=== PATIENT | female | born 1945 | race Caucasian/White ===

== ENCOUNTER → 2017-01-11 | Outpatient (CLI) | payer OTHER ==
[~2017-01-11] MED LIST: ACET-1256 PO; ADVIN10/60 INH; ASPEC325 PO; ATOR-22 PO; BIOT1CAP8; CHOL100010 PO; CLTP PO; DILT-115; DSY50 PO; FLUO10CA48 PO; HYDR-3419 PO; ISOS30TA3 PO; LOSA1TAB PO; MELO15TA3 PO; OMEP10CA2 PO; PREG100C PO; SIMV40TA2 PO; TRAM-10 PO
[2017-01-11 14:08] LABS: CHOLESTEROL/HDL RATIO 2.2
== END | disposition home or self-care (01) ==
LOC: C.LAB1850 10:13
PROVIDERS: ATTEND Internal Medicine Cardiovascular Disease
DX: I10 Essential (primary) hypertension (principal); E78.00 Pure hypercholesterolemia, unspecified

== ENCOUNTER → 2017-02-11 | Outpatient (CLI) | payer OTHER ==
[~2017-02-11] MED LIST changes: -DSY50 PO
[2017-02-11 17:10] LABS: BLOOD UREA NITROGEN 13 mg/dl (7-18); BUN/CREATININE RATIO 19.9 (10-20); CALCIUM 9.3 mg/dl (8.5-10.1); CARBON DIOXIDE 31 mmol/L (21-32); CHLORIDE 105 mmol/L (98-107); CREATININE 0.63 mg/dl (0.60-1.20); GLUCOSE 85 mg/dl (70-99); POTASSIUM 3.5 mmol/L (3.5-5.1); SODIUM 142 mmol/L (136-145)
== END | disposition home or self-care (01) ==
LOC: C.LABBC 14:57
PROVIDERS: ATTEND Internal Medicine Cardiovascular Disease
DX: R60.0 Localized edema (principal)

== ENCOUNTER → 2017-07-23 | Outpatient (CLI) | payer OTHER ==
[~2017-07-23] MED LIST changes: -SIMV40TA2 PO
[2017-07-23 10:15] LABS: ALB/GLOB RATIO 0.8 (0.9-2); ALT/SGPT 13 U/L (12-78); AST/SGOT 13 U/L (15-37); BLOOD UREA NITROGEN 7 mg/dl (7-18); BUN/CREATININE RATIO 10.4 (10-20); CALCIUM 9.2 mg/dl (8.5-10.1); CARBON DIOXIDE 30 mmol/L (21-32); CHLORIDE 106 mmol/L (98-107); CHOLESTEROL 142 mg/dl (0-200); CREATININE 0.69 mg/dl (0.60-1.20); GLUCOSE 92 mg/dl (70-99); MAGNESIUM 2.1 mg/dl (1.8-2.4); SODIUM 142 mmol/L (136-145); TRIGLYCERIDES 79 mg/dl (0-150); VERY LOW DENSITY LIPOPROT CALC 16 mg/dl
[2017-07-23 10:18] LABS: ALKALINE PHOSPHATASE 114 U/L (45-117); CHOLESTEROL/HDL RATIO 1.9; HDL CHOLESTEROL 75 mg/dl; LDL CHOLESTEROL CALCULATED 51 mg/dl
== END | disposition home or self-care (01) ==
LOC: C.LAB1850 08:53
PROVIDERS: ATTEND Internal Medicine Cardiovascular Disease
DX: E78.00 Pure hypercholesterolemia, unspecified (principal); I10 Essential (primary) hypertension; I25.10 Atherosclerotic heart disease of native coronary artery without angina pectoris; E55.9 Vitamin D deficiency, unspecified

== ENCOUNTER → 2018-01-19 | Outpatient (CLI) | payer OTHER ==
[~2018-01-19] MED LIST changes: -HYDR-3419 PO
== END | disposition home or self-care (01) ==
LOC: C.LAB1850 12:22
PROVIDERS: ATTEND Internal Medicine Cardiovascular Disease
DX: E78.00 Pure hypercholesterolemia, unspecified (principal); M85.80 Other specified disorders of bone density and structure, unspecified site; E55.9 Vitamin D deficiency, unspecified

== ENCOUNTER 2019-07-24 06:43 | Observation (INO) ==
[2019-07-24] MEDS ORDERED: SODIUM CHLORIDE 0.9% 1000ML 500 ML IV ONE (07:20)
--- NOTE | 2019-07-24 07:35 | XRay Report ---
XR ankle RT min 3V routine CLINICAL HISTORY: 74 years-old Female presenting with ankle pain. TECHNIQUE: Frontal, mortise, and lateral views of the right ankle were obtained. COMPARISON: None. FINDINGS: Osteopenia. Surgical clips noted along the medial aspect of the lower leg possibly from prior vascula r surgery. Diffuse subcutaneous edema is suggested. Nondisplaced fracture of the medial malleolus and distal fibular metaphysis suspected. The degree of osteopenia and lack of displacement limited evalu ation. There is also widening of the anterior ankle mortise up to 9 mm. There may also be a nondispla hal fracture plane of the posterior malleolus. The tibiofibular syndesmosis is congruent. Degenerativ e changes of the ankle mortise are also evident. Degenerative changes at the Chopart articulations. A therosclerosis. IMPRESSION: Allowing for osteopenia, suspected trimalleolar fracture with widening of the ankle mortise anteriorl y. Electronically signed by: Conor Little M.D. 07/24/2019 7:34 AM
[2019-07-24 07:44] LABS: Basophils # (auto) 0.01 K/uL (0-0.2); Basophils % (auto) 0.1 %; Eosinophils # (auto) 0.02 K/uL (0-0.5); Eosinophils % (auto) 0.2 %; Hematocrit (blood only) 40.2 % (37-47); Hemoglobin 13.4 g/dL (12.0-16.0); Immature Granulocytes # (auto) 0.01 K/uL (0.00-0.02); Immature Granulocytes % (auto) 0.1 %; Lymphocytes # (auto) 0.88 K/uL (1.2-3.4); Lymphocytes % (auto) 7.6 %; Mean Corpuscular Hgb Conc 33.3 g/dL (32-36); Mean Corpuscular Volume 84.1 fL (80-100); Mean Platelet Volume 9.6 fL (7.4-10.4); Monocytes # (auto) 0.56 K/uL (0.11-0.59); Monocytes % (auto) 4.8 %; Neutrophils % (auto) 87.2 %; Platelet Count 228 K/uL (130-400); RDW Standard Deviation 49.3 fL (36.4-46.3); Red Blood Count 4.78 M/uL (4.2-5.4); White Blood Count 11.58 K/uL (4.8-10.8)
[2019-07-24 08:00] LABS: Albumin Level 3.5 gm/dl (3.4-5.0); BUN Creatinine Ratio 14.5 (10-20); Calcium 9.2 mg/dl (8.5-10.1); Creatinine Clr Calc Pharmacy 93.6 ml/min; Est GFR (Non-African American) 90.6; Potassium 3.2 mmol/L (3.5-5.1)
[2019-07-24 08:04] LABS: Bilirubin,Total 0.8 mg/dl (0.2-1); Creatine Kinase MB 2.6 ng/ml (0.5-3.6); Globulin 3.5 gm/dl (2.5-4.0); Troponin I 0.025 ng/ml (0-0.045)
--- NOTE | 2019-07-24 08:23 | CT Scan Report ---
CT OF THE RIGHT ANKLE WITHOUT CONTRAST CLINICAL HISTORY: Right ankle pain status post fall. COMPARISON STUDY: Right ankle radiographs performed earlier today. TECHNIQUE: Axial images of the right ankle were obtained without IV contrast. Sagittal and coronal re constructions were viewed. FINDINGS: Osteopenia is noted. There is an old distal right fibular fracture. As a site of callus for mation, note is made of an acute nondisplaced distal diaphyseal fracture of the right fibula. There i s also an acute minimally displaced fracture of the posterior distal right tibia with intra-articular extension. At the tibiotalar joint, the fracture is offset x 1.3 mm. An acute nondisplaced fracture of the medial malleolus is noted. There is an acute mildly displaced avulsion fracture of the anterio r lateral aspect of the distal right tibia. No ankle mortise widening is identified by CT. There is s oft tissue edema. No talar or calcaneal fracture is present. Note is made of acute nondisplaced fract ures within the bases of the right first, second and third metatarsals. Alignment of the tarsometatar karina joints is anatomic. IMPRESSION: 1. Acute trimalleolar fracture of the right ankle. Minimally displaced posterior malleolus fracture with intra-articular extension and slight offset at the level of the tibiotalar joint. Acute minimall y displaced avulsion fracture of the anterolateral distal right tibia. 2. Acute nondisplaced fractures within the bases of the right first, second and third metatarsals. Al though anatomic alignment of the tarsometatarsal joints, a Lisfranc injury cannot be excluded by CT. 3. Osteopenia. Electronically signed by: Armaan Miramontes M.D. 07/24/2019 8:22 AM
[2019-07-24] MEDS ORDERED: HYDROmorphone INJ 0.5 MG/0.5 ML SYR IV PRN (08:47)
[2019-07-24] MEDS ORDERED: ACETAMINOPHEN 1,000 MG/100 ML VIAL IV STA (08:47)
--- NOTE | 2019-07-24 09:55 | Emergency Department Note ---
Entered by Christian Peres acting as a scribe for Danilo Hobbs MD History of Present Illness General Chief complaint: Syncope Stated complaint: SYNCOPE/ANKLE INJURY Time Seen by Provider: 07/24/19 07:00 Source: patient History of Present Illness Provider complaint: Syncope Onset (ago): day(s) 1 Location: head Pain Consistency: + constant and + other (Episodic) Maximum Pain Intensity: 3 Current Pain Intensity: 3 Exacerbated By: + movement Associated symptoms: no chest pain and no headaches The patient is a 74 year old female who presents to the Emergency Room after having a syncopal episode yesterday around 14:00. The patient states she syncopized after standing up too fast and reports she felt dizzy just prior to the episode. The patient reports she woke up 2 hours later and was unable to stand back up due to right ankle pain. The patient rates this constant ankle pain as a 3/10 and notes it is worse when she is tries to walk on it. The patient has an extensive cardiac history having had a triple bypass in 2000. She was scheduled to see Dr. Wang today, but canceled her appointment after the fall. The patient denies any head trauma, headaches, or chest pain at this time. Home Medications Home Medications Medication Instructions Recorded Confirmed Type atorvastatin 40 mg PO HS 10/31/18 07/24/19 History cholecalciferol (vitamin D3) 1,000 unit PO [facility] 10/31/18 07/24/19 History [Vitamin D3] docusate sodium [Colace] 100 mg PO DAILY PRN 10/31/18 07/24/19 History fluoxetine 40 mg PO QAM 10/31/18 07/24/19 History losartan 50 mg PO M 10/31/18 07/24/19 History pregabalin 100 mg capsule 100 mg PO BID #60 cap 03/16/19 07/24/19 Rx diltiazem CD 240 mg 240 mg PO DAILY #90 cap 04/04/19 07/24/19 Rx capsule,extended release 24 hr omeprazole 40 mg capsule,delayed 40 mg PO DAILY #90 cap 04/04/19 07/24/19 Rx release tramadol 50 mg tablet 100 mg PO DAILY PRN #60 tab 05/15/19 07/24/19 Rx olmesartan 40 mg tablet 40 mg PO DAILY #90 tab 06/20/19 07/24/19 History meloxicam 15 mg tablet 15 mg PO QAM #90 tab 06/26/19 07/24/19 Rx aspirin 81 mg tablet,delayed 81 mg PO DAILY 07/17/19 07/24/19 History release melatonin 5 mg tablet 10 mg PO HS PRN tab 07/19/19 07/24/19 History turmeric 400 mg capsule 400 mg PO DAILY cap 07/19/19 07/24/19 History isosorbide mononitrate ER 60 mg 60 mg PO DAILY #90 tab 07/20/19 07/24/19 Rx tablet,extended release 24 hr Allergies Allergy/AdvReac Type Severity Reaction Status Date / Time latex Allergy Mild RASH Verified 07/24/19 06:52 tingly morphine AdvReac Intermediate NAUSEA AND Verified 07/24/19 06:52 VOMITING Past Med/Surg History Medical History Asthma CAD (coronary artery disease) Chronic back pain Depression GERD (gastroesophageal reflux disease) Hyperlipidemia Hypertension Myocardial Infarction 1999 AND MEDICAL TREATMENT Osteoarthritis Surgical History Fusion of spine LUMBAR - AND HAS ONE SCREW LOOSE AND NO SURGERY NEEDED. History of cataract surgery LEFT on 11/17/18: was given 2mg versed without apparent complications History of coronary artery bypass graft 1999 - X 3 VESSEL - [facility] FOLLOWS WITH DR WANG History of open reduction and internal fixation (ORIF) procedure RIGHT HIP History of total knee replacement RIGHT AND LEFT Family History Father Myocardial infarction Brother Myocardial infarction Grandmother (Maternal) No problems noted. Grandmother (Paternal) Myocardial infarction Social History Preferred Language: Polish Communication Ability: Effective Visual Impairment: No Limitations Hearing Ability: Normal Obstetric Assistant Required: No Beliefs That Will Affect Care: None marital status: Current Living Situation: Alone current occupational status: retired Feels Safe at Home: Yes Smoking Status: Former smoker Tobacco Type: cigarettes ; Age Quit Using Tobacco: 51 ; packs per day: 2.5 ; Second Hand Exposure: No ; Hx Alcohol Use: Yes Alcohol type: wine Hx Substance Use: No Childhood Exposure to Second-Hand Smoke: Yes Dental Care, Regularly: Yes Physical Activity Frequency: Does not Exercise Seatbelt Use: always Sunscreen Use: Yes Review of Systems See HPI for pertinent positives & negatives. and A total of 10 systems reviewed and were otherwise negative Physical Exam Vital Signs Vital Signs - 24 hr 07/24/19 08:36 07/24/19 10:40 07/24/19 12:00 Pulse Rate - Lying 74 Pulse Rate - Sitting 74 Pulse Rate [Apical] 80 71 Respiratory Rate 16 16 Blood Pressure - Lying 138/78 Blood Pressure - Sitting 139/84 Blood Pressure [Left Arm] 156/90 H 137/74 Blood Pressure Mean [Left Arm] 112 95 Pulse Oximetry 95 94 Oxygen Delivery Method Room Air Room Air 07/24/19 14:00 Pulse Rate - Lying Pulse Rate - Sitting Pulse Rate [Apical] 74 Respiratory Rate 18 Blood Pressure - Lying Blood Pressure - Sitting Blood Pressure [Left Arm] 145/75 H Blood Pressure Mean [Left Arm] 98 Pulse Oximetry 94 Oxygen Delivery Method Room Air GENERAL: Awake, alert, well-appearing, in no distress HENT: Normocephalic, atraumatic. Oropharynx unremarkable. EYES: Normal conjunctiva. Sclera non-icteric. NECK: Supple. No nuchal rigidity. FROM. No masses. RESPIRATORY: Clear to auscultation. No wheezes. No rales. Normal respiratory effort. CARDIAC: Normal rate. Normal rhythm. No murmurs. No rubs. Extremities warm and well perfused. Pulses equal. No JVD. GI: Soft, non-distended. No tenderness to palpation. No rebound or guarding. No masses. RECTAL: Deferred. MUSCULOSKELETAL: Atraumatic. Chest examination reveals no tenderness. The back is symmetrical on inspection without obvious abnormality. There is no CVA tenderness to palpation. No joint edema. LOWER EXTREMITIES: Calves are equal size bilaterally and non-tender. No edema. No discoloration. Tender to the right ankle. NVI distally to bilateral lower extremities. NEURO: Normal sensorium. No sensory or motor deficits noted. Course 0650: Past medical records reviewed. The patient was evaluated in room A10 by the resident Dr. Hoskins, and a complete history and physical examination were performed. I then performed my own assessment of the patient. 0742: I reevaluated the patient and she is resting comfortably in bed. 0845: Dr. Hoskins reassessed the patient and updated her with results. 0908: I spoke to Dr. Smith's PA - Orthopedics, about the patient's case. He said to CT the ankle, splint it and have the patient follow up as an outpatient with Dr. Smith in his office. 0950: Dr. Hoskins reevaluated the patient and updated her with the treatment plan. She agreed with the plan to try for inpatient rehab. 1038: Case management spoke with [facility] who would like a cardiology consult before accepting the patient since she was scheduled to see them today before the fall. I spoke to Dr. Cardenas - Ruiz about the patient's case. He is going to come evaluate her. 1249: I spoke to Dr. Cardenas after he evaluated the patient and he recommends having the patient hospitalized. 1302: I spoke to Dr. Santoyo [facility] Hospitalist about the patient's case. She is going to accept the patient for further evaluation. Consultations Consultation #1: I spoke to Dr. Smith's PA - Orthopedics, about the patient's case. He said to CT the ankle, splint it and have the patient follow up as an outpatient with Dr. Smith in his office. Time: 09:08 Consultation #2: I spoke to Dr. Ronald Melchor about the patient's case. He is going to come evaluate her. Time: 10:38 Consultation #3: I spoke to Dr. Cardenas after he evaluated the patient and he recommends having the patient hospitalized. Time: 12:49 Additional Consultation(s): 1302: I spoke to Dr. Santoyo [facility] Hospitalist about the patient's case. She is going to accept the patient for further evaluation. Administered Medications Atorvastatin Calcium (Lipitor) 40 mg PO HS JOIE Stop: 08/23/19 20:59 Last Admin: 07/24/19 20:39 Dose: 40 mg Documented by: [id number] Pregabalin (Lyrica) 100 mg PO BID JOIE Stop: 08/23/19 20:59 Last Admin: 07/24/19 20:39 Dose: 100 mg Documented by: [id number] Tramadol HCl (Ultram) 100 mg PO DAILY PRN PRN Reason: Pain Stop: 08/23/19 16:03 Last Admin: 07/25/19 07:31 Dose: 100 mg Documented by: [id number] Admin: 07/24/19 20:39 Dose: 100 mg Documented by: [id number] Discontinued Medications Hydromorphone HCl (Dilaudid) 0.5 mg IV Q15M PRN PRN Reason: Pain Stop: 08/07/19 08:46 Last Admin: 07/24/19 09:04 Dose: 0.5 mg Documented by: [id number] Sodium Chloride (Nss 1000ml) 500 mls @ 999 mls/hr IV .Q31M ONE Stop: 07/24/19 07:50 Last Infusion: 07/24/19 08:11 Dose: 0 mls/hr Documented by: [id number] Admin: 07/24/19 07:40 Dose: 999 mls/hr Documented by: [id number] Acetaminophen (Ofirmev) 1,000 mg in 100 mls @ 400 mls/hr IV NOW STA Stop: 07/24/19 09:01 Last Infusion: 07/24/19 09:25 Dose: 0 mls/hr Documented by: [id number] Admin: 07/24/19 09:03 Dose: 400 mls/hr Documented by: [id number] Medical Decision Making Differential Diagnosis Differential diagnosis includes etiologies such as vasovagal event, infection, hypoglycemia, electrolyte abnormalities, cardiac sources, intracerebral event, toxicologic, neurologic, as well as others were entertained. Medical Records Attestation: I reviewed the patient's medical records. Home Medications Current Medication List: was personally reviewed by me Laboratory Data Attestation: I reviewed the patient's lab results. Result diagrams: 07/24/19 07:31 07/24/19 07:31 Lab Results 07/24/19 07/24/19 Range/Units 07:31 07:31 WBC 11.58 H (4.8-10.8) K/uL RBC 4.78 (4.2-5.4) M/uL Hgb 13.4 (12.0-16.0) g/dL Hct 40.2 (37-47) % MCV 84.1 (80-100) fL MCH 28.0 (25-34) pg MCHC 33.3 (32-36) g/dL RDW Std Deviation 49.3 H (36.4-46.3) fL RDW Coeff of Alice 16.0 H (11.5-14.5) % Plt Count 228 (130-400) K/uL MPV 9.6 (7.4-10.4) fL Immature Gran % (Auto) 0.1 % Neut % (Auto) 87.2 % Lymph % (Auto) 7.6 % [place] % (Auto) 4.8 % Eos % (Auto) 0.2 % Baso % (Auto) 0.1 % Immature Gran # (Auto) 0.01 (0.00-0.02) K/uL Neut # (Auto) 10.10 H (1.4-6.5) K/uL Lymph # (Auto) 0.88 L (1.2-3.4) K/uL [place] # (Auto) 0.56 (0.11-0.59) K/uL Eos # (Auto) 0.02 (0-0.5) K/uL Baso # (Auto) 0.01 (0-0.2) K/uL Sodium 140 (136-145) mmol/L Potassium 3.2 L (3.5-5.1) mmol/L Chloride 105 (98-107) mmol/L Carbon Dioxide 26 (21-32) mmol/L Anion Gap 9.0 (3-11) BUN 9 (7-18) mg/dl Creatinine 0.61 (0.6-1.2) mg/dl Est Cr Clr Drug Dosing 93.6 ml/min Est GFR ( Amer) 105.0 Est GFR (Non-Af Amer) 90.6 BUN/Creatinine Ratio 14.5 (10-20) Glucose 114 H (70-99) mg/dl Calcium 9.2 (8.5-10.1) mg/dl Total Bilirubin 0.8 (0.2-1) mg/dl AST 21 (15-37) U/L ALT 17 (12-78) U/L Alkaline Phosphatase 99 (45-117) U/L Total Creatine Kinase 368 H (26-192) U/L CK-MB (CK-2) 2.6 (0.5-3.6) ng/ml CK/CKMB % Calc 0.7 (0-3.0) Troponin I 0.025 (0-0.045) ng/ml Total Protein 7.0 (6.4-8.2) gm/dl Albumin 3.5 (3.4-5.0) gm/dl Globulin 3.5 (2.5-4.0) gm/dl Albumin/Globulin Ratio 1.0 (0.9-2) Imaging Data Radiologist's Impression: Radiology results as stated below per my review and the radiologist's interpretation: XR ankle RT min 3V routine CLINICAL HISTORY: 74 years-old Female presenting with ankle pain. TECHNIQUE: Frontal, mortise, and lateral views of the right ankle were obtained. COMPARISON: None. FINDINGS: Osteopenia. Surgical clips noted along the medial aspect of the lower leg possibly from prior vascular surgery. Diffuse subcutaneous edema is suggested. Nondisplaced fracture of the medial malleolus and distal fibular metaphysis suspected. The degree of osteopenia and lack of displacement limited evaluation. There is also widening of the anterior ankle mortise up to 9 mm. There may also be a nondisplaced fracture plane of the posterior malleolus. The tibiofibular syndesmosis is congruent. Degenerative changes of the ankle mortise are also evident. Degenerative changes at the Chopart articulations. Atherosclerosis. IMPRESSION: Allowing for osteopenia, suspected trimalleolar fracture with widening of the ankle mortise anteriorly. Electronically signed by: Conor Little M.D. 07/24/2019 7:[address] OF THE RIGHT ANKLE WITHOUT CONTRAST CLINICAL HISTORY: Right ankle pain status post fall. COMPARISON STUDY: Right ankle radiographs performed earlier today. TECHNIQUE: Axial images of the right ankle were obtained without IV contrast. Sagittal and coronal reconstructions were viewed. FINDINGS: Osteopenia is noted. There is an old distal right fibular fracture. As a site of callus formation, note is made of an acute nondisplaced distal diaphyseal fracture of the right fibula. There is also an acute minimally displaced fracture of the posterior distal right tibia with intra-articular extension. At the tibiotalar joint, the fracture is offset x 1.3 mm. An acute nondisplaced fracture of the medial malleolus is noted. There is an acute mildly displaced avulsion fracture of the anterior lateral aspect of the distal right tibia. No ankle mortise widening is identified by CT. There is soft tissue edema. No talar or calcaneal fracture is present. Note is made of acute nondisplaced fractures within the bases of the right first, second and third metatarsals. Alignment of the tarsometatarsal joints is anatomic. IMPRESSION: 1. Acute trimalleolar fracture of the right ankle. Minimally displaced posterior malleolus fracture with intra-articular extension and slight offset at the level of the tibiotalar joint. Acute minimally displaced avulsion fracture of the anterolateral distal right tibia. 2. Acute nondisplaced fractures within the bases of the right first, second and third metatarsals. Although anatomic alignment of the tarsometatarsal joints, a Lisfranc injury cannot be excluded by CT. 3. Osteopenia. Electronically signed by: Armaan Miramontes M.D. 07/24/2019 8:22 AM ECG Data Attestation: I personally reviewed and interpreted this ECG as follows: Indication: syncope Rate (beats per minute): 91 Rhythm: sinus rhythm Findings: + other (Old inferior infarct, Normal axis, QTC of 489) and + PVC; no ST depression and no ST elevation Blood Pressure Blood Pressure Findings: Elevated blood pressure Blood Pressure Disposition: Referred to patients primary care provider MDM Narrative This is a 74-year-old female that presents emergency department after a near syncopal episode. She is being evaluated by cardiology. She was also evaluated by orthopedics who put no weightbearing status on the patient's right leg. The patient is able to receive PT OT. She was given Dilaudid for her pain as well as Tylenol. She was placed in an orthopedic glass splint. Cardiology is asking if the patient be admitted to the medicine service. Patient was discussed with the medicine service who agreed to admit the patient. Impression & Plan Syncope, CAD (coronary artery disease), Closed right ankle fracture Discharge Plan Visit Data *Final* Discharge Date/Time: 07/24/19 15:24 Chief Complaint: Syncope Stated Complaint: SYNCOPE/ANKLE INJURY ED Provider: Danilo Hobbs Discharge Problem: Syncope, CAD (coronary artery disease), Closed right ankle fracture Patient Disposition: Admitted As Inpatient Discharge Instructions Interventions: ED Discharge Assessment Last Done: 07/24/19 15:24 The scribe's documentation has been prepared under my direction and personally reviewed by me in its entirety. I confirm that the note above accurately reflects all work, treatment, procedures, and medical decision making performed by me.
--- NOTE | 2019-07-24 12:27 | Orthopedic Consultation ---
Date of Consultation July 24, 2019 Assessment & Plan (1) Closed right ankle fracture: PT/ OT: Non weight bearing Right LE with walker if able. Gait training ADL's Leave splint/ dressings in tact until follow up. Elevate as needed. Follow up with Dr Smith this week, call [phone] for appt. History of Present Illness Reason for Consultation: Ankle fracture History of Present Illness 74 yr old female presented to ER with right ankle trimalleolar fracture. Received a phone call regarding treatment. X rays were reviewed with my self and Dr. Smith. Allergies Allergy/AdvReac Type Severity Reaction Status Date / Time latex Allergy Mild RASH Verified 07/24/19 06:52 tingly morphine AdvReac Intermediate NAUSEA AND Verified 07/24/19 06:52 VOMITING Home Medications Home Medications Medication Instructions Recorded Confirmed Type atorvastatin 40 mg PO HS 10/31/18 07/24/19 History cholecalciferol (vitamin D3) 1,000 unit PO QAM 10/31/18 07/24/19 History [Vitamin D3] docusate sodium [Colace] 100 mg PO DAILY PRN 10/31/18 07/24/19 History fluoxetine 40 mg PO QAM 10/31/18 07/24/19 History losartan 50 mg PO QAM 10/31/18 07/24/19 History pregabalin 100 mg capsule 100 mg PO BID #60 cap 03/16/19 07/24/19 Rx diltiazem CD 240 mg 240 mg PO DAILY #90 cap 04/04/19 07/24/19 Rx capsule,extended release 24 hr omeprazole 40 mg capsule,delayed 40 mg PO DAILY #90 cap 04/04/19 07/24/19 Rx release tramadol 50 mg tablet 100 mg PO DAILY PRN #60 tab 05/15/19 07/24/19 Rx olmesartan 40 mg tablet 40 mg PO DAILY #90 tab 06/20/19 07/24/19 History meloxicam 15 mg tablet 15 mg PO QAM #90 tab 06/26/19 07/24/19 Rx aspirin 81 mg tablet,delayed 81 mg PO DAILY 07/17/19 07/24/19 History release melatonin 5 mg tablet 10 mg PO HS PRN tab 07/19/19 07/24/19 History turmeric 400 mg capsule 400 mg PO DAILY cap 07/19/19 07/24/19 History isosorbide mononitrate ER 60 mg 60 mg PO DAILY #90 tab 07/20/19 07/24/19 Rx tablet,extended release 24 hr Patient History Medical History Asthma CAD (coronary artery disease) Chronic back pain Depression GERD (gastroesophageal reflux disease) Hyperlipidemia Hypertension Myocardial Infarction 1999 AND MEDICAL TREATMENT Osteoarthritis Surgical History Fusion of spine LUMBAR - AND HAS ONE SCREW LOOSE AND NO SURGERY NEEDED. History of cataract surgery LEFT on 11/17/18: was given 2mg versed without apparent complications History of coronary artery bypass graft 2000 - X 3 V[facility]SEL - [facility] FOLLOWS WITH DR THIBODEAUX History of open reduction and internal fixation (ORIF) procedure RIGHT HIP History of total knee replacement RIGHT AND LEFT Family History Father Myocardial infarction Brother Myocardial infarction Grandmother (Maternal) No problems noted. Grandmother (Paternal) Myocardial infarction Social History Preferred Language: Greenlandic Communication Ability: Effective Visual Impairment: No Limitations Hearing Ability: Normal It Architecture Consultant Required: No Beliefs That Will Affect Care: None marital status: Current Living Situation: Alone current occupational status: retired Feels Safe at Home: Yes Smoking Status: Never smoker Tobacco Type: cigarettes ; Age Started Using Tobacco: 14 ; Age Quit Using Tobacco: 51 ; packs per day: 2.5 ; Second Hand Exposure: No ; Hx Alcohol Use: No Hx Substance Use: No Childhood Exposure to Second-Hand Smoke: Yes Dental Care, Regularly: Yes Physical Activity Frequency: Does not Exercise Seatbelt Use: always Sunscreen Use: Yes Results & Data Vital Signs (Past 12 Hours) Vital Signs Temp Pulse Pulse Resp BP BP Pulse Ox 07/24/19 12:00 71 16 137/74 94 07/24/19 08:36 80 16 156/90 H 95 07/24/19 07:25 95 07/24/19 06:58 95 07/24/19 06:52 37 C 92 H 18 181/81 H 95
--- NOTE | 2019-07-24 13:06 | Cardiology Consultation ---
Date of Consultation July 24, 2019 Assessment & Plan (1) LOC (loss of consciousness): She clearly describes loss of consciousness which is of uncertain duration, it may have been quite brief or perhaps longer but she clearly does not remember falling or hitting the floor. This is consistent with having full loss of consciousness for at least some period of time. She then was unable to get up (which may have been due to musculoskeletal difficulties although I cannot be sure) and remained on the floor overnight. The initial event could have been an arrhythmia, it could also have been due to transient hypotension although she is not orthostatic in the emergency room and her blood pressure was elevated in the ambulance. It was possibly a vagal event although it occurred with getting up from the toilet by her recollection. Given her history of coronary artery disease, her increased ectopy on her initial electrocardiogram here and her reporting to have atrial fibrillation by the ambulance (although I cannot confirm that) I do not think she should go home and I think she should be monitored for at least a day or 2 and we should get an echocardiogram to make sure she does not develop left ventricular dysfunction. (2) CAD (coronary artery disease): She has a history of coronary disease with bypass surgery, she has not had a ischemia identified but she has not been tested lately. She does not have symptoms to suggest angina. She may have new anterior T wave inversions however, her last electrocardiogram 10 years ago (which I cannot review at the moment) is reported to not show this. I would draw serial cardiac enzymes al though it seems unlikely this is an ischemic event since it happened long enough ago that we should have had abnormalities already if it was an ischemic event. History of Present Illness Reason for Consultation: LOC History of Present Illness 3This is a 74-year-old woman who has a history of hypertension, hypercholesterolemia and coronary artery disease. She tells me she had a myocardial infarction in the past and then required bypass surgery which was done in October 2000. Prior to her bypass surgery she describes chest discomfort which she has not had since. She had been in her usual state of health which includes a lot of difficulty with ambulation due to back and leg problems until July 23, 2019. She notes that she had chills that day, followed by sweating (suggesting a fever which then broke) and she also notes that she had a flu shot that week. She then went to the bathroom on the afternoon of July 23, 2019 where she had diarrhea and then when she stood up she saw spots in front of her eyes and then does not remember anything else until waking up on the floor. She does not recall hitting the floor, she does not recall falling. She was then unable to get up although she was able to crawl out of the bathroom into the living room but could not make it up to a sofa. She therefore laid on the floor overnight and eventually was brought into the emergency room. She tells me that in the ambulance she was told that she was in atrial fibrilla tion, she has no history of this, and I do not see record of it but I do not have the rescue information. She has had one prior episode of a similar nature which occurred about 10 years ago when she was in the hospital, was to undergo rehab and she did not feel quite up to it and apparently she was physically lifted up, this had the same experience with spots and then loss of consciousness. She has had no other episodes of syncope or presyncope. She does not get palpitations, she does not have exertional chest discomfort. She does note that she has frequent difficulty with edema, right more than left, necessitating keeping her legs up during the day. This is been going on since her bypass surgery. I do not see a recent echocardiogram, she had one in 2003 which showed normal left ventricular function with mild mitral regurgitation. She did have a pharmacologic nuclear stress test in 2008 which showed a fixed defect in the basal inferior, mid inferior and apical inferior regions with an ejection fraction of 55%. Since arrival in the emergency room she has had no further lightheadedness or dizziness, orthostatic vital signs were done in the supine and sitting position with no change. Her initial electrocardiogram shows frequent atrial and ventricular ectopy and irregular rhythm but not atrial fibrillation, on telemetry she has frequent premature beats but no significant abnormality. One troponin measurement is negative. Her white count is somewhat elevated. Allergies Allergy/AdvReac Type Severity Reaction Status Date / Time latex Allergy Mild RASH Verified 07/24/19 06:52 tingly morphine AdvReac Intermediate NAUSEA AND Verified 07/24/19 06:52 VOMITING Home Medications Home Medications Medication Instructions Recorded Confirmed Type atorvastatin 40 mg PO HS 10/31/18 07/24/19 History cholecalciferol (vitamin D3) 1,000 unit PO QAM 10/31/18 07/24/19 History [Vitamin D3] docusate sodium [Colace] 100 mg PO DAILY PRN 10/31/18 07/24/19 History fluoxetine 40 mg PO QAM 10/31/18 07/24/19 History losartan 50 mg PO QAM 10/31/18 07/24/19 History pregabalin 100 mg capsule 100 mg PO BID #60 cap 03/16/19 07/24/19 Rx diltiazem CD 240 mg 240 mg PO DAILY #90 cap 04/04/19 07/24/19 Rx capsule,extended release 24 hr omeprazole 40 mg capsule,delayed 40 mg PO DAILY #90 cap 04/04/19 07/24/19 Rx release tramadol 50 mg tablet 100 mg PO DAILY PRN #60 tab 05/15/19 07/24/19 Rx olmesartan 40 mg tablet 40 mg PO DAILY #90 tab 06/20/19 07/24/19 History meloxicam 15 mg tablet 15 mg PO QAM #90 tab 06/26/19 07/24/19 Rx aspirin 81 mg tablet,delayed 81 mg PO DAILY 07/17/19 07/24/19 History release melatonin 5 mg tablet 10 mg PO HS PRN tab 07/19/19 07/24/19 History turmeric 400 mg capsule 400 mg PO DAILY cap 07/19/19 07/24/19 History isosorbide mononitrate ER 60 mg 60 mg PO DAILY #90 tab 07/20/19 07/24/19 Rx tablet,extended release 24 hr Patient History Medical History Asthma CAD (coronary artery disease) Chronic back pain Depression GERD (gastroesophageal reflux disease) Hyperlipidemia Hypertension Myocardial Infarction 1999 AND MEDICAL TREATMENT Osteoarthritis Surgical History Fusion of spine LUMBAR - AND HAS ONE SCREW LOOSE AND NO SURGERY NEEDED. History of cataract surgery LEFT on 11/17/18: was given 2mg versed without apparent complications History of coronary artery bypass graft 1999 - X 3 VESSEL - [facility] FOLLOWS WITH DR THIBODEAUX History of open reduction and internal fixation (ORIF) procedure RIGHT HIP History of total knee replacement RIGHT AND LEFT Family History Father Myocardial infarction Brother Myocardial infarction Grandmother (Maternal) No problems noted. 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 Beliefs That Will Affect Care: None marital status: Current Living Situation: Alone current occupational status: retired Feels Safe at Home: Yes Smoking Status: Never smoker Tobacco Type: cigarettes ; Age Started Using Tobacco: 14 ; Age Quit Using Tobacco: 51 ; packs per day: 2.5 ; Second Hand Exposure: No ; Hx Alcohol Use: No Hx Substance Use: No Childhood Exposure to Second-Hand Smoke: Yes Dental Care, Regularly: Yes Physical Activity Frequency: Does not Exercise Seatbelt Use: always Sunscreen Use: Yes Review of Systems Review of Systems: All systems reviewed & are unremarkable except as noted in HPI & below Physical Exam Physical Exam: Constitutional: Alert, cooperative and in no distress. She is supine in her bed. HEENT: Unremarkable Neck: No jugular venous distention, carotid pulses are normal and equal bilater ally without bruits. Pulmonary: Clear to auscultation bilaterally. Cardiac: Regular rhythm with no murmur, gallop or rub. Abdomen: Soft, nontender with normal bowel sounds. Extremities: +1 pretibial edema on the left, the right is in a bandage/splint. Neurologic: No focal findings. Gait could not be tested. Skin: No rash, ecchymoses or petechiae. Results & Data Vital Signs (Past 12 Hours) Vital Signs Temp Pulse Pulse Resp BP BP Pulse Ox 07/24/19 12:00 71 16 137/74 94 07/24/19 08:36 80 16 156/90 H 95 07/24/19 07:25 95 07/24/19 06:58 95 07/24/19 06:52 37 C 92 H 18 181/81 H 95 Laboratory Results Abnormal lab results 07/24/19 07/24/19 Range/Units 07:31 07:31 WBC 11.58 H (4.8-10.8) K/uL RDW Std Deviation 49.3 H (36.4-46.3) fL RDW Coeff of Alice 16.0 H (11.5-14.5) % Neut # (Auto) 10.10 H (1.4-6.5) K/uL Lymph # (Auto) 0.88 L (1.2-3.4) K/uL Potassium 3.2 L (3.5-5.1) mmol/L Glucose 114 H (70-99) mg/dl Total Creatine Kinase 368 H (26-192) U/L Diagnostic Findings Her electrocardiogram on arrival July 24, 2019 at 6:43 AM shows sinus rhythm with frequent premature atrial beats and occasional premature ventricular beats. She does have an old inferior myocardial infarction and she has anterior ST-T abnormalities. Her QRS duration is somewhat wide at about 110 ms and a non specific pattern. I do not see her prior electrocardiogram, the interpretation suggests that the anterior T wave inversions are new compared to 2009. PG Care Time/CCT Total # of Minutes Spent Total Time Spent with Patient: Total time spent is greater than 50% in coordination of care (as documented) at patient's floor/unit and/or counseling patient:
--- NOTE | 2019-07-24 15:03 | History & Physical Report ---
Date of Service July 24, 2019 Assessment & Plan (1) Pre-syncope: ECHO pending ?? Afib en route to [facility], no hx of prior Cardiology c/s pending Trop neg x1 EKG in ED was NSR with PVCs (2) Closed right ankle fracture: No plans for OR Addressed by Ortho in the ED Request outpt f/u with Dr. 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 Pt states she was having a usual day for herself yesterday until she was attempting to get up from the toilet and had a near syncopal episode. She states that she did not pass out, but "things got black and starry". She fell at that time and could not get up due to R ankle pain. She was on the floor for about 12 hours. Pt states she had a similar episode many years ago when she was admitted post-op, but none since. She states she had a bit of diarrhea and chills s/p a flu shot last week, but otherwise no new concerns. Pt denies fever, SOB, chest pain, abd pain, n/v, LE swelling. R ankle pain is better s/p pain meds in the ED. Per ED physician, EMT reported that pt had afib on their monitor en route to [facility], however they did not leave any rhythm strips or EKG. Pt has no prior hx of afib. ED was working on placement at [facility], however they cannot take her until she has a cardiac eval. Pt was seen by ortho in the ED. No plans for OR. Allergies Allergy/AdvReac Type Severity Reaction Status Date / Time latex Allergy Mild RASH Verified 07/24/19 06:52 tingly morphine AdvReac Intermediate NAUSEA AND Verified 07/24/19 06:52 VOMITING Home Medications Home Medications Medication Instructions Recorded Confirmed Type atorvastatin 40 mg PO HS 10/31/18 07/24/19 History cholecalciferol (vitamin D3) 1,000 unit PO QAM 10/31/18 07/24/19 History [Vitamin D3] docusate sodium [Colace] 100 mg PO DAILY PRN 10/31/18 07/24/19 History fluoxetine 40 mg PO QAM 10/31/18 07/24/19 History losartan 50 mg PO QAM 10/31/18 07/24/19 History pregabalin 100 mg capsule 100 mg PO BID #60 cap 03/16/19 07/24/19 Rx diltiazem CD 240 mg 240 mg PO DAILY #90 cap 04/04/19 07/24/19 Rx capsule,extended release 24 hr omeprazole 40 mg capsule,delayed 40 mg PO DAILY #90 cap 04/04/19 07/24/19 Rx release tramadol 50 mg tablet 100 mg PO DAILY PRN #60 tab 05/15/19 07/24/19 Rx olmesartan 40 mg tablet 40 mg PO DAILY #90 tab 06/20/19 07/24/19 History meloxicam 15 mg tablet 15 mg PO QAM #90 tab 06/26/19 07/24/19 Rx aspirin 81 mg tablet,delayed 81 mg PO DAILY 07/17/19 07/24/19 History release melatonin 5 mg tablet 10 mg PO HS PRN tab 07/19/19 07/24/19 History turmeric 400 mg capsule 400 mg PO DAILY cap 07/19/19 07/24/19 History isosorbide mononitrate ER 60 mg 60 mg PO DAILY #90 tab 07/20/19 07/24/19 Rx tablet,extended release 24 hr Past Med/Surg History Medical History Asthma CAD (coronary artery disease) Chronic back pain Depression GERD (gastroesophageal reflux disease) Hyperlipidemia Hypertension Myocardial Infarction 1999 AND MEDICAL TREATMENT Osteoarthritis Surgical History Fusion of spine LUMBAR - AND HAS ONE SCREW LOOSE AND NO SURGERY NEEDED. History of cataract surgery LEFT on 11/17/18: was given 2mg versed without apparent complications History of coronary artery bypass graft 2000 - X 3 VESSEL - [facility] FOLLOWS WITH DR THIBODEAUX History of open reduction and internal fixation (ORIF) procedure RIGHT HIP History of total knee replacement RIGHT AND LEFT Family History Father Myocardial infarction Brother Myocardial infarction Grandmother (Maternal) No problems noted. 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 Beliefs That Will Affect Care: None marital status: Current Living Situation: Alone current occupational status: retired Feels Safe at Home: Yes Smoking Status: Former smoker Tobacco Type: cigarettes ; Age Quit Using Tob acco: 51 ; packs per day: 2.5 ; Second Hand Exposure: No ; Hx Alcohol Use: No Hx Substance Use: No Childhood Exposure to Second-Hand Smoke: Yes Dental Care, Regularly: Yes Physical Activity Frequency: Does not Exercise Seatbelt Use: always Sunscreen Use: Yes Review of Systems Review of Systems: Pertinent positives and negatives reviewed in HPI--all others negative Physical Exam Constitutional: WD/WN, vitals as above Eyes: normal visual leal by confrontation and + anicteric sclerae Neck: normal visual inspection and trachea midline Respiratory: normal respiratory effort, lungs clear to auscultation Cardiovascular: Rate/Rhythm: regular rate and regular rhythm Gastrointestinal (Abdomen): Inspection/Auscultation: abdomen not distended Percussion/Palpation: abdomen soft; abdomen nontender Musculoskeletal: Head/Neck/Chest: normocephalic and head atraumatic negative for edema, peripheral pulses intact Skin: no rashes, warm and dry Neurologic: awake; not confused Speech / Cognition: normal speech Psychiatric: A+Ox3, euthymic affect Results & Data Vital Signs (Past 12 Hours) Vital Signs Temp Pulse Pulse Resp BP BP Pulse Ox 07/24/19 14:00 74 18 145/75 H 94 07/24/19 12:00 71 16 137/74 94 07/24/19 08:36 80 16 156/90 H 95 07/24/19 07:25 95 07/24/19 06:58 95 07/24/19 06:52 37 C 92 H 18 181/81 H 95 Diagnostic Findings R LE XR and CT: trimalleolar fracture ECG Rhythm: normal sinus Findings: + PVC Code Status & VTE Plan Code Status DNR/DNI VTE Prophylaxis Plan VTE Prophylaxis will be ordered: Yes PG Care Time/CCT Total # of Minutes Spent Total Time Spent with Patient: Total time spent is greater than 50% in coordination of care (as documented) at patient's floor/unit and/or counseling patient:
[2019-07-24 15:56] LABS: Appearance Urine Clear (Clear); Bilirubin Urine Negative (Negative); Blood Urine Trace (Negative); Color Urine Yellow; Epithelial Cell Urine Auto 20-30 /lpf (0-5); Glucose Urine UA Negative (Negative); Ketones Urine 2+ (Negative); Leukocyte Esterase Urine 3+ (Negative); Nitrite Urine Negative (Negative); Protein Urine Trace (Negative); RBC Urine Automated 0-4 /hpf (0-4); Specific Gravity Urine 1.016 (1.000-1.030); Urobilinogen Urine Negative (Negative); WBC Urine Automated >30 /hpf (0-5); pH Urine 6.5 (4.5-7.5)
[2019-07-24] MEDS ORDERED: MAGNESIUM HYDROXIDE SUSP 30 ML UDC PO PRN (16:04)
[2019-07-24] MEDS ORDERED: ONDANSETRON INJ 2 MG/ML 2 ML VIAL IV PRN (16:04)
[2019-07-24] MEDS ORDERED: MoRPHine SULFATE 2 MG/ML CARP IV PRN (16:04)
[2019-07-24] MEDS ORDERED: ACETAMINOPHEN 325 MG TAB PO PRN (16:04)
[2019-07-24] MEDS ORDERED: DOCUSATE SODIUM 100 MG CAP PO PRN (16:04)
[2019-07-24] MEDS ORDERED: IBUPROFEN 200 MG TAB PO PRN (16:04)
[2019-07-24 16:07] LABS: Bacteria Urine Automated 1+ (Negative)
--- NOTE | 2019-07-24 17:14 | XRay Report ---
RIGHT FOOT 2 VIEWS CLINICAL HISTORY: Fall with right foot injury. Clinical concern for Lisfranc injury. FINDINGS: AP and lateral views of the right foot are correlated with CT scan of the right ankle perfo rmed the same day 07/24/2019. The examination is performed through a cast, obscuring fine bony detail . The skeletal structures are heterogeneously osteopenic. Known ankle joint fractures are not well vi sualized. Degenerative change is seen at the tibiotalar articulation. There is no radiographic eviden ce of acute fracture involving the right foot. There is no offset at the second tarsometatarsal artic ulation to suggest Lisfranc injury. Moderate osteoarthritic change is seen at the first metatarsophal angeal joint. Arthritic change is also seen throughout the midfoot. There is degenerative spurring al aftab the dorsal aspect of the tarsal bones. Diffuse soft tissue edema is present throughout the foot. IMPRESSION: 1. Diffuse soft tissue edema with no radiographic evidence of right foot fracture. 2. Specifically, there is no radiographic evidence of Lisfranc injury as clinically queried. 3. Known ankle joint fractures are not well visualized. 4. Degenerative change as above. Electronically signed by: Gus Yang M.D. 07/24/2019 5:13 PM
[2019-07-24] MEDS: PREGABALIN 100 MG CAP PO SCH (20:39)
[2019-07-24] MEDS: TRAMADOL HCL 50 MG TABLET PO PRN (20:39)
[2019-07-24] MEDS ORDERED: ATORVASTATIN 40 MG TAB PO SCH (21:00)
[2019-07-25] MEDS: TRAMADOL HCL 50 MG TABLET PO PRN (07:31)
[2019-07-25] MEDS ORDERED: OPTIRAY 320 125ml IV PRN (08:45)
[2019-07-25] MEDS ORDERED: MELOXICAM 7.5 MG TAB PO SCH (09:00)
[2019-07-25] MEDS ORDERED: PANTOprazole 40 MG TAB PO SCH (09:00)
[2019-07-25] MEDS ORDERED: LOSARTAN POTASSIUM 50 MG TAB PO SCH (09:00)
[2019-07-25] MEDS ORDERED: FLUOXETINE HCL 20 MG CAP PO SCH (09:00)
[2019-07-25] MEDS ORDERED: CHOLECALCIFEROL 1,000 UNITS TAB PO SCH (09:00)
[2019-07-25] MEDS ORDERED: OLMESARTAN MEDOXOMIL 40 MG TAB PO SCH (09:00)
[2019-07-25] MEDS ORDERED: dilTIAZem HCL 240 MG CAPCR PO SCH (09:00)
[2019-07-25] MEDS ORDERED: NON-FORMULARY MEDICATION (Turmeric 400 MG) PO SCH (09:00)
[2019-07-25] MEDS ORDERED: ASPIRIN 81 MG ECTAB PO SCH (09:00)
[2019-07-25] MEDS ORDERED: ISOSORBIDE MONO EXTENDED REL 60 MG TABCR PO SCH (09:00)
--- NOTE | 2019-07-25 09:02 | CT Scan Report ---
CT angio chest PE protocol CT DOSE: 548.36 mGy.cm HISTORY: Chest pain. Dyspnea. PE TECHNIQUE: Multiaxial CT images of the chest were performed following the intravenous administration of contrast to evaluate the pulmonary arteries. Maximal intensity projection images were also obtaine d. A dose lowering technique was utilized adhering to the principles of ALARA. COMPARISON STUDY: None. FINDINGS: There is a normal caliber thoracic aorta with no evidence for dissection. There is no evide nce for pulmonary embolus. No pleural effusions. No pneumothorax. The liver and spleen are unremarkab le. No mediastinal or hilar lymphadenopathy. The central airways are patent. The lungs are clear. 4 m m nodular density left lung base as well as peripheral aspect right mid lung. IMPRESSION: 1. No evidence for pulmonary embolus. 2. Lungs are clear. 3. Bilateral 4 mm nodules for follow-up per Fleischner criteria. Please refer to below summary of Fleischner criteria recommendations for follow-up of incidental CT n odules (Paulo Vines, Guidelines for management of small pulmonary nodules detected on CT scans: A sta tement from the Fleischner Society, Radiology 237: [phone].) SOLID NODULES Solitary nodule size: <6 mm * low risk patients: no follow-up needed * high risk patients: optional CT at 12 months Solitary nodule size: 6-8 mm * low risk patients: follow-up at 6-12 months, then consider further follow-up at 18-24 months * high risk patients: initial follow-up CT at 6-12 months and then at 18-24 months if no change Solitary nodule size: >8 mm * either low or high risk patients - consider follow-up CT at 3 months, and/or CT-PET, and/or biopsy Multiple nodules size: <6 mm * low risk patients: no routine follow-up * high risk patients: optional CT at 12 months Multiple nodules size: 6-8 mm * low risk patients: follow-up at 3-6 months, then consider further follow-up at 18-24 months * high risk patients: follow-up at 3-6 months, then at 18-24 months if no change Multiple nodules size: >8 mm * low risk patients: follow-up at 3-6 months, then consider further follow-up at 18-24 months * high risk patients: follow-up at 3-6 months, then at 18-24 months if no change Note: newly detected indeterminate nodule in persons 35 years of age or older. * low risk patients: minimal or absent history of smoking and/or other known risk factors * high risk patients: history of smoking or of other known risk factors (e.g. first degree relative with lung cancer, or exposure to asbestos, radon, uranium) * if a nodule up to 8 mm is partly solid or is ground glass further follow-up is required after 24 m onths to exclude possible slow growing adenocarcinoma (QUINN) SUBSOLID NODULES Solitary pure ground-glass nodule * nodule size <6 mm - no CT follow-up required * nodule size >=6 mm - follow-up CT at 6-12 months, then every 2 years until 5 years Solitary part-solid nodule * nodule size <6 mm - no CT follow-up required * nodule size >=6 mm - follow-up CT at 3-6 months. If unchanged, and solid component remains <6 mm, then annual follow-up for 5 years Multiple subsolid nodules * nodule size <6 mm - follow-up CT at 3-6 months, consider further follow-up at 2 and 4 years if sta ble * nodule size >=6 mm - follow-up CT at 3-6 months, subsequent management based on the most suspiciou s nodule(s) The above report was generated using voice recognition software. It may contain grammatical, syntax or spelling errors. Electronically signed by: Oliverio Morrison M.D. 07/25/2019 9:00 AM
--- NOTE | 2019-07-25 09:29 | Medical Student H&P ---
Date of Service July 25, 2019 Assessment & Plan (1) Syncope: The patient's description of the syncopal episode and her history of a concurrent diarrheal illness makes orthostatic hypotension secondary to dehydration the most likely cause. -echocardiogram: no evidence of aortic stenosis -telemetry: no atrial fibrillation or other arrhythmias observed -cardiology consulted, does not think further follow up during inpatient stay is necessary -recommend discharge and follow up with PCP Syncope type: unspecified Qualified Code(s): R55 - Syncope and collapse Present on Admission?: Yes (2) Closed right ankle fracture: Right trimalleolar fracture and fractures at the base of the 1st-3rd metatarsals identified by lower extremity CT. -foot X-ray; no right foot fracture or Lisfranc injury -consulted by orthopedics, surgery will not be pursued -saw OT this morning and with continue rehabilitation with [facility] Encounter type: initial encounter Qualified Code(s): S82.891A - Other fracture of right lower leg, initial encounter for closed fracture (3) CAD (coronary artery disease): CAD with a previous ND and triple bypass in 1999. -Troponin normal at time of presentation -Continue outpatient medications and routine cardiology appointments Associated angina: angina presence unspecified Coronary Disease- Associated Artery/Lesion type: unspecified vessel or lesion type [place] vs. transplanted heart: [place] heart Qualified Code(s): I25.10 - Atherosclerotic heart disease of [place] coronary artery without angina pectoris Present on Admission?: Yes History of Present Illness Chief Complaint: Syncope Primary Care Provider: Jose Loaiza III, CRNP Petrona is a 74-year-old female who presented to [facility] ED on 07/24 following a syncopal episode. Prior to her fall, she states that she had a diarrheal illness with fever and chills for the previous few days. She denied any N/V, bloody diarrhea, cough, or dyspnea during her illness. At the time of the fall, Petrona states that she was standing up from her toilet when she suddenly became very dizzy and lightheaded. She states that the last thing that she remembers is seeing black spots. She denies any tongue biting, abnormal movements, or incontinence at the time of the fall. She also denies any straining at the time of the fall or a history of straining-induced pre-syncope. She states that she lost consciousness and woke up on the floor after an unknown period of time. However, she does not think that she was unconscious for very long. At the time of regained consciousness, Petrona denies any post-ictal state. She states that her ankle was throbbing and she was unable to stand. She states that she thinks her right foot became caught under her other foot when she fell but she is unsure. She tried to crawl to both her land line and her cell phone, but neither of them were functional/charged at the time. She states that she laid on the floor for a day and a half before she was able to roll to her phone supervisor tile and mottle, charge her cell phone, and call 911. EMS then arrived and took her to [facility]. There is mention of Petrona being in A-Fib during her ambulance ride, but Petrona denies any history of palpitations or A-Fib. Petrona endorses one previous episode of syncope, which occurred several years ago when she had a hip fracture. She states that a health animal care provider tried to help her stand and she thinks the pain caused her to pass out. However, she is unsure if the previous episode was orthostatic in nature as well and not pain- driven. Regarding her recent syncopal episode, Petrona states that ankle injury occurred as a result of her losing consciousness. At this time, Petrona denies any chest pain, palpitations, dyspnea, cough, abdominal pain, diarrhea, fever, dizziness, or lightheadedness. She states that her ankle is very sore and swollen, but she notes that her OT session went well this morning. Allergies Allergy/AdvReac Type Severity Reaction Status Date / Time latex Allergy Mild RASH Verified 07/24/19 06:52 tingly morphine AdvReac Intermediate NAUSEA AND Verified 07/24/19 06:52 VOMITING Home Medications Home Medications Medication Instructions Recorded Confirmed Type atorvastatin 40 mg PO HS 10/31/18 07/24/19 History cholecalciferol (vitamin D3) 1,000 unit PO QAM 10/31/18 07/24/19 History [Vitamin D3] docusate sodium [Colace] 100 mg PO DAILY PRN 10/31/18 07/24/19 History fluoxetine 40 mg PO QAM 10/31/18 07/24/19 History losartan 50 mg PO QAM 10/31/18 07/24/19 History pregabalin 100 mg capsule 100 mg PO BID #60 cap 03/16/19 07/24/19 Rx diltiazem CD 240 mg 240 mg PO DAILY #90 cap 04/04/19 07/24/19 Rx capsule,extended release 24 hr omeprazole 40 mg capsule,delayed 40 mg PO DAILY #90 cap 04/04/19 07/24/19 Rx release tramadol 50 mg tablet 100 mg PO DAILY PRN #60 tab 05/15/19 07/24/19 Rx meloxicam 15 mg tablet 15 mg PO QAM #90 tab 06/26/19 07/24/19 Rx aspirin 81 mg tablet,delayed 81 mg PO DAILY 07/17/19 07/24/19 History release melatonin 5 mg tablet 10 mg PO HS PRN tab 07/19/19 07/24/19 History turmeric 400 mg capsule 400 mg PO DAILY cap 07/19/19 07/24/19 History isosorbide mononitrate ER 60 mg 60 mg PO DAILY #90 tab 07/20/19 07/24/19 Rx tablet,extended release 24 hr Past Med/Surg History Medical History Asthma CAD (coronary artery disease) Chronic back pain Depression GERD (gastroesophageal reflux disease) Hyperlipidemia Hypertension Myocardial Infarction 1999 AND MEDICAL TREATMENT Osteoarthritis Surgical History Fusion of spine LUMBAR - AND HAS ONE SCREW LOOSE AND NO SURGERY NEEDED. History of cataract surgery LEFT on 11/17/18: was given 2mg versed without apparent complications History of coronary artery bypass graft 1999 - X 3 VESSEL - [facility] FOLLOWS WITH DR THIBODEAUX History of open reduction and internal fixation (ORIF) procedure RIGHT HIP History of total knee replacement RIGHT AND LEFT Family History Father Myocardial infarction Brother Myocardial infarction Grandmother (Maternal) No problems noted. Grandmother (Paternal) Myocardial infarction Social History Preferred Language: Malian Communication Ability: Effective Visual Impairment: No Limitations Hearing Ability: Normal Rail Loader Required: No Beliefs That Will Affect Care: None marital status: Current Living Situation: Alone current occupational status: retired Feels Safe at Home: Yes Smoking Status: Former smoker (QUIT AT AGE 51) Tobacco Type: cigarettes ; Age Quit Using Tobacco: 51 ; packs per day: 2.5 ; Cigarettes Per Day: 50 ; Second Hand Exposure: No ; Hx Alcohol Use: Yes Alcohol type: wine Hx Substance Use: No Childhood Exposure to Second-Hand Smoke: Yes Dental Care, Regularly: Yes Physical Activity Frequency: Does not Exercise Seatbelt Use: always Sunscreen Use: Yes Review of Systems no fever, no chills, no sweats and no body aches as per Subjective / HPI as per Subjective / HPI as per Subjective / HPI Physical Exam Constitutional: WD/WN, vitals as above no acute distress Respiratory: normal respiratory effort, lungs clear to auscultation Cardiovascular: RRR, no murmur, no edema Heart Sounds: normal S1 and normal S2 Vessels: normal peripheral pulses; no JVD and no carotid bruit Gastrointestinal (Abdomen): normal bowel sounds, soft, nontender, no hepatosplenomegaly Results & Data Vital Signs (Past 12 Hours) Vital Signs Temp Pulse Resp BP Pulse Ox 07/25/19 07:04 36.9 C 78 18 158/90 H 96 07/25/19 03:05 37.2 C 77 18 166/99 H 90 07/24/19 23:18 36.9 C 83 18 163/86 H 94 Laboratory Results Potassium- 3.2 Glucose- 114 CK- 368 Diagnostic Findings Chest CTA- No PE but presence of 4mm nodule Echocardiogram- Normal LV size with low-normal function, mild concentric LV hypertrophy, sclerotic aortic valve without evidence of stenosis, mild mitral regurgitation Right LE CT- Acute trimalleolar fracture of right ankle, non-displaced fractures of 1st-3rd metatarsals Right Foot X-ray- No fracture or evidence of Lisfranc injury Code Status & VTE Plan VTE Prophylaxis Plan VTE Prophylaxis will be ordered: Yes Supervising Attestation Medical student note.
[2019-07-25] MEDS: PREGABALIN 100 MG CAP PO SCH (10:13)
--- NOTE | 2019-07-25 13:04 | Cardiology Progress Note ---
Date of Service July 25, 2019 Assessment & Plan (1) Syncope: Suspect the patient's syncopal event was from orthostatic hypotension. She had been ill leading up to the event, and was likely dehydrated. cogeneration operator benign thus far. No further workup planned at this time. (2) CAD (coronary artery disease): The patient had a three-vessel bypass performed in October 2000. Fortunately, her coronary disease has been quiescent since that time. Troponin at time of presentation here was normal. (3) Benign essential hypertension: Adequate control on current medical regimen. (4) Hypercholesterolemia: Continue atorvastatin. Subjective The patient is resting comfortably in bed without complaints of chest pain, dyspnea, syncope, or presyncope. Events leading up to hospitalization reviewed in detail. She remembers standing up from the toilet and she noticed her vision to become fuzzy and then it went black. Physical Exam Physical Exam: In general this is an obese white female in no acute distress. HEENT exam is negative. Neck reveals normal carotid upstrokes without bruit. No JVD. There is no thyromegaly. Cardiovascular exam reveals a regular rhythm with a normal S1 and S2. No murmurs, S3, or S4 are noted. Chest reveals a well-healed midline scar. Lungs are clear without rales, rhonchi, or wheezes. Abdomen is soft without bruits. Extremities reveal intact radial artery and posterior tibial pulses bilaterally. There is 1+ peripheral edema. Results & Data Vital Signs (Past 12 Hours) Vital Signs Temp Pulse Pulse Resp BP Pulse Ox 07/25/19 11:01 36.7 C 73 18 147/78 H 93 07/25/19 07:30 83 07/25/19 07:04 36.9 C 78 18 158/90 H 96 07/25/19 03:05 37.2 C 77 18 166/99 H 90 Laboratory Results cogeneration operator notes sinus rhythm with occasional PVCs. PG Care Time/CCT Total # of Minutes Spent Total Time Spent with Patient: Total time spent is greater than 50% in coordination of care (as documented) at patient's floor/unit and/or counseling patient: (1) CAD (coronary artery disease) Associated angina: angina presence unspecified Coronary Disease-Associated Artery/Lesion type: unspecified vessel or lesion type [place] vs. transplanted heart: [place] heart Qualified Code(s): I25.10 - Atherosclerotic heart disease of [place] coronary artery without angina pectoris (2) Syncope Syncope type: unspecified Qualified Code(s): R55 - Syncope and collapse
--- NOTE | 2019-08-01 11:38 | Discharge Summary ---
Date of Service July 25, 2019 Admission HPI Per Admitting Provider Petrona is a 74-year-old female who presented to [facility] ED on 07/24 following a syncopal episode. Prior to her fall, she states that she had a diarrheal illness with fever and chills for the previous few days. She denied any N/V, bloody diarrhea, cough, or dyspnea during her illness. At the time of the fall, Petrona states that she was standing up from her toilet when she suddenly became very dizzy and lightheaded. She states that the last thing that she remembers is seeing black spots. She denies any tongue biting, abnormal movements, or incontinence at the time of the fall. She also denies any straining at the time of the fall or a history of straining-induced pre-syncope. She states that she lost consciousness and woke up on the floor after an unknown period of time. However, she does not think that she was unconscious for very long. At the time of regained consciousness, Petrona denies any post-ictal state. She states that her ankle was throbbing and she was unable to stand. She states that she thinks her right foot became caught under her other foot when she fell but she is unsure. She tried to crawl to both her land line and her cell phone, but neither of them were functional/charged at the time. She states that she laid on the floor for a day and a half before she was able to roll to her phone skiver sock linings, charge her cell phone, and call 911. EMS then arrived and took her to [facility]. There is mention of Petrona being in A-Fib during her ambulance ride, but Petrona denies any history of palpitations or A-Fib. Petrona endorses one previous episode of syncope, which occurred several years ago when she had a hip fracture. She states that a health manager primary care tried to help her stand and she thinks the pain caused her to pass out. However, she is unsure if the previous episode was orthostatic in nature as well and not pain- driven. Regarding her recent syncopal episode, Petrona states that ankle injury occurred as a result of her losing consciousness. At this time, Petrona denies any chest pain, palpitations, dyspnea, cough, abdominal pain, diarrhea, fever, dizziness, or lightheadedness. She states that her ankle is very sore and swollen, but she notes that her OT session went well this morning. Principal Diagnosis syncope Discharge Exam Constitutional: WD/WN, vitals as above Eyes: normal visual leal by confrontation and + anicteric sclerae Neck: normal visual inspection and trachea midline Respiratory: normal respiratory effort, lungs clear to auscultation Cardiovascular: Rate/Rhythm: regular rate and regular rhythm Gastrointestinal (Abdomen): Inspection/Auscultation: abdomen not distended Percussion/Palpation: abdomen soft; abdomen nontender Musculoskeletal: Head/Neck/Chest: normocephalic and head atraumatic negative for edema, peripheral pulses intact Skin: no rashes, warm and dry Neurologic: awake; not confused Speech / Cognition: normal speech Psychiatric: A+Ox3, euthymic affect Discharge Data Allergies Allergy/AdvReac Type Severity Reaction Status Date / Time latex Allergy Mild RASH Verified 07/24/19 06:52 tingly morphine AdvReac Intermediate NAUSEA AND Verified 07/24/19 06:52 VOMITING Consultations 07/24/19 09:52 Consult Orthopedic Surgery Stat 07/24/19 10:36 Consult Cardiology Stat 07/24/19 13:03 ED Decision to Admit Stat 07/24/19 16:04 Consult Cardiology Routine Consult Case Management - Discharge Planning Routine 07/25/19 14:55 Consult Lung Nodule Program Routine Ordered Studies 07/24/19 07:44 CT ankle RT wo con Stat 07/24/19 17:36 CT angio chest PE protocol Urgent Hospital Course (1) Syncope: Appreciate input from cardio Suspect the patient's syncopal event was from orthostatic hypotension. She had been ill leading up to the event, and was likely dehydrated. paper box cutter benign thus far. No further workup planned at this time. Patient has improved since admission. (2) Closed right ankle fracture: No plans for OR Addressed by Ortho in the ED Request outpt f/u with Dr. Smith later this week PT/OT pending Will need rehab placement, was accepted by [facility] (3) CAD (coronary artery disease): Hx of [place] 1999 Aspirin 81mg The patient had a three-vessel bypass performed in October 2000. Fortunately, her coronary disease has been quiescent since that time. Troponin at time of presentation here was normal. Total Time Total Time Spent Total Time Spent (In Minutes): 32 Total Time Includes: Examination of the Patient, Discharge Planning and Medication Reconciliation Discharge Plan Discharge Items Patient Disposition: Transfer Inpatient Rehab Fac Reason For Visit: PRE-SYNCOPE Discharge Diagnosis: Ankle fracture Activity: Resume your previous activity Non-emergency contact: Primary Care Provider Call non-emergency contact if: you have any medication questions Follow-up/Referrals: Jose Loaiza III, CRNP [Primary Care Provider] - Diet: Regular Addtl Attending Provider Instructions: Non weight bearing Right LE with walker if able. Gait training ADL's Leave splint/ dressings in tact until follow up. Elevate as needed. Follow up with Dr Smith this week, call [phone] for appt. When swelling is decreased she can go into a short leg nonweightbearing cast. Discussed with patient possibly getting a roller scooter that she may be able to negotiate better than nonweightbearing with a walker perhaps. Pending Studies at Discharge: No Stand-Alone Forms: My [employer] Skilled Items Patient informed of condition?: No DNR: No Discharge Level of Care: Acute rehab Communicable Disease: No Discharge Prognosis: Stable Lines: None Urinary Catheter: No Medications and DC Order Prescriptions: Continued Lyrica 100 mg capsule 100 mg PO BID Qty: 60 RF: 2 diltiazem HCl [Cartia XT] 240 mg capsule,extended release 24hr 240 mg PO DAILY Qty: 90 RF: 1 omeprazole 40 mg capsule,delayed release(DR/EC) 40 mg PO DAILY Qty: 90 RF: 1 tramadol 50 mg tablet 100 mg PO DAILY PRN (Reason: Pain) Qty: 60 RF: 2 meloxicam 15 mg tablet 15 mg PO QAM Qty: 90 RF: 1 isosorbide mononitrate 60 mg tablet extended release 24 hr 60 mg PO DAILY Qty: 90 RF: 1 aspirin [Adult Aspirin Regimen] 81 mg tablet,delayed release (DR/EC) 81 mg PO DAILY RF: 0 turmeric 400 mg capsule 400 mg PO DAILY RF: 0 losartan 50 mg Tablet 50 mg PO QAM RF: 0 fluoxetine 40 mg Capsule 40 mg PO QAM RF: 0 atorvastatin 40 mg Tablet 40 mg PO HS RF: 0 docusate sodium [Colace] 100 mg Capsule 100 mg PO DAILY PRN (Reason: Constipation) RF: 0 cholecalciferol (vitamin D3) [Vitamin D3] 1,000 unit Capsule 1,000 unit PO QAM RF: 0 melatonin 5 mg tablet 10 mg PO HS PRN (Reason: Sleep) RF: 0 Discontinued olmesartan 40 mg tablet 40 mg PO DAILY Qty: 90 RF: 0 Discharge Orders: Discharge Order (Routine); Ordered 07/25/19 Ordered By: Herrera Turcios Admission Data Admit Date/Time: 07/24/19 14:55 Attending Provider: Herrera Turcios Admit Provider: Reba Santoyo Primary Care Provider: Jose Loaiza III Other Providers: [facility] ; Stevan Cardenas ; Damian Smith ; Reba Santoyo Other Interventions: Discharge Summary Assessment (RN) Last Done: 07/25/19 16:00 DC Date/Time DO NOT enter until pt leaves facility: 07/25/19 16:33
--- NOTE | 2019-08-07 09:40 | Coding Query ---
A supporting diagnosis is required for the test/procedure performed on this patient in order for us to be reimbursed by the patient's insurance. Please provide a supporting diagnosis for the following test/procedure listed below next to the test name along with your signature. *If there is no additional diagnosis for this patient that would support the following test/procedure please document that below next to the test/procedure. Test(s)/Procedure(s) that require a supporting diagnosis: PERFLUTREN LIPID MICRO, 2ML DIAGNOSIS: Provider Signature: Date: Thank you Risa Danielle Health Information Management Once completed, please kindly fax back to [phone] For questions please call [phone] CHRIS
== END 2019-07-25 16:33 ==
LOC: 2S 06:43 → ED 06:43 → SUATTDRO 14:55 → 2S 15:24

== ENCOUNTER 2023-12-14 15:03 | Inpatient (IN) ==
--- NOTE | 2023-12-14 15:09 | Emergency Department Note ---
Impression & Plan Rhinovirus infection, CHF (congestive heart failure), Restrictive lung disease ED Provider Note NAME: JOSUÉ PALUMBO AGE: 78 SEX: F : 1945 ARRIVES VIA: Ambulance INFORMANT: Patient ED PROVIDER(S): Duane Dodd MD CHIEF COMPLAINT: Shortness of breath. PLAN: Disposition: Admit MEDICAL DECISION MAKING: The patient is a pleasant 78-year-old woman with a past medical history of restrictive lung disease, history of right-sided heart failure/right ventricular dysfunction with mild pulmonary hypertension who presents to the emergency department via EMS and then coming by family for evaluation of shortness of breath and intermittent confusion in the setting of being seen at [facility] yesterday for similar symptoms discharged back to her facility. The patient was also admitted to [facility] approximately week and a half ago. The patient reports since then she has been having increased shortness of breath with exertion and when lying down. She denies any urinary symptoms. She denies any fevers, nausea, vomiting or diarrhea. She reports that she normally has substantial swelling in her legs and is taking Lasix for this. On arrival to emergency department the patient is afebrile with heart in the 110s and respiratory rate in the 20s and vital signs otherwise stable. She appears hypervolemic with 2+ bilateral lower extremity pitting edema. She has diminished breath sounds of bilateral lower lung leal with intermittent wheeze. O2 saturation is low-mid 90s on room air but with mild increased work of breathing but in no distress. EKG without overt acute ischemia. CXR demonstrates vascular congestion with interstitial thickening suggestive of mild pulmonary edema. WBC within normal limits. H/H similar to recent values from [place]. Platelets within normal limits. Chemistry without metabolic acidosis. Electrolytes and LFTs unremarkable. High-sensitivity troponin 11.1, within normal limits. BNP 358, nonspecific in the setting of history of right ventricular dysfunction without prior for comparison. Respiratory viral panel/[employer] was positive for rhinovirus. Given the patient's progressive symptoms of dyspnea in setting of a rhinovirus infection which likely is provoking worsening of her underlying heart failure patient does agree with plan for admission for further management. She was treated with 80 mg of IV Lasix in addition to DuoNeb and guaifenesin for history of restrictive lung disease. Case was discussed with [facility] hospitalist who will evaluate the patient for admission. This patient was managed with the assistance of resident, Dr. Crockett. I discussed the case with the resident, examined the patient, and confirm the findings and plan as documented in this note. Triage Nursing notes reviewed and agree them. Prior/external medical records reviewed Vital Signs: reviewed Differential diagnosis: Reactive airway disease, pneumonia, pneumothorax, COPD, CHF, infections, cardiac ischemia, pulmonary embolism, musculoskeletal, gastrointestinal, as well as other pathologies. ER treatment provided: See below. Diagnostics interpreted by me: ECG: Sinus tachycardia, 111 bpm, none specific intraventricular conduction delay, no overt ST elevation or depression, QTc 424, QRS 128. Cardiac Monitoring: An order for continuous cardiac monitoring was placed and demonstrated sinus tachycardia, 111 bpm, no ectopy. Laboratory studies: See below Imaging studies: See below Consultation(s): [facility] hospitalist HPI: The patient is a pleasant 78-year-old woman with a past medical history of restrictive lung disease, history of right-sided heart failure/right ventricular dysfunction with mild pulmonary hypertension who presents to the emergency department via EMS and then coming by family for evaluation of shortness of breath and intermittent confusion in the setting of being seen at [facility] yesterday for similar symptoms discharged back to her facility. The patient was also admitted to [facility] approximately week and a half ago. The patient reports since then she has been having increased shortness of breath with exertion and when lying down. She denies any urinary symptoms. She denies any fevers, nausea, vomiting or diarrhea. She reports that she normally has substantial swelling in her legs and is taking Lasix for this. ROS: See above HPI for pertinent positives & negatives. A total of 10 systems reviewed and were otherwise negative. VITALS:See Below PHYSICAL EXAMINATION: GENERAL: Awake, alert, in no distress HENT: Normocephalic, atraumatic. Oropharynx unremarkable. EYES: Normal conjunctiva. Sclera non-icteric. NECK: Supple. No nuchal rigidity. FROM. No JVD. RESPIRATORY: Diminished breath sounds of bilateral lung leal with intermittent wheeze with mild increased work of breathing but in no acute distress. CARDIAC: Tachycardic rate, normal rhythm. Extremities warm and well perfused. Pulses equal. ABDOMEN: Soft, non-distended. No tenderness to palpation. No rebound or guarding. No masses. RECTAL: Deferred. MUSCULOSKELETAL: Chest examination reveals no tenderness. The back is symmetrical on inspection without obvious abnormality. There is no CVA tenderness to palpation. No joint edema. LOWER EXTREMITIES: Calves are equal size bilaterally and non-tender. No edema. No discoloration. NEURO: Normal sensorium. No sensory or motor deficits noted. SKIN: No rash or jaundice noted. Duane Dodd MD Past Med/Surg History Medical History Trimalleolar fracture of right ankle Closed right ankle fracture Actinic skin damage Osteoarthritis Chronic back pain GERD (gastroesophageal reflux disease) Depression CAD (coronary artery disease) Myocardial Infarction 1999 AND MEDICAL TREATMENT Hypertension Hyperlipidemia Asthma Surgical History History of coronary artery bypass graft History of cataract surgery LEFT on 11/17/18: was given 2mg versed without apparent complications History of open reduction and internal fixation (ORIF) procedure RIGHT HIP History of total knee replacement RIGHT AND LEFT Fusion of spine LUMBAR - AND HAS ONE SCREW LOOSE AND NO SURGERY NEEDED. History of coronary artery bypass graft 1999 - X 3 VESSEL - [facility] FOLLOWS WITH DR THIBODEAUX Family History Father Myocardial infarction Prostate cancer Brother Myocardial infarction Grandmother (Paternal) Myocardial infarction Mother Alcoholism Denies family history of Ovarian cancer Breast cancer Colorectal cancer Social History Smoking Status: Former smoker Tobacco Type: Cigarettes Age Quit Using Tobacco: 51; packs per day: 2.5; Cigarettes Per Day: 50; Second Hand Exposure: No; Do You Dip or Chew Tobacco: No; Hx Alcohol Use: No Hx Substance Use: No Preferred Language: Omani Communication Ability: Effective Visual Impairment: No Limitations Hearing Ability: Normal Intensive Care Unit Nurse Required: No Beliefs That Will Affect Care: None marital status: Current Living Situation: Personal Care Facility current occupational status: retired Feels Safe at Home: Yes Childhood Exposure to Second-Hand Smoke: Yes Dental Care, Regularly: Yes Physical Activity Frequency: Does not Exercise Seatbelt Use: always Sunscreen Use: Yes Assistive Devices: Glasses, Walker and Wheelchair Allergies Allergies Allergy/AdvReac Type Severity Reaction Status Date / Time latex Allergy Mild RASH Verified 12/14/23 17:53 tingly morphine AdvReac Intermediate NAUSEA AND Verified 12/14/23 17:53 VOMITING Home Meds Home Medications Medication Instructions Recorded Confirmed melatonin 5 mg tablet 20 mg PO HS Sleep 07/19/19 12/14/23 acetaminophen 325 mg tablet 650 mg PO Q4H PRN PAIN/FEVER 12/14/23 12/14/23 (Tylenol) albuterol sulfate 90 mcg/actuation 2 puff inhalation Q4H PRN 12/14/23 12/14/23 aerosol inhaler Shortness Of Breath Or Wheezing apixaban 5 mg tablet (Eliquis) 5 mg PO BID 12/14/23 12/14/23 aspirin 81 mg chewable tablet 81 mg PO QAM 12/14/23 12/14/23 atorvastatin 10 mg tablet 10 mg PO HS 12/14/23 12/14/23 benzocaine 20 % mucosal gel 1 ea mucous membrane DIRECTED 12/14/23 12/14/23 PRN MOUTH ULCER PAIN calcium carbonate 200 mg calcium 200 mg PO Q4H PRN Dyspepsia 12/14/23 12/14/23 (500 mg) chewable tablet (Calcium Antacid) cholecalciferol (vitamin D3) 50 50 mcg PO QAM 12/14/23 12/14/23 mcg (2,000 unit) capsule (Vitamin D3) ferrous sulfate 325 mg (65 mg 325 mg PO QAM 12/14/23 12/14/23 iron) tablet (FeroSul) fluoxetine 10 mg capsule 10 mg PO QAM 12/14/23 12/14/23 fluoxetine 20 mg capsule 20 mg PO QAM 12/14/23 12/14/23 folic acid 1 mg tablet 1 mg PO QAM 12/14/23 12/14/23 furosemide 40 mg tablet (Lasix) 40 mg PO BID 12/14/23 12/14/23 isosorbide mononitrate 60 mg 60 mg PO QAM 12/14/23 12/14/23 tablet,extended release 24 hr losartan 25 mg tablet 25 mg PO QAM 12/14/23 12/14/23 metoprolol succinate 25 mg 25 mg PO QAM 12/14/23 12/14/23 tablet,extended release 24 hr omeprazole 40 mg capsule,delayed 40 mg PO DAILYBB 12/14/23 12/14/23 release potassium chloride 20 mEq 20 meq PO QAM 12/14/23 12/14/23 tablet,extended release(part/cryst) sennosides 8.6 mg-docusate sodium 1 tab-cap PO HS 12/14/23 12/14/23 50 mg tablet (Stimulant Laxative Plus) tramadol 50 mg tablet 100 mg PO Q6H Pain 12/14/23 12/14/23 Previous Rx's Medication Instructions Recorded hot/cold therapy aids (ThermaCare #1 ea 08/10/19 Cold Wrap Joint pads) pregabalin 100 mg capsule (Lyrica) 100 mg PO BID #180 caps 09/04/19 Results & Data (ED) Vital Signs Vital Signs - 24 hr 12/14/23 15:15 12/14/23 15:17 12/14/23 15:17 Temperature 36.8 C Temperature Source Oral Pulse Rate 111 H 111 H Pulse Rate [Apical] Pulse Rate from SpO2 Sensor 111 H Respiratory Rate 26 H 29 H Respiratory Effort / Characteristics Blood Pressure 119/88 Blood Pressure [Left Arm] Blood Pressure Mean 98 Blood Pressure Mean [Left Arm] Pulse Oximetry 96 96 95 Oxygen Delivery Method Room Air Room Air Room Air Sepsis Recent Fever Within 48 Hours No Sepsis New/Unexplained Change in Mental Status No Sepsis Action Taken by Nursing Previously Notified 12/14/23 15:17 12/14/23 15:17 12/14/23 15:30 Temperature Temperature Source Pulse Rate 111 H Pulse Rate [Apical] 111 H Pulse Rate from SpO2 Sensor 111 H Respiratory Rate 25 H 30 H Respiratory Effort / Characteristics Non-Labored Blood Pressure Blood Pressure [Left Arm] 119/88 Blood Pressure Mean Blood Pressure Mean [Left Arm] 98 Pulse Oximetry 96 96 95 Oxygen Delivery Method Room Air Room Air Room Air Sepsis Recent Fever Within 48 Hours Sepsis New/Unexplained Change in Mental Status Sepsis Action Taken by Nursing 12/14/23 15:33 12/14/23 15:33 12/14/23 16:00 Temperature Temperature Source Pulse Rate 111 H Pulse Rate [Apical] Pulse Rate from SpO2 Sensor 111 H Respiratory Rate 22 Respiratory Effort / Characteristics Blood Pressure 132/87 127/89 Blood Pressure [Left Arm] Blood Pressure Mean 102 95 Blood Pressure Mean [Left Arm] Pulse Oximetry 96 Oxygen Delivery Method Room Air Sepsis Recent Fever Within 48 Hours Sepsis New/Unexplained Change in Mental Status Sepsis Action Taken by Nursing 12/14/23 16:00 12/14/23 16:30 12/14/23 16:31 Temperature Temperature Source Pulse Rate 112 H 110 H Pulse Rate [Apical] Pulse Rate from SpO2 Sensor 112 H 121 H Respiratory Rate 25 H 15 Respiratory Effort / Characteristics Blood Pressure 123/90 Blood Pressure [Left Arm] Blood Pressure Mean 99 Blood Pressure Mean [Left Arm] Pulse Oximetry 96 99 Oxygen Delivery Method Room Air Room Air Sepsis Recent Fever Within 48 Hours Sepsis New/Unexplained Change in Mental Status Sepsis Action Taken by Nursing 12/14/23 16:31 12/14/23 16:54 12/14/23 17:00 Temperature Temperature Source Pulse Rate 112 H 112 H Pulse Rate [Apical] 112 H Pulse Rate from SpO2 Sensor 112 H 112 H Respiratory Rate 30 H 27 H 26 H Respiratory Effort / Characteristics Blood Pressure Blood Pressure [Left Arm] 123/90 Blood Pressure Mean Blood Pressure Mean [Left Arm] 101 Pulse Oximetry 99 98 97 Oxygen Delivery Method Room Air Room Air Room Air Sepsis Recent Fever Within 48 Hours Sepsis New/Unexplained Change in Mental Status Sepsis Action Taken by Nursing 12/14/23 17:00 12/14/23 17:30 12/14/23 17:30 Temperature Temperature Source Pulse Rate 113 H Pulse Rate [Apical] Pulse Rate from SpO2 Sensor 114 H Respiratory Rate 23 Respiratory Effort / Characteristics Blood Pressure 133/93 141/107 H Blood Pressure [Left Arm] Blood Pressure Mean 99 126 Blood Pressure Mean [Left Arm] Pulse Oximetry 94 Oxygen Delivery Method Room Air Sepsis Recent Fever Within 48 Hours Sepsis New/Unexplained Change in Mental Status Sepsis Action Taken by Nursing 12/14/23 18:00 12/14/23 18:00 12/14/23 18:30 Temperature Temperature Source Pulse Rate 113 H Pulse Rate [Apical] Pulse Rate from SpO2 Sensor 113 H Respiratory Rate 25 H Respiratory Effort / Characteristics Blood Pressure 124/96 122/84 Blood Pressure [Left Arm] Blood Pressure Mean 108 95 Blood Pressure Mean [Left Arm] Pulse Oximetry 96 Oxygen Delivery Method Room Air Sepsis Recent Fever Within 48 Hours Sepsis New/Unexplained Change in Mental Status Sepsis Action Taken by Nursing 12/14/23 18:30 12/14/23 18:48 Temperature Temperature Source Pulse Rate 115 H 115 H Pulse Rate [Apical] Pulse Rate from SpO2 Sensor 115 H Respiratory Rate 16 Respiratory Effort / Characteristics Blood Pressure Blood Pressure [Left Arm] Blood Pressure Mean Blood Pressure Mean [Left Arm] Pulse Oximetry 96 Oxygen Delivery Method Room Air Sepsis Recent Fever Within 48 Hours Sepsis New/Unexplained Change in Mental Status Sepsis Action Taken by Nursing Laboratory Data Attestation: I reviewed the patient's lab results. 12/14/23 15:20 12/14/23 15:20 Lab Results 12/14/23 12/14/23 Range/Units 15:20 15:25 WBC 5.56 (4.8-10.8) K/ul RBC 4.26 (4.20-5.40) M/uL Hgb 8.9 L (12.0-16.0) g/dl Hct 31.4 L (37.0-47.0) % MCV 73.7 L (80.0-100.0) fL MCH 20.9 L (25.0-34.0) pg MCHC 28.3 L (32.0-36.0) g/dL RDW Std Deviation 71.9 H (36.4-46.3) fL RDW Coeff of Alice 28.3 H (11.5-14.5) % Plt Count 291 (130-400) K/uL MPV 9.1 L (9.4-12.4) fL Immature Gran % (Auto) 0.2 % Neut % (Auto) 57.9 % Lymph % (Auto) 25.7 % Mineral % (Auto) 13.7 % Eos % (Auto) 1.8 % Baso % (Auto) 0.7 % Neut # (Auto) 3.22 (1.40-6.50) K/uL Lymph # (Auto) 1.43 (1.20-3.40) K/uL Mineral # (Auto) 0.76 H (0.11-0.59) K/uL Eos # (Auto) 0.10 (0.00-0.50) K/uL Baso # (Auto) 0.04 (0.00-0.20) K/uL Immature Gran # (Auto) 0.01 (0.01-0.20) K/uL Hypochromasia Present Anisocytosis Present Tear Drop Cells 1+ Ovalocytes 1+ Sodium 140 (136-145) mmol/L Potassium 3.6 (3.5-5.1) mmol/L Chloride 103 (98-107) mmol/L Carbon Dioxide 29 (21-32) mmol/L Anion Gap 8 (3-11) BUN 13 (6-23) mg/dl Creatinine 0.71 (0.6-1.2) mg/dl Est Cr Clr Drug Dosing 76.2 ml/min Est GFR ( Amer) 95.9 ml/min Est GFR (Non-Af Amer) 82.7 ml/min BUN/Creatinine Ratio 18.3 (10-20) Glucose 82 (70-99(Fasting)) mg/dl Calcium 8.9 (8.6-10.3) mg/dl Magnesium 2.0 (1.7-2.4) mg/dl Total Bilirubin 0.7 (0.2-1.0) mg/dl AST 19 (13-39) U/L ALT 12 (7-52) U/L Alkaline Phosphatase 103 (34-104) U/L Troponin I High Sens 11.1 (0-14) pg/ml B-Natriuretic Peptide 358 H (0-100) pg/ml Total Protein 7.2 (6.0-8.3) gm/dl Albumin 4.0 (3.4-5.0) gm/dl Globulin 3.2 (2.5-4.0) gm/dl Albumin/Globulin Ratio 1.3 (0.9-2) Lipase 59 (11-82) U/L Adenovirus (PCR) Not Detected (NotDetected) B. pertussis DNA (PCR) Not Detected (NotDetected) B.parapertussis DNA PCR Not Detected (NotDetected) C. pneumoniae DNA (PCR) Not Detected (NotDetected) Coronavirus OC43 (PCR) Not Detected (NotDetected) Coronavirus HKU1 (PCR) Not Detected (NotDetected) Coronavirus 229E (PCR) Not Detected (NotDetected) SARS-CoV-2 (PCR) Not Detected (NotDetected) Coronavirus NL63 (PCR) Not Detected (NotDetected) Human Metapneumovir PCR Not Detected (NotDetected) Influenza Type A (PCR) Not Detected (NotDetected) Influenza Type B (PCR) Not Detected (NotDetected) M. pneumoniae (PCR) Not Detected (NotDetected) Parainfluenza 1 (PCR) Not Detected (NotDetected) Parainfluenza 2 (PCR) Not Detected (NotDetected) Parainfluenza 3 (PCR) Not Detected (NotDetected) Parainfluenza 4 (PCR) Not Detected (NotDetected) RSV (PCR) Not Detected (NotDetected) Entero/Rhino (PCR) DETECTED A (NotDetected) Administered Medications Albuterol (Albut/Ipratrop 3mg/0.5mg Neb 3 Ml Vial) 3 ml INH Q6R [facility] Stop: 01/13/24 21:21 Last Admin: 12/15/23 01:34 Dose: 3 ml Documented By: Admin: 12/14/23 22:19 Dose: Not Given Documented By: ROSIE Atorvastatin Calcium (Atorvastatin 10 Mg Tab) 10 mg PO HS [facility] Stop: 01/13/24 21:21 Last Admin: 12/14/23 23:10 Dose: 10 mg Documented By: NATY Budesonide (Budesonide 0.5 Mg/2 Ml Vial (Pulmicort)) 0.5 mg NEB BIDR [facility] Stop: 01/13/24 21:21 Last Admin: 12/14/23 22:19 Dose: 0.5 mg Documented By: ROSIE Formoterol Fumarate (Formoterol 20 Mcg/2 Ml Vial) 20 mcg NEB BIDR [facility] Stop: 01/13/24 21:21 Last Admin: 12/14/23 22:19 Dose: 20 mcg Documented By: ROSIE Melatonin (Melatonin 3 Mg Tab) 6 mg PO [facility] Stop: 01/13/24 21:59 Last Admin: 12/14/23 23:11 Dose: 6 mg Documented By: NATY Pregabalin (Pregabalin 100 Mg Cap) 100 mg PO BID JOIE Stop: 01/13/24 21:21 Last Admin: 12/14/23 23:13 Dose: 100 mg Documented By: NATY Discontinued Medications Albuterol (Albut/Ipratrop 3mg/0.5mg Neb 3 Ml Vial) 3 ml NEB NOW STA; Protocol Stop: 12/14/23 17:30 Last Admin: 12/14/23 17:59 Dose: 3 ml Documented By: JER Azithromycin (Azithromycin 250 Mg Tab) 500 mg PO NOW ONE Stop: 12/14/23 21:23 Last Admin: 12/14/23 23:11 Dose: 500 mg Documented By: NATY Furosemide (Furosemide 40 Mg/4 Ml Vial) 80 mg IV ONE ONE Stop: 12/14/23 17:08 Last Admin: 12/14/23 17:12 Dose: 80 mg Documented By: JER Guaifenesin (Guaifenesin 600 Mg Tabcr) 600 mg PO NOW STA Stop: 12/14/23 17:30 Last Admin: 12/14/23 17:59 Dose: 600 mg Documented By: JER Imaging Data Radiologist's Impression: Chest X-Ray 12/14/23 15:11 XR chest 1V portable HISTORY: 78 years-old Female sob acute shortness of breath COMPARISON: CTA chest 07/25/2019 TECHNIQUE: AP view of the chest FINDINGS: Cardiac silhouette is enlarged. Median sternotomy with numerous fractured sternotomy wires redemonstrated. No pneumothorax, pleural effusion or lobar airspace consolidation. Pulmonary vascular congestion with interstitial coarsening. Unchanged right hemidiaphragmatic elevation. Degenerative changes of the shoulders and spine. Chronic appearing left-sided rib fractures. IMPRESSION: Cardiomegaly with mild pulmonary edema. ACT 112: Negative or not required by law. The above report was generated using voice recognition software. It may contain grammatical, syntax or spelling errors. Electronically signed by: John Cerna M.D. 12/14/2023 4:14 PM Discharge Plan Visit Data Chief Complaint: Shortness of Breath/Dyspnea ED Provider: Duane Dodd ED Midlevel Provider: Gus Crockett Discharge Problem: Rhinovirus infection, CHF (congestive heart failure), Restrictive lung disease Patient Disposition: Admitted As Inpatient Discharge Instructions Interventions: ED Discharge Assessment Last Done: 12/14/23 21:02 Discharge Problem: CHF (congestive heart failure) Qualifiers: Heart failure type: right-sided Heart failure chronicity: acute on chronic Q ualified Code(s): I50.813 - Acute on chronic right heart failure
[2023-12-14 16:01] LABS: Hematocrit (blood only) 31.4 % (37.0-47.0); Hemoglobin 8.9 g/dl (12.0-16.0); Mean Corpuscular Hemoglobin 20.9 pg (25.0-34.0); Mean Corpuscular Hgb Conc 28.3 g/dL (32.0-36.0); Mean Corpuscular Volume 73.7 fL (80.0-100.0); Mean Platelet Volume 9.1 fL (9.4-12.4); Platelet Count 291 K/uL (130-400); RDW Coefficient of Variation 28.3 % (11.5-14.5); RDW Standard Deviation 71.9 fL (36.4-46.3); Red Blood Count 4.26 M/uL (4.20-5.40); White Blood Count 5.56 K/ul (4.8-10.8)
--- NOTE | 2023-12-14 16:15 | XRay Report ---
XR chest 1V portable HISTORY: 78 years-old Female sob acute shortness of breath COMPARISON: CTA chest 07/25/2019 TECHNIQUE: AP view of the chest FINDINGS: Cardiac silhouette is enlarged. Median sternotomy with numerous fractured sternotomy wires redemonstr ated. No pneumothorax, pleural effusion or lobar airspace consolidation. Pulmonary vascular congestio n with interstitial coarsening. Unchanged right hemidiaphragmatic elevation. Degenerative changes of the shoulders and spine. Chronic appearing left-sided rib fractures. IMPRESSION: Cardiomegaly with mild pulmonary edema. ACT 112: Negative or not required by law. The above report was generated using voice recognition software. It may contain grammatical, syntax o r spelling errors. Electronically signed by: John Cerna M.D. 12/14/2023 4:14 PM
[2023-12-14 16:18] LABS: Anisocytosis Present; Basophils # (auto) 0.04 K/uL (0.00-0.20); Basophils % (auto) 0.7 %; Eosinophils % (auto) 1.8 %; Hypochromasia Present; Immature Granulocytes # (auto) 0.01 K/uL (0.01-0.20); Immature Granulocytes % (auto) 0.2 %; Lymphocytes # (auto) 1.43 K/uL (1.20-3.40); Lymphocytes % (auto) 25.7 %; Monocytes # (auto) 0.76 K/uL (0.11-0.59); Monocytes % (auto) 13.7 %; Neutrophils # (auto) 3.22 K/uL (1.40-6.50); Neutrophils % (auto) 57.9 %; Ovalocytes 1+; Tear Drop Cells 1+
[2023-12-14 16:31] LABS: Bilirubin,Total 0.7 mg/dl (0.2-1.0); Calcium 8.9 mg/dl (8.6-10.3); Potassium 3.6 mmol/L (3.5-5.1)
[2023-12-14 16:35] LABS: Troponin I High Sensitivity 11.1 pg/ml (0-14)
[2023-12-14 16:37] LABS: Albumin Globulin Ratio 1.3 (0.9-2); BUN Creatinine Ratio 18.3 (10-20); Creatinine Clr Calc Pharmacy 76.2 ml/min; Est GFR (African American) 95.9 ml/min; Est GFR (Non-African American) 82.7 ml/min; Globulin 3.2 gm/dl (2.5-4.0); Total Protein 7.2 gm/dl (6.0-8.3)
[2023-12-14 16:37] LABS: Adenovirus PCR Not Detected (NotDetected); Bordetella parapertussis PCR Not Detected (NotDetected); Bordetella pertussis PCR Not Detected (NotDetected); Chlamydia pneumoniae PCR Not Detected (NotDetected); Coronavirus 229E PCR Not Detected (NotDetected); Coronavirus CoV-2 (COVID19)PCR Not Detected (NotDetected); Coronavirus HKU1 PCR Not Detected (NotDetected); Coronavirus NL63 PCR Not Detected (NotDetected); Coronavirus OC43PCR Not Detected (NotDetected); Human Metapneumovirus PCR Not Detected (NotDetected); Influenza A PCR Not Detected (NotDetected); Influenza B PCR Not Detected (NotDetected); Mycoplasma pneumoniae PCR Not Detected (NotDetected); Parainfluenza Virus 1 PCR Not Detected (NotDetected); Parainfluenza Virus 2 PCR Not Detected (NotDetected); Parainfluenza Virus 3 PCR Not Detected (NotDetected); Parainfluenza Virus 4 PCR Not Detected (NotDetected); Respiratory Syncytial VirusPCR Not Detected (NotDetected); Rhinovirus/Enterovirus PCR DETECTED (NotDetected)
[2023-12-14] MEDS: FUROSEMIDE 40 MG/4 ML VIAL IV ONE (17:12)
[2023-12-14] MEDS: guaiFENesin 600 MG TABCR PO STA (17:59)
[2023-12-14] MEDS: ALBUT/IPRATROP 3MG/0.5MG NEB 3 ML VIAL NEB STA (17:59)
--- NOTE | 2023-12-14 19:03 | History & Physical Report ---
Date of Service December 14, 2023 Assessment & Plan (1) CHF (congestive heart failure): Plan: -Patient with mild worsening of dyspnea on admission and worsening of mental state. -Found to have BNP of 358, CXR demonstrated mild pulmonary edema with cardiomegaly. -O2 sats remain in good range however patient remains mildly tachycardic. -Patient follows strict diet at assisted living for her CHF so unlikely to come from diet. -Unclear if CHF is the main source of her alteration or if it may be coming from her +rhino/enterovirus. -Will treat CHF with continued Lasix use. Received 80mg IV in ED, will continue at 40mg IV BID. -Monitor BMP while on increased Lasix dosing. -Admit to med/tele. (2) Intrinsic asthma: Plan: -As above, O2 sat normal range however tachycardic. This could be from the rhino/enterovirus resulting in exacerbation of asthma/COPD. -Will treat as exacerbation with Azithromycin 500mg x1 then 250mg x3 doses as well as prednisone 40mg for 5 days. -Will also continue duoneb treatment q6R, Pulmicort, Perforomist, albuterol as needed, flutter valve, mucinex. -If wheezing resolves can decrease frequency and to as needed. (3) Anemia: Plan: -Hemoglobin of 8.9 on entry, hemoglobin at [facility] on 12/12 9.6 so we will trend. -According to [place] note the 9.6 was slightly higher than her baseline. -No obvious source of bleed. -Will order AM iron studies and order Venofer 300mg. -Trend with AM CBC. (4) Lewy body dementia: Plan: -Likely worsening of orientation due to rhino/enterovirus and CHF exacerbation. -Will continue to monitor, fall precautions in place. (5) Bilateral leg edema: Plan: As above, likely related to chronic venous stasis and CHF. Lasix 40mg IV BID as above. (6) Depression: Plan: -Continue home fluoxetine (7) Benign essential hypertension: Plan: -continue home metoprolol, losartan (8) Gastro-esophageal reflux disease without esophagitis: Plan: -Continue home omeprazole (9) Hypercholesterolemia: Plan: -continue home atorvastatin. (10) Obesity: Plan: -Noted (11) CAD (coronary artery disease): Plan: Noted, continue home atorvastatin, aspirin Plan F/e/N/GI: Low sodium, 2L fluid restrict DVT Prophylaxis: Holding Eliquis while checking for hemoglobin stabilization. SCDs Code status: DNR/DNI Dispo: Med/tele. History of Present Illness Chief Complaint: Disorientation, CHF exacerbation Primary Care Provider: Johnny Russ is a 78 year old female with past medical history of Lewy Body Dementia, CHF with echocardiogram from 2019 with EF 50-55%, asthma and questionable COPD, HTN, GERD, Depression, CAD coming in for worsening disorientation and dyspnea. Patient is a resident at [facility] in [place] and is accompanied by her daughter who is also her power of bankruptcy attorney. Daughter states that her mom went to [place] ER on December 04 for concern of worsening disorientation. In the [place] ER patient was found to have clear CXR and found to be hypokalemic. She was repleted potassium and sent back home. Daughter states that she has had about 4 falls since that time that may have been unwitnessed at her facility. Daugther was contacted earlier today being told that her mother had been having worsening disorientation and a little more dyspneic. Patient was not having any other complaints per daughter. She has a past history of CHF along with an MN in 1999. Patient has chronic swelling in her legs and is on diuretics at home. The swelling has progressed to the point where she gets dry skin and sometimes some wounds on her legs. In the ER patient was found to have a hemoglobin of 8.9, WBC WNL, CMP within normal limits, BMP 358, rhino/enterovirus positive. CXR positive for cardiomegaly with mild pulmonary edema. She was given Lasix 80mg, albuterol neb, and Guaifenesin 600mg. Allergies Allergy/AdvReac Type Severity Reaction Status Date / Time latex Allergy Mild RASH Verified 12/14/23 17:53 tingly morphine AdvReac Intermediate NAUSEA AND Verified 12/14/23 17:53 VOMITING Home Medications Medication Instructions Recorded Confirmed Type melatonin 5 mg tablet 20 mg PO HS Sleep 07/19/19 12/14/23 History hot/cold therapy aids (ThermaCare #1 ea 08/10/19 08/10/19 Rx Cold Wrap Joint pads) pregabalin 100 mg capsule (Lyrica) 100 mg PO BID #180 caps 09/04/19 12/14/23 Rx acetaminophen 325 mg tablet 650 mg PO Q4H PRN PAIN/FEVER 12/14/23 12/14/23 History (Tylenol) albuterol sulfate 90 mcg/actuation 2 puff inhalation Q4H PRN 12/14/23 12/14/23 History aerosol inhaler Shortness Of Breath Or Wheezing apixaban 5 mg tablet (Eliquis) 5 mg PO BID 12/14/23 12/14/23 History aspirin 81 mg chewable tablet 81 mg PO QAM 12/14/23 12/14/23 History atorvastatin 10 mg tablet 10 mg PO HS 12/14/23 12/14/23 History benzocaine 20 % mucosal gel 1 ea mucous membrane DIRECTED 12/14/23 12/14/23 History PRN MOUTH ULCER PAIN calcium carbonate 200 mg calcium 200 mg PO Q4H PRN Dyspepsia 12/14/23 12/14/23 History (500 mg) chewable tablet (Calcium Antacid) cholecalciferol (vitamin D3) 50 50 mcg PO QAM 12/14/23 12/14/23 History mcg (2,000 unit) capsule (Vitamin D3) ferrous sulfate 325 mg (65 mg 325 mg PO QAM 12/14/23 12/14/23 History iron) tablet (FeroSul) fluoxetine 10 mg capsule 10 mg PO QAM 12/14/23 12/14/23 History fluoxetine 20 mg capsule 20 mg PO QAM 12/14/23 12/14/23 History folic acid 1 mg tablet 1 mg PO QAM 12/14/23 12/14/23 History furosemide 40 mg tablet (Lasix) 40 mg PO BID 12/14/23 12/14/23 History isosorbide mononitrate 60 mg 60 mg PO QAM 12/14/23 12/14/23 History tablet,extended release 24 hr losartan 25 mg tablet 25 mg PO QAM 12/14/23 12/14/23 History metoprolol succinate 25 mg 25 mg PO QAM 12/14/23 12/14/23 History tablet,extended release 24 hr omeprazole 40 mg capsule,delayed 40 mg PO DAILYBB 12/14/23 12/14/23 History release potassium chloride 20 mEq 20 meq PO QAM 12/14/23 12/14/23 History tablet,extended release(part/cryst) sennosides 8.6 mg-docusate sodium 1 tab-cap PO HS 12/14/23 12/14/23 History 50 mg tablet (Stimulant Laxative Plus) tramadol 50 mg tablet 100 mg PO Q6H Pain 12/14/23 12/14/23 History Past Med/Surg History Medical History (Updated 12/14/23 @ 21:20 by Charly Gautam, DO) Trimalleolar fracture of right ankle Closed right ankle fracture Actinic skin damage Osteoarthritis Chronic back pain GERD (gastroesophageal reflux disease) Depression CAD (coronary artery disease) Myocardial Infarction 1999 AND MEDICAL TREATMENT Hypertension Hyperlipidemia Asthma Surgical History (Updated 01/22/20 @ 11:20 by BRIT Cornejo III) History of coronary artery bypass graft History of cataract surgery LEFT on 11/17/18: was given 2mg versed without apparent complications History of open reduction and internal fixation (ORIF) procedure RIGHT HIP History of total knee replacement RIGHT AND LEFT Fusion of spine LUMBAR - AND HAS ONE SCREW LOOSE AND NO SURGERY NEEDED. History of coronary artery bypass graft 1999 - X 3 VESSEL - [facility] FOLLOWS WITH DR THIBODEAUX Family History (Updated 01/23/20 @ 13:01 by BRIT Palacios) Father Myocardial infarction Prostate cancer Brother Myocardial infarction Grandmother (Paternal) Myocardial infarction Mother Alcoholism Denies family history of Ovarian cancer Breast cancer Colorectal cancer Social History Smoking Status: Former smoker Tobacco Type: Cigarettes Age Quit Using Tobacco: 51; packs per day: 2.5; Cigarettes Per Day: 50; Second Hand Exposure: No; Do You Dip or Chew Tobacco: No; Hx Alcohol Use: No Hx Substance Use: No Preferred Language: Icelandic Communication Ability: Effective Visual Impairment: No Limitations Hearing Ability: Normal Microphone Operator Required: No Beliefs That Will Affect Care: None marital status: Current Living Situation: Alone current occupational status: retired Feels Safe at Home: Yes Childhood Exposure to Second-Hand Smoke: Yes Dental Care, Regularly: Yes Physical Activity Frequency: Does not Exercise Seatbelt Use: always Sunscreen Use: Yes Assistive Devices: Brace/Splint/Immobilizer Review of Systems Review of Systems: As per HPI. Physical Exam Constitutional: WD/WN, vitals as above Eyes: PERRL, conjunctivae normal, anicteric sclerae Respiratory: Lungs with end expiratory wheeze most prominent at the lung apices and rhonchi present at the bases. Cardiovascular: S1, S2, NSR, no murmurs. Legs with chronic venous stasis changes. Gastrointestinal (Abdomen): normal bowel sounds, soft, nontender, no hepatosplenomegaly Skin: Chronic venous stasis changes with xerotic mildly erythematous skin on the anterior bilateral shins. Psychiatric: Orientation: alert and oriented to person Results & Data Results & Data Vital Signs (Past 12 Hours) Vital Signs Temp Pulse Pulse Resp BP BP Pulse Ox 12/14/23 18:48 115 H 12/14/23 16:54 112 H 27 H 123/90 98 12/14/23 15:17 96 12/14/23 15:17 111 H 25 H 119/88 96 12/14/23 15:17 95 12/14/23 15:17 36.8 C 111 H 29 H 119/88 96 O2 Del Method 12/14/23 18:48 12/14/23 16:54 Room Air 12/14/23 15:17 Room Air 12/14/23 15:17 Room Air 12/14/23 15:17 Room Air 12/14/23 15:17 Room Air Code Status & VTE Plan VTE Prophylaxis Plan VTE Prophylaxis will be ordered: Yes Supervising Physician Co-Signing Physician Notes Patient seen and examined, chart reviewed, case discussed with DR. Martinez and I agree with the assessment and plan as above except as otherwise noted Labs and images reviewed 78yo M with a pMHx of CHF who presents with CHF, asthma, ?COPD with hx of tobacco abuse, and lewy body dementia who presents with her daughter from [facility] living with concerns for CHF. Earlier in the month pt was disoriented and was seen in [place] for AMS but found hypokalemia which was repleted, no CHF was noted at that time, and then subsequently got a call today for return of disorientation. Came here for eval due to concerns for care at [place]. Pt limited historian with hx of lewy body dementia. Per nursing at assisted living increased ambulatory dysfunction with 4x falls in preceding weeks. Pt with intermittent wheezing, some shortness of breath. No fevers, chills, sweats. CXR +mild pulm edema, biofire + for entero/rhinovirus. +CVS, minimal pitting edema on admit. BNP mildly elevated. Pt is on eliquis ?afib but unclear hx and pending additional reconcilation from [place] cardiology. Compared to 2019 hgb decreased from 13.4 --> 8.9, last at [facility] was 9.6 . She is microcytic. no history of colorectal cancer. No melena/hematochezia reported. Limited historian. CXR and BNP are consistent with mild aoc chf, agree w/ diuresis although suspect disoriention is intermitted and may be related to underlying lewy body +/- acute viral illness with entero/rhino. She is not significantly hypercarbic. Agree w/ COPD treatment as noted. Iron studies added. No known hx of colorectal cancer, --> f/u for GI screening/colo. Venofer 300mg daily x3 if xsat/ferritin are low. Resident Activity Tracking Resident Involvement: Resident Care Provided Care Provided: Adult Hospital Medicine (11) CAD (coronary artery disease) Associated angina: angina presence unspecified Coronary Disease-Associated Artery/Lesion type: unspecified vessel or lesion type [place] vs. transplanted heart: [place] heart Qualified Code(s): I25.10 - Atherosclerotic heart disease of [place] coronary artery without angina pectoris
--- NOTE | 2023-12-14 20:35 | Billing Data ---
Date of Service December 14, 2023 Coding Level of Care Code 49878 INT INP/OBS CARE
[2023-12-14] MEDS ORDERED: ALBUTEROL HFA 8 GM INHALER INH PRN (21:22)
[2023-12-14] MEDS ORDERED: NITROGLYCERIN SL 0.4 MG/TAB TAB SL PRN (21:22)
[2023-12-14] MEDS ORDERED: BENZOCAINE 20% (ORAJEL) 11.9 GM TUBE MT PRN (21:22)
[2023-12-14] MEDS ORDERED: ONDANSETRON INJ 2 MG/ML 2 ML VIAL IV PRN (21:22)
[2023-12-14] MEDS ORDERED: POLYETHYLENE (MIRALAX) 17 GM PACK PO PRN (21:22)
[2023-12-14] MEDS: ALBUT/IPRATROP 3MG/0.5MG NEB 3 ML VIAL INH SCH (22:19)
[2023-12-14] MEDS: BUDESONIDE 0.5 MG/2 ML VIAL (PULMICORT) NEB SCH (22:19)
[2023-12-14] MEDS: FORMOTEROL 20 MCG/2 ML VIAL NEB SCH (22:19)
[2023-12-14] MEDS: ATORVASTATIN 10 MG TAB PO SCH (23:10)
[2023-12-14] MEDS: MELATONIN 3 MG TAB PO SCH (23:11)
[2023-12-14] MEDS: AZITHROMYCIN 250 MG TAB PO ONE (23:11)
[2023-12-14] MEDS: PREGABALIN 100 MG CAP PO SCH (23:13)
[2023-12-15 04:34] LABS: Base Excess VBG 7.4 mEq/L; HCO3 VBG 32 mmol/L; Oxygen Saturation VBG 89.5 %; PCO2 VBG 44 mmHg (38-50); PO2 VBG 56 mmHg; pH VBG 7.47 (7.36-7.41)
[2023-12-15 04:42] LABS: Basophils # (auto) 0.04 K/uL (0.00-0.20); Basophils % (auto) 0.8 %; Hemoglobin 8.2 g/dl (12.0-16.0); Lymphocytes # (auto) 1.74 K/uL (1.20-3.40); Lymphocytes % (auto) 34.5 %; Mean Corpuscular Hemoglobin 20.9 pg (25.0-34.0); Mean Corpuscular Hgb Conc 29.3 g/dL (32.0-36.0); Mean Corpuscular Volume 71.4 fL (80.0-100.0); Mean Platelet Volume 9.4 fL (9.4-12.4); Monocytes # (auto) 0.69 K/uL (0.11-0.59); Monocytes % (auto) 13.7 %; Neutrophils # (auto) 2.47 K/uL (1.40-6.50); Platelet Count 258 K/uL (130-400); RDW Standard Deviation 68.3 fL (36.4-46.3); Red Blood Count 3.92 M/uL (4.20-5.40); White Blood Count 5.04 K/ul (4.8-10.8)
[2023-12-15 05:02] LABS: BUN Creatinine Ratio 15.3 (10-20); Calcium 8.6 mg/dl (8.6-10.3); Creatinine Clr Calc Pharmacy 73.5 ml/min; Est GFR (African American) 94.3 ml/min; Est GFR (Non-African American) 81.3 ml/min; Potassium 3.5 mmol/L (3.5-5.1)
[2023-12-15 05:20] LABS: Ferritin 17.5 ng/ml (8-388)
[2023-12-15 05:23] LABS: Anisocytosis Present; Hypochromasia Present; Polychromasia 1+; Target Cells 1+; Tear Drop Cells 1+
[2023-12-15] MEDS: PANTOprazole 40 MG TAB PO SCH (06:11)
[2023-12-15] MEDS: FUROSEMIDE 40 MG/4 ML VIAL IV SCH (09:36)
[2023-12-15] MEDS: AZITHROMYCIN 250 MG TAB PO SCH (09:37)
[2023-12-15] MEDS: predniSONE 20 MG TAB PO SCH (09:37)
[2023-12-15] MEDS: METOPROLOL SUCC 25MG EXT REL TAB PO SCH (09:37)
[2023-12-15] MEDS: POTASSIUM CHLORIDE CRTAB 20 MEQ TABCR PO SCH (09:37)
[2023-12-15] MEDS: guaiFENesin 600 MG TABCR PO SCH (09:37)
[2023-12-15] MEDS: ASPIRIN 81 MG CHEW PO SCH (09:38)
[2023-12-15] MEDS: FLUoxetine HCL 20 MG CAP PO SCH (09:38)
[2023-12-15] MEDS: FERROUS SULFATE 325 MG TAB PO SCH (09:38)
[2023-12-15] MEDS: FOLIC ACID 1 MG TAB PO SCH (09:38)
[2023-12-15] MEDS: FLUoxetine HCL 10 MG CAP PO SCH (09:38)
[2023-12-15] MEDS: LOSARTAN POTASSIUM 25 MG TAB PO SCH (09:38)
[2023-12-15] MEDS: ISOSORBIDE MONO EXTENDED REL 60 MG TABCR PO SCH (09:38)
[2023-12-15] MEDS: IRON SUCROSE 300 MG in SODIUM CHLORIDE 0.9% 250 ML IV ONE (09:52)
[2023-12-15] MEDS: ACETAMINOPHEN 325 MG TAB PO PRN (10:42)
[2023-12-15 15:56] LABS: Hematocrit (blood only) 29.6 % (37.0-47.0); Hemoglobin 8.9 g/dl (12.0-16.0)
--- NOTE | 2023-12-15 16:47 | CT Scan Report ---
ABDOMEN AND PELVIS CT WITHOUT CONTRAST CT DOSE: 1247.14 mGy.cm HISTORY: Acute anemia with generalized abdominal pain. TECHNIQUE: Multiaxial CT images of the abdomen and pelvis were performed without contrast. A dose lo wering technique was utilized adhering to the principles of ALARA. COMPARISON STUDY: 07/25/2019 FINDINGS: Subsegmental groundglass densities of the right lung base favor atelectasis. There are 2 so lid nodules within the left lower lobe measuring up to 5 mm are stable and likely benign. Cardiomegal y with decreased attenuation of the cardiac blood flow compatible with anemia. Sternotomy wires are p resent. No free air. The unenhanced spleen, pancreas and adrenal glands are unremarkable. Distended gallbladd er with cholelithiasis. Unremarkable liver. 6 mL meter nonobstructing calculus in the inferior pole r ight kidney. Cortical thinning of the kidneys. Peripherally calcified right renal arterial aneurysm, 9 mm. No ureteral calculi or hydronephrosis. Unremarkable urinary bladder and uterus. Atherosclerosis of the aorta with mild fusiform dilation of the upper abdominal aorta on image 92 measuring 3.2 cm. No lymphadenopathy. No bowel obstruction or bowel wall thickening.-Wall thickening with partial distention. Colonic diver ticulosis. No acute retroperitoneal hemorrhage identified. Mild nonspecific body wall edema. 2.2 cm a nterolisthesis L5 on S1 with chronic pars defects. Degenerative and postoperative changes of the spin e. IMPRESSION: 1. No acute intra-abdominal or intrapelvic abnormality. 2. No bowel obstruction or bowel wall thickening. 3. No acute retroperitoneal hematoma identified. 4. Nonobstructing right nephrolithiasis. 5. Cholelithiasis. ACT 112: Negative or not required by law. The above report was generated using voice recognition software. It may contain grammatical, syntax o r spelling errors. Electronically signed by: John Cerna M.D. 12/15/2023 4:46 PM
[2023-12-15] MEDS: PANTOprazole 40 MG in SYRINGE 0 ML IV SCH (21:31)
--- NOTE | 2023-12-15 22:52 | Hospitalist Progress Note ---
Date of Service December 15, 2023 Assessment & Plan (1) CHF (congestive heart failure): Plan: Acute on chronic diastolic CHF -Patient with mild worsening of dyspnea on admission and worsening of mental state. -Found to have BNP of 358, CXR demonstrated mild pulmonary edema with cardiomegaly. -O2 sats remain in good range however patient remains mildly tachycardic. -Patient follows strict diet at assisted living for her CHF so unlikely to come from diet. -Unclear if CHF is the main source of her alteration or if it may be coming from her +rhino/enterovirus. -Will treat CHF with continued Lasix use. Received 80mg IV in ED, will continue at 40mg IV BID. -Monitor BMP while on increased Lasix dosing. -Showing improvement on 12/14 will continue diuretics -Admit to med/tele. (2) Intrinsic asthma: Plan: -As above, O2 sat normal range however tachycardic. This could be from the rhino/enterovirus resulting in exacerbation of asthma/COPD. -Will treat as exacerbation with Azithromycin 500mg x1 then 250mg x3 doses -Will also continue duoneb treatment q6R, Pulmicort, Perforomist, albuterol as needed, flutter valve, mucinex. -If wheezing resolves can decrease frequency and to as needed. Due to concern for bleding prednisone will be discontinued. Also patient is breathing comfortably on 12/14 (3) Anemia: Plan: Unsure of cause Iron studies point towards iron def. anemia. Patient received venofer x1 300 mg Hemoglobin is downtrending. -CT abd/ pelvis ordered to look for occult hematoma -No obvious source of bleed: [facility]. -holding eliquis which patient takes for a fib. (4) Lewy body dementia: Plan: Metabolic encephalopathy -Likely worsening of orientation due to rhino/enterovirus and CHF exacerbation. -Will continue to monitor, fall precautions in place. (5) Bilateral leg edema: Plan: As above, likely related to chronic venous stasis and CHF. Lasix 40mg IV BID as above. (6) Depression: Plan: -Continue home fluoxetine (7) Benign essential hypertension: Plan: -continue home metoprolol, losartan (8) Gastro-esophageal reflux disease without esophagitis: Plan: -Continue home omeprazole (9) Hypercholesterolemia: Plan: -continue home atorvastatin. (10) Obesity: Plan: -Noted (11) CAD (coronary artery disease): Plan: Noted, continue home atorvastatin, aspirin Plan F/e/N/GI: Low sodium, 2L fluid restrict DVT Prophylaxis: Holding Eliquis while checking for hemoglobin stabilization. SCDs Code status: DNR/DNI Dispo: Med/tele. Admission and Anticipated Discharge Date Admission Date: December 14, 2023 Subjective Patient is comfortbale, breathing well. Daughter at bedside. Review of Systems Review of Systems: All systems reviewed & are unremarkable except as noted in HPI & below Physical Exam Physical Exam: Constitutional: WD/WN, vitals as above Eyes: PERRL, conjunctivae normal, anicteric sclerae Respiratory:Lungs with rale at bases Cardiovascular: S1, S2, NSR, no murmurs. Legs with chronic venous stasis changes. Gastrointestinal (Abdomen): normal bowel sounds, soft, nontender, no hepatosplenomegaly Skin: Psychiatric: Orientation: alert and oriented to person Results & Data Results & Data Vital Signs (Past 12 Hours) Vital Signs Temp Pulse Pulse Resp BP Pulse Ox O2 Del Method 12/15/23 19:35 110 H 20 90 Room Air 12/15/23 19:18 36.9 C 116 H 18 125/79 93 Room Air 12/15/23 17:07 114 H 12/15/23 14:00 Room Air 12/15/23 13:30 108 H 20 91 Room Air 12/15/23 12:10 37.1 C 114 H 18 116/79 93 Room Air PG Care Time/CCT Total # of Minutes Spent Total Time Spent with Patient: Total time spent is greater than 50% in coordination of care (as documented) at patient's floor/unit and/or counseling patient: Coding Level of Care Code 43816 SUB INP/OBS CARE 3/50MIN Diagnoses CHF (congestive heart failure) I50.813 Heart failure chronicity: acute on chronic Heart failure type: right-sided Intrinsic asthma J45.909 Anemia D64.9 Lewy body dementia G31.83; F02.80 Bilateral leg edema R60.0 Depression F32.9 Benign essential hypertension I10 Gastro-esophageal reflux disease without esophagitis K21.9 Hypercholesterolemia E78.00 Obesity E66.9 CAD (coronary artery disease) I25.10 Associated angina: angina presence unspecified Coronary Disease-Associated Artery/Lesion type: unspecified vessel or lesion type [place] vs. transplanted heart: [place] heart (1) CHF (congestive heart failure) Heart failure chronicity: acute on chronic Heart failure type: right-sided Qualified Code(s): I50.813 - Acute on chronic right heart failure (11) CAD (coronary artery disease) Associated angina: angina presence unspecified Coronary Disease-Associated Artery/Lesion type: unspecified vessel or lesion type [place] vs. transplanted heart: [place] heart Qualified Code(s): I25.10 - Atherosclerotic heart disease of [place] coronary artery without angina pectoris
[2023-12-16 06:13] LABS: BUN Creatinine Ratio 20.7 (10-20); Calcium 9.2 mg/dl (8.6-10.3); Creatinine Clr Calc Pharmacy 61.5 ml/min; Est GFR (Non-African American) 64.7 ml/min; Potassium 3.4 mmol/L (3.5-5.1)
[2023-12-16 06:25] LABS: Anisocytosis Present; Basophils # (auto) 0.03 K/uL (0.00-0.20); Basophils % (auto) 0.5 %; Eosinophils # (auto) 0.02 K/uL (0.00-0.50); Eosinophils % (auto) 0.3 %; Hematocrit (blood only) 31.6 % (37.0-47.0); Hypochromasia Present; Immature Granulocytes # (auto) 0.03 K/uL (0.01-0.20); Immature Granulocytes % (auto) 0.5 %; Lymphocytes % (auto) 34.8 %; Mean Corpuscular Hemoglobin 20.9 pg (25.0-34.0); Mean Corpuscular Hgb Conc 28.5 g/dL (32.0-36.0); Mean Corpuscular Volume 73.3 fL (80.0-100.0); Mean Platelet Volume 8.9 fL (9.4-12.4); Monocytes # (auto) 0.88 K/uL (0.11-0.59); Monocytes % (auto) 13.9 %; Neutrophils # (auto) 3.16 K/uL (1.40-6.50); Ovalocytes 1+; Platelet Count 277 K/uL (130-400); Polychromasia 1+; RDW Coefficient of Variation 29.2 % (11.5-14.5); RDW Standard Deviation 71.7 fL (36.4-46.3); Red Blood Count 4.31 M/uL (4.20-5.40); Target Cells 1+; White Blood Count 6.32 K/ul (4.8-10.8)
[2023-12-16 07:05] LABS: Base Excess VBG 7.5 mEq/L; HCO3 VBG 33 mmol/L; Oxygen Saturation VBG 86.1 %; PCO2 VBG 47 mmHg (38-50); PO2 VBG 53 mmHg; pH VBG 7.45 (7.36-7.41)
--- NOTE | 2023-12-16 09:18 | Hospitalist Progress Note ---
Date of Service December 16, 2023 Assessment & Plan (1) CHF (congestive heart failure): Plan: Acute on chronic diastolic CHF worsening of dyspnea on admission and encephalopathy -Found to have BNP of 358, CXR demonstrated mild pulmonary edema with cardiomegaly. - no need for oxygen no echo since 2019, will increase diuretics check echo Received 80mg IV in ED, continue lasix 80mg IV BID. CAD/ chronic hypertension continues on aspirin atorvastatin, metoprolol and losartan (2) Intrinsic asthma: Plan: -now resolved rhino/enterovirus resulting in exacerbation of asthma/COPD. -continues on Azithromycin - continue duoneb treatment q6R, Pulmicort, Perforomist, albuterol as needed, flutter valve, mucinex. (3) Anemia: Plan: Unsure of cause Iron studies point towards iron def. anemia. Patient received venofer x1 300 mg -CT abd/ pelvis no signs of occult hematoma -No obvious source of bleed: [facility] GI. -holding eliquis which patient takes for a fib. (4) Lewy body dementia: Plan: Metabolic encephalopathy -Likely worsening of orientation due to rhino/enterovirus and CHF exacerbation. -Will continue to monitor, fall precautions in place. (5) Bilateral leg edema: Plan: As above, likely related to chronic venous stasis and CHF. Lasix 40mg IV BID as above. (6) Depression: Plan: -Continue home fluoxetine Plan DVT Prophylaxis: Holding Eliquis while checking for hemoglobin stabilization. SCDs Code status: DNR/DNI Admission and Anticipated Discharge Date Admission Date: December 14, 2023 Subjective Patient feels that she is just here because she had a mechanical fall with her walker. Patient has significant lower extremity edema probably 2+ with some chronic venous stasis changes. She states her legs are always like this. Physical Exam Physical Exam: The left leg has a what appears to be a ruptured bullae which is leaking serous liquid Otherwise she is awake and alert her lungs are diminished at the bases but no rales her card exam is regular with a slight murmur Results & Data Results & Data Vital Signs (Past 12 Hours) Vital Signs Temp Pulse Pulse Resp BP Pulse Ox O2 Del Method 12/16/23 07:50 98.1 F 105 H 18 134/85 93 Room Air 12/16/23 07:07 108 H 16 90 Room Air 12/16/23 07:05 94 H 12/16/23 03:51 98.6 F 101 H 18 122/78 95 Room Air 12/15/23 23:14 99.1 F 108 H 18 121/79 93 Room Air 12/15/23 21:50 113 H Laboratory Results Reviewed CBC Reviewed chemistry PG Care Time/CCT Total # of Minutes Spent Total Time Spent with Patient: Total time spent is greater than 50% in coordination of care (as documented) at patient's floor/unit and/or counseling patient: Coding Level of Care Code 98124 SUB INP/OBS CARE 2/35MIN Diagnoses CHF (congestive heart failure) I50.813 Heart failure chronicity: acute on chronic Heart failure type: right-sided Intrinsic asthma J45.909 Anemia D64.9 Lewy body dementia G31.83; F02.80 Bilateral leg edema R60.0 Depression F32.9 (1) CHF (congestive heart failure) Heart failure chronicity: acute on chronic Heart failure type: right-sided Qualified Code(s): I50.813 - Acute on chronic right heart failure
--- NOTE | 2023-12-16 11:56 | Gastrointestinal Consultation ---
Date of Consultation December 16, 2023 Assessment & Plan (1) Anemia: Plan Patient is a 78-year-old female admitted with dyspnea in the setting of CHF and positive rhinovirus and laboratory testing consistent with iron deficiency anemia. -Patient refuses any invasive GI workup. -Recommend strict NSAID avoidance in the setting of chronic anticoagulation use which was reinforced to the patient. -Continue pantoprazole 40 mg twice daily. -Supportive care per primary team. Thank you for allowing us to participate in the care of this patient. If you have any questions or concerns, please do not hesitate to contact us. Supervising Physician Co-Signing Physician Notes Agree with BRIT Hernandez as above Abd: Soft, NT, ND, +BS Continue current therapy and supportive care No plans for invasive GI workup History of Present Illness Reason for Consultation: Anemia Requesting Physician: Dr. Turcios Attending Physician: Steve Schuler MD History of Present Illness Patient is a 78-year-old female with a history of CHF who presents with symptoms of dyspnea which were concerning for worsening CHF, asthma, ?COPD with hx of tobacco abuse, and lewy body dementia. On arrival, she tested positive for rhinovirus. GI has been consulted as the patient has demonstrated iron deficiency anemia with a hemoglobin of 9, hematocrit 31.6, ferritin 17.5, and 5% transferrin saturation. She denies any overt GI bleed symptoms. She further denies any loss of appetite, nausea or vomiting, abdominal pain or diarrhea. She endorses intermittent constipation. Hemoglobin this morning was 9.0 stable from yesterday. Patient is on chronic anticoagulation with both aspirin and Eliquis and endorses taking ibuprofen on occasion. Allergies Allergy/AdvReac Type Severity Reaction Status Date / Time latex Allergy Mild RASH Verified 12/14/23 17:53 tingly morphine AdvReac Intermediate NAUSEA AND Verified 12/14/23 17:53 VOMITING Home Medications Medication Instructions Recorded Confirmed Type melatonin 5 mg tablet 20 mg PO HS Sleep 07/19/19 12/14/23 History hot/cold therapy aids (ThermaCare #1 ea 08/10/19 08/10/19 Rx Cold Wrap Joint pads) pregabalin 100 mg capsule (Lyrica) 100 mg PO BID #180 caps 09/04/19 12/14/23 Rx acetaminophen 325 mg tablet 650 mg PO Q4H PRN PAIN/FEVER 12/14/23 12/14/23 History (Tylenol) albuterol sulfate 90 mcg/actuation 2 puff inhalation Q4H PRN 12/14/23 12/14/23 History aerosol inhaler Shortness Of Breath Or Wheezing apixaban 5 mg tablet (Eliquis) 5 mg PO BID 12/14/23 12/14/23 History aspirin 81 mg chewable tablet 81 mg PO QAM 12/14/23 12/14/23 History atorvastatin 10 mg tablet 10 mg PO HS 12/14/23 12/14/23 History benzocaine 20 % mucosal gel 1 ea mucous membrane DIRECTED 12/14/23 12/14/23 History PRN MOUTH ULCER PAIN calcium carbonate 200 mg calcium 200 mg PO Q4H PRN Dyspepsia 12/14/23 12/14/23 History (500 mg) chewable tablet (Calcium Antacid) cholecalciferol (vitamin D3) 50 50 mcg PO QAM 12/14/23 12/14/23 History mcg (2,000 unit) capsule (Vitamin D3) ferrous sulfate 325 mg (65 mg 325 mg PO [facility] 12/14/23 12/14/23 History iron) tablet (FeroSul) fluoxetine 10 mg capsule 10 mg PO QA 12/14/23 12/14/23 History fluoxetine 20 mg capsule 20 mg PO QA 12/14/23 12/14/23 History folic acid 1 mg tablet 1 mg PO QA 12/14/23 12/14/23 History furosemide 40 mg tablet (Lasix) 40 mg PO BID 12/14/23 12/14/23 History isosorbide mononitrate 60 mg 60 mg PO [facility] 12/14/23 12/14/23 History tablet,extended release 24 hr losartan 25 mg tablet 25 mg PO QA 12/14/23 12/14/23 History metoprolol succinate 25 mg 25 mg PO [facility] 12/14/23 12/14/23 History tablet,extended release 24 hr omeprazole 40 mg capsule,delayed 40 mg PO DAILYBB 12/14/23 12/14/23 History release potassium chloride 20 mEq 20 meq PO QA 12/14/23 12/14/23 History tablet,extended release(part/cryst) sennosides 8.6 mg-docusate sodium 1 tab-cap PO 12/14/23 12/14/23 History 50 mg tablet (Stimulant Laxative Plus) tramadol 50 mg tablet 100 mg PO Q6H Pain 12/14/23 12/14/23 History Patient History Medical History Trimalleolar fracture of right ankle Closed right ankle fracture Actinic skin damage Osteoarthritis Chronic back pain GERD (gastroesophageal reflux disease) Depression CAD (coronary artery disease) Myocardial Infarction 1999 AND MEDICAL TREATMENT Hypertension Hyperlipidemia Asthma Surgical History History of coronary artery bypass graft History of cataract surgery LEFT on 11/17/18: was given 2mg versed without apparent complications History of open reduction and internal fixation (ORIF) procedure RIGHT HIP History of total knee replacement RIGHT AND LEFT Fusion of spine LUMBAR - AND HAS ONE SCREW LOOSE AND NO SURGERY NEEDED. History of coronary artery bypass graft 1999 - X 3 VESSEL - [facility] FOLLOWS WITH DR THIBODEAUX Family History Father Myocardial infarction Prostate cancer Brother Myocardial infarction Grandmother (Paternal) Myocardial infarction Mother Alcoholism Denies family history of Ovarian cancer Breast cancer Colorectal cancer Social History Smoking Status: Former smoker Tobacco Type: Cigarettes Age Quit Using Tobacco: 51; packs per day: 2.5; Cigarettes Per Day: 50; Second Hand Exposure: No; Do You Dip or Chew Tobacco: No; Hx Alcohol Use: No Hx Substance Use: No Preferred Language: Lao Communication Ability: Effective Visual Impairment: No Limitations Hearing Ability: Normal 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 Beliefs That Will Affect Care: None marital status: Current Living Situation: Personal Care Facility current occupational status: retired Feels Safe at Home: Yes Childhood Exposure to Second-Hand Smoke: Yes Dental Care, Regularly: Yes Physical Activity Frequency: Does not Exercise Seatbelt Use: always Sunscreen Use: Yes Assistive Devices: Walker and Wheelchair Review of Systems Review of Systems: All systems reviewed & are unremarkable except as noted in HPI & below Physical Exam Constitutional: WD/WN, vitals as above Respiratory: normal respiratory effort, lungs clear to auscultation Cardiovascular: RRR, no murmur, no edema Gastrointestinal (Abdomen): normal bowel sounds, soft, nontender, no hepatosplenomegaly Psychiatric: A+Ox3, euthymic affect Results & Data Vital Signs (Past 12 Hours) Vital Signs Temp Pulse Pulse Resp BP Pulse Ox O2 Del Method 12/16/23 11:15 36.6 C 102 H 18 112/71 93 Room Air 12/16/23 07:50 36.7 C 105 H 18 134/85 93 Room Air 12/16/23 07:07 108 H 16 90 Room Air 12/16/23 07:05 94 H 12/16/23 03:51 37 C 101 H 18 122/78 95 Room Air PG Care Time/CCT Total # of Minutes Spent Total Time Spent with Patient: Total time spent is greater than 50% in coordination of care (as documented) at patient's floor/unit and/or counseling patient: Coding Level of Care Code 75920 INT INP/OBS CARE 3/75MIN Diagnoses Anemia D64.9
[2023-12-16] MEDS: PERFLUTREN LIPID MICROSPHERE (DEFINITY) IV ONE (16:19)
[2023-12-16] MEDS: FUROSEMIDE 10 MG/ML 10 ML VIAL IV SCH (17:13)
--- NOTE | 2023-12-16 19:00 | XCELERA ---
[id number]
[2023-12-16] MEDS: POTASSIUM CHLORIDE CRTAB 20 MEQ TABCR PO SCH (20:32)
--- NOTE | 2023-12-17 05:48 | Electrocardiogram Report ---
Test Reason : Blood Pressure : / mmHG Vent. Rate : 111 BPM Atrial Rate : 111 BPM P-R Int : 206 ms QRS Dur : 128 ms QT Int : 312 ms P-R-T Axes : 000 041 094 degrees QTc Int : 424 ms Possible Atrial flutter Non-specific intra-ventricular conduction block Inferior infarct (cited on or before 23-AUG-2000) Cannot rule out Anterior infarct , age undetermined Abnormal ECG When compared with ECG of 24-JUL-2019 06:43, Premature ventricular complexes are no longer Present Premature supraventricular complexes are no longer Present Minimal criteria for Anterior infarct are now Present Atrial flutter has replaced Sinus rhythm Confirmed by Kulwinder Baires ([id number]) on 12/17/2023 5:48:27 AM Referred By: REFERRED SELF Confirmed By:Kulwinder Baires
[2023-12-17 06:32] LABS: Basophils # (auto) 0.04 K/uL (0.00-0.20); Basophils % (auto) 0.6 %; Eosinophils # (auto) 0.12 K/uL (0.00-0.50); Eosinophils % (auto) 1.7 %; Hematocrit (blood only) 30.7 % (37.0-47.0); Hemoglobin 9.1 g/dl (12.0-16.0); Immature Granulocytes # (auto) 0.02 K/uL (0.01-0.20); Immature Granulocytes % (auto) 0.3 %; Lymphocytes % (auto) 26.4 %; Mean Corpuscular Hemoglobin 21.5 pg (25.0-34.0); Mean Corpuscular Hgb Conc 29.6 g/dL (32.0-36.0); Mean Corpuscular Volume 72.6 fL (80.0-100.0); Mean Platelet Volume 9.5 fL (9.4-12.4); Monocytes # (auto) 0.78 K/uL (0.11-0.59); Monocytes % (auto) 10.8 %; Neutrophils # (auto) 4.35 K/uL (1.40-6.50); Neutrophils % (auto) 60.2 %; Platelet Count 283 K/uL (130-400); RDW Coefficient of Variation 29.1 % (11.5-14.5); RDW Standard Deviation 69.8 fL (36.4-46.3); Red Blood Count 4.23 M/uL (4.20-5.40); White Blood Count 7.21 K/ul (4.8-10.8)
[2023-12-17 06:33] LABS: Calcium 8.9 mg/dl (8.6-10.3); Creatinine Clr Calc Pharmacy 63.2 ml/min; Est GFR (African American) 81.8 ml/min; Est GFR (Non-African American) 70.5 ml/min; Potassium 3.3 mmol/L (3.5-5.1)
[2023-12-17 07:12] LABS: Anisocytosis Present; Polychromasia 1+
[2023-12-17] MEDS ORDERED: ALBUT/IPRATROP 3MG/0.5MG NEB 3 ML VIAL INH PRN (13:33)
--- NOTE | 2023-12-17 18:08 | Hospitalist Progress Note ---
Date of Service December 17, 2023 Assessment & Plan (1) CHF (congestive heart failure): Plan: Acute on chronic diastolic and systolic heart failure. Echocardiogram suggests global hypokinesis possible previous inferior [place] markedly reduced right-sided systolic function -Found to have BNP of 358, CXR demonstrated mild pulmonary edema with cardiomegaly. - no need for oxygen Increased diuretics is resulted in good diuresis with reduction in weight however blood pressure has fallen. Will hold diuresis at this time Discontinuing isosorbide given the right ventricular dysfunction for concern of reducing preload CAD/ chronic hypertension continues on aspirin atorvastatin, metoprolol and losartan will need to enroll in heart failure clinic patient's family would like a second opinion reengaging with about any cardiology whom they have been involved with in the past (2) Intrinsic asthma: Plan: -now resolved rhino/enterovirus resulting in exacerbation of asthma/COPD. -continues on Azithromycin - continue duoneb treatment q6R, Pulmicort, Perforomist, albuterol as needed, flutter valve, mucinex. (3) Anemia: Plan: Unsure of cause Iron studies point towards iron def. anemia. Patient received venofer x1 300 mg Hemoglobin 9 g range. Daughter cannot recall events of complaints of bleeding. There had been discussion of Watchman procedure with previous cardiology visit -CT abd/ pelvis no signs of occult hematoma -No obvious source of bleed: [facility]. -holding eliquis which patient takes for a fib. (4) Lewy body dementia: Plan: Metabolic encephalopathyresolved -Likely worsening of orientation due to rhino/enterovirus and CHF exacerbation. -Will continue to monitor, fall precautions in place. (5) Bilateral leg edema: Plan: As above, likely related to chronic venous stasis and CHF. improved with diuresis (6) Depression: Plan: -Continue home fluoxetine Plan DVT Prophylaxis: Holding Eliquis while checking for hemoglobin stabilization. SCDs Code status: DNR/DNI Admission and Anticipated Discharge Date Admission Date: December 14, 2023 Subjective Patient feels much improved. His lower blood pressure which is likely could be because or reaching reduction in intravascular volume given she is diet right- sided heart failure likely is preload dependent blood pressure. Patient however does not feel any untoward effect from her lower blood pressure at this time. She is having escalation rate for atrial flutter Daughter was present at the bedside and updated Physical Exam Physical Exam: Patient awake alert appropriate as of some mild confusion Card exam sounds regular but she is in atrial flutter with controlled ventricular rate Lungs are without rales but decreased at the bases Extremities are with 2+ edema bilaterally Results & Data Results & Data Vital Signs (Past 12 Hours) Vital Signs Temp Pulse Pulse Resp BP Pulse Ox O2 Del Method 12/17/23 17:33 118 H 12/17/23 15:49 97.5 F L 102 H 17 100/64 92 Room Air 12/17/23 13:14 110 H 18 94 Room Air 12/17/23 10:49 110 H 12/17/23 10:43 98.1 F 120 H 18 112/75 93 Room Air 12/17/23 07:53 97.7 F 116 H 18 122/84 94 Room Air 12/17/23 07:09 90 20 91 Room Air Laboratory Results Reviewed CBC reviewed chemistry PG Care Time/CCT Total # of Minutes Spent Total Time Spent with Patient: Total time spent is greater than 50% in coordination of care (as documented) at patient's floor/unit and/or counseling patient: Coding Level of Care Code 97146 SUB INP/OBS CARE 2/35MIN Diagnoses CHF (congestive heart failure) I50.813 Heart failure chronicity: acute on chronic Heart failure type: right-sided Intrinsic asthma J45.909 Anemia D64.9 Lewy body dementia G31.83; F02.80 Bilateral leg edema R60.0 Depression F32.9 (1) CHF (congestive heart failure) Heart failure chronicity: acute on chronic Heart failure type: right-sided Qualified Code(s): I50.813 - Acute on chronic right heart failure
[2023-12-17] MEDS: DIGOXIN 250 MCG in SYRINGE 9 ML IV STA (18:36)
[2023-12-18] MEDS: METOPROLOL SUCC 50MG EXT REL TAB PO SCH (08:01)
[2023-12-18 08:37] LABS: BUN Creatinine Ratio 20.5 (10-20); Calcium 9.1 mg/dl (8.6-10.3); Est GFR (African American) 92.7 ml/min; Magnesium 2.2 mg/dl (1.7-2.4); Potassium 3.9 mmol/L (3.5-5.1)
[2023-12-18] MEDS: FUROSEMIDE 40 MG/4 ML VIAL IV ONE (11:27)
[2023-12-18] MEDS: DIGOXIN 250 MCG in SYRINGE 9 ML IV STA (11:27)
--- NOTE | 2023-12-18 15:51 | Hospitalist Progress Note ---
Date of Service December 18, 2023 Assessment & Plan (1) CHF (congestive heart failure): Plan: Acute on chronic diastolic and systolic heart failure. right heart systolic failure treated with iv lasix Echocardiogram suggests global hypokinesis possible previous inferior [place] markedly reduced right-sided systolic function Increased diuretics is resulted in good diuresis with reduction in weight however blood pressure has fallen. Daily decision on diuretic dosing Discontinuing isosorbide given the right ventricular dysfunction for concern of reducing preload CAD/ chronic hypertension continues on aspirin atorvastatin, metoprolol and losartan will need to enroll in heart failure clinic patient's family would like a second opinion reengaging with about any cardiology whom they have been involved with in the past (2) Intrinsic asthma: Plan: -now resolved rhino/enterovirus resulting in exacerbation of asthma/COPD. -completed Azithromycin - continue duoneb treatment q6R, Pulmicort, Perforomist, albuterol as needed, flutter valve, mucinex. (3) Anemia: Plan: Unsure of cause Iron studies point towards iron def. anemia. Patient received venofer x1 300 mg Hemoglobin 9 g range. Daughter cannot recall events of complaints of bleeding. There had been discussion of Watchman procedure with previous cardiology visit -CT abd/ pelvis no signs of occult hematoma -No obvious source of bleed: [facility]. -restart eliquis which patient takes for a fib. (4) Lewy body dementia: Plan: Metabolic encephalopathyresolved -Likely worsening of orientation due to rhino/enterovirus and CHF exacerbation. -Will continue to monitor, fall precautions in place. sleep deprivation may be an issue try seroquel 12/18/23 (5) Bilateral leg edema: Plan: As above, likely related to chronic venous stasis and CHF. improved with diuresis (6) Depression: Plan: -Continue home fluoxetine Plan DVT Prophylaxis: hgb has been stable will restart eliquis Code status: DNR/DNI Admission and Anticipated Discharge Date Admission Date: December 14, 2023 Subjective Pt was not in a good mood, did have a poor night sleep. she has improved heart rate, will add daily lasix dose carefully with lower blood pressures and what seems to be Right heart systolic failure Physical Exam Physical Exam: wants to sleep today, does have mild confusion Card exam sounds regular but she is in atrial flutter better rate control with increased metoprolol Lungs are without rales but decreased at the bases Extremities continue with 2+ edema bilaterally Results & Data Results & Data Vital Signs (Past 12 Hours) Vital Signs Temp Pulse Pulse Resp BP Pulse Ox O2 Del Method 12/18/23 15:29 97.5 F L 81 18 106/73 92 Room Air 12/18/23 14:00 89 12/18/23 11:34 97.7 F 92 H 20 107/68 91 Room Air 12/18/23 11:27 92 H 12/18/23 08:29 113 H 18 95 Room Air 12/18/23 07:54 97.9 F 111 H 20 140/91 91 Room Air 12/18/23 06:00 101 H 12/18/23 03:48 97.5 F L 98 H 18 131/70 95 Nasal Cannula O2 Flow Rate 12/18/23 15:29 12/18/23 14:00 12/18/23 11:34 12/18/23 11:27 12/18/23 08:29 12/18/23 07:54 12/18/23 06:00 12/18/23 03:48 2 Laboratory Results review chemistry, and magnesium PG Care Time/CCT Total # of Minutes Spent Total Time Spent with Patient: Total time spent is greater than 50% in coordination of care (as documented) at patient's floor/unit and/or counseling patient: Coding Level of Care Code 65956 SUB INP/OBS CARE 3/50MIN Diagnoses CHF (congestive heart failure) I50.813 Heart failure chronicity: acute on chronic Heart failure type: right-sided Intrinsic asthma J45.909 Anemia D64.9 Lewy body dementia G31.83; F02.80 Bilateral leg edema R60.0 Depression F32.9 (1) CHF (congestive heart failure) Heart failure chronicity: acute on chronic Heart failure type: right-sided Qualified Code(s): I50.813 - Acute on chronic right heart failure
[2023-12-18] MEDS: DIGOXIN 125 MCG in SYRINGE 9.5 ML IV SCH (16:56)
[2023-12-18] MEDS: APIXABAN 5 MG TABLET PO SCH (19:48)
[2023-12-18] MEDS: QUEtiapine FUMARATE 25 MG TABLET PO SCH (19:49)
[2023-12-19 06:32] LABS: Hematocrit (blood only) 36.5 % (37.0-47.0); Hemoglobin 10.3 g/dl (12.0-16.0); Mean Corpuscular Hemoglobin 21.6 pg (25.0-34.0); Mean Corpuscular Hgb Conc 28.2 g/dL (32.0-36.0); Mean Corpuscular Volume 76.5 fL (80.0-100.0); Mean Platelet Volume 9.1 fL (9.4-12.4); Platelet Count 275 K/uL (130-400); RDW Coefficient of Variation 30.3 % (11.5-14.5); RDW Standard Deviation 73.7 fL (36.4-46.3); Red Blood Count 4.77 M/uL (4.20-5.40); White Blood Count 6.85 K/ul (4.8-10.8)
[2023-12-19 06:59] LABS: BUN Creatinine Ratio 19.7 (10-20); Creatinine Clr Calc Pharmacy 77.7 ml/min; Est GFR (African American) 99.5 ml/min; Est GFR (Non-African American) 85.8 ml/min; Potassium 3.4 mmol/L (3.5-5.1)
[2023-12-19] MEDS: POTASSIUM CHLORIDE CRTAB 20 MEQ TABCR PO SCH (08:21)
[2023-12-19] MEDS: FUROSEMIDE 80 MG TAB PO SCH (08:48)
--- NOTE | 2023-12-19 13:29 | Hospitalist Progress Note ---
Date of Service December 19, 2023 Assessment & Plan (1) CHF (congestive heart failure): Plan: Acute on chronic diastolic and systolic heart failure. right heart systolic failure treated with iv lasix Echocardiogram suggests global hypokinesis possible previous inferior [place] markedly reduced right-sided systolic function Transitioning to daily diuretic of 40 mg Lasix on 12/19/2023 watching renal function and blood pressure Discontinuing isosorbide given the right ventricular dysfunction for concern of reducing preload CAD/ chronic hypertension continues on aspirin atorvastatin, metoprolol and losartan will need to enroll in heart failure clinic patient's family would like a second opinion reengaging with about any cardiology whom they have been involved with in the past (2) Intrinsic asthma: Plan: -now resolved rhino/enterovirus resulting in exacerbation of asthma/COPD. -completed Azithromycin - continue duoneb treatment q6R, Pulmicort, Perforomist, albuterol as needed, flutter valve, mucinex. (3) Anemia: Plan: Unsure of cause Iron studies point towards iron def. anemia. Patient received venofer x1 300 mg Hemoglobin 9 g range. Daughter cannot recall events of complaints of bleeding. There had been discussion of Watchman procedure with previous cardiology visit -CT abd/ pelvis no signs of occult hematoma -No obvious source of bleed: [facility]. -restarted eliquis which patient takes for a fib. (4) Lewy body dementia: Plan: Metabolic encephalopathyresolved -Likely worsening of orientation due to rhino/enterovirus and CHF exacerbation. -Will continue to monitor, fall precautions in place. sleep deprivation improved seroquel 12/18/23 (5) Bilateral leg edema: Plan: As above, likely related to chronic venous stasis and CHF. improved with diuresis (6) Depression: Plan: -Continue home fluoxetine Plan DVT Prophylaxis: hgb has been stable will restart eliquis Code status: DNR/DNI Admission and Anticipated Discharge Date Admission Date: December 14, 2023 Subjective Patient was in much better spirits. She had a good night sleep. She ambulated to the bathroom. She feels her legs are much less swollen. She is having no chest pain or pressure even with exertion Physical Exam Physical Exam: Patient has some forgetfulness but her confusion seems to be much less. She however does not realize today is Wednesday but despite telling her son that she thinks her daughter is also working. Card exam sounds regular but she is in atrial flutter better rate control with increased metoprolol Lungs are without rales but decreased at the bases Extremities continue with 2+ edema bilaterally clinically appear to be with slight improvement. Results & Data Results & Data Vital Signs (Past 12 Hours) Vital Signs Temp Pulse Pulse Resp BP Pulse Ox O2 Del Method 12/19/23 11:38 97.7 F 97 H 18 122/79 94 Room Air 12/19/23 07:40 98.1 F 87 18 129/80 100 Room Air 12/19/23 07:24 88 18 94 Room Air 12/19/23 07:17 Room Air 12/19/23 06:03 87 12/19/23 03:58 97.5 F L 85 20 117/78 93 Room Air Laboratory Results Reviewed CBC reviewed chemistry PG Care Time/CCT Total # of Minutes Spent Total Time Spent with Patient: Total time spent is greater than 50% in coordination of care (as documented) at patient's floor/unit and/or counseling patient: Coding Level of Care Code 31155 SUB INP/OBS CARE MIN Diagnoses CHF (congestive heart failure) I50.813 Heart failure chronicity: acute on chronic Heart failure type: right-sided Intrinsic asthma J45.909 Anemia D64.9 Lewy body dementia G31.83; F02.80 Bilateral leg edema R60.0 Depression F32.9 (1) CHF (congestive heart failure) Heart failure chronicity: acute on chronic Heart failure type: right-sided Qualified Code(s): I50.813 - Acute on chronic right heart failure
--- NOTE | 2023-12-20 18:16 | Discharge Summary ---
Date of Service December 20, 2023 Admission HPI Per Admitting Provider Petrona is a 78 year old female with past medical history of Lewy Body Dementia, CHF with echocardiogram from 2019 with EF 50-55%, asthma and questionable COPD, HTN, GERD, Depression, CAD coming in for worsening disorientation and dyspnea. Patient is a resident at [facility] in [place] and is accompanied by her daughter who is also her power of family law attorney. Daughter states that her mom went to [place] [facility] on December 04 for concern of worsening disorientation. In the [place] ER patient was found to have clear CXR and found to be hypokalemic. She was repleted potassium and sent back home. Daughter states that she has had about 4 falls since that time that may have been unwitnessed at her facility. Daugther was contacted earlier today being told that her mother had been having worsening disorientation and a little more dyspneic. Patient was not having any other complaints per daughter. She has a past history of CHF along with an IA in 1999. Patient has chronic swelling in her legs and is on diuretics at home. The swelling has progressed to the point where she gets dry skin and sometimes some wounds on her legs. In the ER patient was found to have a hemoglobin of 8.9, WBC WNL, CMP within normal limits, BMP 358, rhino/enterovirus positive. CXR positive for cardiomegaly with mild pulmonary edema. She was given Lasix 80mg, albuterol neb, and Guaifenesin 600mg. Principal Diagnosis acute on chronic systolic and diastolic heart failure atrial flutter controlled v rate iron deficiency anemia Discharge Exam Patient ambulating in her room she is not dyspneic with exertion Cardiac exam sounds to be regular rate controlled there is a systolic murmur Lungs are clear but diminished at the bases she has markedly kyphotic Extremities are with trace edema with some chronic skin changes Discharge Data Allergies Allergy/AdvReac Type Severity Reaction Status Date / Time latex Allergy Mild RASH Verified 12/14/23 17:53 tingly morphine AdvReac Intermediate NAUSEA AND Verified 12/14/23 17:53 VOMITING Consultations 12/14/23 17:29 ED Decision to Admit Stat 12/15/23 15:47 Consult Gastroenterology Routine 12/20/23 07:41 [facility] Referral Routine Ordered Studies 12/15/23 15:47 CT Abd and Pelvis [CT abd pelvis wo con] Routine Hospital Course (1) CHF (congestive heart failure): Acute on chronic diastolic and systolic heart failure. right heart systolic failure treated with iv lasix Echocardiogram suggests global hypokinesis possible previous inferior IA markedly reduced right-sided systolic function Transitioning to daily diuretic of 80 mg Lasix on 12/20/2023 Discontinuing isosorbide given the right ventricular dysfunction for concern of reducing preload CAD/ chronic hypertension continues on aspirin atorvastatin, metoprolol and losartan will need to enroll in heart failure clinic patient's family would like a second opinion reengaging with about any cardiology whom they have been involved with in the past (2) Intrinsic asthma: -now resolved rhino/enterovirus resulting in exacerbation of asthma/COPD. -completed Azithromycin - continue duoneb treatment q6R, Pulmicort, Perforomist, albuterol as needed, flutter valve, mucinex. (3) Anemia: Unsure of cause Iron studies point towards iron def. anemia. Patient received venofer x1 300 mg Hemoglobin 9 g range. Daughter cannot recall events of complaints of bleeding. There had been discussion of Watchman procedure with previous cardiology visit -CT abd/ pelvis no signs of occult hematoma -No obvious source of bleed: irineo GI. -restarted eliquis which patient takes for a fib. (4) Lewy body dementia: Metabolic encephalopathyresolved -Likely worsening of orientation due to rhino/enterovirus and CHF exacerbation. -Will continue to monitor, fall precautions in place. sleep deprivation improved seroquel 12/18/23 (5) Bilateral leg edema: As above, likely related to chronic venous stasis and CHF. improved with diuresis (6) Depression: -Continue home fluoxetine Plan DVT Prophylaxis: hgb has been stable will restart eliquis Code status: DNR/DNI Total Time Total Time Spent Total Time Spent (In Minutes): It required greater than 30 minutes to prepare this patient for discharge. Discharge Plan Discharge Items Patient Disposition: Personal Long-Term Reason For Visit: CHF EXACERBATION, COPD EXACERBATION Discharge Diagnosis: acute on chronic heart failure atrial flutter controlled rate Activity: Per Instructions section Non-emergency contact: Primary Care Provider and Sanitation Truck Driver Call non-emergency contact if: your symptoms worsen Follow-up/Referrals: Stevan Cardenas MD [Physician] - 02/10/24 11:00 am (Please arrive 15 minutes prior to appointment time.) Johnny Huerta [Primary Care Provider] - Diet: Low Sodium (2gm) Addtl Attending Provider Instructions: Call 911 and go to the Emergency Room if: * You have tightness or pain in your chest that does not go away with rest or Nitroglycerin * You are very short of breath even with rest Call your doctor if any of the following symptoms or problems start or get worse: * Shortness of breath or difficulty breathing * Wake up at night short of breath * Chest pain * Cough * Swelling of your hands, fee, or legs * More fatigued or tired with your normal activity * Palpitations - sudden fast heart beats WEIGHT * Weigh yourself every morning after using the bathroom. * Use the same scale. * Wear the same amount of clothing. * Write your weight down on your chart. * Call your doctor if you gain more than 2-3 pounds in 1-2 days. MEDICATIONS * Use this discharge instruction sheet for instructions. * Take your medications at the time your doctor ordered. * Do not skip a dose of your medicines. * If you miss a dose of medicine, take as soon as possible, but DO NOT DOUBLE A DOSE. * Read your medicine information when you get home. * Know all of the side effects of your medicine. * Call your doctor's office if you have any side effects. * Be sure all of your doctors know what medicine and herbs you take (including cold, flu, and herbal medicine). * Pain Medicine: If you do not get relief from your pain, please call your doctor for help. Take the following with you to your follow-up doctor appointments: * Weight Chart * Medication List * List of questions Do not drink excessive alcohol, beer or wine. Pending Studies at Discharge: No Stand-Alone Forms: My [employer], Smoking Cessation Skilled Items Patient informed of condition?: Yes DNR: No Discharge Level of Care: Other Communicable Disease: No Discharge Prognosis: Stable Lines: None Urinary Catheter: No Medications and DC Order Prescriptions: New quetiapine 25 mg Tablet 25 mg PO HS Qty: 30 0RF Continued Lyrica 100 mg capsule 100 mg PO BID Qty: 180 0RF (DME) ThermaCare Cold Wrap Joint pad See Dose Instructions .ROUTE .MEDSUPPLY Qty: 1 3RF Dose Instruction: As directed Rx Instructions: Apply once daily to sore spots melatonin 5 mg tablet 20 mg PO HS acetaminophen [Tylenol] 325 mg Tablet 650 mg PO Q4H PRN (Reason: PAIN/FEVER) atorvastatin 10 mg tablet 10 mg PO HS sennosides-docusate sodium [Stimulant Laxative Plus] 8.6-50 mg Tablet 1 tab-cap PO HS ferrous sulfate [FeroSul] 325 mg (65 mg iron) Tablet 325 mg PO QAM calcium carbonate [Calcium Antacid] 200 mg calcium (500 mg) Tablet,Chewable 200 mg PO Q4H PRN (Reason: Dyspepsia) losartan 25 mg Tablet 25 mg PO QAM fluoxetine 10 mg Capsule 10 mg PO QAM Rx Instructions: TOTAL DOSE 30 MG--TAKES WITH 20 MG CAP. aspirin 81 mg Tablet,Chewable 81 mg PO QAM folic acid 1 mg Tablet 1 mg PO QAM albuterol sulfate 90 mcg/actuation Hfa Aerosol Inhaler 2 puff INHALATION Q4H PRN (Reason: Shortness Of Breath Or Wheezing) benzocaine 20 % Gel 1 ea MUCOUS MEMBRANE DIRECTED PRN (Reason: MOUTH ULCER PAIN) fluoxetine 20 mg capsule 20 mg PO QAM Rx Instructions: TOTAL DOSE 30 MG--TAKES WITH 10 MG CAP. cholecalciferol (vitamin D3) [Vitamin D3] 50 mcg (2,000 unit) Capsule 50 mcg PO QAM Eliquis 5 mg Tablet 5 mg PO BID omeprazole 40 mg capsule,delayed release(DR/EC) 40 mg PO DAILYBB Changed furosemide [Lasix] 40 mg Tablet 80 mg PO QAM Qty: 60 3RF metoprolol succinate 25 mg tablet extended release 24 hr 50 mg PO QAM Qty: 60 2RF Discontinued potassium chloride 20 mEq tablet,ER particles/crystals 20 meq PO QAM tramadol 50 mg tablet 100 mg PO Q6H Rx Instructions: TAKES 0600, 1200, 1800, 2359 isosorbide mononitrate 60 mg tablet extended release 24 hr 60 mg PO QAM Discharge Orders: Discharge Order (Routine); Ordered 12/20/23 Ordered By: Steve Schuler Admission Data Admit Date/Time: 12/14/23 19:00 Attending Provider: Steve Schuler Admit Provider: Charly Gautam Primary Care Provider: Johnny Huerta Other Providers: Conor Barbosa; [place],Care; Jorge Wilson; Madhav Douglass; Heather Rivero; Reba Castillo; Mellissa Vivas; Sharifa Eaton; Micky Edge; Johnny Dewitt; Angelina Evans; Diana Raphael; Chanelle Hirsch; Vaishnavi Hernandez; Claudia العراقي; Vale Christina; Helga Bragg; Na Noble; Gino Zavala; Jose Wellington; Gia Valverde; Daniel Conti Jr; Sharri Mixon Other Interventions: Discharge Summary Assessment (RN) Last Done: 12/20/23 16:13 Coding Level of Care Code 92942 INP/OBS DISCH >30 MIN Diagnoses CHF (congestive heart failure) I50.813 Heart failure chronicity: acute on chronic Heart failure type: right-sided Intrinsic asthma J45.909 Anemia D64.9 Lewy body dementia G31.83; F02.80 Bilateral leg edema R60.0 Depression F32.9
== END 2023-12-20 16:14 | disposition home or self-care (01) | DRG 291 ==
LOC: ED 15:03 → SUATTDRO 19:00 → 2W 19:00

== ENCOUNTER 2023-12-28 13:26 | Inpatient (IN) ==
--- NOTE | 2023-12-28 14:04 | Emergency Department Note ---
Impression & Plan AMS (altered mental status), Anemia, UTI (urinary tract infection), Leukocytosis, Elevated troponin ED Provider Note NAME: JOSUÉ PALUMBO AGE: 78 SEX: F : 1945 ARRIVES VIA: Ambulance INFORMANT: Patient ED PROVIDER(S): Angelito Hays DO CHIEF COMPLAINT: AMS HPI: Patient is a 78-year-old female who presents to the ER brought in by EMS for altered mental status. They have been unable to get the patient to be aroused today. She has been much more confused than previously within the past 2 weeks treated for UTI. She denies any headache or chest pain or shortness of breath. No belly pain. No dysuria, urgency, or frequency that she is aware of. History is fairly limited but also obtained from friend who is present at bedside and notes that they sent her over for confusion and difficult to arouse. ADDITIONAL HISTORY OBTAINED: Per HPI Chronic Medical/Social Conditions Affecting Care: Per HPI PAST MEDICAL HISTORY:See Below PAST SURGICAL HISTORY:See Below FAMILY HISTORY:See Below SOCIAL HISTORY:See Below HOME MEDICATIONS:See Below ALLERGIES:See Below VITALS:See Below PHYSICAL EXAMINATION: GENERAL: Lying in bed on nasal cannula, snoring EYE EXAM: normal conjunctiva. OROPHARYNX: mucous membranes are moist NECK: supple, no nuchal rigidity, no adenopathy, non-tender LUNGS: Clear to auscultation. Normal chest wall mechanics HEART: no murmurs, S1 normal and S2 normal ABDOMEN: abdomen soft, non-tender, normo-active bowel sounds, no masses, no rebound or guarding. UPPER EXTREMITIES: upper extremities are grossly normal. LOWER EXTREMITIES: No pitting edema. NEURO EXAM: Awakens, oriented to person but not place or year, moving all extremities nonfocal MEDICAL DECISION MAKING: Patient is a 78-year-old female who presents ER for the above-stated complaint. Patient was brought in for altered mental status. IV was established medicals obtained. Labs show leukocytosis of 14,000. Mild anemia 10. VBG 7.4 and a CO2 of 54. BMP with a mild hypokalemia 3.2. LFTs bilirubin was unremarkable. Troponin was elevated 50s. Pro-Jordy elevated 0.75. UA consistent with UTI. Patient was given IV fluids and Rocephin. Chest x-ray with questionable infiltrate. CT head was unremarkable. Patient was given IV antibiotics updated bedside discussed with the hospitalist for further evaluation management treatment. Patient remained on 2 L nasal cannula due to hypoxia throughout the stay in the ER. Consults/Care Managements Discussions: Per [facility] Triage Nursing notes reviewed. Limited review of prior medical records performed Vital Signs: reviewed and remarkable for hypotensive, hypoxic and tachypneic Differential diagnosis: Differential diagnoses includes but is not limited to pneumonia, bronchitis, COPD/Asthma exacerbation, pneumothorax, pulmonary embolism, congestive heart failure, acute coronary syndrome ER treatment provided: See below Diagnostics interpreted by me include EKG and cardiac monitoring as listed below: -Cardiac Monitoring: An order was placed for continuous cardiac monitoring. The monitor shows a rate of 80 with sinus rhythm. -ECG: Sinus rhythm at 87 Normal axis No PVCs Nonspecific ST wave changes in the inferior's and lateral's QTc 546 -Laboratory studies:Interpreted by me as stated above in MDM and shown below. Imaging studies: Xrays: As interpreted by me: Portable AP upright 1 view of the chest shows questionable infiltrate in the right lower lobe CTs show: CT head was negative Procedures:none Critical Care: I have personally spent 35 minutes of critical care time in the direct management of this patient. This includes bedside care, interpretation of diagnostic studies, and testing, discussion with consultants, patient, and family members, and other required patient management activities. This 35 minutes is in excess of all separately billable procedures. Past Med/Surg History Medical History (Updated 12/28/23 @ 18:32 by Angelito Hays DO) Trimalleolar fracture of right ankle Closed right ankle fracture Actinic skin damage Osteoarthritis Chronic back pain GERD (gastroesophageal reflux disease) Depression CAD (coronary artery disease) Myocardial Infarction 1999 AND MEDICAL TREATMENT Hypertension Hyperlipidemia Asthma Surgical History History of coronary artery bypass graft History of cataract surgery LEFT on 11/17/18: was given 2mg versed without apparent complications History of open reduction and internal fixation (ORIF) procedure RIGHT HIP History of total knee replacement RIGHT AND LEFT Fusion of spine LUMBAR - AND HAS ONE SCREW LOOSE AND NO SURGERY NEEDED. History of coronary artery bypass graft 1999 - X 3 VESSEL - [facility] FOLLOWS WITH DR THIBODEAUX Family History Father Myocardial infarction Prostate cancer Brother Myocardial infarction Grandmother (Paternal) Myocardial infarction Mother Alcoholism Denies family history of Ovarian cancer Breast cancer Colorectal cancer Social History Smoking Status: Former smoker Tobacco Type: Cigarettes Age Quit Using Tobacco: 51; packs per day: 2.5; Cigarettes Per Day: 50; Second Hand Exposure: No; Do You Dip or Chew Tobacco: No; Hx Alcohol Use: No Hx Substance Use: No Preferred Language: Divehi Communication Ability: Effective Visual Impairment: No Limitations Hearing Ability: Normal Government Gauger Required: No Beliefs That Will Affect Care: None marital status: Current Living Situation: Personal Care Facility current occupational status: retired Feels Safe at Home: Yes Childhood Exposure to Second-Hand Smoke: Yes Dental Care, Regularly: Yes Physical Activity Frequency: Does not Exercise Seatbelt Use: always Sunscreen Use: Yes Assistive Devices: Walker and Wheelchair Allergies Allergies Allergy/AdvReac Type Severity Reaction Status Date / Time latex Allergy Mild RASH Verified 12/28/23 15:40 tingly morphine AdvReac Intermediate NAUSEA AND Verified 12/28/23 15:40 VOMITING Home Meds Home Medications Medication Instructions Recorded Confirmed melatonin 5 mg tablet 20 mg PO HS Sleep 07/19/19 12/28/23 acetaminophen 325 mg tablet 650 mg PO Q4H PRN PAIN/FEVER 12/14/23 12/28/23 (Tylenol) albuterol sulfate 90 mcg/actuation 2 puff inhalation Q4H PRN 12/14/23 12/28/23 aerosol inhaler Shortness Of Breath Or Wheezing apixaban 5 mg tablet (Eliquis) 5 mg PO BID 12/14/23 12/28/23 aspirin 81 mg chewable tablet 81 mg PO QAM 12/14/23 12/28/23 atorvastatin 10 mg tablet 10 mg PO HS 12/14/23 12/28/23 calcium carbonate 200 mg calcium 200 mg PO Q4H PRN Dyspepsia 12/14/23 12/28/23 (500 mg) chewable tablet (Calcium Antacid) cholecalciferol (vitamin D3) 50 50 mcg PO QAM 12/14/23 12/28/23 mcg (2,000 unit) capsule (Vitamin D3) ferrous sulfate 325 mg (65 mg 325 mg PO QAM 12/14/23 12/28/23 iron) tablet (FeroSul) fluoxetine 10 mg capsule 10 mg PO QAM 12/14/23 12/28/23 fluoxetine 20 mg capsule 20 mg PO QAM 12/14/23 12/28/23 folic acid 1 mg tablet 1 mg PO QAM 12/14/23 12/28/23 losartan 25 mg tablet 25 mg PO QAM 12/14/23 12/28/23 omeprazole 40 mg capsule,delayed 40 mg PO DAILYBB 12/14/23 12/28/23 release sennosides 8.6 mg-docusate sodium 1 tab-cap PO HS 12/14/23 12/28/23 50 mg tablet (Stimulant Laxative Plus) acetaminophen 325 mg tablet 650 mg PO BID 12/28/23 12/28/23 (Tylenol) benzocaine 20 %-menthol 0.1 %-zinc 1 ea mucous membrane DIRECTED 12/28/23 12/28/23 chloride 0.15 % mucosal gel PRN MOUTH SORES PAIN (Orajel 3X Mouth Sores) eucalyptus-menthol oral mucosal 1 camille mucous membrane Q2H PRN Cough 12/28/23 12/28/23 lozenge furosemide 80 mg tablet (Lasix) 80 mg PO QAM 12/28/23 12/28/23 metoprolol succinate 50 mg 50 mg PO QAM 12/28/23 12/28/23 tablet,extended release 24 hr Previous Rx's Medication Instructions Recorded hot/cold therapy aids (ThermaCare #1 ea 08/10/19 Cold Wrap Joint pads) pregabalin 100 mg capsule (Lyrica) 100 mg PO BID #180 caps 09/04/19 Results & Data (ED) Vital Signs Vital Signs - 24 hr 12/28/23 13:49 12/28/23 14:37 12/28/23 14:43 Temperature 36.4 C L Temperature Source Oral Pulse Rate 86 86 Pulse Rate [Left Apical] 80 Respiratory Rate 32 H 28 H Respiratory Effort / Characteristics Grunting Short of Breath Labored Blood Pressure 99/65 L Blood Pressure [Left Radial Artery] 109/62 Blood Pressure Mean 76 Blood Pressure Mean [Left Radial Artery] 77 Pulse Oximetry 96 98 Oxygen Delivery Method Nasal Cannula Nasal Cannula Oxygen Flow Rate 4 4 Sepsis Recent Fever Within 48 Hours No Sepsis New/Unexplained Change in Mental Status Yes Sepsis Action Taken by Nursing Physician Notified 12/28/23 15:00 12/28/23 15:30 12/28/23 16:00 Temperature Temperature Source Pulse Rate 80 79 78 Pulse Rate [Left Apical] Respiratory Rate 29 H 31 H 29 H Respiratory Effort / Characteristics Blood Pressure 104/65 129/81 139/77 Blood Pressure [Left Radial Artery] Blood Pressure Mean 78 97 97 Blood Pressure Mean [Left Radial Artery] Pulse Oximetry 97 97 98 Oxygen Delivery Method Nasal Cannula Nasal Cannula Nasal Cannula Oxygen Flow Rate 4 4 4 Sepsis Recent Fever Within 48 Hours Sepsis New/Unexplained Change in Mental Status Sepsis Action Taken by Nursing 12/28/23 17:00 12/28/23 17:31 12/28/23 17:38 Temperature Temperature Source Pulse Rate 83 86 84 Pulse Rate [Left Apical] Respiratory Rate 27 H 31 H Respiratory Effort / Characteristics Blood Pressure 124/74 113/74 Blood Pressure [Left Radial Artery] Blood Pressure Mean 90 87 Blood Pressure Mean [Left Radial Artery] Pulse Oximetry 97 99 Oxygen Delivery Method Room Air Nasal Cannula Oxygen Flow Rate 2 Sepsis Recent Fever Within 48 Hours Sepsis New/Unexplained Change in Mental Status Sepsis Action Taken by Nursing 12/28/23 17:45 Temperature 36.7 C Temperature Source Oral Pulse Rate Pulse Rate [Left Apical] Respiratory Rate Respiratory Effort / Characteristics Blood Pressure Blood Pressure [Left Radial Artery] Blood Pressure Mean Blood Pressure Mean [Left Radial Artery] Pulse Oximetry Oxygen Delivery Method Oxygen Flow Rate Sepsis Recent Fever Within 48 Hours Sepsis New/Unexplained Change in Mental Status Sepsis Action Taken by Nursing Laboratory Data 12/28/23 13:54 12/28/23 13:54 Lab Results 12/28/23 12/28/23 12/28/23 Range/Units 13:54 14:16 14:56 WBC 14.40 H (4.8-10.8) K/ul RBC 4.31 (4.20-5.40) M/uL Hgb 10.0 L (12.0-16.0) g/dl Hct 33.7 L (37.0-47.0) % MCV 78.2 L (80.0-100.0) fL MCH 23.2 L (25.0-34.0) pg MCHC 29.7 L (32.0-36.0) g/dL RDW Std Deviation 82.7 H (36.4-46.3) fL RDW Coeff of Alice 31.3 H (11.5-14.5) % Plt Count 288 (130-400) K/uL MPV 9.4 (9.4-12.4) fL Immature Gran % (Auto) 0.5 % Neut % (Auto) 84.0 % Lymph % (Auto) 6.5 % Dundy % (Auto) 8.7 % Eos % (Auto) 0.0 % Baso % (Auto) 0.3 % Neut # (Auto) 12.10 H (1.40-6.50) K/uL Lymph # (Auto) 0.94 L (1.20-3.40) K/uL Dundy # (Auto) 1.25 H (0.11-0.59) K/uL Eos # (Auto) 0.00 (0.00-0.50) K/uL Baso # (Auto) 0.04 (0.00-0.20) K/uL Immature Gran # (Auto) 0.07 (0.01-0.20) K/uL Polychromasia 1+ Hypochromasia Present Schistocytes 1+ PT 12.4 H (9.0-12.0) Seconds INR 1.1 (0.9-1.1) VBG pH 7.40 (7.36-7.41) VBG pCO2 54 H (38-50) mmHg VBG pO2 33 mmHg VBG HCO3 33 mmol/L VBG O2 Saturation < 60.0 % VBG Base Excess 7.0 mEq/L Sodium 141 (136-145) mmol/L Potassium 3.2 L (3.5-5.1) mmol/L Chloride 105 (98-107) mmol/L Carbon Dioxide 30 (21-32) mmol/L Anion Gap 6 (3-11) BUN 14 (6-23) mg/dl Creatinine 0.73 (0.6-1.2) mg/dl Est Cr Clr Drug Dosing Not Reportable Est GFR ( Amer) 92.7 ml/min Est GFR (Non-Af Amer) 80.0 ml/min BUN/Creatinine Ratio 19.2 (10-20) Glucose 111 H (70-99(Fasting)) mg/dl Lactate 1.1 (0.4-2.0) mmol/L Calcium 8.6 (8.6-10.3) mg/dl Magnesium 1.9 (1.7-2.4) mg/dl Total Bilirubin 0.7 (0.2-1.0) mg/dl Direct Bilirubin 0.2 (0-0.2) mg/dl AST 14 (13-39) U/L ALT 9 (7-52) U/L Alkaline Phosphatase 87 (34-104) U/L Troponin I High Sens 53.4 H* (0-14) pg/ml B-Natriuretic Peptide (0-100) pg/ml Total Protein 6.2 (6.0-8.3) gm/dl Albumin 3.2 L (3.4-5.0) gm/dl Procalcitonin 0.75 H (0-0.5) ng/ml Urine Color Yellow Urine Appearance Cloudy A (Clear) Urine pH 5.5 (4.5-7.5) Ur Specific Chester 1.008 (1.000-1.030) Urine Protein Trace H (Negative) Urine Glucose (UA) Negative (Negative) Urine Ketones Negative (Negative) Urine Blood 3+ H (Negative) Urine Nitrite Positive A (Negative) Urine Bilirubin Negative (Negative) Urine Urobilinogen Negative (Negative) Ur Leukocyte Esterase 3+ H (Negative) Urine WBC (Auto) >30 H (0-5) /hpf Urine RBC (Auto) 5-10 H (0-4) /hpf U Hyaline Cast (Auto) 1-5 (0-5) /lpf U Epithel Cells (Auto) 5-10 H (0-5) /lpf Urine Bacteria (Auto) 1+ H (Negative) 12/28/23 12/28/23 Range/Units 14:57 15:40 WBC (4.8-10.8) K/ul RBC (4.20-5.40) M/uL Hgb (12.0-16.0) g/dl Hct (37.0-47.0) % MCV (80.0-100.0) fL MCH (25.0-34.0) pg MCHC (32.0-36.0) g/dL RDW Std Deviation (36.4-46.3) fL RDW Coeff of Alice (11.5-14.5) % Plt Count (130-400) K/uL MPV (9.4-12.4) fL Immature Gran % (Auto) % Neut % (Auto) % Lymph % (Auto) % Dundy % (Auto) % Eos % (Auto) % Baso % (Auto) % Neut # (Auto) (1.40-6.50) K/uL Lymph # (Auto) (1.20-3.40) K/uL Dundy # (Auto) (0.11-0.59) K/uL Eos # (Auto) (0.00-0.50) K/uL Baso # (Auto) (0.00-0.20) K/uL Immature Gran # (Auto) (0.01-0.20) K/uL Polychromasia Hypochromasia Schistocytes PT (9.0-12.0) Seconds INR (0.9-1.1) VBG pH (7.36-7.41) VBG pCO2 (38-50) mmHg VBG pO2 mmHg VBG HCO3 mmol/L VBG O2 Saturation % VBG Base Excess mEq/L Sodium (136-145) mmol/L Potassium (3.5-5.1) mmol/L Chloride (98-107) mmol/L Carbon Dioxide (21-32) mmol/L Anion Gap (3-11) BUN (6-23) mg/dl Creatinine (0.6-1.2) mg/dl Est Cr Clr Drug Dosing Est GFR ( Amer) ml/min Est GFR (Non-Af Amer) ml/min BUN/Creatinine Ratio (10-20) Glucose (70-99(Fasting)) mg/dl Lactate (0.4-2.0) mmol/L Calcium (8.6-10.3) mg/dl Magnesium (1.7-2.4) mg/dl Total Bilirubin (0.2-1.0) mg/dl Direct Bilirubin (0-0.2) mg/dl AST (13-39) U/L ALT (7-52) U/L Alkaline Phosphatase (34-104) U/L Troponin I High Sens 52.4 H* (0-14) pg/ml B-Natriuretic Peptide 810 H (0-100) pg/ml Total Protein (6.0-8.3) gm/dl Albumin (3.4-5.0) gm/dl Procalcitonin (0-0.5) ng/ml Urine Color Urine Appearance (Clear) Urine pH (4.5-7.5) Ur Specific Chester (1.000-1.030) Urine Protein (Negative) Urine Glucose (UA) (Negative) Urine Ketones (Negative) Urine Blood (Negative) Urine Nitrite (Negative) Urine Bilirubin (Negative) Urine Urobilinogen (Negative) Ur Leukocyte Esterase (Negative) Urine WBC (Auto) (0-5) /hpf Urine RBC (Auto) (0-4) /hpf U Hyaline Cast (Auto) (0-5) /lpf U Epithel Cells (Auto) (0-5) /lpf Urine Bacteria (Auto) (Negative) Administered Medications Vancomycin HCl 2,000 mg/ (Sodium Chloride) 540 mls @ 200 mls/hr IV NOW ONE Stop: 12/28/23 20:11 Last Admin: 12/28/23 17:51 Dose: 200 mls/hr Documented By: MELISSA Discontinued Medications Ceftriaxone Sodium (Rocephin) 2,000 mg in 50 mls @ 100 mls/hr IV NOW STA Stop: 12/28/23 15:37 Last Infusion: 12/28/23 16:48 Dose: Infused Documented By: Admin: 12/28/23 15:44 Dose: 100 mls/hr Documented By: MELISSA Ertapenem (Invanz) 10 mls @ 2 mls/min IV NOW STA Stop: 12/28/23 17:10 Last Admin: 12/28/23 17:32 Dose: 2 mls/min Documented By: MELISSA Imaging Data Radiologist's Impression: Chest X-Ray 12/28/23 14:03 XR chest 1V portable CLINICAL HISTORY: Sepsis. COMPARISON STUDY: Chest CT July 25, 2019. Chest radiograph December 14, 2023. FINDINGS: Exam was compromised given difficulty positioning. There are median sternotomy wires. Cardiomegaly is unchanged. Prominent right mediastinal contour is likely due to a rotated study. Elevation of the right hemidiaphragm is unchanged. There is no pneumothorax or pleural effusion. Mild interstitial thickening is noted. Right basilar opacity is present. IMPRESSION: 1. Rotated study. 2. Cardiomegaly with mild pulmonary edema, similar to prior exam. 3. Right basilar opacity which favors atelectasis. ACT 112: Negative or not required by law. Electronically signed by: Armaan Miramontes M.D. 12/28/2023 3:[address] 12/28/23 14:03 CT SCAN OF THE BRAIN WITHOUT IV CONTRAST CLINICAL HISTORY: Change in mental status COMPARISON STUDY: No priors TECHNIQUE: Unenhanced axial CT scan of the brain is performed from the vertex to the skull base. A dose lowering technique was utilized adhering to the principles of ALARA. The patient was scanned twice due to motion artifact. CT DOSE: 1253.33 mGy.cm FINDINGS: Brain parenchyma: There is age-related involutional change noting advanced subcortical and periventricular microangiopathic disease. There is no hemorrhage, mass effect, or evidence of acute territorial ischemia by CT criteria. Torres-white matter differentiation is preserved. No extra-axial fluid collection is seen. Ventricles, sulci, cisterns: Prominent secondary to involutional change. Intracranial vasculature: There is atherosclerotic calcification of the cavernous carotid and vertebral arteries. Calvarium: Unremarkable. Sinuses and mastoids: There is trace mucosal thickening in the right maxillary antrum. The remaining paranasal sinuses are clear. The mastoid air cells are well pneumatized. Orbits: The bony orbits are grossly intact. There are bilateral ocular lens implants. IMPRESSION: There is no hemorrhage, mass effect, or evidence of acute territorial ischemia by CT criteria noting a motion degraded examination. ACT 112: Negative or not required by law. Electronically signed by: Gus Ynag M.D. 12/28/2023 2:39 PM Discharge Plan Visit Data Chief Complaint: Lethargic ED Provider: Angelito Hays Discharge Problem: AMS (altered mental status), Anemia, UTI (urinary tract infection), Leukocytosis, Elevated troponin Forms Stand Alone Forms: My [facility] Prescriptions Prescriptions: No Action Lyrica 100 mg capsule 100 mg PO BID Qty: 180 0RF (DME) ThermaCare Cold Wrap Joint pad See Dose Instructions .ROUTE .MEDSUPPLY Qty: 1 3RF Dose Instruction: As directed Rx Instructions: Apply once daily to sore spots melatonin 5 mg tablet 20 mg PO HS acetaminophen [Tylenol] 325 mg Tablet 650 mg PO Q4H PRN (Reason: PAIN/FEVER) atorvastatin 10 mg tablet 10 mg PO HS sennosides-docusate sodium [Stimulant Laxative Plus] 8.6-50 mg Tablet 1 tab-cap PO HS ferrous sulfate [FeroSul] 325 mg (65 mg iron) Tablet 325 mg PO QAM calcium carbonate [Calcium Antacid] 200 mg calcium (500 mg) Tablet,Chewable 200 mg PO Q4H PRN (Reason: Dyspepsia) losartan 25 mg Tablet 25 mg PO QAM fluoxetine 10 mg Capsule 10 mg PO QAM Rx Instructions: TOTAL DOSE 30 MG--TAKES WITH 20 MG CAP. aspirin 81 mg Tablet,Chewable 81 mg PO QAM folic acid 1 mg Tablet 1 mg PO QAM albuterol sulfate 90 mcg/actuation Hfa Aerosol Inhaler 2 puff INHALATION Q4H PRN (Reason: Shortness Of Breath Or Wheezing) fluoxetine 20 mg capsule 20 mg PO QAM Rx Instructions: TOTAL DOSE 30 MG--TAKES WITH 10 MG CAP. cholecalciferol (vitamin D3) [Vitamin D3] 50 mcg (2,000 unit) Capsule 50 mcg PO QAM Eliquis 5 mg Tablet 5 mg PO BID omeprazole 40 mg capsule,delayed release(DR/EC) 40 mg PO DAILYBB acetaminophen [Tylenol] 325 mg Tablet 650 mg PO BID metoprolol succinate 50 mg Tablet Extended Release 24 Hr 50 mg PO QAM furosemide [Lasix] 80 mg Tablet 80 mg PO QAM Ravena Cough Drops Lozenge 1 camille MUCOUS MEMBRANE Q2H PRN (Reason: Cough) Orajel 3X Mouth Sores 20-0.1-0.15 % Gel 1 ea MUCOUS MEMBRANE DIRECTED PRN (Reason: MOUTH SORES PAIN) Referrals Referrals: Johnny Huerta [Primary Care Provider] - Discharge Problem: AMS (altered mental status) Qualifiers: Altered mental status type: unspecified Qualified Code(s): R41.82 - Altered mental status, unspecified Anemia Qualifiers: Anemia type: unspecified type Qualified Code(s): D64.9 - Anemia, unspecified UTI (urinary tract infection) Qualifiers: Urinary tract infection type: site unspecified Leukocytosis Qualifiers: Leukocytosis type: unspecified Qualified Code(s): D72.829 - Elevated white blood cell count, unspecified
[2023-12-28 14:26] LABS: Basophils # (auto) 0.04 K/uL (0.00-0.20); Basophils % (auto) 0.3 %; Hematocrit (blood only) 33.7 % (37.0-47.0); Immature Granulocytes # (auto) 0.07 K/uL (0.01-0.20); Immature Granulocytes % (auto) 0.5 %; Lymphocytes # (auto) 0.94 K/uL (1.20-3.40); Lymphocytes % (auto) 6.5 %; Mean Corpuscular Hemoglobin 23.2 pg (25.0-34.0); Mean Corpuscular Hgb Conc 29.7 g/dL (32.0-36.0); Mean Corpuscular Volume 78.2 fL (80.0-100.0); Mean Platelet Volume 9.4 fL (9.4-12.4); Monocytes # (auto) 1.25 K/uL (0.11-0.59); Monocytes % (auto) 8.7 %; Platelet Count 288 K/uL (130-400); RDW Coefficient of Variation 31.3 % (11.5-14.5); RDW Standard Deviation 82.7 fL (36.4-46.3); Red Blood Count 4.31 M/uL (4.20-5.40)
[2023-12-28 14:39] LABS: Appearance Urine Cloudy (Clear); Bacteria Urine Automated 1+ (Negative); Bilirubin Urine Negative (Negative); Blood Urine 3+ (Negative); Color Urine Yellow; Glucose Urine UA Negative (Negative); Ketones Urine Negative (Negative); Leukocyte Esterase Urine 3+ (Negative); Nitrite Urine Positive (Negative); Protein Urine Trace (Negative); Specific Gravity Urine 1.008 (1.000-1.030); Urobilinogen Urine Negative (Negative); WBC Urine Automated >30 /hpf (0-5); pH Urine 5.5 (4.5-7.5)
--- NOTE | 2023-12-28 14:41 | CT Scan Report ---
CT SCAN OF THE BRAIN WITHOUT IV CONTRAST CLINICAL HISTORY: Change in mental status COMPARISON STUDY: No priors TECHNIQUE: Unenhanced axial CT scan of the brain is performed from the vertex to the skull base. A do se lowering technique was utilized adhering to the principles of ALARA. The patient was scanned twice due to motion artifact. CT DOSE: 1253.33 mGy.cm FINDINGS: Brain parenchyma: There is age-related involutional change noting advanced subcortical and periventri cular microangiopathic disease. There is no hemorrhage, mass effect, or evidence of acute territorial ischemia by CT criteria. Torres-white matter differentiation is preserved. No extra-axial fluid collec tion is seen. Ventricles, sulci, cisterns: Prominent secondary to involutional change. Intracranial vasculature: There is atherosclerotic calcification of the cavernous carotid and vertebr al arteries. Calvarium: Unremarkable. Sinuses and mastoids: There is trace mucosal thickening in the right maxillary antrum. The remaining paranasal sinuses are clear. The mastoid air cells are well pneumatized. Orbits: The bony orbits are grossly intact. There are bilateral ocular lens implants. IMPRESSION: There is no hemorrhage, mass effect, or evidence of acute territorial ischemia by CT crit aramis noting a motion degraded examination. ACT 112: Negative or not required by law. Electronically signed by: Gus Yang M.D. 12/28/2023 2:39 PM
[2023-12-28 14:44] LABS: Alanine Aminotransferase 9 U/L (7-52); Albumin Level 3.2 gm/dl (3.4-5.0); Alkaline Phosphatase 87 U/L (34-104); Anion Gap 6 (3-11); Aspartate Aminotransferase 14 U/L (13-39); BUN Creatinine Ratio 19.2 (10-20); Bilirubin Direct 0.2 mg/dl (0-0.2); Bilirubin,Total 0.7 mg/dl (0.2-1.0); Blood Urea Nitrogen 14 mg/dl (6-23); Calcium 8.6 mg/dl (8.6-10.3); Carbon Dioxide 30 mmol/L (21-32); Chloride 105 mmol/L (98-107); Est GFR (African American) 92.7 ml/min; Glucose 111 mg/dl (70-99(Fasting)); Magnesium 1.9 mg/dl (1.7-2.4); Potassium 3.2 mmol/L (3.5-5.1); Sodium 141 mmol/L (136-145); Total Protein 6.2 gm/dl (6.0-8.3)
[2023-12-28 14:46] LABS: Hypochromasia Present; Polychromasia 1+; Schistocytes 1+
[2023-12-28 14:52] LABS: INR 1.1 (0.9-1.1); Prothrombin Time 12.4 Seconds (9.0-12.0)
[2023-12-28 15:04] LABS: HCO3 VBG 33 mmol/L; Oxygen Saturation VBG < 60.0 %; PCO2 VBG 54 mmHg (38-50); PO2 VBG 33 mmHg
[2023-12-28 15:11] LABS: Troponin I High Sensitivity 53.4 pg/ml (0-14)
--- NOTE | 2023-12-28 15:36 | XRay Report ---
XR chest 1V portable CLINICAL HISTORY: Sepsis. COMPARISON STUDY: Chest CT July 25, 2019. Chest radiograph December 14, 2023. FINDINGS: Exam was compromised given difficulty positioning. There are median sternotomy wires. Cardi omegaly is unchanged. Prominent right mediastinal contour is likely due to a rotated study. Elevation of the right hemidiaphragm is unchanged. There is no pneumothorax or pleural effusion. Mild intersti tial thickening is noted. Right basilar opacity is present. IMPRESSION: 1. Rotated study. 2. Cardiomegaly with mild pulmonary edema, similar to prior exam. 3. Right basilar opacity which favors atelectasis. ACT 112: Negative or not required by law. Electronically signed by: Armaan Miramontes M.D. 12/28/2023 3:35 PM
--- NOTE | 2023-12-28 15:43 | Electrocardiogram Report ---
Test Reason : Blood Pressure : / mmHG Vent. Rate : 087 BPM Atrial Rate : 252 BPM P-R Int : 000 ms QRS Dur : 120 ms QT Int : 454 ms P-R-T Axes : 085 087 100 degrees QTc Int : 546 ms Possible Atrial flutter with variable A-V block Inferior infarct (cited on or before 23-AUG-2000) Nonspecific ST and T wave abnormality Abnormal ECG When compared with ECG of 14-DEC-2023 15:10, ST elevation now present in Inferior leads Confirmed by Romero Wang ([id number]) on 12/28/2023 3:43:37 PM Referred By: Confirmed By:Romero Wang
[2023-12-28] MEDS: cefTRIAXone SODIUM 2,000 MG/50 ML BAG IV STA (15:44)
--- NOTE | 2023-12-28 16:41 | History & Physical Report ---
Date of Service December 28, 2023 Assessment & Plan (1) Sepsis due to urinary tract infection: Plan: Resident of [facility], with reported lethargy and altered mental status over the last day. Positive urine culture this morning - ? ESBL E.coli, awaiting records - hypotensive, tachypneic and hypoxic on arrival - WBC 14, Procal 0.75, lactate 1.1 - Received CTX 2g in ED - Will start Ertapenem and Vancomycin for broad spectrum coverage - Sepsis fluid resuscitation deferred due to CHF exacerbation - Urine culture pending - Blood Culture pending -Supplemental oxygen, wean as able O2 goal 94% AM CBC, BMP, VBG (2) Altered mental state: Plan: Suspect metabolic encephalopathy -Head CT: no acute findings -Baseline lewy body dementia, but daughter reports that she is normally able to answer orientation questions (3) CHF (congestive heart failure): Plan: Up 4kg since discharge 8 days ago. Patient not on restrictive diet at [facility]. home regiment 80mg lasix PO daily Continue Losartan - 40mg lasix IV now - 40mg IV lasix qAM - Strict I&O, daily weight - BNP 810 - 2g Na restriction, 1800mL fluid restriction 40meq IV K ordered (4) CAD (coronary artery disease): Plan: Troponin elevated 53 --> 52 -continue metoprolol, ASA, statin (5) Anemia: Plan: Chronic. Stable. Seen by GI last admission - avoid NSAIDs, continue PPI BID (6) Atrial fibrillation: Plan: Continue Eliquis and Metoprolol (7) Acute on chronic HFrEF (heart failure with reduced ejection fraction): Plan Chronic stable conditions Depression - continue fluoxetine Dispo: Admit to PCU DVT proh: Umu Daughter updated at bedside History of Present Illness Primary Care Provider: Johnny Russ is 78F with a PMH of CHF, anemia, lewy body dementia, depression, HTN, CAD, HLD that presents from [facility] after concerns for lethargy and decreased mental status. Patient with recent admission and discharge 12/19 for CHF exacerbation with rhino/enterovirus. Daughter Razia is at bedside and provides most of the history - reports that the skilled nursing called her reporting the patient was acting more lethargic today and not answering questions, but did eat yesterday. Per daughter, they checked her urine that showed ESBL E.Coli but does not sound like she had been started on antibiotics. Daughter had not seen patient since her most recent discharge from the hospital, but reports there should be no medication changes, she was supposed to have appointment with the CHF clinic yesterday but had to cancel. No falls to her knowledge. Daughter reports that she is not on a specific diet at [facility] for her CHF. Petrona does open her eyes and follow some commands. Tells me that she feels lousy, and has a headache. Doesnt remember if she ate breakfast this morning. Does know that we are in [place] and in the [facility]. Unable to tell me the year (daughter states this is not normal for her) ED course - CTX 2g . Allergies Allergy/AdvReac Type Severity Reaction Status Date / Time latex Allergy Mild RASH Verified 12/28/23 15:40 tingly morphine AdvReac Intermediate NAUSEA AND Verified 12/28/23 15:40 VOMITING Home Medications Medication Instructions Recorded Confirmed Type melatonin 5 mg tablet 20 mg PO HS Sleep 07/19/19 12/28/23 History hot/cold therapy aids (ThermaCare #1 ea 08/10/19 08/10/19 Rx Cold Wrap Joint pads) pregabalin 100 mg capsule (Lyrica) 100 mg PO BID #180 caps 09/04/19 12/28/23 Rx acetaminophen 325 mg tablet 650 mg PO Q4H PRN PAIN/FEVER 12/14/23 12/28/23 History (Tylenol) albuterol sulfate 90 mcg/actuation 2 puff inhalation Q4H PRN 12/14/23 12/28/23 History aerosol inhaler Shortness Of Breath Or Wheezing apixaban 5 mg tablet (Eliquis) 5 mg PO BID 12/14/23 12/28/23 History aspirin 81 mg chewable tablet 81 mg PO QAM 12/14/23 12/28/23 History atorvastatin 10 mg tablet 10 mg PO HS 12/14/23 12/28/23 History calcium carbonate 200 mg calcium 200 mg PO Q4H PRN Dyspepsia 12/14/23 12/28/23 History (500 mg) chewable tablet (Calcium Antacid) cholecalciferol (vitamin D3) 50 50 mcg PO QAM 12/14/23 12/28/23 History mcg (2,000 unit) capsule (Vitamin D3) ferrous sulfate 325 mg (65 mg 325 mg PO QAM 12/14/23 12/28/23 History iron) tablet (FeroSul) fluoxetine 10 mg capsule 10 mg PO QAM 12/14/23 12/28/23 History fluoxetine 20 mg capsule 20 mg PO QAM 12/14/23 12/28/23 History folic acid 1 mg tablet 1 mg PO QAM 12/14/23 12/28/23 History losartan 25 mg tablet 25 mg PO QAM 12/14/23 12/28/23 History omeprazole 40 mg capsule,delayed 40 mg PO DAILYBB 12/14/23 12/28/23 History release sennosides 8.6 mg-docusate sodium 1 tab-cap PO HS 12/14/23 12/28/23 History 50 mg tablet (Stimulant Laxative Plus) acetaminophen 325 mg tablet 650 mg PO BID 12/28/23 12/28/23 History (Tylenol) benzocaine 20 %-menthol 0.1 %-zinc 1 ea mucous membrane DIRECTED 12/28/23 12/28/23 History chloride 0.15 % mucosal gel PRN MOUTH SORES PAIN (Orajel 3X Mouth Sores) eucalyptus-menthol oral mucosal 1 camille mucous membrane Q2H PRN Cough 12/28/23 12/28/23 History lozenge furosemide 80 mg tablet (Lasix) 80 mg PO QAM 12/28/23 12/28/23 History metoprolol succinate 50 mg 50 mg PO QAM 12/28/23 12/28/23 History tablet,extended release 24 hr Past Med/Surg History Medical History (Updated 12/29/23 @ 10:58 by Marv Nielsen MD) Trimalleolar fracture of right ankle Closed right ankle fracture Actinic skin damage Osteoarthritis Chronic back pain GERD (gastroesophageal reflux disease) Depression CAD (coronary artery disease) Myocardial Infarction 1999 AND MEDICAL TREATMENT Hypertension Hyperlipidemia Asthma Surgical History History of coronary artery bypass graft History of cataract surgery LEFT on 11/17/18: was given 2mg versed without apparent complications History of open reduction and internal fixation (ORIF) procedure RIGHT HIP History of total knee replacement RIGHT AND LEFT Fusion of spine LUMBAR - AND HAS ONE SCREW LOOSE AND NO SURGERY NEEDED. History of coronary artery bypass graft 1999 - X 3 VESSEL - [facility] FOLLOWS WITH DR THIBODEAUX Family History Father Myocardial infarction Prostate cancer Brother Myocardial infarction Grandmother (Paternal) Myocardial infarction Mother Alcoholism Denies family history of Ovarian cancer Breast cancer Colorectal cancer Social History Smoking Status: Former smoker Tobacco Type: Cigarettes Age Quit Using Tobacco: 51; packs per day: 2.5; Cigarettes Per Day: 50; Smoking End Date: 1997; Second Hand Exposure: No; Do You Dip or Chew Tobacco: No; Hx Alcohol Use: No Hx Substance Use: No Preferred Language: Uzbek Communication Ability: Effective Visual Impairment: No Limitations Hearing Ability: Normal Cath Lab Technologist Required: No Beliefs That Will Affect Care: None marital status: Current Living Situation: Personal Care Facility current occupational status: retired Other Information That Helps Us Care for You: No Feels Safe at Home: Yes Childhood Exposure to Second-Hand Smoke: Yes Dental Care, Regularly: Yes Physical Activity Frequency: Does not Exercise Seatbelt Use: always Sunscreen Use: Yes Assistive Devices: Glasses, Walker and Wheelchair Review of Systems Review of Systems: Unobtainable due to cognitive status Physical Exam Physical Exam: General: NAD, arousable, able to follow some commands. VS as above Resp: diminished in bases, on 2L, abdominal muscle use for breathing CV: RRR, no murmur, Abd: normal bowel sounds, non tender, no hepatosplenomegaly Extremities: Moves all extremities, 1+ edema bilateral LE Neuro: A&O to self and situation. Skin: intact, no lesions noted Results & Data Results & Data Vital Signs (Past 12 Hours) Vital Signs Temp Pulse Pulse Resp BP BP Pulse Ox 12/28/23 16:00 78 29 H 139/77 98 12/28/23 15:30 79 31 H 129/81 97 12/28/23 15:00 80 29 H 104/65 97 12/28/23 14:43 80 28 H 109/62 98 12/28/23 14:37 86 12/28/23 13:49 36.4 C L 86 32 H 99/65 L 96 O2 Del Method O2 Flow Rate 12/28/23 16:00 Nasal Cannula 4 12/28/23 15:30 Nasal Cannula 4 12/28/23 15:00 Nasal Cannula 4 12/28/23 14:43 Nasal Cannula 4 12/28/23 14:37 12/28/23 13:49 Nasal Cannula 4 Laboratory Results CBC, chemistry, trop, procal and VBG reviewed Diagnostic Findings CXR and head CT reviewed Supervising Physician Co-Signing Physician Notes I personally saw and examined the patient. I independently reviewed the labs, EKG, imaging, problem list, medication list, past medical history and family history. I verified all alegre points and agree with Mellissa Zazueta PA-C with the following exceptions and/or additions: 78 year old female presents to the ER with increased leg swelling shortness, increased fatigue and confusion. History taken from her daughter as patient unable to provide any history given baseline dementia and confusion. O/E Alert and orientated x3, HS normal rate and rhythm, no murmurs, Chest - poor inspiratory effort, no crackles/wheezing/rhonchi, Abdo SNT A/P Sepsis /UTI - presumed source is urine with recently grown ESBL E. coli therefore antibiotics switched to ertapenem, will also start vancomycin for broad spectrum coverage, fluid bolus not given due to acute heart failure, normal lactate and no hypotension Acute on chronic heart failure with reduced ejection fraction - Lasix 40mg IV now, likely to need at least 40mg IV BID however with potassium currently low recommend replacement prior to higher doses of Lasix. Daily weights, monitor I&Os, low Na diet Abnormal EKG - ST elevation reported in inferior leads although this is with a significant wandering baseline and stable troponin wihtout any chest pain or shortness of breath this is not consistent with acute coronary syndrome. Otherwise as above PG Care Time/CCT Total # of Minutes Spent Total Time Spent with Patient: Total time spent is greater than 50% in coordination of care (as documented) at patient's floor/unit and/or counseling patient: Coding Level of Care Code 80275 INT INP/OBS CARE 3/75MIN Diagnoses Sepsis due to urinary tract infection A41.9; N39.0 Altered mental state R41.82 CHF (congestive heart failure) I50.813 Heart failure chronicity: acute on chronic Heart failure type: right-sided CAD (coronary artery disease) I25.10 Anemia D64.9 Atrial fibrillation I48.91 Acute on chronic HFrEF (heart failure with reduced ejection fraction) I50.23 (3) CHF (congestive heart failure) Heart failure chronicity: acute on chronic Heart failure type: right-sided Qualified Code(s): I50.813 - Acute on chronic right heart failure
[2023-12-28] MEDS ORDERED: VANCOMYCIN CONSULT ACTIVE PRN ×2 (17:07→19:51)
[2023-12-28] MEDS: ERTAPENEM SODIUM 10 ML IV STA (17:32)
[2023-12-28] MEDS: VANCOMYCIN HCL 2,000 MG in SODIUM CHLORIDE 0.9% 500 ML IV ONE (17:51)
[2023-12-28] MEDS: FUROSEMIDE 40 MG/4 ML VIAL IV STA (18:53)
[2023-12-28] MEDS: POTASSIUM CHLORIDE / WTR 10 MEQ/100 ML PLCT IV SCH (18:56)
[2023-12-28] MEDS ORDERED: POLYETHYLENE (MIRALAX) 17 GM PACK PO PRN (19:51)
--- NOTE | 2023-12-28 19:56 | Pharmacy Report ---
Pharmacy PK ABX Note - Date of Service December 28, 2023 - Assessment and Plan Assessment 78 year old F receiving Vancomycin and Ertapenem for treatment of UTI. * Day #1 of antimicrobial therapy. * Afebrile. Leukocytosis of 14.4k. Procal of 0.75. Lactate normal. SCr 0.3, CrCl 72 mL/min. * Urine and blood cultures pending. Plan Vancomycin * Loading dose: 2000 mg IV x 1 * Maintenance dose: 1000 mg IV every 12 hours * Regimen is predicted to achieve target AUC/SANJAY of 400-600 mg/L.hr * Random level ordered for: 12/30/23 Ertapenem * 1000 mg IV every 24 hours Pharmacy will continue to follow and will adjust dose/frequency as necessary. Thank you. Pharmacy has transitioned to AUC monitoring for vancomycin. AUC/SANJAY is the preferred PK/PD target and is associated with decreased risk of nephrotoxicity compared to traditional trough targets.
[2023-12-28] MEDS: MELATONIN 3 MG TAB PO SCH (20:32)
[2023-12-28] MEDS: APIXABAN 5 MG TABLET PO SCH (20:32)
[2023-12-28] MEDS: DOCUSATE SODIUM/SENNA 50/8.6MG TAB PO SCH (20:32)
[2023-12-28] MEDS: PREGABALIN 100 MG CAP PO SCH (20:32)
[2023-12-28] MEDS: ATORVASTATIN 10 MG TAB PO SCH (20:32)
[2023-12-28] MEDS ORDERED: VANCOMYCIN HCL 1,500 MG in SODIUM CHLORIDE 0.9% 500 ML IV SCH (21:00)
[2023-12-29 03:28] LABS: A calco-baum cmplx NotReported Not Detected (NotDetected); Bact fragilis Not Reported Not Detected (NotDetected); Blood Culture Id Panel See PCR Comment (NotDetected); C auris Not Reported Not Detected (NotDetected); Calbicans Not Reported Not Detected (NotDetected); Candida glabrata Not Reported Not Detected (NotDetected); Candida krusei Not Reported Not Detected (NotDetected); Cneoformans/gatti Not Reported Not Detected (NotDetected); Cparapsilosis Not Reported Not Detected (NotDetected); E cloacae compx Not Reported Not Detected (NotDetected); Efaecalis Not Reported Not Detected (NotDetected); Efaecium Not Reported Not Detected (NotDetected); Enterobacterales DETECTED (NotDetected); Enterobacterales Not Reported DETECTED (NotDetected); Escherichia coli Not Reported DETECTED (NotDetected); H influenzae Not Reported Not Detected (NotDetected); IMP Resistant Gene Not Detected (NotDetected); K aerogenes Not Reported Not Detected (NotDetected); KPC Resistant Gene Not Detected (NotDetected); Koxytoca Not Reported Not Detected (NotDetected); Kpneumoniae grp Not Reported Not Detected (NotDetected); Lmonocyt Not Reported Not Detected (NotDetected); N meningitidis Not Reported Not Detected (NotDetected); NDM Resistant Gene Not Detected (NotDetected); OXA 48 Like Resistant Gene Not Detected (NotDetected); P aeruginosa Not Reported Not Detected (NotDetected); Proteus spp Not Reported Not Detected (NotDetected); Salmonella spp Not Reported Not Detected (NotDetected); Smarcescens Not Reported Not Detected (NotDetected); Staph lugdunensis Not Reported Not Detected (NotDetected); Staph spp. Not Reported Not Detected (NotDetected); Staphaureus Not Reported Not Detected (NotDetected); Staphepi Not Reported Not Detected (NotDetected); Stenmaltophilia Not Reported Not Detected (NotDetected); Strep agal(GrpB) Not Reported Not Detected (NotDetected); Strep pneum Not Reported Not Detected (NotDetected); Strep pyog (GrpA) Not Reported Not Detected (NotDetected); Strep spp Not Reported Not Detected (NotDetected); VIM Resistant Gene Not Detected (NotDetected); mcr-1 Colistin Resistant Gene Not Detected (NotDetected)
[2023-12-29 03:34] LABS: CTX-M Resistant Gene DETECTED (NotDetected)
[2023-12-29] MEDS: VANCOMYCIN HCL 1,000 MG in SODIUM CHLORIDE 0.9% 250 ML IV SCH (05:24)
[2023-12-29] MEDS: PANTOprazole 40 MG TAB PO SCH (05:24)
[2023-12-29 05:28] LABS: Base Excess VBG 5.4 mEq/L; HCO3 VBG 30 mmol/L; Oxygen Saturation VBG 91.2 %; PCO2 VBG 42 mmHg (38-50); PO2 VBG 59 mmHg; pH VBG 7.46 (7.36-7.41)
[2023-12-29 05:40] LABS: Basophils # (auto) 0.06 K/uL (0.00-0.20); Basophils % (auto) 0.4 %; Eosinophils # (auto) 0.01 K/uL (0.00-0.50); Eosinophils % (auto) 0.1 %; Hematocrit (blood only) 35.5 % (37.0-47.0); Hemoglobin 10.5 g/dl (12.0-16.0); Immature Granulocytes # (auto) 0.08 K/uL (0.01-0.20); Immature Granulocytes % (auto) 0.5 %; Lymphocytes # (auto) 0.89 K/uL (1.20-3.40); Mean Corpuscular Hemoglobin 23.3 pg (25.0-34.0); Mean Corpuscular Hgb Conc 29.6 g/dL (32.0-36.0); Mean Corpuscular Volume 78.7 fL (80.0-100.0); Mean Platelet Volume 9.5 fL (9.4-12.4); Monocytes # (auto) 1.74 K/uL (0.11-0.59); Monocytes % (auto) 11.7 %; Neutrophils # (auto) 12.06 K/uL (1.40-6.50); Neutrophils % (auto) 81.3 %; Platelet Count 295 K/uL (130-400); RDW Coefficient of Variation 31.4 % (11.5-14.5); Red Blood Count 4.51 M/uL (4.20-5.40); White Blood Count 14.84 K/ul (4.8-10.8)
[2023-12-29 05:48] LABS: BUN Creatinine Ratio 18.5 (10-20); Creatinine Clr Calc Pharmacy 79.5 ml/min; Est GFR (Non-African American) 86.2 ml/min; Potassium 3.5 mmol/L (3.5-5.1)
[2023-12-29 06:09] LABS: Anisocytosis Present; Polychromasia 1+; Tear Drop Cells 1+
[2023-12-29] MEDS: LOSARTAN POTASSIUM 25 MG TAB PO SCH (08:07)
[2023-12-29] MEDS: FLUoxetine HCL 20 MG CAP PO SCH (08:07)
[2023-12-29] MEDS: ASPIRIN 81 MG ECTAB PO SCH (08:07)
[2023-12-29] MEDS: FUROSEMIDE 40 MG/4 ML VIAL IV SCH ×2 (08:07→16:07)
[2023-12-29] MEDS: METOPROLOL SUCC 50MG EXT REL TAB PO SCH (08:08)
[2023-12-29] MEDS: FLUoxetine HCL 10 MG CAP PO SCH (08:08)
--- NOTE | 2023-12-29 09:33 | Hospitalist Progress Note ---
Date of Service December 29, 2023 Assessment & Plan (1) Sepsis due to urinary tract infection: Plan: *Sepsis due to Escherichia coli [E. coli] Resident of [facility], with reported lethargy and altered mental status over the last day. Positive urine culture this morning - outside records confirm ESBL E.coli - hypotensive, tachypneic and hypoxic on arrival. sepsis fluid resuscitation deferred due to CHF exacerbation - WBC 14, Procal 0.75, lactate 1.1 - Continue Ertapenem (first day 12/27) - d/c vanco based on urine culture - Urine culture: GNB - Blood Culture: GNB, + e.coli ESBL -Supplemental oxygen, wean as able O2 goal 94% AM CBC, BMP, VBG Patient with fever overnight and since ESBL will obtain repeat blood cultures in AM for clearance (2) Altered mental state: Plan: Suspect metabolic encephalopathy -Head CT: no acute findings -Baseline lewy body dementia, but daughter reports that she is normally able to answer orientation questions (3) CHF (congestive heart failure): Plan: *Acute on chronic systolic (congestive) heart failure Up 4kg since discharge 8 days ago. Patient not on restrictive diet at [facility]. home regiment 80mg lasix PO daily Continue Losartan - lasix increased to 40mg IV BID - pt missed appointment d/t illness, Heart failure team consulted. - Strict I&O, daily weight - BNP 810 - 2g Na restriction, 1800mL fluid restriction - Received IV K repletion (4) CAD (coronary artery disease): Plan: Troponin elevated 53 --> 52 --> 26, suspect *Demand ischemia -continue metoprolol, ASA, statin (5) Anemia: Plan: Chronic. Stable. Seen by GI last admission - avoid NSAIDs, continue PPI BID (6) Atrial fibrillation: Plan: Continue Eliquis and Metoprolol Concerns for atrial flutter on telemetry, but EKG not showing this. Tachycardic - will trial IV lopressor 5mg to see if rhythm converts, and if controlling HR helps her tachypnea Plan Chronic stable conditions Depression - continue fluoxetine Dispo: continued inpatient stay DVT proh: Umu Daughter updated by phone. would prefer patient to go to rehab, hoping for [facility]. Admission and Anticipated Discharge Date Admission Date: December 28, 2023 Supervising Physician Co-Signing Physician Notes Attending Attestation - Chart reviewed, care plan d/w RADHA Zazutea. I agree with the alegre components of her documentation. Marv Campbell MD Subjective Patient resting in bed, no family present at bedside this morning. Still reports feeling lousy but unable to further classify. Denies CP, no abdominal pain. Review of Systems Review of Systems: All systems reviewed & are unremarkable except as noted in HPI & below Physical Exam Physical Exam: General: NAD, more arousable today, but still falling asleep midconversation, able to follow some commands. VS as above Resp: diminished in bases, on 2L, abdominal muscle use for breathing, tachypneic CV: RRR, no murmur, Abd: normal bowel sounds, non tender, no hepatosplenomegaly Extremities: Moves all extremities, 2+ edema bilateral LE : salazar draining dark yellow urine Neuro: A&O to self and situation. Skin: intact, no lesions noted Results & Data Results & Data Vital Signs (Past 12 Hours) Vital Signs Temp Pulse Pulse Resp BP Pulse Ox O2 Del Method 12/29/23 06:57 36.6 C 117 H 22 127/93 92 Nasal Cannula 12/29/23 03:10 36.7 C 117 H 20 113/71 93 Nasal Cannula 12/28/23 23:05 122 H 12/28/23 22:52 37.9 C H 113 H 22 115/75 94 Nasal Cannula 12/28/23 21:33 Nasal Cannula O2 Flow Rate 12/29/23 06:57 2 12/29/23 03:10 2 12/28/23 23:05 12/28/23 22:52 2 12/28/23 21:33 2 Laboratory Results CBC, chemistry and blood cultures reviewed PG Care Time/CCT Total # of Minutes Spent Total Time Spent with Patient: Total time spent is greater than 50% in coordination of care (as documented) at patient's floor/unit and/or counseling patient: Coding Level of Care Code 24250 SUB INP/OBS CARE 3/50MIN Diagnoses Sepsis due to urinary tract infection A41.9; N39.0 Altered mental state R41.82 CHF (congestive heart failure) I50.813 Heart failure chronicity: acute on chronic Heart failure type: right-sided CAD (coronary artery disease) I25.10 Anemia D64.9 Atrial fibrillation I48.91 (3) CHF (congestive heart failure) Heart failure chronicity: acute on chronic Heart failure type: right-sided Qualified Code(s): I50.813 - Acute on chronic right heart failure
[2023-12-29 12:08] LABS: Troponin I High Sensitivity 24.1 pg/ml (0-14)
[2023-12-29] MEDS: ERTAPENEM SODIUM 1,000 MG in SYRINGE 0 ML IV SCH (16:06)
--- NOTE | 2023-12-29 16:12 | Electrocardiogram Report ---
Test Reason : Blood Pressure : / mmHG Vent. Rate : 120 BPM Atrial Rate : 120 BPM P-R Int : 200 ms QRS Dur : 108 ms QT Int : 290 ms P-R-T Axes : 108 088 115 degrees QTc Int : 409 ms Probable Sinus tachycardia Nonspecific ST and T wave abnormality Abnormal ECG When compared with ECG of 28-DEC-2023 13:45, Sinus rhythm has replaced Atrial flutter Confirmed by Romero Wang ([id number]) on 12/29/2023 4:11:52 PM Referred By: REFERRED SELF Confirmed By:Romero Wang
[2023-12-29] MEDS ORDERED: METOPROLOL TARTRATE 1 MG/ML VIAL IV PRN (17:09)
[2023-12-30] MEDS ORDERED: VANCOMYCIN LEVEL ONE (05:30)
[2023-12-30 07:35] LABS: Base Excess VBG 10.9 mEq/L; HCO3 VBG 36 mmol/L; Oxygen Saturation VBG 95.3 %; PCO2 VBG 50 mmHg (38-50); PO2 VBG 66 mmHg; pH VBG 7.47 (7.36-7.41)
[2023-12-30 07:43] LABS: Basophils # (auto) 0.04 K/uL (0.00-0.20); Basophils % (auto) 0.4 %; Eosinophils # (auto) 0.06 K/uL (0.00-0.50); Eosinophils % (auto) 0.5 %; Hematocrit (blood only) 34.3 % (37.0-47.0); Hemoglobin 10.1 g/dl (12.0-16.0); Immature Granulocytes # (auto) 0.08 K/uL (0.01-0.20); Immature Granulocytes % (auto) 0.7 %; Lymphocytes # (auto) 1.06 K/uL (1.20-3.40); Lymphocytes % (auto) 9.4 %; Mean Corpuscular Hemoglobin 23.1 pg (25.0-34.0); Mean Corpuscular Hgb Conc 29.4 g/dL (32.0-36.0); Mean Corpuscular Volume 78.5 fL (80.0-100.0); Mean Platelet Volume 9.3 fL (9.4-12.4); Monocytes # (auto) 1.52 K/uL (0.11-0.59); Monocytes % (auto) 13.5 %; Neutrophils # (auto) 8.51 K/uL (1.40-6.50); Neutrophils % (auto) 75.5 %; Platelet Count 284 K/uL (130-400); Red Blood Count 4.37 M/uL (4.20-5.40); White Blood Count 11.27 K/ul (4.8-10.8)
[2023-12-30 08:09] LABS: Anisocytosis Present; Polychromasia 1+
[2023-12-30 08:10] LABS: Calcium 8.8 mg/dl (8.6-10.3); Creatinine Clr Calc Pharmacy 83.2 ml/min; Est GFR (African American) 102.6 ml/min; Est GFR (Non-African American) 88.5 ml/min; Potassium 3.2 mmol/L (3.5-5.1)
[2023-12-30] MEDS: POTASSIUM CHLORIDE CRTAB 20 MEQ TABCR PO STA (10:19)
[2023-12-30] MEDS: POTASSIUM CHLORIDE / WTR 10 MEQ/100 ML PLCT IV SCH (10:22)
[2023-12-30] MEDS: POTASSIUM CHLORIDE 20 MEQ/15 ML UDC PO STA (10:22)
--- NOTE | 2023-12-30 12:58 | Heart Failure Consultation ---
Date of Consultation December 30, 2023 Assessment & Plan (1) Heart failure with mildly reduced ejection fraction (HFmrEF): (2) RVF (right ventricular failure): (3) Tricuspid regurgitation: Plan HFmrEF: Patient is still likely hypervolemic. Her symptoms are improving but difficult to say for sure given her dementia. Her standing weights are lower than her previous baseline so suspect she is nearing euvolemia. Kidney function is stable on current dose of Lasix 40 mg IV BID. Could continue IV dosing until her creatinine bumps to further optimize. Would recommend further optimizing her HF regimen with Spironolactone (would also help with her hypokalemia). Could also consider transitioning Losartan to Entresto if BP allows once volume status is optimal. Daily STANDING weights. Strict I&Os. Low sodium diet. Patient resides at [facility]. Will need to follow up and make sure diet and weight orders are transitioned at discharge. Would recommend Lasix 40 mg daily with Spironolactone 25 mg for outpatient regimen. Will need follow up BMP/BNP/magnesium within 7 days of discharge. Orders are placed. Would avoid SGLT2i due to her current UTI. RV dysfunction: Continue to optimize her volume status as above. Consider Spironolactone for right heart symptoms. Disposition: I will be away from the hospital tomorrow. Please contact the covering tool and equipment rental clerk for additional questions. Recommend close outpatient follow up with the heart failure program. 01/07/24 at 1030. History of Present Illness Attending Physician: Marv Campbell MD History of Present Illness Patient is a 78 year old female with history of Lewy Body Dementia, CHF with echocardiogram from 2019 with EF 50-55%, asthma and questionable COPD, HTN, GERD, Depression, CAD. She does not follow with cardiology. Recent cardiac studies: 1. 12/16/23 Echo: Top normal LV size. EF 45%. Global hypokinesis. No LVH. Septal flattening consistent with RV overload. Severely dilated RV with severely reduced systolic function. Severe biatrial dilation. Mild MR. Severe TR. Mild pulmonary hypertension. RVSP 41 mmHg. Patient was admitted from 12/14/23 through 12/20/23 for CHF, atrial flutter, and anemia. She presented with worsening disorientation and dyspnea. In the ER patient was found to have a hemoglobin of 8.9, WBC WNL, CMP within normal limits, BMP 358, rhino/enterovirus positive. CXR positive for cardiomegaly with mild pulmonary edema. She was given Lasix 80mg, albuterol neb, and Guaifenesin 600mg. She was discharged on Lasix 80 mg daily. Isosorbide was discontinued. She was readmitted on 12/28/23 with altered mental status. She was unarousable at her residence and more confused x 2 weeks. Labs show leukocytosis of 14,000. Mild anemia 10. VBG 7.4 and a CO2 of 54. BMP with a mild hypokalemia 3.2. LFTs bilirubin was unremarkable. Troponin was elevated 50s. Pro-Jordy elevated 0.75. UA consistent with UTI. BNP increased to 810. Patient was given IV flu ids and Rocephin. Chest x-ray with questionable infiltrate. CT head was unremarkable. Patient was given IV antibiotics updated bedside discussed with the hospitalist for further evaluation management treatment. Patient remained on 2 L nasal cannula due to hypoxia. Her weight was up on admission and she was also treated with IV Lasix. Patient was referred to the heart failure program after her initial December admission. Patient was unable to be reached by phone and had cancelled her follow up appointment earlier in the week due to illness. Patient was evaluated today in her room. She is sitting in the bedside chair and reports feeling well. She continues on O2 3L. She has mild lower extremity edema. She denies chest pain, cough, palpitations. She's responding well to IV diuretics- net negative 2L. Weight 193 lb today per standing scale. This is below her previous baseline. Kidney function is stable. Allergies Allergy/AdvReac Type Severity Reaction Status Date / Time latex Allergy Mild RASH Verified 12/28/23 15:40 tingly morphine AdvReac Intermediate NAUSEA AND Verified 12/28/23 15:40 VOMITING Home Medications Medication Instructions Recorded Confirmed Type melatonin 5 mg tablet 20 mg PO HS Sleep 07/19/19 12/28/23 History hot/cold therapy aids (ThermaCare #1 ea 08/10/19 08/10/19 Rx Cold Wrap Joint pads) pregabalin 100 mg capsule (Lyrica) 100 mg PO BID #180 caps 09/04/19 12/28/23 Rx acetaminophen 325 mg tablet 650 mg PO Q4H PRN PAIN/FEVER 12/14/23 12/28/23 History (Tylenol) albuterol sulfate 90 mcg/actuation 2 puff inhalation Q4H PRN 12/14/23 12/28/23 History aerosol inhaler Shortness Of Breath Or Wheezing apixaban 5 mg tablet (Eliquis) 5 mg PO BID 12/14/23 12/28/23 History aspirin 81 mg chewable tablet 81 mg PO QAM 12/14/23 12/28/23 History atorvastatin 10 mg tablet 10 mg PO HS 12/14/23 12/28/23 History calcium carbonate 200 mg calcium 200 mg PO Q4H PRN Dyspepsia 12/14/23 12/28/23 History (500 mg) chewable tablet (Calcium Antacid) cholecalciferol (vitamin D3) 50 50 mcg PO QAM 12/14/23 12/28/23 History mcg (2,000 unit) capsule (Vitamin D3) ferrous sulfate 325 mg (65 mg 325 mg PO QAM 12/14/23 12/28/23 History iron) tablet (FeroSul) fluoxetine 10 mg capsule 10 mg PO QAM 12/14/23 12/28/23 History fluoxetine 20 mg capsule 20 mg PO QAM 12/14/23 12/28/23 History folic acid 1 mg tablet 1 mg PO QAM 12/14/23 12/28/23 History losartan 25 mg tablet 25 mg PO QAM 12/14/23 12/28/23 History omeprazole 40 mg capsule,delayed 40 mg PO DAILYBB 12/14/23 12/28/23 History release sennosides 8.6 mg-docusate sodium 1 tab-cap PO HS 12/14/23 12/28/23 History 50 mg tablet (Stimulant Laxative Plus) acetaminophen 325 mg tablet 650 mg PO BID 12/28/23 12/28/23 History (Tylenol) benzocaine 20 %-menthol 0.1 %-zinc 1 ea mucous membrane DIRECTED 12/28/23 12/28/23 History chloride 0.15 % mucosal gel PRN MOUTH SORES PAIN (Orajel 3X Mouth Sores) eucalyptus-menthol oral mucosal 1 camille mucous membrane Q2H PRN Cough 12/28/23 12/28/23 History lozenge furosemide 80 mg tablet (Lasix) 80 mg PO QAM 12/28/23 12/28/23 History metoprolol succinate 50 mg 50 mg PO QAM 12/28/23 12/28/23 History tablet,extended release 24 hr Patient History Medical History (Updated 12/30/23 @ 13:02 by Sharri Mixon PA-C) Trimalleolar fracture of right ankle Closed right ankle fracture Actinic skin damage Osteoarthritis Chronic back pain GERD (gastroesophageal reflux disease) Depression CAD (coronary artery disease) Myocardial Infarction 1999 AND MEDICAL TREATMENT Hypertension Hyperlipidemia Asthma Surgical History History of coronary artery bypass graft History of cataract surgery LEFT on 11/17/18: was given 2mg versed without apparent complications History of open reduction and internal fixation (ORIF) procedure RIGHT HIP History of total knee replacement RIGHT AND LEFT Fusion of spine LUMBAR - AND HAS ONE SCREW LOOSE AND NO SURGERY NEEDED. History of coronary artery bypass graft 1999 - X 3 VESSEL - [facility] FOLLOWS WITH DR THIBODEAUX Family History Father Myocardial infarction Prostate cancer Brother Myocardial infarction Grandmother (Paternal) Myocardial infarction Mother Alcoholism Denies family history of Ovarian cancer Breast cancer Colorectal cancer Social History Smoking Status: Former smoker Tobacco Type: Cigarettes Age Quit Using Tobacco: 51; packs per day: 2.5; Cigarettes Per Day: 50; Second Hand Exposure: No; Do You Dip or Chew Tobacco: No; Hx Alcohol Use: No Hx Substance Use: No Preferred Language: Greek Communication Ability: Effective Visual Impairment: No Limitations Hearing Ability: Normal Pulley Mortiser Operator Required: No Beliefs That Will Affect Care: None marital status: Current Living Situation: Personal Care Facility current occupational status: retired Feels Safe at Home: Yes Childhood Exposure to Second-Hand Smoke: Yes Dental Care, Regularly: Yes Physical Activity Frequency: Does not Exercise Seatbelt Use: always Sunscreen Use: Yes Assistive Devices: Walker and Wheelchair Physical Exam Physical Exam: Constitutional: Mostly alert- needs frequent redirection to back to conversation, oriented, in no acute distress HEENT: Head is atraumatic and normocephalic. EOMs intact. Sclera anicteric. Face is symmetric. No perioral cyanosis. Mucous membranes moist. Neck: Supple, no JVD Pulmonary: Normal respiratory effort, clear to auscultation bilaterally Cardiac: Regular rate and rhythm. Normal S1 and S2, no gallops, no rubs, no murmurs Extremities: 2+ radial pulses bilaterally. 2+ posterior tibialis pulses silvia aterally. 1+ pitting edema. No cyanosis or clubbing. Abdomen: Normal bowel sounds, soft, non-tender, no abdominal mass palpated Skin: Normal skin color, turgor, and pigmentation, no rash, no skin lesions Neurological: Patient is awake, alert, and oriented. Pleasant and cooperative. Answers questions appropriately. Speech is clear. Results & Data Vital Signs (Past 12 Hours) Vital Signs Temp Pulse Pulse Resp BP Pulse Ox O2 Del Method 12/30/23 11:20 98.2 F 103 H 32 H 93 Nasal Cannula 12/30/23 08:00 Nasal Cannula 12/30/23 08:00 91 H 12/30/23 07:53 97.3 F L 98 H 27 H 122/70 93 Nasal Cannula 12/30/23 04:27 Nasal Cannula 12/30/23 02:45 97.9 F 97 H 31 H 127/83 95 Nasal Cannula O2 Flow Rate 12/30/23 11:20 3 12/30/23 08:00 2 12/30/23 08:00 12/30/23 07:53 3 12/30/23 04:27 2 12/30/23 02:45 2 Heart Failure Data/Metrics Heart Failure Type: HFmrEF (Midly Reduced/Mid-Range, EF 41-49%) Ejection Fraction: 45% Evidenced Based Beta Rakesh Therapy Beta Rakesh Therapy: Yes Beta Rakesh Name: Metoprolol Succinate TRISTA/ARB/ARNI Therapy TRISTA/ARB/ARNI Therapy: Yes TRISTA/ARB/ARNI Name: Losartan Aldosterone Antagonist Therapy Aldosterone Antagonist Therapy: Yes Aldosterone Antagonist Name: Spironolactone Coding Level of Care Code 04710 INT INP/OBS CARE 375MIN Diagnoses Heart failure with mildly reduced ejection fraction (HFmrEF) I50.22 RVF (right ventricular failure) I50.810 Tricuspid regurgitation I07.1
--- NOTE | 2023-12-30 14:46 | Hospitalist Progress Note ---
Date of Service December 30, 2023 Assessment & Plan (1) Sepsis due to urinary tract infection: Plan: *Sepsis due to Escherichia coli [E. coli] Resident of [facility], with reported lethargy and altered mental status over the last day. Positive urine culture this morning - outside records confirm ESBL E.coli - hypotensive, tachypneic and hypoxic on arrival. sepsis fluid resuscitation deferred due to CHF exacerbation - WBC 14, Procal 0.75, lactate 1.1 - Continue Ertapenem (first day 12/27) - Discussed with pharmacy, sensitives showing sensitive to PO cipro, however concern for efficacy given that pt was bacteremic. If needing IV antibiotics, would need 7 day course. Plan for pharmacy to reach out to ID and get back to me tomorrow. However, updated by case management that [place] care can take with IV Ertapenem - 12/27 Urine/blood cultures: + e.coli ESBL - Repeat blood cultures 12/29: pending -Supplemental oxygen, wean as able O2 goal 94% PT/OT - recommending rehab, plan for centre care, they can accept this weekend if medically stable (2) Altered mental state: Plan: Suspect metabolic encephalopathy -Head CT: no acute findings -Baseline lewy body dementia, but daughter reports that she is normally able to answer orientation questions Patient back to baseline (3) CHF (congestive heart failure): Plan: *Acute on chronic systolic (congestive) heart failure Up 4kg since discharge 8 days ago. Patient not on restrictive diet at [facility]. home regiment 80mg lasix PO daily Continue Losartan - lasix increased to 40mg IV BID - Heart failure team consulted - continue BID IV lasix until bump in creatinine - then transition to lasix 40mg PO and 25mg spironolactone - Strict I&O, daily weight - BNP 810 - 2g Na restriction, 1800mL fluid restriction - Received IV and PO K repletion today AM BMP (4) CAD (coronary artery disease): Plan: Troponin elevated 53 --> 52 --> 26, suspect *Demand ischemia -continue metoprolol, ASA, statin (5) Anemia: Plan: Chronic. Stable. Seen by GI last admission - avoid NSAIDs, continue PPI BID (6) Atrial fibrillation: Plan: Continue Eliquis and Metoprolol Concerns for atrial flutter on telemetry, but EKG not showing this. - rates have been downtrending now mainly 90s Cardiology consulted Plan Chronic stable conditions Depression - continue fluoxetine Dispo: continued inpatient stay DVT proh: Umu Discussed case with heart failure team and pharmacist. Admission and Anticipated Discharge Date Admission Date: December 28, 2023 Supervising Physician Co-Signing Physician Notes Attending Attestation - Chart reviewed, care plan d/w RADHA Zazueta. I agree with the alegre components of her documentation. Marv Campbell MD Subjective Patient seen sitting up in the chair today, tells me that she feels okay. Denies having pain. states her appetite has been good, just not for the food that she was given . No acute complaints tele - atrial flutter Review of Systems Review of Systems: All systems reviewed & are unremarkable except as noted in Subjective Physical Exam Physical Exam: General: NAD,sitting up in the chair, just finished lunch, looks much better today VS as above Resp: diminished in bases, on 2L, accessory muscle use has decreased, tachypneic CV: RRR, no murmur, Abd: normal bowel sounds, non tender, no hepatosplenomegaly Extremities: Moves all extremities, 1+ edema bilateral LE : salazar draining dark yellow urine Results & Data Results & Data Vital Signs (Past 12 Hours) Vital Signs Temp Pulse Pulse Resp BP Pulse Ox O2 Del Method 12/30/23 11:20 36.8 C 103 H 32 H 93 Nasal Cannula 12/30/23 08:00 Nasal Cannula 12/30/23 08:00 91 H 12/30/23 07:53 36.3 C L 98 H 27 H 122/70 93 Nasal Cannula 12/30/23 04:27 Nasal Cannula 12/30/23 02:45 36.6 C 97 H 31 H 127/83 95 Nasal Cannula O2 Flow Rate 12/30/23 11:20 3 12/30/23 08:00 2 12/30/23 08:00 12/30/23 07:53 3 12/30/23 04:27 2 12/30/23 02:45 2 Laboratory Results CBC, chemistry and blood cultures reviewed PG Care Time/CCT Total # of Minutes Spent Total Time Spent with Patient: Total time spent is greater than 50% in coordination of care (as documented) at patient's floor/unit and/or counseling patient: Coding Level of Care Code 68324 SUB INP/OBS CARE MIN Diagnoses Sepsis due to urinary tract infection A41.9; N39.0 Altered mental state R41.82 CHF (congestive heart failure) I50.813 Heart failure chronicity: acute on chronic Heart failure type: right-sided CAD (coronary artery disease) I25.10 Anemia D64.9 Atrial fibrillation I48.91 (3) CHF (congestive heart failure) Heart failure chronicity: acute on chronic Heart failure type: right-sided Qualified Code(s): I50.813 - Acute on chronic right heart failure
[2023-12-31 06:20] LABS: BUN Creatinine Ratio 20.6 (10-20); Calcium 8.9 mg/dl (8.6-10.3); Creatinine Clr Calc Pharmacy 80.7 ml/min; Est GFR (Non-African American) 87.1 ml/min; Potassium 3.5 mmol/L (3.5-5.1)
--- NOTE | 2023-12-31 11:12 | XRay Report ---
XR chest 2V PA/lateral CLINICAL HISTORY: continued hypoxia COMPARISON STUDY: Chest CT July 25, 2019. Chest radiograph December 28, 2023. FINDINGS: Median sternotomy wires are noted. Moderate cardiomegaly. No pneumothorax or pleural effusi on is present. Linear right lung densities favor atelectasis. There is pulmonary vascular congestion. No consolidation is identified to suggest pneumonia. Mediastinal contours are stable. IMPRESSION: Cardiomegaly with pulmonary vascular congestion. ACT 112: Negative or not required by law. Electronically signed by: Armaan Miramontes M.D. 12/31/2023 11:11 AM
--- NOTE | 2023-12-31 14:02 | Hospitalist Progress Note ---
Date of Service December 31, 2023 Assessment & Plan (1) Sepsis due to urinary tract infection: Plan: *Sepsis due to Escherichia coli [E. coli] Resident of [facility], with reported lethargy and altered mental status over the last day. Positive urine culture this morning - outside records confirm ESBL E.coli - hypotensive, tachypneic and hypoxic on arrival. sepsis fluid resuscitation deferred due to CHF exacerbation - WBC 14, Procal 0.75, lactate 1.1 - Continue Ertapenem (first day 12/27) - Discussed with pharmacy, sensitives showing sensitive to PO cipro, however concern for efficacy given that pt was bacteremic. If needing IV antibiotics, would need 7 day course. Plan for pharmacy to reach out to ID and get back to me tomorrow. However, updated by case management that [place] care can take with IV Ertapenem - 12/27 Urine/blood cultures: + e.coli ESBL - Repeat blood cultures 12/29: pending - 12/30: CXR with pulmonary edema. No effusions -Supplemental oxygen, wean as able O2 goal 94% - FV and IS ordered PT/OT - recommending rehab, plan for centre care, they can accept this weekend if medically stable (2) Altered mental state: Plan: Suspect metabolic encephalopathy -Head CT: no acute findings -Baseline lewy body dementia, but daughter reports that she is normally able to answer orientation questions more confused today, daughter reports last admission she kept asking about going home and seeing her boyfriend and has not asked that once. Daughter aware that patient's conditions are progressive and she is not going to make a "miraculous recovery". Discussed hospital delirium worsening baseline dementia. Daughter suspects will need more nursing care after rehab, reports family have been talking about next steps. I encourage daughter to continue discussions about goals of care and going forward how much they would want done (3) CHF (congestive heart failure): Plan: *Acute on chronic systolic (congestive) heart failure Up 4kg since discharge 8 days ago. Patient not on restrictive diet at [facility]. home regiment 80mg lasix PO daily Continue Losartan - lasix increased to 40mg IV BID - Heart failure team consulted - continue BID IV lasix until bump in creatinine - then transition to lasix 40mg PO and 25mg spironolactone - Strict I&O, daily weight - BNP 810 - 2g Na restriction, 1800mL fluid restriction - Received IV and PO K repletion AM BMP (4) CAD (coronary artery disease): Plan: Troponin elevated 53 --> 52 --> 26, suspect *Demand ischemia -continue metoprolol, ASA, statin (5) Anemia: Plan: Chronic. Stable. Seen by GI last admission - avoid NSAIDs, continue PPI BID (6) Atrial fibrillation: Plan: Continue Eliquis and Metoprolol Concerns for atrial flutter on telemetry, but EKG not showing this. - rates have been downtrending now mainly 90s - patient asymptomatic Cardiology consulted, appreciate recs Plan Chronic stable conditions Depression - continue fluoxetine Dispo: continued inpatient stay DVT proh: Umu daughter updated at bedside. Admission and Anticipated Discharge Date Admission Date: December 28, 2023 Supervising Physician Co-Signing Physician Notes Attending Attestation - Chart reviewed, care plan d/w RADHA Zazueta. I agree with the alegre components of her documentation. Marv Campbell MD Subjective Patient resting in bed. Seems more confused today - asks me repetitively how i got to her home and why I am there reports feeling lousy, clarifys as some stomach upset Tele - afib/aflutter 90s Review of Systems Review of Systems: All systems reviewed & are unremarkable except as noted in Subjective Physical Exam Physical Exam: General: NAD, lying in bed, sleeping when walked in the room VS as above Resp: diminished in bases, on 2L, accessory muscle use has decreased, tachypneic - attempted to wean down to room air but dropped to 88 CV: irregular, no murmur, Abd: normal bowel sounds, non tender, no hepatosplenomegaly Extremities: Moves all extremities, 1+ edema bilateral LE - improving Results & Data Results & Data Vital Signs (Past 12 Hours) Vital Signs Temp Pulse Resp BP Pulse Ox O2 Del Method O2 Flow Rate 12/31/23 10:42 36.8 C 95 H 20 99/78 L 97 Nasal Cannula 2 12/31/23 08:17 36.8 C 102 H 19 101/70 91 Nasal Cannula 2 12/31/23 08:00 Nasal Cannula 2 12/31/23 03:24 36.4 C L 89 20 111/73 94 Nasal Cannula 2 Laboratory Results BMP reviewed Diagnostic Findings CXR reviewed PG Care Time/CCT Total # of Minutes Spent Total Time Spent with Patient: Total time spent is greater than 50% in coordination of care (as documented) at patient's floor/unit and/or counseling patient: Coding Level of Care Code 87584 SUB INP/OBS CARE 3/50MIN Diagnoses Sepsis due to urinary tract infection A41.9; N39.0 Altered mental state R41.82 CHF (congestive heart failure) I50.813 Heart failure chronicity: acute on chronic Heart failure type: right-sided CAD (coronary artery disease) I25.10 Anemia D64.9 Atrial fibrillation I48.91 (3) CHF (congestive heart failure) Heart failure chronicity: acute on chronic Heart failure type: right-sided Qualified Code(s): I50.813 - Acute on chronic right heart failure
[2024-01-01 07:17] LABS: BUN Creatinine Ratio 19.7 (10-20); Calcium 8.8 mg/dl (8.6-10.3); Creatinine Clr Calc Pharmacy 71.6 ml/min; Est GFR (African American) 95.9 ml/min; Est GFR (Non-African American) 82.7 ml/min; Potassium 3.1 mmol/L (3.5-5.1)
[2024-01-01] MEDS: POTASSIUM CHLORIDE / WTR 10 MEQ/100 ML PLCT IV ONE (09:00)
--- NOTE | 2024-01-01 09:02 | Cardiology Progress Note ---
Date of Service January 01, 2024 Assessment & Plan (1) Heart failure with mildly reduced ejection fraction (HFmrEF): (2) RVF (right ventricular failure): (3) Tricuspid regurgitation: Plan HFmrEF: Patient is still likely hypervolemic. Her symptoms are improving but difficult to say for sure given her dementia. Her standing weights are lower than her previous baseline so suspect she is nearing euvolemia. Kidney function is stable on current dose of Lasix 40 mg IV BID. Could continue IV dosing until her creatinine bumps to further optimize. Would recommend further optimizing her HF regimen with Spironolactone (would also help with her hypokalemia). Could also consider transitioning Losartan to Entresto if BP allows once volume status is optimal. Daily STANDING weights. Strict I&Os. Low sodium diet. Patient resides at [facility]. Will need to follow up and make sure diet and weight orders are transitioned at discharge. Would recommend Lasix 40 mg daily with Spironolactone 25 mg for outpatient regimen. Will need follow up BMP/BNP/magnesium within 7 days of discharge. Orders are placed. Would avoid SGLT2i due to her current UTI. RV dysfunction: Continue to optimize her volume status as above. Consider Spironolactone for right heart symptoms. Disposition: I will be away from the hospital tomorrow. Please contact the covering door machine operator for additional questions. Recommend close outpatient follow up with the heart failure program. 01/07/24 at 1030. Admission and Anticipated Discharge Date Admission Date: December 28, 2023 Results & Data Vital Signs (Past 12 Hours) Vital Signs Temp Pulse Pulse Resp BP Pulse Ox O2 Del Method 01/01/24 07:51 36.5 C 92 H 25 H 117/80 94 Nasal Cannula 01/01/24 02:16 36.5 C 88 20 107/70 97 Room Air 12/31/23 23:11 92 H 12/31/23 22:39 37.0 C 87 18 94/68 L 93 Room Air PG Care Time/CCT Total # of Minutes Spent Total Time Spent with Patient: Total time spent is greater than 50% in coordination of care (as documented) at patient's floor/unit and/or counseling patient: Coding Diagnoses Heart failure with mildly reduced ejection fraction (HFmrEF) I50.22 RVF (right ventricular failure) I50.810 Tricuspid regurgitation I07.1
--- NOTE | 2024-01-01 09:05 | Cardiology Consultation ---
Date of Consultation January 01, 2024 Assessment & Plan (1) Atrial flutter: (2) Heart failure with mildly reduced ejection fraction (HFmrEF): (3) Cardiomyopathy: (4) Pulmonary hypertension: (5) Anticoagulant long-term use: Plan 1. Atrial flutter: She appears to be in atrial flutter when her heart rate is fast, the heart rate in atrial flutter is somewhat fast and she has variable AV block. In the past she has had atrial fibrillation, atrial flutter can be more difficult to rate control than atrial fibrillation. She is on low-dose AV jt blocking medications. Our options are to continue rate control versus consideration for rhythm control. For the moment I am going to increase her metoprolol to succinate and gave an extra dose this morning (total 75 mg) but she remains fast now 3 hours after that dose. I am going to give another 25 mg of metoprolol succinate. I believe she has been on anticoagulation consistently (based on her med list and orders, this could be investigated more fully) therefore we could safely convert her rhythm. Since she is going in and out of sinus rhythm in any case I do not think there is much danger to trying to get her back into sinus rhythm however it probably would not stay without an antiarrhythmic agent. Amiodarone may not be unreasonable in this situation although it can also cause bradycardia and takes some time to have an effect. I would recommend continuing rate control efforts overnight and if unsuccessful co nsider rhythm control tomorrow. 2. Congestive heart failure: She did present in mild congestive heart failure and her weight has been increasing, it is hard to tell just from weights but I suspect she is having further fluid retention now that she is on oral diuretics. Sinus rhythm often makes fluid management easier. At the moment I would be careful not to let her weight increase any further. 3. Left ventricular dysfunction: She has mild left ventricular dysfunction last admission, that is not enough to explain worsening of congestive heart failure and perhaps is related to her arrhythmia and high heart rates. Control of her heart rate would probably be beneficial. 4. Pulmonary hypertension right ventricular enlargement: There is little we can do about this other than fluid management. 5. Anticoagulation: She is currently on Eliquis 5 mg twice a day and has been as an outpatient, this is the correct dose for her. History of Present Illness Reason for Consultation: Atrial flutter, congestive heart failure Attending Physician: Marv Campbell MD History of Present Illness This is a 78-year-old woman who has a history of hypertension, hypercholesterolemia and coronary artery disease. She reportedly had a myocardial infarction in the past and then required bypass surgery which was done in October 2000. She had admission December 14, 2023 through December 20, 2023 for disorientation, dyspnea and atrial flutter. She was anemic and appeared in mild pulmonary edema. An echocardiogram done on her last admission on December 16, 2023 shows top normal left ventricular size with mildly reduced left ventricular function and ejection fraction calculated at 45% with global hypokinesis. She does have a severely dilated right ventricle with severe systolic dysfunction and she has severe right atrial dilatation. She had severe tricuspid regurgitation and mild pulmonary hypertension. These findings of left ventricular dysfunction and right ventricular dilatation are felt to be worse than the July 2019. She was diuresed and discharged. She was readmitted December 28, 2023 with altered mental status, she apparently has been confused for several weeks. She was felt to have urosepsis and was treated with antibiotics and IV fluids. She remained on oxygen due to hypoxia. She was seen in consultation by the heart failure team on December 30, 2023 and felt to be in congestive heart failure although due to her dementia symptoms were uncertain. She did have mild troponin elevations consistent with demand ischemia with her known coronary artery disease. There was concern that she was in atrial flutter, electrocardiograms have been read intermittently as sinus rhythm however on review of her electrocardiograms from December 14, 2019, December 27, 2022 and December 28, 2022 I believe they all show atrial flutter with variable degrees of AV block. For rate control she is currently taking metoprolol succinate 50 mg in the morning, as needed metoprolol tartrate although I do not believe again that and no other AV jt blocking medications. Her blood pressure has been borderline low at times although recently is acceptable. Her charted weight on presentation was 95.4 kg, that had dropped steadily to a low point on December 30, 2023 and has increased somewhat, she remains on a sodium and fluid restriction (1800 cc/day) and she has been transition from IV to oral Lasix. Her kidneys function has been very stable, she has slightly hypokalemic but not severely so. She is awake and somewhat conversational, however she barely opens her eyes and she tells me she is very tired. She was out of bed for several hours today. She seems to have no cardiac complaints and is not aware of her rhythm.. Allergies Allergy/AdvReac Type Severity Reaction Status Date / Time latex Allergy Mild RASH Verified 12/28/23 15:40 tingly morphine AdvReac Intermediate NAUSEA AND Verified 12/28/23 15:40 VOMITING Home Medications Medication Instructions Recorded Confirmed Type melatonin 5 mg tablet 20 mg PO HS Sleep 07/19/19 12/28/23 History hot/cold therapy aids (ThermaCare #1 ea 08/10/19 08/10/19 Rx Cold Wrap Joint pads) pregabalin 100 mg capsule (Lyrica) 100 mg PO BID #180 caps 09/04/19 12/28/23 Rx acetaminophen 325 mg tablet 650 mg PO Q4H PRN PAIN/FEVER 12/14/23 12/28/23 History (Tylenol) albuterol sulfate 90 mcg/actuation 2 puff inhalation Q4H PRN 12/14/23 12/28/23 History aerosol inhaler Shortness Of Breath Or Wheezing apixaban 5 mg tablet (Eliquis) 5 mg PO BID 12/14/23 12/28/23 History aspirin 81 mg chewable tablet 81 mg PO QAM 12/14/23 12/28/23 History atorvastatin 10 mg tablet 10 mg PO HS 12/14/23 12/28/23 History calcium carbonate 200 mg calcium 200 mg PO Q4H PRN Dyspepsia 12/14/23 12/28/23 History (500 mg) chewable tablet (Calcium Antacid) cholecalciferol (vitamin D3) 50 50 mcg PO QAM 12/14/23 12/28/23 History mcg (2,000 unit) capsule (Vitamin D3) ferrous sulfate 325 mg (65 mg 325 mg PO QAM 12/14/23 12/28/23 History iron) tablet (FeroSul) fluoxetine 10 mg capsule 10 mg PO QAM 12/14/23 12/28/23 History fluoxetine 20 mg capsule 20 mg PO QAM 12/14/23 12/28/23 History folic acid 1 mg tablet 1 mg PO QAM 12/14/23 12/28/23 History losartan 25 mg tablet 25 mg PO QAM 12/14/23 12/28/23 History omeprazole 40 mg capsule,delayed 40 mg PO DAILYBB 12/14/23 12/28/23 History release sennosides 8.6 mg-docusate sodium 1 tab-cap PO HS 12/14/23 12/28/23 History 50 mg tablet (Stimulant Laxative Plus) acetaminophen 325 mg tablet 650 mg PO BID 12/28/23 12/28/23 History (Tylenol) benzocaine 20 %-menthol 0.1 %-zinc 1 ea mucous membrane DIRECTED 12/28/23 12/28/23 History chloride 0.15 % mucosal gel PRN MOUTH SORES PAIN (Orajel 3X Mouth Sores) eucalyptus-menthol oral mucosal 1 camille mucous membrane Q2H PRN Cough 12/28/23 12/28/23 History lozenge furosemide 80 mg tablet (Lasix) 80 mg PO QAM 12/28/23 12/28/23 History metoprolol succinate 50 mg 50 mg PO QAM 12/28/23 12/28/23 History tablet,extended release 24 hr Patient History Medical History Trimalleolar fracture of right ankle Closed right ankle fracture Actinic skin damage Osteoarthritis Chronic back pain GERD (gastroesophageal reflux disease) Depression CAD (coronary artery disease) Myocardial Infarction 1999 AND MEDICAL TREATMENT Hypertension Hyperlipidemia Asthma Surgical History History of coronary artery bypass graft History of cataract surgery LEFT on 11/17/18: was given 2mg versed without apparent complications History of open reduction and internal fixation (ORIF) procedure RIGHT HIP History of total knee replacement RIGHT AND LEFT Fusion of spine LUMBAR - AND HAS ONE SCREW LOOSE AND NO SURGERY NEEDED. History of coronary artery bypass graft 1999 - X 3 VESSEL - [facility] FOLLOWS WITH DR THIBODEAUX Family History Father Myocardial infarction Prostate cancer Brother Myocardial infarction Grandmother (Paternal) Myocardial infarction Mother Alcoholism Denies family history of Ovarian cancer Breast cancer Colorectal cancer Social History Smoking Status: Former smoker Tobacco Type: Cigarettes Age Quit Using Tobacco: 51; packs per day: 2.5; Cigarettes Per Day: 50; Second Hand Exposure: No; Do You Dip or Chew Tobacco: No; Hx Alcohol Use: No Hx Substance Use: No Preferred Language: Burundian Communication Ability: Effective Visual Impairment: No Limitations Hearing Ability: Normal 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 Sleepy but conversational. Supine in bed. HEENT: Unremarkable Neck: No jugular venous distention, carotid pulses are normal and equal bilaterally without bruits. Pulmonary: Clear to auscultation bilaterally. Cardiac: Regular rapid rhythm with no murmur, gallop or rub. Abdomen: Soft, nontender with normal bowel sounds. Extremities: No edema. Distal pulses intact. Neurologic: No focal findings. Skin: No rash, ecchymoses or petechiae. Results & Data Vital Signs (Past 12 Hours) Vital Signs Temp Pulse Pulse Resp BP Pulse Ox O2 Del Method 01/01/24 07:51 36.5 C 92 H 25 H 117/80 94 Nasal Cannula 01/01/24 02:16 36.5 C 88 20 107/70 97 Room Air 12/31/23 23:11 92 H 12/31/23 22:39 37.0 C 87 18 94/68 L 93 Room Air Laboratory Results Comprehensive Metabolic Panel 01/01/24 Range/Units 06:04 Sodium 141 (136-145) mmol/L Potassium 3.1 L (3.5-5.1) mmol/L Chloride 98 (98-107) mmol/L Carbon Dioxide 37 H (21-32) mmol/L BUN 14 (6-23) mg/dl Creatinine 0.71 (0.6-1.2) mg/dl Glucose 97 (70-99(Fasting)) mg/dl Calcium 8.8 (8.6-10.3) mg/dl Intake and Output 12/31/23 01/01/24 01/01/24 22:59 06:59 14:59 Intake Total 600 / 750 150 / 750 Output Total 450 / 1476 350 / 1476 Balance 150 / -726 -200 / -726 Intake: Oral 600 / 750 150 / 750 Output: Urine Amount (Catheter) 450 / 1475 350 / 1475 External 450 / 1475 350 / 1475 Diagnostic Findings Telemetry: Periods of sinus rhythm alternating with paroxysmal supraventricular rhythms which I believed to be atrial flutter although it is difficult to tell. She did have a postconversion pause resulting in a junctional rhythm, that was probably drug related. I believe her rapid rates are mostly 2-1 atrial flutter. PG Care Time/CCT Total # of Minutes Spent Total Time Spent with Patient: Total time spent is greater than 50% in coordination of care (as documented) at patient's floor/unit and/or counseling patient: Coding Level of Care Code 69381 INT INP/OBS CARE 3/75MIN Diagnoses Atrial flutter I48.92 Heart failure with mildly reduced ejection fraction (HFmrEF) I50.22 Cardiomyopathy I42.9 Pulmonary hypertension I27.20 Anticoagulant long-term use Z79.01
[2024-01-01] MEDS: POTASSIUM CHLORIDE 20 MEQ/15 ML UDC PO STA (09:41)
[2024-01-01] MEDS: METOPROLOL SUCC 25MG EXT REL TAB PO STA ×2 (09:53→12:57)
--- NOTE | 2024-01-01 12:01 | Hospitalist Progress Note ---
Date of Service January 01, 2024 Assessment & Plan (1) Sepsis due to urinary tract infection: Plan: *Sepsis due to Escherichia coli [E. coli] Resident of [facility], with reported lethargy and altered mental status over the last day. Positive urine culture this morning - outside records confirm ESBL E.coli - hypotensive, tachypneic and hypoxic on arrival. sepsis fluid resuscitation deferred due to CHF exacerbation - WBC 14, Procal 0.75, lactate 1.1 - Continue Ertapenem (first day 12/27) plan for 14 day course given bacteremia - will have ultrasound guidedline placed - 12/27 Urine/blood cultures: + e.coli ESBL - Repeat blood cultures 12/29: no growth at 48 hours - 12/30: CXR with pulmonary edema. No effusions -Supplemental oxygen, wean as able O2 goal 94% - FV and IS ordered PT/OT - recommending rehab, plan for centre care, they can accept this weekend if medically stable (2) Altered mental state: Plan: Suspect metabolic encephalopathy -Head CT: no acute findings -Baseline lewy body dementia, but daughter reports that she is normally able to answer orientation questions more confused 12/30, daughter reports last admission she kept asking about going home and seeing her boyfriend and has not asked that once. Daughter aware that patient's conditions are progressive and she is not going to make a "miraculous recovery". Discussed hospital delirium worsening baseline dementia. Daughter suspects will need more nursing care after rehab, reports family have been talking about next steps. I encourage daughter to continue discussions about goa ls of care and going forward how much they would want done (3) Atrial fibrillation: Plan: Continue Eliquis and Metoprolol Concerns for atrial flutter on telemetry, but EKG not showing this. - rates have been downtrending now mainly 90s - patient asymptomatic Cardiology consulted, appreciate recs - metoprolol increased to 75mg - consider rhythm control tomorrow (4) CHF (congestive heart failure): Plan: *Acute on chronic systolic (congestive) heart failure Up 4kg since discharge 8 days ago. Patient not on restrictive diet at [facility]. home regiment 80mg lasix PO daily Continue Losartan - lasix increased to 40mg IV BID - continue this - Heart failure team consulted - continue BID IV lasix until bump in creatinine - then transition to lasix 40mg PO and 25mg spironolactone - Strict I&O, daily weight - BNP 810 - 2g Na restriction, 1800mL fluid restriction - Received IV and PO K repletion again today AM BMP (5) CAD (coronary artery disease): Plan: Troponin elevated 53 --> 52 --> 26, suspect *Demand ischemia -continue metoprolol, ASA, statin (6) Anemia: Plan: Chronic. Stable. Seen by GI last admission - avoid NSAIDs, continue PPI BID Plan Chronic stable conditions Depression - continue fluoxetine Dispo: continued inpatient stay DVT proh: Eliquis left message for daughter Admission and Anticipated Discharge Date Admission Date: December 28, 2023 Supervising Physician Co-Signing Physician Notes Attending Attestation - Chart reviewed, care plan d/w RADHA Zazueta. I agree with the alegre components of her documentation. Marv Campbell MD Subjective Patient resting in bed again reports feeling lousy - tells me left Leg pain today RN reports bowel movement yesterday Tele aflutter with PVCs 80-90s Review of Systems Review of Systems: All systems reviewed & are unremarkable except as noted in Subjective Physical Exam Physical Exam: General: NAD, lying in bed, sleeping when walked in the room VS as above Resp: diminished in bases, accessory muscle use has decreased, tachypneic - but improving, demonstrates use of FV, O2 stats maintained with 1L CV: irregular, no murmur, Abd: normal bowel sounds, non tender, no hepatosplenomegaly Extremities: Moves all extremities,trace edema. No erythema or warmth in left leg where patient reports pain Results & Data Results & Data Vital Signs (Past 12 Hours) Vital Signs Temp Pulse Resp BP Pulse Ox O2 Del Method O2 Flow Rate 01/01/24 10:44 99 H 25 H 119/91 94 Nasal Cannula 1 01/01/24 08:00 Nasal Cannula 1 01/01/24 07:51 36.5 C 92 H 25 H 117/80 94 Nasal Cannula 01/01/24 02:16 36.5 C 88 20 107/70 97 Room Air Laboratory Results BMP reviewed PG Care Time/CCT Total # of Minutes Spent Total Time Spent with Patient: Total time spent is greater than 50% in coordination of care (as documented) at patient's floor/unit and/or counseling patient: Coding Level of Care Code 99502 SUB INP/OBS CARE MIN Diagnoses Sepsis due to urinary tract infection A41.9; N39.0 Altered mental state R41.82 Atrial fibrillation I48.91 CHF (congestive heart failure) I50.813 Heart failure chronicity: acute on chronic Heart failure type: right-sided CAD (coronary artery disease) I25.10 Anemia D64.9 (4) CHF (congestive heart failure) Heart failure chronicity: acute on chronic Heart failure type: right-sided Qualified Code(s): I50.813 - Acute on chronic right heart failure
[2024-01-02] MEDS: METOPROLOL SUCC 50MG EXT REL TAB PO SCH (08:02)
[2024-01-02 08:54] LABS: BUN Creatinine Ratio 18.2 (10-20); Calcium 9.1 mg/dl (8.6-10.3); Creatinine Clr Calc Pharmacy 75.5 ml/min; Est GFR (African American) 99.5 ml/min; Est GFR (Non-African American) 85.8 ml/min; Potassium 3.8 mmol/L (3.5-5.1)
[2024-01-02] MEDS ORDERED: METOPROLOL SUCC 25MG EXT REL TAB PO SCH (09:00)
--- NOTE | 2024-01-02 12:35 | Cardiology Progress Note ---
Date of Service January 02, 2024 Assessment & Plan (1) Atrial flutter: (2) Heart failure with mildly reduced ejection fraction (HFmrEF): (3) Cardiomyopathy: (4) Pulmonary hypertension: (5) Anticoagulant long-term use: Plan 1. Atrial flutter: She appears to be in atrial flutter and she has variable AV block. I believe she has been in atrial flutter with varying degrees of AV block over this admission. In the past she has had atrial fibrillation, atrial flutter can be more difficult to rate control than atrial fibrillation. On her current dose of metoprolol she seems to have a very well-controlled heart rate so I am going to continue this. Another option is rhythm control, but that may be difficult and probably not necessary at this point. I would continue her current regimen. 2. Congestive heart failure: She did present in mild congestive heart failure and her weight was down and then up slightly, although it is back down today. I would try to maintain her fluid status about where it is now. 3. Left ventricular dysfunction: She had mild left ventricular dysfunction last admission, that is not enough to explain worsening of congestive heart failure and perhaps the exacerbation was related to her arrhythmia and high heart rates. Control of her heart rate would probably be beneficial. We will have to see if we can maintain adequate fluid balance while she is in rate controlled atrial flutter. 4. Pulmonary hypertension right ventricular enlargement: There is little we can do about this other than fluid management. 5. Anticoagulation: She is currently on Eliquis 5 mg twice a day and has been as an outpatient, this is the correct dose for her. I would continue long-term anticoagulation. Admission and Anticipated Discharge Date Admission Date: December 28, 2023 Subjective She seems more alert today, she has no specific complaints and remains unaware of her cardiac rhythm. Her pressure is little bit low but she is not having lightheadedness or dizziness. Physical Exam Physical Exam: Constitutional: Alert, cooperative and in no distress. Conversational. Supine in bed. HEENT: Unremarkable Neck: No jugular venous distention, carotid pulses are normal and equal bilaterally without bruits. Pulmonary: Clear to auscultation bilaterally. Cardiac: Regular rhythm with no murmur, gallop or rub. Abdomen: Soft, nontender with normal bowel sounds. Extremities: No edema. Distal pulses intact. Neurologic: No focal findings. Skin: No rash, ecchymoses or petechiae. Results & Data Vital Signs (Past 12 Hours) Vital Signs Temp Pulse Pulse Resp BP Pulse Ox O2 Del Method 01/02/24 11:49 36.6 C 78 22 90/55 L 91 Nasal Cannula 01/02/24 08:00 Room Air, Nasal Cannula 01/02/24 08:00 82 01/02/24 07:54 36.7 C 84 21 102/57 L 93 Nasal Cannula 01/02/24 02:10 36.6 C 77 16 118/69 96 Nasal Cannula O2 Flow Rate 01/02/24 11:49 2 01/02/24 08:00 2 01/02/24 08:00 01/02/24 07:54 2 01/02/24 02:10 Laboratory Results Comprehensive Metabolic Panel 01/02/24 Range/Units 07:37 Sodium 139 (136-145) mmol/L Potassium 3.8 D (3.5-5.1) mmol/L Chloride 96 L (98-107) mmol/L Carbon Dioxide 40 H (21-32) mmol/L BUN 12 (6-23) mg/dl Creatinine 0.66 (0.6-1.2) mg/dl Glucose 95 (70-99(Fasting)) mg/dl Calcium 9.1 (8.6-10.3) mg/dl Intake and Output 01/01/24 01/02/24 01/02/24 22:59 06:59 14:59 Intake Total 200 / 650 100 / 650 Output Total 1000 / 2450 350 / 2450 Balance -800 / -1800 -250 / -1800 Intake: Oral 200 / 550 100 / 550 Output: Urine Amount (Catheter) 1000 / 2450 350 / 2450 External 1000 / 2450 350 / 2450 Other: # Unmeasured Voids 1 Weight 86.2 kg Weight Measurement Method Standing Scale Diagnostic Findings Telemetry: Heart rate very well-controlled over the last 24 hours. Averaging around 80 bpm. Probably controlled atrial flutter. PG Care Time/CCT Total # of Minutes Spent Total Time Spent with Patient: Total time spent is greater than 50% in coordination of care (as documented) at patient's floor/unit and/or counseling patient: Coding Level of Care Code 97181 SUB INP/OBS CARE 2/35MIN Diagnoses Typical atrial flutter I48.3 Atrial flutter type: typical Heart failure with mildly reduced ejection fraction (HFmrEF) I50.22 Cardiomyopathy I42.9 Pulmonary hypertension I27.20 Anticoagulant long-term use Z79.01 (1) Atrial flutter Atrial flutter type: typical Qualified Code(s): I48.3 - Typical atrial flutter
--- NOTE | 2024-01-02 12:59 | Hospitalist Progress Note ---
Date of Service January 02, 2024 Assessment & Plan (1) Sepsis due to urinary tract infection: Plan: *Sepsis due to Escherichia coli [E. coli] Resident of [facility], with reported lethargy and altered mental status over the last day. Positive urine culture this morning - outside records confirm ESBL E.coli - hypotensive, tachypneic and hypoxic on arrival. sepsis fluid resuscitation deferred due to CHF exacerbation - WBC 14, Procal 0.75, lactate 1.1 - Continue Ertapenem (first day 12/27) plan for 14 day course given bacteremia - will have ultrasound guidedline placed - 12/27 Urine/blood cultures: + e.coli ESBL - Repeat blood cultures 12/29: no growth at 48 hours - 12/30: CXR with pulmonary edema. No effusions -Supplemental oxygen, wean as able O2 goal 94% - FV and IS ordered PT/OT - recommending rehab, plan for centre care (2) Altered mental state: Plan: Suspect metabolic encephalopathy -Head CT: no acute findings -Baseline lewy body dementia, but daughter reports that she is normally able to answer orientation questions more confused 12/30, daughter reports last admission she kept asking about going home and seeing her boyfriend and has not asked that once. Daughter aware that patient's conditions are progressive and she is not going to make a "miraculous recovery". Discussed hospital delirium worsening baseline dementia. Daughter suspects will need more nursing care after rehab, reports family have been talking about next steps. I encourage daughter to continue discussions about goals of care and going forward how much they would want done (3) Atrial fibrillation: Plan: Continue Eliquis and Metoprolol Concerns for atrial flutter on telemetry, but EKG not showing this. - rates have been downtrending now mainly 90s - patient asymptomatic Cardiology consulted, appreciate recs - metoprolol increased to 100mg - rates have been controlled with this, avoid rhythm control for now, continue to monitor (4) CHF (congestive heart failure): Plan: *Acute on chronic systolic (congestive) heart failure Up 4kg since discharge 8 days ago. Patient not on restrictive diet at [facility]. home regiment 80mg lasix PO daily Continue Losartan - lasix increased to 40mg IV BID - continue this - Heart failure team consulted - continue BID IV lasix until bump in creatinine - then transition to lasix 40mg PO and 25mg spironolactone - Strict I&O, daily weight - BNP 810 - 2g Na restriction, 1800mL fluid restriction - Received IV and PO K repletion AM BMP Will continue with IV lasix as kidney function remains stable, paramaters on the orders given her increase in metoprolol (5) CAD (coronary artery disease): Plan: Troponin elevated 53 --> 52 --> 26, suspect *Demand ischemia -continue metoprolol, ASA, statin (6) Anemia: Plan: Chronic. Stable. Seen by GI last admission - avoid NSAIDs, continue PPI BID Plan Chronic stable conditions Depression - continue fluoxetine Dispo: continued inpatient stay DVT proh: Umu Daughter updated by phone Admission and Anticipated Discharge Date Admission Date: December 28, 2023 Supervising Physician Co-Signing Physician Notes Attending Attestation and Progress Note - Pt seen/examined, chart reviewed, care plan d/w RADHA Zazueta. I agree with the alegre components of her documentation. Late afternoon I received an urgent Goltry correspondence from nursing that patient had bradycardia down to the 20s. It was very brief, and quickly resolved, but [id number] it occurred. Upon arrival to the bedside the patient was awake/alert. She denied feeling dizzy, lightheaded, dyspneic. Denied chest pain. Denied any other complaints. Thru the afternoon nursing was attempting to wean FiO2. It was successful, and O2 sats had been mid 90s in room air. Acutely her O2 sats dropped into the 70s. When this occurred the bradycardia occurred. EKG obtained right after the event - a.flutter, RBBB, no changes from prior EKG Exam - gen - NAD, awake, alert, mild confusion neck - JVD present heart - irregular, s1 s2, 2/6 systolic murmur LSB lungs - b/l basilar rales, no wheeze, no increased work of breathing abd - soft NT ND BS+ ext - pulses 2+ b/l A/P: 1. episode of bradycardia - severe - likely hypoxia-induced, but [id number] at risk of happening again. This is in the setting of recent a.flutter with RVR requiring increase in metoprolol to 100mg BID. I spoke with Dr Cardenas by phone. Given the severity of the bradycardia and the risk of recurrence she may need pacemaker insertion. Dr Cardenas to decide tomorrow. Will make NPO at midnight and hold her Eliquis starting this evening. Made Dr Cardenas aware of recent bacteremia with E.coli however her most recent blood cultures are negative x 4 days. Cont metoprolol. Avoid hypoxia - cont NC O2. 2. acute/chronic systolic CHF - cont diuresis 3. ESBL e.coli UTI with septicemia - cont IV ertapenem daughter extensively updated at bedside Marv Campbell MD Subjective patient seen resting in bed. Reports pain in her back from sleeping weird. Denies CP or palpations. Unable to tell me where we are but does know that it is 2023 Tele - aflutter 80s Review of Systems Review of Systems: All systems reviewed & are unremarkable except as noted in Subjective Physical Exam Physical Exam: General: NAD, lying in bed, VS as above Resp: diminished in bases, no acessory muscle use, tachypneic - but improving, 2L NC CV: irregular, no murmur, Abd: normal bowel sounds, non tender, no hepatosplenomegaly Extremities: Moves all extremities,trace edema. Results & Data Results & Data Vital Signs (Past 12 Hours) Vital Signs Temp Pulse Pulse Resp BP Pulse Ox O2 Del Method 01/02/24 11:49 36.6 C 78 22 90/55 L 91 Nasal Cannula 01/02/24 08:00 Room Air, Nasal Cannula 01/02/24 08:00 82 01/02/24 07:54 36.7 C 84 21 102/57 L 93 Nasal Cannula 01/02/24 02:10 36.6 C 77 16 118/69 96 Nasal Cannula O2 Flow Rate 01/02/24 11:49 2 01/02/24 08:00 2 01/02/24 08:00 01/02/24 07:54 2 01/02/24 02:10 Laboratory Results BMP reviewed PG Care Time/CCT Total # of Minutes Spent Total Time Spent with Patient: Total time spent is greater than 50% in coordination of care (as documented) at patient's floor/unit and/or counseling patient: Coding Level of Care Code 74201 SUB INP/OBS CARE 3/50MIN Diagnoses Sepsis due to urinary tract infection A41.9; N39.0 Altered mental state R41.82 Atrial fibrillation I48.91 CHF (congestive heart failure) I50.813 Heart failure chronicity: acute on chronic Heart failure type: right-sided CAD (coronary artery disease) I25.10 Anemia D64.9 (4) CHF (congestive heart failure) Heart failure chronicity: acute on chronic Heart failure type: right-sided Qualified Code(s): I50.813 - Acute on chronic right heart failure
[2024-01-03 06:43] LABS: Calcium 9.1 mg/dl (8.6-10.3); Est GFR (African American) 102.6 ml/min; Est GFR (Non-African American) 88.5 ml/min; Potassium 3.2 mmol/L (3.5-5.1)
[2024-01-03] MEDS: POTASSIUM CHLORIDE / WTR 10 MEQ/100 ML PLCT IV SCH (08:44)
[2024-01-03] MEDS: FUROSEMIDE 40 MG/4 ML VIAL IV SCH (08:46)
--- NOTE | 2024-01-03 10:03 | Hospitalist Progress Note ---
Date of Service January 03, 2024 Assessment & Plan (1) Sepsis due to urinary tract infection: Plan: *Sepsis due to Escherichia coli [E. coli] Resident of [facility], with reported lethargy and altered mental status over the last day. Positive urine culture this morning - outside records confirm ESBL E.coli - hypotensive, tachypneic and hypoxic on arrival. sepsis fluid resuscitation deferred due to CHF exacerbation - WBC 14, Procal 0.75, lactate 1.1 - Continue Ertapenem (first day 12/27) plan for 14 day course given bacteremia - will need ultrasound guided line placed prior to discharge - 12/27 Urine/blood cultures: + e.coli ESBL - Repeat blood cultures 12/29: no growth at 48 hours - 12/30: CXR with pulmonary edema. No effusions -Supplemental oxygen, wean as able O2 goal 94% - FV and IS ordered PT/OT - recommending rehab, plan for centre care when medically stable (2) Atrial fibrillation: Plan: Concerns for atrial flutter on telemetry, but EKG not showing this. - rates have been downtrending now mainly 90s - patient asymptomatic Cardiology consulted, appreciate recs - metoprolol increased to 100mg - rates have been controlled with this - now with asymptomatic pauses, plan for pacemaker today or tomorrow pending schedule Umu on hold for pending pacemaker placement (3) Altered mental state: Plan: Suspect metabolic encephalopathy -Head CT: no acute findings -Baseline lewy body dementia, but daughter reports that she is normally able to answer orientation questions more confused 12/30, daughter reports last admission she kept asking about going home and seeing her boyfriend and has not asked that once. Daughter aware that patient's conditions are progressive and she is not going to make a "miraculous recovery". Discussed hospital delirium worsening baseline dementia. Daughter suspects will need more nursing care after rehab, reports family have been talking about next steps. I encourage daughter to continue discussions about goals of care and going forward how much they would want done seems to be baseline 01/02 (4) CHF (congestive heart failure): Plan: *Acute on chronic systolic (congestive) heart failure Up 4kg since discharge 8 days ago. Patient not on restrictive diet at [facility]. home regiment 80mg lasix PO daily Continue Losartan - BNP 810 on admission - 01/02 lasix increased to 60mg IV BID - Heart failure team consulted - continue BID IV lasix until bump in creatinine - then transition to lasix 40mg PO and 25mg spironolactone - discussed with SHANA Bird on 01/02 that likely will not be adequate home regiment for her cons idering her inpatient needs, considering bumex, Marge will reevaluate prior to discharge - Strict I&O, daily weight - 2g Na restriction, 1800mL fluid restriction - Received IV and PO K repletion again today AM BMP Will continue with IV lasix at increased dose as kidney function remains stable, parameters on the orders given her increase in metoprolol (5) CAD (coronary artery disease): Plan: Troponin elevated 53 --> 52 --> 26, suspect *Demand ischemia -continue metoprolol, ASA, statin (6) Anemia: Plan: Chronic. Stable. Seen by GI last admission - avoid NSAIDs, continue PPI BID Plan Chronic stable conditions Depression - continue fluoxetine Dispo: continued inpatient stay DVT proh: Umu Daughter updated at bedside. Discussed case with Shana Bird of the heart failure team. Admission and Anticipated Discharge Date Admission Date: December 28, 2023 Supervising Physician Co-Signing Physician Notes Attending Attestation - Chart reviewed, care plan d/w RADHA Zazueta. I agree w/ the alegre components of her documentation. Pauses on telemetry noted. Appreciate assistance by Dr Cardenas. Plan is for pacemaker placement this week. Marv Campbell MD Subjective Patient resting in bed, frustrated with current NPO status. Denies acute complaints. Has not felt the heart pauses and was unaware that there are happening. More alert today, able to identify daughter at beside and was making some jokes. Tele - aflutter with 4 second pause last night and 13 second pause early this morning, cardiology following Review of Systems Review of Systems: All systems reviewed & are unremarkable except as noted in Subjective Physical Exam Physical Exam: General: NAD, lying in bed, VS as above Resp: diminished in bases - fine crackles, no acessory muscle use, tachypneic - but improving, 2L NC CV: irregular, no murmur, Abd: normal bowel sounds, non tender, no hepatosplenomegaly Extremities: Moves all extremities,trace edema - nonpitting Results & Data Results & Data Vital Signs (Past 12 Hours) Vital Signs Temp Pulse Pulse Resp BP Pulse Ox O2 Del Method 01/03/24 07:22 83 01/03/24 07:12 Nasal Cannula 01/03/24 07:00 36.7 C 79 16 101/68 98 Nasal Cannula 01/03/24 02:27 36.4 C L 78 18 98/57 L 97 Nasal Cannula 01/02/24 23:42 81 01/02/24 22:33 36.5 C 90 18 115/82 90 Nasal Cannula O2 Flow Rate 01/03/24 07:22 01/03/24 07:12 2 01/03/24 07:00 2 01/03/24 02:27 2 01/02/24 23:42 01/02/24 22:33 2 Laboratory Results BMP reviewed PG Care Time/CCT Total # of Minutes Spent Total Time Spent with Patient: Total time spent is greater than 50% in coordination of care (as documented) at patient's floor/unit and/or counseling patient: Coding Level of Care Code 08954 SUB INP/OBS CARE 3/50MIN Diagnoses Sepsis due to urinary tract infection A41.9; N39.0 Atrial fibrillation I48.91 Altered mental state R41.82 CHF (congestive heart failure) I50.813 Heart failure chronicity: acute on chronic Heart failure type: right-sided CAD (coronary artery disease) I25.10 Anemia D64.9 (4) CHF (congestive heart failure) Heart failure chronicity: acute on chronic Heart failure type: right-sided Qualified Code(s): I50.813 - Acute on chronic right heart failure
--- NOTE | 2024-01-03 10:04 | Cardiology Progress Note ---
Date of Service January 03, 2024 Assessment & Plan (1) Atrial flutter: (2) Heart failure with mildly reduced ejection fraction (HFmrEF): (3) Cardiomyopathy: (4) Pulmonary hypertension: (5) Anticoagulant long-term use: Plan 1. Atrial flutter: She appears to be in atrial flutter and she has variable AV block. I believe she has been in atrial flutter with varying degrees of AV block over this admission. In the past she has had atrial fibrillation, atrial flutter can be more difficult to rate control than atrial fibrillation. On her current dose of metoprolol she seems to have a very well-controlled heart rate for the most part so I am going to continue this. The long pauses are worrisome, they may have been associated with hypoxia but the brief nature of them is concerning for AV conduction disease. The safest option is a pacemaker, I discussed that with the patient and her daughter who is in the room and they are agreeable. Her Eliquis was held since yesterday's dose, we probably could do it today (it is a little bit early, it is safest to wait 48 hours) but without ongoing bradycardia I would opt for tomorrow if possible. I have scheduled her for 10 AM January 04, 2024. 2. Congestive heart failure: She did present in mild congestive heart failure and her weight was down and then up slightly, although it is identical today and yesterday if correct. I would try to maintain her fluid status about where it is now, she seems comfortable supine. 3. Left ventricular dysfunction: She had mild left ventricular dysfunction last admission, that is not enough to explain worsening of congestive heart failure and perhaps the exacerbation was related to her arrhythmia and high heart rates. Control of her heart rate would probably be beneficial. We will have to see if we can maintain adequate fluid balance while she is in rate controlled atrial flutter. 4. Pulmonary hypertension right ventricular enlargement: There is little we can do about this other than fluid management. 5. Anticoagulation: She was on Eliquis 5 mg twice a day and has been as an outpatient, this is the correct dose for her. It is on hold for her pacemaker. Admission and Anticipated Discharge Date Admission Date: December 28, 2023 Subjective Events of the past 24 hours reviewed. She is feeling well today, she is laying in bed and has no memory of her bradycardia. Her daughter is present in the room and notes that she was here yesterday when the patient had her long pause (13 seconds) and she did appear to lose consciousness (which is not surprising). The patient however has no recollection of it. Physical Exam Physical Exam: Constitutional: Alert, cooperative and in no distress. Conversational. Supine in bed. HEENT: Unremarkable Neck: No jugular venous distention, carotid pulses are normal and equal bilaterally without bruits. Pulmonary: Clear to auscultation bilaterally. Cardiac: Regular rhythm with no murmur, gallop or rub. Abdomen: Soft, nontender with normal bowel sounds. Extremities: No edema. Distal pulses intact. Neurologic: No focal findings. Skin: No rash, ecchymoses or petechiae. Results & Data Vital Signs (Past 12 Hours) Vital Signs Temp Pulse Pulse Resp BP Pulse Ox O2 Del Method 01/03/24 07:22 83 01/03/24 07:12 Nasal Cannula 01/03/24 07:00 36.7 C 79 16 101/68 98 Nasal Cannula 01/03/24 02:27 36.4 C L 78 18 98/57 L 97 Nasal Cannula 01/02/24 23:42 81 01/02/24 22:33 36.5 C 90 18 115/82 90 Nasal Cannula O2 Flow Rate 01/03/24 07:22 01/03/24 07:12 2 01/03/24 07:00 2 01/03/24 02:27 2 01/02/24 23:42 01/02/24 22:33 2 Laboratory Results Comprehensive Metabolic Panel 01/03/24 Range/Units 05:23 Sodium 141 (136-145) mmol/L Potassium 3.2 L (3.5-5.1) mmol/L Chloride 97 L (98-107) mmol/L Carbon Dioxide 39 H (21-32) mmol/L BUN 12 (6-23) mg/dl Creatinine 0.60 (0.6-1.2) mg/dl Glucose 91 (70-99(Fasting)) mg/dl Calcium 9.1 (8.6-10.3) mg/dl Intake and Output 01/02/24 01/03/24 01/03/24 22:59 06:59 14:59 Intake Total 120 / 600 Balance 120 / -950 Intake: Oral 120 / 600 Other: # Unmeasured Voids 1 2 Weight 86.2 kg Weight Measurement Method Built in [facility] Diagnostic Findings Telemetry: For the past 24 hours the heart rate has been overall well-controlled at 70 to 80 bpm (atrial flutter with good heart rate control). There were however 2 episodes of significant bradycardia, one 13-second pause resulting in loss of consciousness and another 4.7-second pause at a different time. These were quite discrete with only a short period of bradycardia leading to the pause. PG Care Time/CCT Total # of Minutes Spent Total Time Spent with Patient: Total time spent is greater than 50% in coordination of care (as documented) at patient's floor/unit and/or counseling patient: Coding Level of Care Code 94682 SUB INP/OBS CARE 3/50MIN Diagnoses Typical atrial flutter I48.3 Atrial flutter type: typical Heart failure with mildly reduced ejection fraction (HFmrEF) I50.22 Cardiomyopathy I42.9 Pulmonary hypertension I27.20 Anticoagulant long-term use Z79.01 (1) Atrial flutter Atrial flutter type: typical Qualified Code(s): I48.3 - Typical atrial flutter
[2024-01-03] MEDS: POTASSIUM CHLORIDE CRTAB 20 MEQ TABCR PO SCH (11:01)
[2024-01-04 06:41] LABS: Hematocrit (blood only) 36.1 % (37.0-47.0); Hemoglobin 10.6 g/dl (12.0-16.0); Mean Corpuscular Hemoglobin 23.2 pg (25.0-34.0); Mean Corpuscular Hgb Conc 29.4 g/dL (32.0-36.0); Mean Platelet Volume 9.3 fL (9.4-12.4); Platelet Count 361 K/uL (130-400); RDW Coefficient of Variation 29.8 % (11.5-14.5); RDW Standard Deviation 81.2 fL (36.4-46.3); Red Blood Count 4.57 M/uL (4.20-5.40); White Blood Count 9.66 K/ul (4.8-10.8)
[2024-01-04 06:54] LABS: BUN Creatinine Ratio 19.2 (10-20); Calcium 8.9 mg/dl (8.6-10.3); Creatinine Clr Calc Pharmacy 63.8 ml/min; Est GFR (African American) 85.6 ml/min; Est GFR (Non-African American) 73.8 ml/min; Potassium 3.3 mmol/L (3.5-5.1)
--- NOTE | 2024-01-04 07:05 | Electrocardiogram Report ---
Test Reason : Blood Pressure : / mmHG Vent. Rate : 101 BPM Atrial Rate : 119 BPM P-R Int : 000 ms QRS Dur : 116 ms QT Int : 340 ms P-R-T Axes : 000 041 108 degrees QTc Int : 440 ms Poor data quality, interpretation may be adversely affected Atrial flutter with rapid ventricular response Inferior infarct (cited on or before 01-JAN-2024) Abnormal ECG When compared with ECG of 29-DEC-2023 08:16, No significant change Confirmed by Stevan Cardenas ([id number]) on 01/04/2024 7:05:07 AM Referred By: REFERRED SELF Confirmed By:Stevan Cardenas
--- NOTE | 2024-01-04 07:46 | Hospitalist Progress Note ---
Date of Service January 04, 2024 Assessment & Plan (1) Sepsis due to urinary tract infection: Plan: *Sepsis due to Escherichia coli [E. 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 - hypotensive, tachypneic and hypoxic on arrival. sepsis fluid resuscitation deferred due to CHF exacerbation - WBC 14, Procal 0.75, lactate 1.1 Positive urine culture - outside records confirm ESBL E.coli - Continue Ertapenem (first day 12/27) plan for 14 day course given bacteremia (appears to be sensitive to FLQ, ?consider PO for 14 day course) - will need ultrasound guided line placed prior to discharge - 12/27 Urine/blood cultures: + e.coli ESBL - Repeat blood cultures 12/29: no growth at 48 hours - 12/30: CXR with pulmonary edema. No effusions -Supplemental oxygen, wean as able O2 goal 94% - FV and IS ordered 01/03 Discussed w/ ID provider senior automation engineer and given quick clearance on repeat blood cultures and blood cultures w/ sensitivity to FLQs and will continue Ertapenem for today (day 7 on 01/03) and plan to switch to FLQ (Cipro vs Levaquin) for tomorrow and plan to complete 10-14 day course (will plan 14 day course, can avoid need for peripheral US guided IV at discharge to complete course abx at dc). ?confusion delirium related or from carbepenem. Does carry risks w/ FLQs as well but less and will monitor inpatient w/ switch tomorrow WBC now wnl, afebrile Repeat blood cx NGTD x 5 days NPO for OR for pacemaker as below PT/OT for rehab when stable to [facility], hopefully in next 48 hours as discussed w/ daughter this morning. (2) Atrial fibrillation: Plan: Concerns for atrial flutter on telemetry, but EKG not showing this. - rates have been downtrending now mainly 90s - patient asymptomatic however suspect contributed to her reduced EF/cardiomyopathy. Cardiology consulted Metoprolol increased to 100mg daily NPO for pacemaker this morning given pauses on monitor (none over past 24 hours) Eliquis on hold (last dose AM 01/01) -- resume when ok w/ cardiology when safe from bleeding standpoint Lasix increased to 60mg IV BID evening 01/02 and renal function stable and will continue such as outlined below Digoxin added per cardiology, level w/ AM labs Monitor K/Mag, telemetry monitoring (3) CHF (congestive heart failure): Plan: *Acute on chronic systolic (congestive) heart failure Up 4kg since discharge 8 days ago. Patient not on restrictive diet at home. home regiment 80mg lasix PO daily BNP 810, CXR w/ congestion Lasix 40mg IV BID initially --> consideration for bumex, will have Lissa f/u on as was at procedure during eval today AHA diet/low salt diet, 1800cc/day fluid restriction Lasix increased to 60mg IV BID evening 01/02 w/ improvement in output/stable renal function. Net negative 1.6L in past 24 hours (cumulative 7.2L since admission) CXR w/ cardiomegaly w/ continued pulmonary vascular congestion on repeat Continue increased lasix IV BID, additional 20meq w/ scheduled 20meq BID and will increase to 40meq for now BID. Consideration for spironolactone to assist w/ diuresis/hypokalemia Monitor weights, I&Os Supplemental O2 to maintain sats BMP in AM (4) Altered mental state: Plan: Suspect metabolic encephalopathy w/ delirium Baseline lewy body dementia, but daughter reports that she is normally able to answer orientation questions (daughter reports in morning patient does tend to be worse/improves in afternoon per discussion 01/03) Head CT: no acute findings more confused 12/30, daughter reports last admission she kept asking about going home and seeing her boyfriend and has not asked that once. Daughter aware that patient's conditions are progressive and she is not going to make a "miraculous recovery". Discussed hospital delirium worsening baseline dementia. Daughter suspects will need more nursing care after rehab, reports family have been talking about next steps. 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 Stable. Seen by GI last admission - avoid NSAIDs, continue PPI BID --> increasing PPI to BID as prior recommended Plan Dispo: continued inpatient stay DVT proh: Eliquis (on hold for pacemaker), SCDs added. Resume eliquis when ok w/ cardiology Consideration for spironolactone in AM pending BP/labs, PT/OT recs for [facility] and likely will be inpatient until but will see how she is doing tomorrow. Daughter updated at bedside AM 01/03 Admission and Anticipated Discharge Date Admission Date: December 28, 2023 Supervising Physician Co-Signing Physician Notes The patient was not seen by me. The chart was reviewed. Case discussed with RADHA Mora. Agree with assessment and plan Subjective Evaluated this morning, daughter at bedside. Some agitation overnight per daughter/not wanting nursing to see her bottom. Purewick in place, cloudy yellow urine draining. Knew the year 2023, but not where she was. Daughter reports typically pretty with it but has had delirium in the past and can be worse in the morning. Being taken down for pacemaker this morning. She is not hungry but reporting being thirsty. Lasix increased last evening and continued at current rate. On 2L NC, oxygen acceptable and denies any shortness of breath or cough/sputum production. LE edema improved. Remains on Ertapenem for urinary coverage however will discuss w/ pharmacy to consider PO abx if any ongoing issues w/ confusion given on Ertapenem (on day 6 presently) for consideration for PO FLQ to complete course given urine cx/sensitivities. No further dips in HR overnight, NPO for pacemaker this morning. Discussed w/ ID and can plan for FLQ, complete 10-14 day course recommended. Questions/concerns addressed at this time. Physical Exam Physical Exam: General: 78yo female sitting in bed, NAD, daughter at bedside, alert to person, not place/events this morning, cooperative with exam (daughter reports this happens in the morning), patient reports being thirsty HEENT: atraumatic, normocephalic, mmm, trachea midline Resp: diminished in the bases, fine associated crackles, improvement in air entry, on 2L NC CV: NSR/irregular at times, rates 90s, no significant m/r/g, trace LE edema about the same (reported improved slightly) GI: +BS, soft/NT : catheter draining yellow urine MSK/Neuro: generalized weakness but nonfocal, no slurred speech/facial droop, following commands Psych: alert to person, not place/time at present, cooperative Results & Data Results & Data Vital Signs (Past 12 Hours) Vital Signs Temp Pulse Pulse Resp BP Pulse Ox O2 Del Method 01/04/24 06:57 36.5 C 76 18 106/62 92 Nasal Cannula 01/04/24 03:10 36.7 C 81 18 105/77 94 Nasal Cannula 01/03/24 23:17 Nasal Cannula 01/03/24 23:15 79 01/03/24 22:21 36.5 C 81 18 96/56 L 94 Nasal Cannula O2 Flow Rate 01/04/24 06:57 2 01/04/24 03:10 3 01/03/24 23:17 2 01/03/24 23:15 01/03/24 22:21 3 Laboratory Results 01/04/24 Range/Units 05:31 WBC 9.66 (4.8-10.8) K/ul RBC 4.57 (4.20-5.40) M/uL Hgb 10.6 L (12.0-16.0) g/dl Hct 36.1 L (37.0-47.0) % MCV 79.0 L (80.0-100.0) fL MCH 23.2 L (25.0-34.0) pg MCHC 29.4 L (32.0-36.0) g/dL RDW Std Deviation 81.2 H (36.4-46.3) fL RDW Coeff of Alice 29.8 H (11.5-14.5) % Plt Count 361 (130-400) K/uL MPV 9.3 L (9.4-12.4) fL Sodium 140 (136-145) mmol/L Potassium 3.3 L (3.5-5.1) mmol/L Chloride 96 L (98-107) mmol/L Carbon Dioxide 39 H (21-32) mmol/L Anion Gap 5 (3-11) BUN 15 (6-23) mg/dl Creatinine 0.78 (0.6-1.2) mg/dl Est Cr Clr Drug Dosing 63.8 ml/min Est GFR ( Amer) 85.6 ml/min Est GFR (Non-Af Amer) 73.8 ml/min BUN/Creatinine Ratio 19.2 (10-20) Glucose 94 (70-99(Fasting)) mg/dl Calcium 8.9 (8.6-10.3) mg/dl Magnesium 2.0 (1.7-2.4) mg/dl Iron 42 (35-150) mcg/dl TIBC 254 (250-450) mcg/dl Unsaturated IBC 212 (155-355) mcg/dl Transferrin % Sat 17 (15-50) % Ferritin 67.5 (8-388) ng/ml Diagnostic Findings Chest X-Ray 01/04/24 09:06 XR chest 1V portable HISTORY: 78 years-old Female f/u chf acute shortness of breath COMPARISON: 12/31/2023 TECHNIQUE: AP view of the chest FINDINGS: Cardiac silhouette is enlarged. Unchanged right hemidiaphragmatic elevation. Left subclavian pacer. Median sternotomy with numerous fractured wires. No pneumothorax or large pleural effusion. Pulmonary vascular congestion and interstitial coarsening. Degenerative changes of the shoulders and spine. Upper abdominal surgical clips. IMPRESSION: 1. Cardiomegaly with pulmonary vascular congestion. 2. Stable findings as above. ACT 112: Negative or not required by law. The above report was generated using voice recognition software. It may contain grammatical, syntax or spelling errors. Electronically signed by: John Cerna M.D. 01/04/2024 2:56 PM PG Care Time/CCT Total # of Minutes Spent Total Time Spent with Patient: Total time spent is greater than 50% in coordination of care (as documented) at patient's floor/unit and/or counseling patient: Coding Level of Care Code 73239 SUB INP/OBS CARE 3/50MIN Diagnoses Sepsis due to urinary tract infection A41.9; N39.0 Atrial fibrillation I48.91 CHF (congestive heart failure) I50.813 Heart failure chronicity: acute on chronic Heart failure type: right-sided Altered mental state R41.82 CAD (coronary artery disease) I25.10 Anemia D64.9 (3) CHF (congestive heart failure) Heart failure chronicity: acute on chronic Heart failure type: right-sided Qualified Code(s): I50.813 - Acute on chronic right heart failure
[2024-01-04 09:41] LABS: Ferritin 67.5 ng/ml (8-388)
--- NOTE | 2024-01-04 10:08 | History & Physical Bridge Note ---
Date of Service January 04, 2024 History & Physical Bridge Note I have examined the patient, reviewed the History & Physical and in the interval since the performance of the History & Physical I have noted the following changes of clinical significance: no changes noted. I reviewed the indications, procedure, risks and alternatives with the patient and her daughter, and answered all questions. Patient and her daughter understand and agrees to the procedure. Consent obtained. I also reviewed the risks and use of sedation, patient and her daughter understand and consent obtained.
--- NOTE | 2024-01-04 10:09 | Pre Anesthesia Assessment ---
Date of Service January 04, 2024 Pre Sedation Assessment Vital Signs Temp Pulse Pulse Resp BP Pulse Ox O2 Del Method 01/04/24 09:54 84 14 102/69 96 Nasal Cannula 01/04/24 06:57 36.5 C 76 18 106/62 92 Nasal Cannula 01/04/24 03:10 36.7 C 81 18 105/77 94 Nasal Cannula 01/03/24 23:17 Nasal Cannula 01/03/24 23:15 79 01/03/24 22:21 36.5 C 81 18 96/56 L 94 Nasal Cannula 01/03/24 19:34 36.6 C 77 18 120/68 95 Nasal Cannula 01/03/24 16:00 78 01/03/24 15:34 36.7 C 78 25 H 113/72 96 Nasal Cannula 01/03/24 11:00 36.5 C 88 20 113/72 96 Nasal Cannula O2 Flow Rate 01/04/24 09:54 1 01/04/24 06:57 2 01/04/24 03:10 3 01/03/24 23:17 2 01/03/24 23:15 01/03/24 22:21 3 01/03/24 19:34 2 01/03/24 16:00 01/03/24 15:34 2 01/03/24 11:00 2 Cardiovascular RRR, no murmur, no edema Respiratory normal respiratory effort, lungs clear to auscultation Pre-Sedation Airway Assessment Smoking Status: Former smoker Hx Sleep Apnea: No Short, Thick Neck: No Thyromental Distance: > or= 3.5 Finger Breadths Oral Cavity: + WNL Mallampati Class: II ASA: ASA3 NPO Status Date of Last Intake of Fluids: 01/03/24 Time of Last Intake of Fluids: 18:00 Date of Last Intake of Solid Food: 01/03/24 Time of Last Intake of Solid Foods: 18:00 Procedure Planning Contraindications for Sedation: none Current Medications Reviewed: Yes Notes The planned sedation has been discussed with the patient. Informed Consent was obtained. I have identified the patient, determined the appropriateness of sedation and have assessed the patient immediately prior to the procedure. All medicine(s) and interventions are by my order.
[2024-01-04] MEDS: MIDAZOLAM HCL 5 MG/ML 1 ML VIAL ONE (11:48)
[2024-01-04] MEDS: ceFAZolin 330 MG/ML 1 GM VIAL IV SCH (11:49)
[2024-01-04] MEDS: LIDOCAINE 1% LOCAL 20 ML VIAL ONE (11:49)
[2024-01-04] MEDS: ceFAZolin 330 MG/ML 1 GM VIAL ONE (11:49)
[2024-01-04] MEDS: fentaNYL citrate PF 100 MCG/2 ML VIAL ONE (11:49)
[2024-01-04] MEDS: WATER, STERILE FOR INJ 10 ML VIAL ONE (11:50)
[2024-01-04] MEDS: VANCOMYCIN HCL 1000MG/20ML VIAL ONE (11:50)
[2024-01-04] MEDS ORDERED: ACETAMINOPHEN W/CODEINE #3 1 TAB PO PRN (12:07)
--- NOTE | 2024-01-04 12:07 | Electrophysiology Report ---
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 The left prepectoral region was anesthetized with 1% lidocaine local anesthetic and left axillary venipuncture was performed by percutaneous technique and a guidewire placed through the left subclavian vein into the superior vena cava. The area was further infiltrated with 1% lidocaine local anesthetic and a 5 cm incision was made parallel to the left clavicle and 2 cm below it and carried down to the anterior pectoralis fascia. A pacemaker pocket was formed by blunt dissection anterior to the pectoralis fascia and a vancomycin-soaked sponge was placed in the pocket. A 9 [place] [employer] lead introducer was placed over the guidewire into the left subclavian vein, the dilator and guidewire were removed and a bipolar active fixation steroid tipped atrial lead was advanced through the introducer into the superior vena cava. A guidewire was placed through the introducer and the introducer was stripped from the lead and guidewire. A 7 [place] Medtr[employer] lead introducer was placed over the guidewire into the left subclavian vein, the dilator and guidewire were removed. A C315 His 02 septal sheath was advanced through the introducer over a guidewire and advanced into the right ventricular outflow tract. The guidewire and dilator were removed and the sheath was positioned in a mid septal location. A bipolar active fixation steroid tipped ventricular lead was advanced through the introducer and rotated to advance the screw into the septum. Septal penetration was confirmed by electrogram morphology. Pacing and sensing thresholds were evaluated in bipolar configuration and are noted on the data sheet. The septal sheath was stripped away from the lead. A guidewire was placed back through the introducer and the introducer was removed over the the guidewire. Using a curved stylette the atrial lead was positioned in the region of the atrial appendage and the screw extended fixing the lead in position. Pacing and sensing thresholds were evaluated in bipolar configuration and are recorded on the implant data sheet. Once the leads were in position they were attached to the anterior pectoralis fascia using 2 sutures of 2-0 silk around each lead collar. The vancomycin soaked sponge was removed from the pocket, hemostasis was obtained, the pacemaker was attached to the leads and placed in the pocket with the leads coil ed beneath it. The incision was closed with a running double subcutaneous closure of 3-0 Vicryl absorbable suture, followed by running subcuticular skin closure of 4-0 Vicryl absorbable suture. Bacitracin ointment was placed on the incision and a dressing applied. [facility] [place] Electrophysiology codes Indication for Procedure (1) Symptomatic bradycardia: Pacing Procedure 1: Pacin Insert/Replace Pacer A & V PG Moderate Sedation Codes Moderate Sedation Codes Procedure 1: Sedation/Anesthesia: 10271 Mod Sedation by the same physician;Init15 Min Child Age 5 & Up Procedure 2: Sedation/Anesthesia: 25943 Mod Sedation by the same physician; Ea [id number] Minutes
[2024-01-04] MEDS: LACTATED RINGER'S 1,000 ML IV SCH (13:25)
[2024-01-04] MEDS: DIGOXIN 250 MCG in SYRINGE 9 ML IV STA (13:29)
[2024-01-04] MEDS: POTASSIUM CHLORIDE CRTAB 20 MEQ TABCR PO SCH (13:49)
--- NOTE | 2024-01-04 14:58 | XRay Report ---
XR chest 1V portable HISTORY: 78 years-old Female f/u chf acute shortness of breath COMPARISON: 12/31/2023 TECHNIQUE: AP view of the chest FINDINGS: Cardiac silhouette is enlarged. Unchanged right hemidiaphragmatic elevation. Left subclavian pacer. M edian sternotomy with numerous fractured wires. No pneumothorax or large pleural effusion. Pulmonary vascular congestion and interstitial coarsening. Degenerative changes of the shoulders and spine. Upp er abdominal surgical clips. IMPRESSION: 1. Cardiomegaly with pulmonary vascular congestion. 2. Stable findings as above. ACT 112: Negative or not required by law. The above report was generated using voice recognition software. It may contain grammatical, syntax o r spelling errors. Electronically signed by: John Cerna M.D. 01/04/2024 2:56 PM
[2024-01-04] MEDS ORDERED: DIGOXIN 0.125 MG/2.5 ML UDP PO SCH (16:00)
[2024-01-04] MEDS: DIGOXIN 0.125 MG TAB PO SCH (16:50)
[2024-01-04] MEDS: PANTOprazole 40 MG TAB PO SCH (20:24)
[2024-01-05 06:45] LABS: Basophils # (auto) 0.05 K/uL (0.00-0.20); Basophils % (auto) 0.6 %; Eosinophils # (auto) 0.13 K/uL (0.00-0.50); Eosinophils % (auto) 1.5 %; Hematocrit (blood only) 36.2 % (37.0-47.0); Hemoglobin 10.6 g/dl (12.0-16.0); Immature Granulocytes # (auto) 0.04 K/uL (0.01-0.20); Immature Granulocytes % (auto) 0.5 %; Lymphocytes # (auto) 1.57 K/uL (1.20-3.40); Lymphocytes % (auto) 18.4 %; Mean Corpuscular Hgb Conc 29.3 g/dL (32.0-36.0); Mean Corpuscular Volume 78.7 fL (80.0-100.0); Monocytes # (auto) 0.97 K/uL (0.11-0.59); Monocytes % (auto) 11.3 %; Neutrophils # (auto) 5.79 K/uL (1.40-6.50); Neutrophils % (auto) 67.7 %; Platelet Count 334 K/uL (130-400); RDW Coefficient of Variation 29.9 % (11.5-14.5); RDW Standard Deviation 81.8 fL (36.4-46.3); White Blood Count 8.55 K/ul (4.8-10.8)
[2024-01-05 07:10] LABS: Albumin Globulin Ratio 0.9 (0.9-2); Anisocytosis Present; BUN Creatinine Ratio 19.4 (10-20); Bilirubin,Total 0.7 mg/dl (0.2-1.0); Calcium 9.1 mg/dl (8.6-10.3); Creatinine Clr Calc Pharmacy 74.8 ml/min; Est GFR (Non-African American) 85.4 ml/min; Globulin 3.2 gm/dl (2.5-4.0); Hypochromasia Present; Potassium 3.7 mmol/L (3.5-5.1); Tear Drop Cells 1+; Total Protein 6.2 gm/dl (6.0-8.3)
[2024-01-05 07:24] LABS: Thyroid Stimulating Hormone 2.287 uIu/ml (0.300-4.500)
--- NOTE | 2024-01-05 07:54 | Hospitalist Progress Note ---
Date of Service January 05, 2024 Assessment & Plan (1) Sepsis due to urinary tract infection: Plan: *Sepsis due to Escherichia coli [E. 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 - hypotensive, tachypneic and hypoxic on arrival. sepsis fluid resuscitation deferred due to CHF exacerbation WBC 14, Procal 0.75, lactate 1.1 Positive urine culture - outside records confirm ESBL E.coli IV Abx: Ertapenem (first day 12/27) plan for 14 day course given bacteremia (sensitivities for FLQ on blood culture -- see below) 12/27 Urine/blood cultures: + e.coli ESBL Repeat blood cultures 12/29: NGTD x 5 days Discussed w/ ID provider industrial methods consultant 01/03 and given quick clearance on repeat blood cultures and blood cultures w/ sensitivity to FLQs and will continue Ertapenem for today (day 7 on 01/03) and plan to switch to FLQ (Cipro vs Levaquin) for tomorrow and plan to complete 10-14 day course (will plan 14 day course, can avoid need for peripheral US guided IV at discharge to complete course abx at dc). ?confusion delirium related or from carbepenem. Does carry risks w/ FLQs as well but less and will monitor inpatient w/ switch tomorrow WBC now wnl, afebrile Switched to Ciprofloxacin (750mg BID given bacteremia) to complete 10-14 day course w/ PO abx. (already received 7 days ertapenem, end date for abx 01/11). Monitor on switch to ensure no fever/leukocytosis to complete course Updated daughter Lauren by phone 01/04, planning for [facility] in next 48 hours likely per PT/OT recommendations. CM following Monitor labs on repeat (2) Atrial fibrillation: Plan: Concerns for atrial flutter on telemetry, but EKG not showing this. - rates have been downtrending now mainly 90s - patient asymptomatic however suspect contributed to her reduced EF/cardiomyopathy. Cardiology consulted Metoprolol increased to 100mg daily s/p pacemaker implantation with Dr Cardenas 01/04 Eliquis resumed AM 01/04 (last dose prior was AM 01/01) Digoxin added by cardiology, level 0.7 and continue 0.125mcg daily Rates in 60-70s on telemetry at present time Monitor K/Mag, lasix as outlined below and monitoring on telemetry (3) CHF (congestive heart failure): Plan: *Acute on chronic systolic (congestive) heart failure Up 4kg since discharge 8 days prior -> Patient not on restrictive diet at home. home regiment 80mg lasix PO daily BNP 810, CXR w/ congestion and supplemental O2 use AHA diet/low salt diet, 1800cc/day fluid restriction Lasix 40mg IV BID initially -> Lasix increased to 60mg IV BID evening 01/02 w/ improvement in output/stable renal function. - consideration for bumex, will have Lissa f/u on as was at procedure during eval today Weight up slightly but was net negative 1.6L past 24 hours (cumulative 7.1L, was 7.2) CXR w continued congestion and continuing lasix 60mg IV BID for now. Consideration for dose of diamox vs bumex, ?addition of spironolactone but will hold off for now given BPs borderline Monitor weights, I&Os Supplemental O2 to maintain sats CHF provider to see in AM, appreciate recs/assistance BMP in AM (4) Altered mental state: Plan: Suspect metabolic encephalopathy w/ delirium Baseline lewy body dementia, but daughter reports that she is normally able to answer orientation questions (daughter reports in morning patient does tend to be worse/improves in afternoon per discussion 01/03) Head CT: no acute findings more confused 12/30, daughter reports last admission she kept asking about going home and seeing her boyfriend and has not asked that once. Daughter aware that patient's conditions are progressive and she is not going to make a "miraculous recovery". Discussed hospital delirium worsening baseline dementia. Daughter suspects will need more nursing care after rehab, reports family have been talking about next steps. I encourage daughter to continue discussions about goals of care and going forward how much they would want done seems to be baseline 01/02 and during exam 01/03 alert to person but not clear in hospital or having procedure today / Has been on IV ertapenem for UTI as above (got 7 days/doses) --> switching to Ciprofloxacin as above and monitoring. mentation appears ipmroved today and will monitor (5) CAD (coronary artery disease): Plan: Troponin elevated 53 --> 52 --> 26, suspect *Demand ischemia suspected 2nd to volume overload No CP reported at present time Continues metoprolol, ASA, statin (6) Anemia: Plan: Chronic. Stable. Seen by GI last admission - avoid NSAIDs, continue PPI BID --> increased PPI to BID as prior recommended but was ordered once daily on admission, continued hgb stable compared to priors. eliquis resumed and remains on asa and will monitor CBC in AM Plan DVT proh: Eliquis RESUMED for this morning per cardiology Dispo: continued inpatient stay - continue IV diuresis, considering adding spironolactone in AM/switching to bumex. ?consideration dose diamox Planning for [facility] at mo per PT/OT recommendations. Daughter updated 01/04 Hopefully in next 24-48 hours Admission and Anticipated Discharge Date Admission Date: December 28, 2023 Supervising Physician Co-Signing Physician Notes The patient was not seen by me. The chart was reviewed. Case discussed with RADHA Mora. Agree with assessment and plan Subjective Evaluated this morning prior to lunch. RN reported low BPs to systolic 70-80s this morning, patient asymptomatic but a little fatigued. Given a bath and repeat BP to 103/68. Patient denies any headache/lightheadedness/chest pain or increased shortness of breath. Pain to pacemaker site, controlled w/ ordered medications. Friend D at bedside. Good appetite reported. Breathing reported improved. On 2L. Continues on IV lasix as discussed, consideration for spironolactone but will hold off with current BP. Eliquis resumed this morning. Discussed change to Cipro PO for abx per discussion w/ ID provider industrial methods consultant yesterday and will continue additional 7 days to complete the course. Questions/concerns addressed, will update daughter on plan. Plans for [facility] likely next 48 hours pending status/diuresis. Physical Exam Physical Exam: General: 78yo female sitting in bed, NAD, friend at bedside, alert to person/place, improvement in confusion HEENT: atraumatic, normocephalic, mmm, trachea midline Chest: pacemaker site to L chest, dressing c/d/i, mild-moderate tenderness, no drainage/purulence Resp: diminished in the bases, fine associated crackles, improvement in air entry, on 2L NC CV: aflutter on telemetry, rates 70s, no significant m/r/g, 1+ LE edema (?slightly worse than day prior) GI: +BS, soft/NT : purewick draining yellow urine MSK/Neuro: generalized weakness but nonfocal, no slurred speech/facial droop, following commands Psych: alert to person, place, intermittent confusion at times Results & Data Results & Data Vital Signs (Past 12 Hours) Vital Signs Temp Pulse Pulse Resp BP BP Pulse Ox 01/05/24 07:38 37.1 C 76 20 111/67 92 01/05/24 07:00 77 01/05/24 03:01 36.6 C 75 16 105/67 95 01/04/24 23:15 79 01/04/24 23:09 36.8 C 79 16 93/71 L 97 O2 Del Method O2 Flow Rate 01/05/24 07:38 Nasal Cannula 2.0 01/05/24 07:00 01/05/24 03:01 Nasal Cannula 2 01/04/24 23:15 01/04/24 23:09 Nasal Cannula 2 Laboratory Results 01/05/24 01/04/24 Range/Units 06:10 05:31 WBC 8.55 (4.8-10.8) K/ul RBC 4.60 (4.20-5.40) M/uL Hgb 10.6 L (12.0-16.0) g/dl Hct 36.2 L (37.0-47.0) % MCV 78.7 L (80.0-100.0) fL MCH 23.0 L (25.0-34.0) pg MCHC 29.3 L (32.0-36.0) g/dL RDW Std Deviation 81.8 H (36.4-46.3) fL RDW Coeff of Alice 29.9 H (11.5-14.5) % Plt Count 334 (130-400) K/uL MPV 9.0 L (9.4-12.4) fL Immature Gran % (Auto) 0.5 % Neut % (Auto) 67.7 % Lymph % (Auto) 18.4 % Bennett % (Auto) 11.3 % Eos % (Auto) 1.5 % Baso % (Auto) 0.6 % Neut # (Auto) 5.79 (1.40-6.50) K/uL Lymph # (Auto) 1.57 (1.20-3.40) K/uL Bennett # (Auto) 0.97 H (0.11-0.59) K/uL Eos # (Auto) 0.13 (0.00-0.50) K/uL Baso # (Auto) 0.05 (0.00-0.20) K/uL Immature Gran # (Auto) 0.04 (0.01-0.20) K/uL Hypochromasia Present Anisocytosis Present Tear Drop Cells 1+ Sodium 139 (136-145) mmol/L Potassium 3.7 (3.5-5.1) mmol/L Chloride 96 L (98-107) mmol/L Carbon Dioxide 38 H (21-32) mmol/L Anion Gap 5 (3-11) BUN 13 (6-23) mg/dl Creatinine 0.67 (0.6-1.2) mg/dl Est Cr Clr Drug Dosing 74.8 ml/min Est GFR ( Amer) 99.0 ml/min Est GFR (Non-Af Amer) 85.4 ml/min BUN/Creatinine Ratio 19.4 (10-20) Glucose 90 (70-99(Fasting)) mg/dl Calcium 9.1 (8.6-10.3) mg/dl Magnesium 2.0 2.0 (1.7-2.4) mg/dl Iron 42 (35-150) mcg/dl TIBC 254 (250-450) mcg/dl Unsaturated IBC 212 (155-355) mcg/dl Transferrin % Sat 17 (15-50) % Ferritin 67.5 (8-388) ng/ml Total Bilirubin 0.7 (0.2-1.0) mg/dl AST 17 (13-39) U/L ALT 10 (7-52) U/L Alkaline Phosphatase 86 (34-104) U/L Total Protein 6.2 (6.0-8.3) gm/dl Albumin 3.0 L (3.4-5.0) gm/dl Globulin 3.2 (2.5-4.0) gm/dl Albumin/Globulin Ratio 0.9 (0.9-2) TSH 2.287 (0.300-4.500) uIu/ml Digoxin 0.7 L (0.8-2.0) ng/ml Diagnostic Findings Chest X-Ray 12/28/23 14:03 XR chest 1V portable CLINICAL HISTORY: Sepsis. COMPARISON STUDY: Chest CT July 25, 2019. Chest radiograph December 14, 2023. FINDINGS: Exam was compromised given difficulty positioning. There are median sternotomy wires. Cardiomegaly is unchanged. Prominent right mediastinal contour is likely due to a rotated study. Elevation of the right hemidiaphragm is unchanged. There is no pneumothorax or pleural effusion. Mild interstitial thickening is noted. Right basilar opacity is present. IMPRESSION: 1. Rotated study. 2. Cardiomegaly with mild pulmonary edema, similar to prior exam. 3. Right basilar opacity which favors atelectasis. ACT 112: Negative or not required by law. Electronically signed by: Armaan Miramontes M.D. 12/28/2023 3:[address] 12/28/23 14:03 CT SCAN OF THE BRAIN WITHOUT IV CONTRAST CLINICAL HISTORY: Change in mental status COMPARISON STUDY: No priors TECHNIQUE: Unenhanced axial CT scan of the brain is performed from the vertex to the skull base. A dose lowering technique was utilized adhering to the principles of ALARA. The patient was scanned twice due to motion artifact. CT DOSE: 1253.33 mGy.cm FINDINGS: Brain parenchyma: There is age-related involutional change noting advanced subcortical and periventricular microangiopathic disease. There is no hemorrhage, mass effect, or evidence of acute territorial ischemia by CT criteria. Torres-white matter differentiation is preserved. No extra-axial fluid collection is seen. Ventricles, sulci, cisterns: Prominent secondary to involutional change. Intracranial vasculature: There is atherosclerotic calcification of the cavernous carotid and vertebral arteries. Calvarium: Unremarkable. Sinuses and mastoids: There is trace mucosal thickening in the right maxillary antrum. The remaining paranasal sinuses are clear. The mastoid air cells are well pneumatized. Orbits: The bony orbits are grossly intact. There are bilateral ocular lens implants. IMPRESSION: There is no hemorrhage, mass effect, or evidence of acute territorial ischemia by CT criteria noting a motion degraded examination. ACT 112: Negative or not required by law. Electronically signed by: Gus Yang M.D. 12/28/2023 2:39 PM Chest X-Ray 12/31/23 09:08 XR chest 2V PA/lateral CLINICAL HISTORY: continued hypoxia COMPARISON STUDY: Chest CT July 25, 2019. Chest radiograph December 28, 2023. FINDINGS: Median sternotomy wires are noted. Moderate cardiomegaly. No pneumothorax or pleural effusion is present. Linear right lung densities favor atelectasis. There is pulmonary vascular congestion. No consolidation is identified to suggest pneumonia. Mediastinal contours are stable. IMPRESSION: Cardiomegaly with pulmonary vascular congestion. ACT 112: Negative or not required by law. Electronically signed by: Armaan Miramontes M.D. 12/31/2023 11:11 AM Chest X-Ray 01/04/24 09:06 XR chest 1V portable HISTORY: 78 years-old Female f/u chf acute shortness of breath COMPARISON: 12/31/2023 TECHNIQUE: AP view of the chest FINDINGS: Cardiac silhouette is enlarged. Unchanged right hemidiaphragmatic elevation. Left subclavian pacer. Median sternotomy with numerous fractured wires. No pneumothorax or large pleural effusion. Pulmonary vascular congestion and interstitial coarsening. Degenerative changes of the shoulders and spine. Upper abdominal surgical clips. IMPRESSION: 1. Cardiomegaly with pulmonary vascular congestion. 2. Stable findings as above. ACT 112: Negative or not required by law. The above report was generated using voice recognition software. It may contain grammatical, syntax or spelling errors. Electronically signed by: John Cerna M.D. 01/04/2024 2:56 PM Chest X-Ray 01/05/24 07:00 XR chest 2V PA/lateral HISTORY: 78 years-old Female EXACT TIME ORDERED Evaluate for pneumothorax and l status post placement of a dual lead left subclavian pacer COMPARISON: 01/04/2024 TECHNIQUE: AP and lateral views of the chest FINDINGS: Cardiac silhouette is enlarged. Unchanged right hemidiaphragmatic elevation. Left subclavian pacer. Median sternotomy with numerous fractured wires. No p neumothorax. Probable trace pleural effusions. Pulmonary vascular congestion with progressive interstitial coarsening. Degenerative changes of the shoulders and spine. Upper abdominal surgical clips. IMPRESSION: 1. Cardiomegaly with progressive pulmonary edema. 2. No pneumothorax. ACT 112: Negative or not required by law. The above report was generated using voice recognition software. It may contain grammatical, syntax or spelling errors. Electronically signed by: John Cerna M.D. 01/05/2024 9:14 AM PG Care Time/CCT Total # of Minutes Spent Total Time Spent with Patient: Total time spent is greater than 50% in coordination of care (as documented) at patient's floor/unit and/or counseling patient: Coding Level of Care Code 58235 SUB INP/OBS CARE 3/50MIN Diagnoses Sepsis due to urinary tract infection A41.9; N39.0 Atrial fibrillation I48.91 CHF (congestive heart failure) I50.813 Heart failure chronicity: acute on chronic Heart failure type: right-sided Altered mental state R41.82 CAD (coronary artery disease) I25.10 Anemia D64.9 (3) CHF (congestive heart failure) Heart failure chronicity: acute on chronic Heart failure type: right-sided Qualified Code(s): I50.813 - Acute on chronic right heart failure
[2024-01-05] MEDS: POTASSIUM CHLORIDE CRTAB 20 MEQ TABCR PO SCH (08:08)
--- NOTE | 2024-01-05 08:09 | Post Anesthesia Assessment ---
Date of Service January 05, 2024 Post Sedation Assessment Vital Signs Temp Pulse Pulse Resp BP BP BP 01/05/24 07:54 01/05/24 07:38 37.1 C 76 20 111/67 01/05/24 07:00 77 01/05/24 03:01 36.6 C 75 16 105/67 01/04/24 23:15 79 01/04/24 23:09 36.8 C 79 16 93/71 L 01/04/24 19:00 36.8 C 84 18 135/55 L 01/04/24 19:00 01/04/24 18:33 76 20 142/52 H 01/04/24 17:59 36.7 C 72 14 147/85 H 01/04/24 16:50 72 01/04/24 13:29 94 H 01/04/24 12:30 85 14 118/64 01/04/24 12:10 36.7 C 95 H 18 121/87 01/04/24 09:54 84 14 102/69 01/04/24 09:00 76 01/04/24 09:00 Pulse Ox Pulse Ox O2 Del Method O2 Del Method O2 Flow Rate O2 Flow Rate 01/05/24 07:54 Nasal Cannula 2 01/05/24 07:38 92 Nasal Cannula 2.0 01/05/24 07:00 01/05/24 03:01 95 Nasal Cannula 2 01/04/24 23:15 01/04/24 23:09 97 Nasal Cannula 2 01/04/24 19:00 93 Nasal Cannula 1 01/04/24 19:00 94 Nasal Cannula 1 01/04/24 18:33 93 Nasal Cannula 01/04/24 17:59 96 Nasal Cannula 1 01/04/24 16:50 01/04/24 13:29 01/04/24 12:30 96 Nasal Cannula 1 01/04/24 12:10 95 Nasal Cannula 2 01/04/24 09:54 96 Nasal Cannula 1 01/04/24 09:00 01/04/24 09:00 Nasal Cannula 2 Recovery Score Activity: Moves 4 extremities Respiration: Deep Breath/Cough Circulation: +/-20% PreAnes Value Consciousness: Fully Awake Oxygen Saturation: O2 needed for >90% Post Anesthesia Score: 9 Discharge Sedation Level of Care: Fast Track Phase II Post Sedation Plan On clinical assessment, the patient appears to have tolerated the sedation without complications. Patient is recovering as anticipated. Patient will continue to be monitored by nursing and may be discharged when sedation discharge criteria are met per below protocol. Upon Completions of procedure up to 15 minutes continue every 5 minute vital signs and the P.A.R. score; then discharge to a Phase I or Fast Track to Phase II per the following guidelines: * Discharge Patient to appropriate Phase II area if PAR is 8 or greater or return to pre- procedure baseline. The post - procedure orders will be as directed. * If PAR score is less than 8 or not return to pre-procedure baseline then patient will follow Phase I monitoring till PAR is reached for Phase II. The Phase I may be done in procedure room or may call to secure a Phase I area. * If naloxone or flumazenil are used for reversal, hold in Phase I for continued monitoring from when last reversal dose was given for a minimum of 60 minutes or longer pending the nurse and/or physician discretion of patient condition before discharge to Phase II. Please call the Sedation Physician to re-evaluate and complete post-note for discharge to Phase II area. Do NOT discharge from procedure sedation or Phase 1 until post- sedation evaluation note is complete by procedure /sedation MD Sedation Discharge Instructions to be given to the patient at discharge to home.
--- NOTE | 2024-01-05 08:12 | Cardiology Progress Note ---
Date of Service January 05, 2024 Assessment & Plan (1) Atrial flutter: (2) Heart failure with mildly reduced ejection fraction (HFmrEF): (3) Cardiomyopathy: (4) Status post placement of cardiac pacemaker: Plan 1. Atrial flutter: She remains in atrial fibrillation, I suspect we could pace her out of this rhythm but I am hesitant to do it since we had to hold her anticoagulation. If needed we could do that with probably relatively low risk, or we could do a MARLI. For the moment I am going to try to control her heart rate and then plan on pacing her out of it at her 1 month pacemaker visit. She may convert spontaneously before that. Her heart rate is well-controlled on her current regimen which includes addition of digoxin yesterday. Her level is 0.7 today which is good. I would continue her current dose of 0.125 mg daily. 2. Congestive heart failure: She did present in mild congestive heart failure and her weight was down and then up slightly. Today it is slightly high, although not sure how reliable that is. I would try to maintain her fluid status about where it is now, she seems comfortable supine. Her chest x-ray is interpreted as worsening heart failure. I would avoid allowing her to gain more weight. Her pacemaker will probably not alter her heart failure management. 3. Left ventricular dysfunction: She had mild left ventricular dysfunction last admission, that is not enough to explain worsening of congestive heart failure and perhaps the exacerbation was related to her arrhythmia and high heart rates. Control of her heart rate would probably be beneficial. We will have to see if we can maintain adequate fluid balance while she is in rate controlled atrial flutter. I may repeat her echo as a limited study before discharge. 4. Pulmonary hypertension right ventricular enlargement: There is little we can do about this other than fluid management. 5. Anticoagulation: She was on Eliquis 5 mg twice a day and has been as an outpatient, this is the correct dose for her. We should be able to restart it today. 6. Postop day #1: She is doing very well following pacemaker implantation. At this point she is stable for discharge from the cardiovascular standpoint. Admission and Anticipated Discharge Date Admission Date: December 28, 2023 Subjective She is very sleepy today, but has no specific cardiac complaints and denies incisional or chest discomfort. Physical Exam Physical Exam: The pacemaker site has minimal bleeding, no erythema, swelling or significant ecchymosis Cardiac rhythm is regular with no rub Lungs are clear Results & Data Vital Signs (Past 12 Hours) Vital Signs Temp Pulse Pulse Resp BP BP Pulse Ox 01/05/24 07:54 01/05/24 07:38 37.1 C 76 20 111/67 92 01/05/24 07:00 77 01/05/24 03:01 36.6 C 75 16 105/67 95 01/04/24 23:15 79 01/04/24 23:09 36.8 C 79 16 93/71 L 97 O2 Del Method O2 Flow Rate 01/05/24 07:54 Nasal Cannula 2 01/05/24 07:38 Nasal Cannula 2.0 01/05/24 07:00 01/05/24 03:01 Nasal Cannula 2 01/04/24 23:15 01/04/24 23:09 Nasal Cannula 2 Laboratory Results Cardiac Enzymes 01/05/24 Range/Units 06:10 AST 17 (13-39) U/L CBC 01/05/24 Range/Units 06:10 WBC 8.55 (4.8-10.8) K/ul RBC 4.60 (4.20-5.40) M/uL Hgb 10.6 L (12.0-16.0) g/dl Hct 36.2 L (37.0-47.0) % Plt Count 334 (130-400) K/uL Neut # (Auto) 5.79 (1.40-6.50) K/uL Lymph # (Auto) 1.57 (1.20-3.40) K/uL [place] # (Auto) 0.97 H (0.11-0.59) K/uL Eos # (Auto) 0.13 (0.00-0.50) K/uL Baso # (Auto) 0.05 (0.00-0.20) K/uL Comprehensive Metabolic Panel 01/05/24 Range/Units 06:10 Sodium 139 (136-145) mmol/L Potassium 3.7 (3.5-5.1) mmol/L Chloride 96 L (98-107) mmol/L Carbon Dioxide 38 H (21-32) mmol/L BUN 13 (6-23) mg/dl Creatinine 0.67 (0.6-1.2) mg/dl Glucose 90 (70-99(Fasting)) mg/dl Calcium 9.1 (8.6-10.3) mg/dl AST 17 (13-39) U/L ALT 10 (7-52) U/L Alkaline Phosphatase 86 (34-104) U/L Total Protein 6.2 (6.0-8.3) gm/dl Albumin 3.0 L (3.4-5.0) gm/dl Intake and Output 01/04/24 01/05/24 01/05/24 22:59 06:59 14:59 Intake Total 100 / 300 Output Total 50 / 50 Balance -50 / 250 100 / 250 Intake: Oral 100 / 300 Output: Urine Amount (Catheter) 50 / 50 External 50 / 50 Other: Other Intake Source SIPS # Unmeasured Voids 1 Weight 87.175 kg Weight Measurement Method Built in [facility] Diagnostic Findings Postop ECG: Atrial flutter with a somewhat rapid heart rate and appropriate pacemaker inhibition. Telemetry: Atrial flutter with a controlled ventricular response Chest x-ray: Good lead position, no pneumothorax. Interpreted as worsening CHF. Pacemaker evaluation: Excellent pacing and sensing characteristics, minimal ventricular pacing, very organized flutter remains. PG Care Time/CCT Total # of Minutes Spent Total Time Spent with Patient: Total time spent is greater than 50% in coordination of care (as documented) at patient's floor/unit and/or counseling patient: Coding Level of Care Code 55226 Post Operative Follow-Up Diagnoses Typical atrial flutter I48.3 Atrial flutter type: typical Heart failure with mildly reduced ejection fraction (HFmrEF) I50.22 Cardiomyopathy I42.9 Status post placement of cardiac pacemaker Z95.0 CPT Codes Dual Lead Pacemaker System - 18032 ([id number]) (1) Atrial flutter Atrial flutter type: typical Qualified Code(s): I48.3 - Typical atrial flutter
[2024-01-05] MEDS ORDERED: CIPROFLOXACIN 500 MG TAB PO SCH (09:00)
--- NOTE | 2024-01-05 09:16 | XRay Report ---
XR chest 2V PA/lateral HISTORY: 78 years-old Female EXACT TIME ORDERED Evaluate for pneumothorax and l status post placemen t of a dual lead left subclavian pacer COMPARISON: 01/04/2024 TECHNIQUE: AP and lateral views of the chest FINDINGS: Cardiac silhouette is enlarged. Unchanged right hemidiaphragmatic elevation. Left subclavian pacer. M edian sternotomy with numerous fractured wires. No pneumothorax. Probable trace pleural effusions. Pu lmonary vascular congestion with progressive interstitial coarsening. Degenerative changes of the bibi ulders and spine. Upper abdominal surgical clips. IMPRESSION: 1. Cardiomegaly with progressive pulmonary edema. 2. No pneumothorax. ACT 112: Negative or not required by law. The above report was generated using voice recognition software. It may contain grammatical, syntax o r spelling errors. Electronically signed by: John Cerna M.D. 01/05/2024 9:14 AM
[2024-01-05] MEDS: CIPROFLOXACIN 250 MG TAB PO SCH (10:29)
--- NOTE | 2024-01-05 13:07 | Electrocardiogram Report ---
Test Reason : Blood Pressure : / mmHG Vent. Rate : 083 BPM Atrial Rate : 227 BPM P-R Int : 000 ms QRS Dur : 126 ms QT Int : 384 ms P-R-T Axes : -83 073 108 degrees QTc Int : 451 ms Poor data quality, interpretation may be adversely affected Atrial flutter Non-specific intra-ventricular conduction block Inferior infarct (cited on or before 01-JAN-2024) Abnormal ECG When compared with ECG of 01-JAN-2024 10:35, (unconfirmed) No significant change Confirmed by Stevan Cardenas ([id number]) on 01/05/2024 1:07:19 PM Referred By: REFERRED SELF Confirmed By:Stevan Cardenas
[2024-01-06 06:24] LABS: Basophils # (auto) 0.02 K/uL (0.00-0.20); Basophils % (auto) 0.3 %; Eosinophils % (auto) 1.3 %; Hematocrit (blood only) 34.7 % (37.0-47.0); Hemoglobin 10.7 g/dl (12.0-16.0); Immature Granulocytes # (auto) 0.03 K/uL (0.01-0.20); Immature Granulocytes % (auto) 0.4 %; Lymphocytes # (auto) 1.43 K/uL (1.20-3.40); Lymphocytes % (auto) 17.9 %; Mean Corpuscular Hemoglobin 23.8 pg (25.0-34.0); Mean Corpuscular Hgb Conc 30.8 g/dL (32.0-36.0); Mean Corpuscular Volume 77.1 fL (80.0-100.0); Mean Platelet Volume 9.4 fL (9.4-12.4); Monocytes # (auto) 0.81 K/uL (0.11-0.59); Monocytes % (auto) 10.2 %; Neutrophils # (auto) 5.58 K/uL (1.40-6.50); Neutrophils % (auto) 69.9 %; Platelet Count 331 K/uL (130-400); White Blood Count 7.97 K/ul (4.8-10.8)
[2024-01-06 06:42] LABS: Albumin Globulin Ratio 0.9 (0.9-2); BUN Creatinine Ratio 22.4 (10-20); Bilirubin,Total 0.7 mg/dl (0.2-1.0); Creatinine Clr Calc Pharmacy 74.6 ml/min; Est GFR (Non-African American) 85.4 ml/min; Globulin 3.3 gm/dl (2.5-4.0); Potassium 3.9 mmol/L (3.5-5.1); Total Protein 6.3 gm/dl (6.0-8.3)
[2024-01-06 06:48] LABS: Anisocytosis Present; Hypochromasia Present; Polychromasia 1+
--- NOTE | 2024-01-06 07:02 | XRay Report ---
XR chest 1V portable HISTORY: 78 years-old Female follow up congestion acute shortness of breath COMPARISON: 01/05/2024 TECHNIQUE: AP view of the chest FINDINGS: Cardiac silhouette is enlarged. Left subclavian pacer. Numerous fractured sternotomy wires are redemo nstrated. Atherosclerosis of the aorta. Pulmonary vascular congestion. There is no pneumothorax or la rge pleural effusion. Mild bibasilar atelectasis. Improving pulmonary edema. Healed chronic left-side d rib fractures. IMPRESSION: 1. Cardiomegaly with mildly improved pulmonary edema. 2. Mild bibasilar atelectasis. ACT 112: Negative or not required by law. The above report was generated using voice recognition software. It may contain grammatical, syntax o r spelling errors. Electronically signed by: John Cerna M.D. 01/06/2024 7:01 AM
--- NOTE | 2024-01-06 07:48 | Hospitalist Progress Note ---
Date of Service January 06, 2024 Assessment & Plan (1) Sepsis due to urinary tract infection: Plan: *Sepsis due to Escherichia coli [E. 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 - hypotensive, tachypneic and hypoxic on arrival. sepsis fluid resuscitation deferred due to CHF exacerbation WBC 14, Procal 0.75, lactate 1.1 Positive urine culture - outside records confirm ESBL E.coli 12/27 Urine/blood cultures: + e.coli ESBL Repeat blood cultures 12/29: NGTD x 5 days IV Abx: Ertapenem (first day 12/27) --> discussed w/ ID provider investment consultant this week and given blood cultures w/ sensitivity to FLQ and quick clearance on repeat blood cultures, acceptable to complete course on Cipro (increased dose 7 50mg PO BID given bacteremia) to prevent worsened confusion w/ ongoing carbapenem -- has appeared improved since switch Continues on Cipro PO BID (end date 01/11) WBC wnl, afebrile. Salazar to be placed for accurate I&O and incontinence issues (has some skin breakdown to buttocks), can monitor for voiding trial vs continuing at rehab --> Resumed lasix but at 40mg IV BID, adding spironolactone 12.5mg daily. Losartan on hold for now. Decreased PO KCL to 20meq in meantime. --> Planning to switch to bumex 2mg daily in place of her lasix for AM 4/[address] Cardenas to see today, considering repeating limited echo per discussion w/ CHF provider Marge Mixon, not yet seen today. Continue PT/OT, planning [facility] when stable, hopefully next 24-48 hours, +/- salazar Updated daughter Lauren by phone 01/05, friend Tonio in room. Monitor labs on repeat (2) Atrial fibrillation: Plan: Concerns for atrial flutter on telemetry, - rates have been downtrending now mainly 90s - patient asymptomatic however suspect contributed to her reduced EF/cardiomyopathy. Cardiology consulted Metoprolol increased to 100mg daily and rates controlled in 60-70s, plans to get into NSR in 1 month check due to her being of AC for placement s/p pacemaker implantation with Dr Cardenas 01/04 Digoxin added and continued 0.125mcg daily Eliquis resumed 01/04 AM Rates controlled at present time, continued telemetry monitoring (3) CHF (congestive heart failure): Plan: *Acute on chronic systolic (congestive) heart failure Up 4kg since discharge 8 days prior, to be on lasix 80mg daily at home BNP 810 on admit, CXR w/ congestion, O2 use to maintain sats Lasix 40mg IV BID, increased to 60mg IV BID 01/02 w/ improvement in renal function/improvement in weights, held evening dose 01/04 due to borderline BPs Continues on AHA diet, 1800cc/restriction a day Wt 87.1--> 86.6kg Losartan placed on hold, continues increased metoprolol 100mg Lasix resumed 40mg IV BID for today, spironolactone 12.5mg added for additional diuresis and planning to switch to bumex 2mg PO for tomorrow and monitor response Salazar to be placed for incontinence issues as above CHF clinic provider consulted, Dr Cardenas to see today however per discussion, possible repeat limited ECHo Monitor weights, I&O Labs in AM (4) Altered mental state: Plan: Suspect metabolic encephalopathy w/ delirium Baseline lewy body dementia, but daughter reports that she is normally able to answer orientation questions (daughter reports in morning patient does tend to be worse/improves in afternoon per discussion 01/03) Head CT: no acute findings more confused 12/30, daughter reports last admission she kept asking about going home and seeing her boyfriend and has not asked that once. Daughter aware that patient's conditions are progressive and she is not going to make a "miraculous recovery". Discussed hospital delirium worsening baseline dementia. Daughter suspects will need more nursing care after rehab, reports family have been talking about next steps. I encourage daughter to continue discussions about goals of care and going forward how much they would want done seems to be baseline 01/02 and during exam 01/03 alert to person but not clear in hospital or having procedure today / Has been on IV ertapenem for UTI as above (got 7 days/doses) --> switching to Ciprofloxacin as above and monitoring. mentation appears improved 01/05--> improved/stable on exam, frequent orientations/delirium strategies (5) CAD (coronary artery disease): Plan: Troponin elevated 53 --> 52 --> 26, suspect *Demand ischemia suspected 2nd to volume overload No CP reported at present time Continues metoprolol, ASA, statin (6) Anemia: Plan: Chronic. Stable. Seen by GI last admission - avoid NSAIDs, continue PPI BID --> increased PPI to BID as prior recommended but was ordered once daily on admission, continued hgb stable compared to priors and improved w/ diuresis eliquis resumed post pacemaker and remains on asa and will monitor CBC in AM Plan DVT proh: Eliquis RESUMED post-pacemaker Updated daughter Lauren by phone this morning 4/4 diuretics as outlined, plan to switch to bumex in AM as above continued inpatient stay, awaiting eval by Dr Cardenas today [facility] when stable Admission and Anticipated Discharge Date Admission Date: December 28, 2023 Supervising Physician Co-Signing Physician Notes The patient was not seen by me. The chart was reviewed. Case discussed with RADHA Mora. Agree with assessment and plan Subjective Evaluated around lunch, in the recliner chair, just got cleaned up from urine in bed/incontinence. Reports breathing stable/improved, on 1L NC. RN to place salazar. Patient reports pain to pacemaker site improved. Good appetite. Alert to person/place, time, friend D in room. Questions/concerns addressed -- she reports some R wrist discomfort w/ flexion/extension and slight swelling medial wrist. pulses palpable but some swelling, possible lab drawn from . Will get xray to eval. Will plan to update daughter by phone again today. Physical Exam Physical Exam: General: 78yo female sitting in recliner, resting, just got cleaned up/out of bed, friend at bedside, appears improved today/better color, alert/oriented to person/place/time, no increased confusion HEENT: atraumatic, normocephalic, mmm, trachea midline Chest: pacemaker site to L chest, dressing c/d/i, mild-moderate tenderness, no drainage/purulence Resp: diminished in the bases, fine associated crackles, improvement in air entry, on 1L NC CV: aflutter on telemetry, rates 70-80ss, no significant m/r/g, 1+ LE edema, slightly improved from day prior GI: +BS, soft/NT : purewick draining yellow urine -- RN to place salazar MSK/Neuro: generalized weakness but nonfocal, no slurred speech/facial droop, following commands slight edema to L wrist (?recent IV draw), flexion/extension intact and parcel post delivery strength equal, pulses palpable Results & Data Results & Data Vital Signs (Past 12 Hours) Vital Signs Temp Pulse Resp BP Pulse Ox O2 Del Method O2 Flow Rate 01/06/24 06:51 37.0 C 84 18 114/73 93 Room Air 01/06/24 04:42 36.7 C 84 22 101/48 L 91 Nasal Cannula 2 01/06/24 01:00 37.1 C 76 18 122/72 95 Nasal Cannula 2 01/05/24 21:28 37.4 C 76 19 98/66 L 94 Nasal Cannula 2 01/05/24 20:00 Nasal Cannula 2 Laboratory Results 01/06/24 Range/Units 05:36 WBC 7.97 (4.8-10.8) K/ul RBC 4.50 (4.20-5.40) M/uL Hgb 10.7 L (12.0-16.0) g/dl Hct 34.7 L (37.0-47.0) % MCV 77.1 L (80.0-100.0) fL MCH 23.8 L (25.0-34.0) pg MCHC 30.8 L (32.0-36.0) g/dL Plt Count 331 (130-400) K/uL MPV 9.4 (9.4-12.4) fL Immature Gran % (Auto) 0.4 % Neut % (Auto) 69.9 % Lymph % (Auto) 17.9 % [place] % (Auto) 10.2 % Eos % (Auto) 1.3 % Baso % (Auto) 0.3 % Neut # (Auto) 5.58 (1.40-6.50) K/uL Lymph # (Auto) 1.43 (1.20-3.40) K/uL [place] # (Auto) 0.81 H (0.11-0.59) K/uL Eos # (Auto) 0.10 (0.00-0.50) K/uL Baso # (Auto) 0.02 (0.00-0.20) K/uL Immature Gran # (Auto) 0.03 (0.01-0.20) K/uL Polychromasia 1+ Hypochromasia Present Anisocytosis Present Sodium 138 (136-145) mmol/L Potassium 3.9 (3.5-5.1) mmol/L Chloride 96 L (98-107) mmol/L Carbon Dioxide 35 H (21-32) mmol/L Anion Gap 7 (3-11) BUN 15 (6-23) mg/dl Creatinine 0.67 (0.6-1.2) mg/dl Est Cr Clr Drug Dosing 74.6 ml/min Est GFR ( Amer) 99.0 ml/min Est GFR (Non-Af Amer) 85.4 ml/min BUN/Creatinine Ratio 22.4 H (10-20) Glucose 100 H (70-99(Fasting)) mg/dl Calcium 9.0 (8.6-10.3) mg/dl Magnesium 2.0 (1.7-2.4) mg/dl Total Bilirubin 0.7 (0.2-1.0) mg/dl AST 19 (13-39) U/L ALT 9 (7-52) U/L Alkaline Phosphatase 87 (34-104) U/L Total Protein 6.3 (6.0-8.3) gm/dl Albumin 3.0 L (3.4-5.0) gm/dl Globulin 3.3 (2.5-4.0) gm/dl Albumin/Globulin Ratio 0.9 (0.9-2) Diagnostic Findings Chest X-Ray 01/06/24 07:00 XR chest 1V portable HISTORY: 78 years-old Female follow up congestion acute shortness of breath COMPARISON: 01/05/2024 TECHNIQUE: AP view of the chest FINDINGS: Cardiac silhouette is enlarged. Left subclavian pacer. Numerous fractured sternotomy wires are redemonstrated. Atherosclerosis of the aorta. Pulmonary vascular congestion. There is no pneumothorax or large pleural effusion. Mild bibasilar atelectasis. Improving pulmonary edema. Healed chronic left-sided rib fractures. IMPRESSION: 1. Cardiomegaly with mildly improved pulmonary edema. 2. Mild bibasilar atelectasis. ACT 112: Negative or not required by law. The above report was generated using voice recognition software. It may contain grammatical, syntax or spelling errors. Electronically signed by: John Cerna M.D. 01/06/2024 7:01 AM Wrist X-Ray 01/06/24 12:27 XR wrist RT min 3V routine HISTORY: 78 years-old Female pain, swelling acute pain and swelling of the right wrist COMPARISON: None TECHNIQUE: 4 views of the right wrist FINDINGS: Moderate circumferential soft tissue swelling. Chondrocalcinosis. Negative ulnar variance. Severe first carpometacarpal and triscaphe osteoarthritis with chronic remodeling. Demineralized appearance of the bones. No acute fracture, dislocation, radiopaque foreign body or osseous erosion. Arterial calcificati ons. IMPRESSION: Soft tissue swelling without acute fracture or dislocation. ACT 112: Negative or not required by law. The above report was generated using voice recognition software. It may contain grammatical, syntax or spelling errors. Electronically signed by: John Cerna M.D. 01/06/2024 1:27 PM PG Care Time/CCT Total # of Minutes Spent Total Time Spent with Patient: Total time spent is greater than 50% in coordination of care (as documented) at patient's floor/unit and/or counseling patient: Coding Level of Care Code 61265 SUB INP/OBS CARE 3/50MIN Diagnoses Sepsis due to urinary tract infection A41.9; N39.0 Atrial fibrillation I48.91 CHF (congestive heart failure) I50.813 Heart failure chronicity: acute on chronic Heart failure type: right-sided Altered mental state R41.82 CAD (coronary artery disease) I25.10 Anemia D64.9 (3) CHF (congestive heart failure) Heart failure chronicity: acute on chronic Heart failure type: right-sided Qualified Code(s): I50.813 - Acute on chronic right heart failure
[2024-01-06] MEDS: FUROSEMIDE 40 MG/4 ML VIAL IV SCH (09:22)
[2024-01-06] MEDS: ACETAMINOPHEN 325 MG TAB PO PRN (09:37)
--- NOTE | 2024-01-06 13:29 | XRay Report ---
XR wrist RT min 3V routine HISTORY: 78 years-old Female pain, swelling acute pain and swelling of the right wrist COMPARISON: None TECHNIQUE: 4 views of the right wrist FINDINGS: Moderate circumferential soft tissue swelling. Chondrocalcinosis. Negative ulnar variance. Severe fir st carpometacarpal and triscaphe osteoarthritis with chronic remodeling. Demineralized appearance of the bones. No acute fracture, dislocation, radiopaque foreign body or osseous erosion. Arterial calci fications. IMPRESSION: Soft tissue swelling without acute fracture or dislocation. ACT 112: Negative or not required by law. The above report was generated using voice recognition software. It may contain grammatical, syntax o r spelling errors. Electronically signed by: John Cerna M.D. 01/06/2024 1:27 PM
[2024-01-06] MEDS: SPIRONOLACTONE 12.5 MG TAB PO SCH (14:28)
[2024-01-06] MEDS: FUROSEMIDE 40 MG/4 ML VIAL IV ONE (16:39)
[2024-01-06] MEDS ORDERED: BUMETANIDE 1 MG TAB PO ONE (17:00)
[2024-01-07 04:17] LABS: Hematocrit (blood only) 34.2 % (37.0-47.0); Hemoglobin 10.6 g/dl (12.0-16.0); Mean Corpuscular Hemoglobin 23.8 pg (25.0-34.0); Mean Corpuscular Volume 76.7 fL (80.0-100.0); Mean Platelet Volume 9.1 fL (9.4-12.4); Platelet Count 330 K/uL (130-400); Red Blood Count 4.46 M/uL (4.20-5.40); White Blood Count 7.79 K/ul (4.8-10.8)
[2024-01-07 04:37] LABS: BUN Creatinine Ratio 20.3 (10-20); Calcium 9.1 mg/dl (8.6-10.3); Creatinine Clr Calc Pharmacy 63.2 ml/min; Est GFR (African American) 84.3 ml/min; Est GFR (Non-African American) 72.7 ml/min; Magnesium 1.9 mg/dl (1.7-2.4)
--- NOTE | 2024-01-07 07:44 | Hospitalist Progress Note ---
Date of Service January 07, 2024 Assessment & Plan (1) Sepsis due to urinary tract infection: Plan: *Sepsis due to Escherichia coli [E. coli] Resident of 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 - hypotensive, tachypneic and hypoxic on arrival. sepsis fluid resuscitation deferred due to CHF exacerbation WBC 14, Procal 0.75, lactate 1.1 Positive urine culture - outside records confirm ESBL E.coli 12/27 Urine/blood cultures: + e.coli ESBL Repeat blood cultures 12/29: NGTD x 5 days IV Abx: Ertapenem (first day 12/27) was continued but discussed w/ ID provider interior surface insulation worker this week and given blood cultures w/ sensitivity to FLQ and quick clearance on repeat blood cultures, acceptable to complete course on Cipro (in creased dose 750mg PO BID given bacteremia) to prevent worsened confusion w/ ongoing carbapenem -- has appeared improved since switch and will continue Cipro BID (end date 01/11) WBC remains wnl, afebrile Salazar in place for incontinence issues/skin breakdown to buttocks, likely will continue and can have voiding [facility] Lasix switched to bumex 2mg PO for today (01/06) and continue added spironolactone 12.5mg PO daily on 01/05. Net negative 1L (weight up but LE edema appears improved and will continue current dose/monitor for need for increase if needed). K 4.0, PO supplementation discontinued now that spironolactone in place. Repeat limited echo. Dr Cardenas to see today. Renal function remaining stable. PT/OT recs for rehab, [facility] can take over the weekend. (2) Atrial fibrillation: Plan: Concerns for atrial flutter on telemetry, - rates have been downtrending now mainly 90s - patient asymptomatic however suspect contributed to her reduced EF/cardiomyopathy. Cardiology consulted Metoprolol increased to 100mg daily and rates controlled in 60-70s, plans to get into NSR in 1 month check due to her being of AC for placement s/p pacemaker implantation with Dr Cardenas 01/04 Digoxin 0.125mcg daily -- NEW med, will need rx at dc Eliquis resumed and continued, rates remain controlled on telemetry Per discussion w/ CHF provider, Dr Cardenas to see today (3) CHF (congestive heart failure): Plan: *Acute on chronic systolic (congestive) heart failure Up 4kg since discharge 8 days prior, to be on lasix 80mg daily at home BNP 810 on admit, CXR w/ congestion, O2 use to maintain sats Lasix 40mg IV BID, increased to 60mg IV BID 01/02 w/ improvement in renal function/improvement in weights, held evening dose 01/04 due to borderline BPs Continues on AHA diet, 1800cc/restriction a day Wt 87.1--> 86.6kg Losartan placed on hold, continues increased metoprolol 100mg Lasix resumed 40mg IV BID for 01/05, spirionolactone 12.5mg added Salazar in place Switched to bumex 2mg PO, continue spironolactone 12.5mg daily Monitor weights, output. Weight up in system but bedscale weight, LE edema improved and net negative Limited echo ordered for today for comparison Will need 2L HS, likely outpt sleep study Monitor labs in AM (4) Altered mental state: Plan: Suspect metabolic encephalopathy w/ delirium Baseline lewy body dementia, but daughter reports that she is normally able to answer orientation questions (daughter reports in morning patient does tend to be worse/improves in afternoon per discussion 01/03) Head CT: no acute findings more confused 12/30, daughter reports last admission she kept asking about going home and seeing her boyfriend and has not asked that once. Daughter aware that patient's conditions are progressive and she is not going to make a "miraculous recovery". Discussed hospital delirium worsening baseline dementia. Daughter suspects will need more nursing care after rehab, reports family have been talking about next steps. I encourage daughter to continue discussions about goals of care and going forward how much they would want done seems to be baseline 01/02 and during exam 01/03 alert to person but not clear in hospital or having procedure today 01/04 Has been on IV ertapenem for UTI as above (got 7 days/doses) --> switched to Ciprofloxacin as above and monitoring. mentation appears improved 01/05--> improved/stable on exam, frequent orientations/delirium strategies 01/06-- continue cipro, tolerating well. appearing alert/oriented for myself (5) CAD (coronary artery disease): Plan: Troponin elevated 53 --> 52 --> 26, suspect *Demand ischemia suspected 2nd to volume overload No CP reported at present time Continues metoprolol, ASA, statin (6) Anemia: Plan: Chronic. Stable. Seen by GI last admission - avoid NSAIDs, continue PPI BID --> increased PPI to BID as prior recommended but was ordered once daily on admission, continued hgb improved and staying stable with diuresis Eliquis resumed post pacemaker and remains on asa and will monitor CBC in AM Plan DVT proh: Eliquis RESUMED post-pacemaker Updated daughter Lauren by phone AM 01/05, will plan to call again this afternoon Dr Cardenas to see today, limited ECHO pending Continue bumex/spironolactone, monitor outpt/weights and planning for [facility], hopefully over this weekend pending repeat exams Admission and Anticipated Discharge Date Admission Date: December 28, 2023 Supervising Physician Co-Signing Physician Notes The patient was not seen by me. The chart was reviewed. Case discussed with RADHA Mora. Agree with assessment and plan Subjective Evaluated this morning, eating strawberries brought in by friend. Leg edema looks improved. Was seen by Dr Cardenas yesterday, discussed will repeat limited ECHO for today, has not yet been done. Discussed switch to bumex for today, additional of spironolactone last evening and continuing on such. Discussed K level normalized and will hold further oral potassium supplementation. Reports breathing stable on 2L at present time, no cough/shortness of breath. Urine clear yellow in color. Will see about nursing titrating her oxygen off and utilize 2L HS. No fever/chills, chest pain reported. Remains on Cipro, is alert/oriented this morning and discussed will continue. Physical Exam Physical Exam: General: 78yo female sitting up in bed eating strawberries, friend D at bedside, color improved, more alert/oriented today, reports feeling a little bettered confusion HEENT: atraumatic, normocephalic, mmm, trachea midline Chest: pacemaker site to L chest, dressing c/d/i, mild tenderness, no drainage/purulence Resp: diminished in the bases, fine associated crackles, improvement in air entry, on 2L CV: aflutter on telemetry, rates 70-80ss, no significant m/r/g, 1+ LE edema, slightly improved from day prior GI: +BS, soft/NT : salazar draining yellow urine MSK/Neuro: generalized weakness (slightly improved today) but nonfocal, no slurred speech/facial droop, following commands slight edema to L wrist (?recent IV draw) -- improved, flexion/extension intact and compound worker strength equal, pulses palpable Results & Data Results & Data Vital Signs (Past 12 Hours) Vital Signs Temp Pulse Pulse Pulse Pulse Resp BP 01/07/24 07:02 37.0 C 77 19 113/71 01/07/24 05:14 71 01/07/24 03:18 76 01/07/24 02:52 37.0 C 76 29 H 118/67 01/07/24 00:26 72 70 01/06/24 23:50 01/06/24 23:38 76 01/06/24 22:56 37.2 C 76 29 H 118/78 01/06/24 22:42 76 Pulse Ox Pulse Ox Pulse Ox O2 Del Method O2 Del Method O2 Del Method O2 Flow Rate 01/07/24 07:02 96 Nasal Cannula 2 01/07/24 05:14 94 Nasal Cannula 01/07/24 03:18 96 Nasal Cannula 01/07/24 02:52 93 Room Air 01/07/24 00:26 93 85 L Nasal Cannula Room Air 01/06/24 23:50 Nasal Cannula 0.5 01/06/24 23:38 01/06/24 22:56 94 Room Air 01/06/24 22:42 91 Room Air O2 Flow Rate 01/07/24 07:02 01/07/24 05:14 2 01/07/24 03:18 2 01/07/24 02:52 01/07/24 00:26 2 01/06/24 23:50 01/06/24 23:38 01/06/24 22:56 01/06/24 22:42 Laboratory Results 01/07/24 Range/Units 03:52 WBC 7.79 (4.8-10.8) K/ul RBC 4.46 (4.20-5.40) M/uL Hgb 10.6 L (12.0-16.0) g/dl Hct 34.2 L (37.0-47.0) % MCV 76.7 L (80.0-100.0) fL MCH 23.8 L (25.0-34.0) pg MCHC 31.0 L (32.0-36.0) g/dL Plt Count 330 (130-400) K/uL MPV 9.1 L (9.4-12.4) fL Sodium 138 (136-145) mmol/L Potassium 4.0 (3.5-5.1) mmol/L Chloride 98 (98-107) mmol/L Carbon Dioxide 34 H (21-32) mmol/L Anion Gap 6 (3-11) BUN 16 (6-23) mg/dl Creatinine 0.79 (0.6-1.2) mg/dl Est Cr Clr Drug Dosing 63.2 ml/min Est GFR ( Amer) 84.3 ml/min Est GFR (Non-Af Amer) 72.7 ml/min BUN/Creatinine Ratio 20.3 H (10-20) Glucose 102 H (70-99(Fasting)) mg/dl Calcium 9.1 (8.6-10.3) mg/dl Magnesium 1.9 (1.7-2.4) mg/dl Diagnostic Findings Wrist X-Ray 01/06/24 12:27 XR wrist RT min 3V routine HISTORY: 78 years-old Female pain, swelling acute pain and swelling of the right wrist COMPARISON: None TECHNIQUE: 4 views of the right wrist FINDINGS: Moderate circumferential soft tissue swelling. Chondrocalcinosis. Negative ulnar variance. Severe first carpometacarpal and triscaphe osteoarthritis with chronic remodeling. Demineralized appearance of the bones. No acute fracture, dislocation, radiopaque foreign body or osseous erosion. Arterial calcifications. IMPRESSION: Soft tissue swelling without acute fracture or dislocation. ACT 112: Negative or not required by law. The above report was generated using voice recognition software. It may contain grammatical, syntax or spelling errors. Electronically signed by: John Cerna M.D. 01/06/2024 1:27 PM PG Care Time/CCT Total # of Minutes Spent Total Time Spent with Patient: Total time spent is greater than 50% in coordination of care (as documented) at patient's floor/unit and/or counseling patient: Coding Level of Care Code 78279 SUB INP/OBS CARE 3/50MIN Diagnoses Sepsis due to urinary tract infection A41.9; N39.0 Atrial fibrillation I48.91 CHF (congestive heart failure) I50.813 Heart failure chronicity: acute on chronic Heart failure type: right-sided Altered mental state R41.82 CAD (coronary artery disease) I25.10 Anemia D64.9 (3) CHF (congestive heart failure) Heart failure chronicity: acute on chronic Heart failure type: right-sided Qualified Code(s): I50.813 - Acute on chronic right heart failure
[2024-01-07] MEDS: BUMETANIDE 1 MG TAB PO SCH (08:22)
[2024-01-07] MEDS ORDERED: POTASSIUM CHLORIDE CRTAB 20 MEQ TABCR PO SCH (09:00)
--- NOTE | 2024-01-07 15:10 | Cardiology Progress Note ---
Date of Service January 07, 2024 Assessment & Plan (1) Atrial flutter: (2) Heart failure with mildly reduced ejection fraction (HFmrEF): (3) Cardiomyopathy: (4) Status post placement of cardiac pacemaker: Plan 1. Atrial flutter: She remains in a very organized atrial flutter, I suspect we could pace her out of this rhythm but I am hesitant to do it since we had to hold her anticoagulation for pacer implantation. If needed we could do that with probably relatively low risk, or we could do a MARLI. For the moment I am going to try to control her heart rate, which has been working very well, and then plan on pacing her out of it at her 1 month pacemaker visit. She may con vert spontaneously before that. Her heart rate is well-controlled on her current regimen which includes addition of digoxin. Her level was 0.7 which is good, but that mostly reflects her loading dose. I am going to order another level. I would continue her current dose of 0.125 mg daily. 2. Congestive heart failure: She did present in mild congestive heart failure and her weight was down and then up slightly. I would try to maintain her fluid status about where it is now, she seems comfortable supine. I would avoid allowing her to gain more weight. Her pacemaker will probably not alter her heart failure management. 3. Left ventricular dysfunction: She had mild left ventricular dysfunction last admission, that is not enough to explain worsening of congestive heart failure and perhaps the exacerbation was related to her arrhythmia and high heart rates. Her left ventricular function has now normalized which would be consistent with this. 4. Pulmonary hypertension right ventricular enlargement: There is little we can do about this other than fluid management. 5. Anticoagulation: She was on Eliquis 5 mg twice a day and has been as an outpatient, this is the correct dose for her. 6. Postop day #3: She is doing very well following pacemaker implantation. At this point she is stable for discharge from the cardiovascular standpoint. I did schedule her for an office visit in February for her device check and it is in her discharge appointments. Admission and Anticipated Discharge Date Admission Date: December 28, 2023 Subjective She is feeling well, she is sitting in bed eating. She has no incisional discomfort at the pacer site. Physical Exam Physical Exam: The pacer site is clean and dry, no drainage, erythema or swelling. Dressing removed. The dressing can remain off. Results & Data Vital Signs (Past 12 Hours) Vital Signs Temp Pulse Pulse Pulse Resp BP Pulse Ox 01/07/24 14:19 36.7 C 85 18 101/60 92 01/07/24 10:16 35.8 C L 76 18 109/70 95 01/07/24 09:54 01/07/24 09:46 75 01/07/24 07:02 37.0 C 77 19 113/71 96 01/07/24 05:14 71 01/07/24 03:18 76 Pulse Ox O2 Del Method O2 Del Method O2 Flow Rate O2 Flow Rate 01/07/24 14:19 Nasal Cannula 2 01/07/24 10:16 Nasal Cannula 2 01/07/24 09:54 Nasal Cannula 2 01/07/24 09:46 01/07/24 07:02 Nasal Cannula 2 01/07/24 05:14 94 Nasal Cannula 2 01/07/24 03:18 96 Nasal Cannula 2 Laboratory Results CBC 01/07/24 Range/Units 03:52 WBC 7.79 (4.8-10.8) K/ul RBC 4.46 (4.20-5.40) M/uL Hgb 10.6 L (12.0-16.0) g/dl Hct 34.2 L (37.0-47.0) % Plt Count 330 (130-400) K/uL Comprehensive Metabolic Panel 01/07/24 Range/Units 03:52 Sodium 138 (136-145) mmol/L Potassium 4.0 (3.5-5.1) mmol/L Chloride 98 (98-107) mmol/L Carbon Dioxide 34 H (21-32) mmol/L BUN 16 (6-23) mg/dl Creatinine 0.79 (0.6-1.2) mg/dl Glucose 102 H (70-99(Fasting)) mg/dl Calcium 9.1 (8.6-10.3) mg/dl Intake and Output 01/07/24 01/07/24 01/07/24 06:59 14:59 22:59 Intake Total 580 / 580 Output Total 250 / 1300 1250 / 1250 Balance -250 / -1060 -670 / -670 Intake: Oral 580 / 580 Output: Urine Amount (Catheter) 250 / 1300 1250 / 1250 External 250 / 1300 1250 / 1250 Other: Weight 90 kg Weight Measurement Method Built in [facility] Diagnostic Findings Telemetry: Atrial flutter with a heart rate in the 70s, often pacing. PG Care Time/CCT Total # of Minutes Spent Total Time Spent with Patient: Total time spent is greater than 50% in coordination of care (as documented) at patient's floor/unit and/or counseling patient: Coding Level of Care Code 88555 Post Operative Follow-Up Diagnoses Typical atrial flutter I48.3 Atrial flutter type: typical Heart failure with mildly reduced ejection fraction (HFmrEF) I50.22 Cardiomyopathy I42.9 Status post placement of cardiac pacemaker Z95.0 (1) Atrial flutter Atrial flutter type: typical Qualified Code(s): I48.3 - Typical atrial flutter
--- NOTE | 2024-01-07 15:14 | XCELERA ---
[id number] \\ISCV-MARY\[id number]_[id number]
--- NOTE | 2024-01-07 18:54 | Electrocardiogram Report ---
Test Reason : Blood Pressure : / mmHG Vent. Rate : 089 BPM Atrial Rate : 227 BPM P-R Int : 000 ms QRS Dur : 164 ms QT Int : 438 ms P-R-T Axes : 000 091 -08 degrees QTc Int : 532 ms Atrial flutter with variable A-V block Right bundle branch block Inferior infarct (cited on or before 01-JAN-2024) Abnormal ECG When compared with ECG of 02-JAN-2024 17:40, (unconfirmed) No significant change Confirmed by Stevan Cardenas ([id number]) on 01/07/2024 6:54:48 PM Referred By: REFERRED SELF Confirmed By:Stevan Cardenas
[2024-01-07] MEDS: DOCUSATE SODIUM 100 MG CAP PO SCH (20:09)
[2024-01-08 06:41] LABS: BUN Creatinine Ratio 21.1 (10-20); Calcium 9.2 mg/dl (8.6-10.3); Creatinine Clr Calc Pharmacy 71.8 ml/min; Est GFR (African American) 95.9 ml/min; Est GFR (Non-African American) 82.7 ml/min; Magnesium 1.9 mg/dl (1.7-2.4); Potassium 3.3 mmol/L (3.5-5.1)
--- NOTE | 2024-01-08 08:01 | Hospitalist Progress Note ---
Date of Service January 08, 2024 Assessment & Plan (1) Sepsis due to urinary tract infection: Plan: *Sepsis due to Escherichia coli [E. 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 - hypotensive, tachypneic and hypoxic on arrival. sepsis fluid resuscitation deferred due to CHF exacerbation On admission, WBC 14k, Procal 0.75, lactate 1.1 Positive urine culture - outside records confirm ESBL E.coli 12/27 Urine/blood cultures: + e.coli ESBL Repeat blood cultures 12/29: NGTD x 5 days IV Ertapenem started 12/27, discussed w/ ID (see prior note) --> transitioned to Cipro 750mg BID (end date 01/11). Salazar in place for diuresis/incontinence issues Mental status improved since switching from carbapenem WBC remained wnl on repeat testing, remains afebrile Renal function stable w/ continued diuretics w/ Bumex/spironolactone as below, repeat ECHO w/ improvement in EF PT/OT consulted and [facility], possible dc tomorrow if labs remain stable/diuresis stable Called and left voicemail for daughter w/ update this afternoon to call back if any questions/concern Labs in AM (2) Atrial fibrillation: Plan: Suspected aflutter contributing some to her reduced EF/cardiomyopathy and likely in this more regularly over past several months Cards consulted, Dr Cardenas s/p pacemaker implantation with Dr Cardenas 01/04 Continue increased Metoprolol 100mg daily - new rx at dc Digoxin 0.125mcg daily -- new rx at dc, level 0.8 Eliquis resumed post -pacemaker and hgb remaining stable Telemetry monitoring. Per cards, plan for f/u in office to get into NSR (3) CHF (congestive heart failure): Plan: *Acute on chronic systolic (congestive) heart failure Up 4kg since discharge 8 days prior, to be on lasix 80mg daily at home BNP 810 on admit, CXR w/ congestion, O2 use to maintain sats Lasix 40mg IV BID, increased to 60mg IV BID 01/02 w/ improvement in renal function/improvement in weights, held evening dose 4/3 due to borderline BPs Continues on AHA diet, 1800cc/restriction a day Losartan placed on hold while working on diuresis Metoprolol increased to 100mg and continued Lasix IV up front, transitioned to bumex 2mg PO daily on 01/06, continued added spironolactone 12.5mg daily Limited ECHO 01/06 w/ IMPROVEMENT in EF, 50-55% Continues on bumex 2mg, spironolactone 12.5mg for now. Renal function stable. K replacement ordered --> Net negative 1.5L despite weights up in system (bedscale) and LE edema improved and will continue current diuretic regimen and monitor output/weight in AM. Consideration to increase spironolactone if needed however will hold off for now/touch base w/ Dr Baires in AM if needed. Can also consider adding back her losartan if BPs allow Labs in AM, supplemental O2 to maintain sats (2L w/ sleeping, outpt sleep study rec'd) (4) Altered mental state: Plan: Suspect metabolic encephalopathy w/ delirium Baseline lewy body dementia, but daughter reports that she is normally able to answer orientation questions (daughter reports in morning patient does tend to be worse/improves in afternoon per discussion 01/03) Head CT: no acute findings more confused 12/30, daughter reports last admission she kept asking about going home and seeing her boyfriend and has not asked that once. Daughter aware that patient's conditions are progressive and she is not going to make a "miraculous recovery". Discussed hospital delirium worsening baseline dementia. Daughter suspects will need more nursing care after rehab, reports family have been talking about next steps. I encourage daughter to continue discussions about goals of care and going forward how much they would want done seems to be baseline 01/02 and during exam 01/03 alert to person but not clear in hospital or having procedure today / Has been on IV ertapenem for UTI as above (got 7 days/doses) --> switched to Ciprofloxacin as above and monitoring. mentation appears improved 01/05--> improved/stable on exam, frequent orientations/delirium strategies 01/06-- continue cipro, tolerating well. appearing alert/oriented for myself 01/07 IMPROVED, APPEARS AT BASELINE. SUSPECT CARBAPENEM/CHF contributing and since dc of ertapenem and switch in diuretics patient appearing much improved (5) CAD (coronary artery disease): Plan: Troponin elevated 53 --> 52 --> 26, suspect *Demand ischemia suspected 2nd to volume overload No CP reported at present time Continues metoprolol, ASA, statin (6) Anemia: Plan: Chronic. Stable. Seen by GI last admission - avoid NSAIDs, continued PPI however increased PPI to BID as prior recommended but was ordered once daily on admission Eliquis resumed post pacemaker and remained on asa and hgb remained stable/improved w/ diuresis Plan DVT proh: Eliquis RESUMED post-pacemaker Updated daughter Lauren by phone AM 01/05, voicemail left for her 01/07 Plan for [facility] tomorrow pending urine outpt/O2 sats and electrolytes in AM. Will plan to discuss plan of care w/ daughter prior to dc Monitor for need for increased spironolactone/resumption of losartan if BP allows Admission and Anticipated Discharge Date Admission Date: December 28, 2023 Supervising Physician Co-Signing Physician Notes The patient was not seen by me. The chart was reviewed. Case discussed with RADHA Mora. Agree with assessment and plan Subjective Evaluated this morning, resting in bed. Resting comfortably initially, easily awoken. Is alert/oriented upon waking, doing much better she reports with her breathing. Remains on O2 when sleeping, is in 96% on 1L when up. Good appetite, moving her bowels. Urine yellow in salazar. No fever/chills, discussed urine output, LE edema improved. Planning [facility], insurance auth pending. Depending status in AM/auth, possible dc to [facility] tomorrow vs Wednesday. Physical Exam Physical Exam: General: 78yo female resting in bed, NAD, reports feeling improved HEENT: atraumatic, normocephalic, mmm, trachea midline Chest: pacemaker site to L chest, mild ecchymosis/redness but no drainage/evidence for infection, mild tenderness to palpation (improved compared to prior) Resp: diminished in the bases, fine associated crackles, improvement in air entry, on 2L while sleeping (1L this morning when up/awake) CV: aflutter on telemetry, rates 70-80ss, no significant m/r/g, 1+ LE edema, improved from day prior GI: +BS, soft/NT : salazar draining yellow urine MSK/Neuro: generalized weakness (slightly improved today) but nonfocal, no slurred speech/facial droop, following commands slight edema to L wrist (?recent IV draw) -- improved, 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/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, pulses palpable Psych: AOx3, cooperative with exam Results & Data Results & Data Vital Signs (Past 12 Hours) Vital Signs Temp Pulse Pulse Resp BP BP Pulse Ox 01/08/24 07:09 01/08/24 06:50 36.5 C 80 18 104/58 L 91 01/08/24 03:00 36.9 C 73 17 108/59 L 93 01/07/24 23:26 74 01/07/24 23:00 36.9 C 76 24 105/67 95 01/07/24 20:59 O2 Del Method O2 Flow Rate 01/08/24 07:09 Nasal Cannula 1 01/08/24 06:50 Nasal Cannula 2 01/08/24 03:00 Nasal Cannula 01/07/24 23:26 01/07/24 23:00 Nasal Cannula 01/07/24 20:59 Nasal Cannula 1 Laboratory Results 01/08/24 Range/Units 05:39 Sodium 140 (136-145) mmol/L Potassium 3.3 L (3.5-5.1) mmol/L Chloride 99 (98-107) mmol/L Carbon Dioxide 37 H (21-32) mmol/L Anion Gap 4 (3-11) BUN 15 (6-23) mg/dl Creatinine 0.71 (0.6-1.2) mg/dl Est Cr Clr Drug Dosing 71.8 ml/min Est GFR ( Amer) 95.9 ml/min Est GFR (Non-Af Amer) 82.7 ml/min BUN/Creatinine Ratio 21.1 H (10-20) Glucose 94 (70-99(Fasting)) mg/dl Calcium 9.2 (8.6-10.3) mg/dl Magnesium 1.9 (1.7-2.4) mg/dl Digoxin 0.8 (0.8-2.0) ng/ml PG Care Time/CCT Total # of Minutes Spent Total Time Spent with Patient: Total time spent is greater than 50% in coordination of care (as documented) at patient's floor/unit and/or counseling patient: Coding Level of Care Code 76385 SUB INP/OBS CARE 3/50MIN Diagnoses Sepsis due to urinary tract infection A41.9; N39.0 Atrial fibrillation I48.91 CHF (congestive heart failure) I50.813 Heart failure chronicity: acute on chronic Heart failure type: right-sided Altered mental state R41.82 CAD (coronary artery disease) I25.10 Anemia D64.9 (3) CHF (congestive heart failure) Heart failure chronicity: acute on chronic Heart failure type: right-sided Qualified Code(s): I50.813 - Acute on chronic right heart failure
[2024-01-08] MEDS: POTASSIUM CHLORIDE CRTAB 20 MEQ TABCR PO STA (08:25)
--- NOTE | 2024-01-08 14:18 | XRay Report ---
XR chest 1V portable CLINICAL HISTORY: f/u TECHNIQUE: Single frontal radiograph of the chest was obtained. Comparison: Comparison is made to chest radiograph 01/06/2024 FINDINGS: An implanted pacemaker is seen. Redemonstration of fractured median sternotomy wires. Cardiomegaly is noted. The aortic arch is calcified. Prominence and cephalization of the vasculature is seen. No ivonne dence of pleural effusion or pneumothorax. IMPRESSION: Cardiomegaly with stable mild pulmonary edema. ACT 112: Negative or not required by law. Electronically signed by: Mayo Sanderson M.D. 01/08/2024 2:16 PM
[2024-01-09 06:20] LABS: BUN Creatinine Ratio 24.1 (10-20); Calcium 9.1 mg/dl (8.6-10.3); Est GFR (African American) 84.3 ml/min; Est GFR (Non-African American) 72.7 ml/min; Potassium 3.6 mmol/L (3.5-5.1)
--- NOTE | 2024-01-09 07:57 | Hospitalist Progress Note ---
Date of Service January 09, 2024 Assessment & Plan (1) Sepsis due to urinary tract infection: Plan: *Sepsis due to Escherichia coli [E. 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 - hypotensive, tachypneic and hypoxic on arrival. sepsis fluid resuscitation deferred due to CHF exacerbation On admission, WBC 14k, Procal 0.75, lactate 1.1 Positive urine culture - outside records confirm ESBL E.coli 12/27 Urine/blood cultures: + e.coli ESBL Repeat blood cultures 12/29: NGTD x 5 days IV Ertapenem started 12/27, discussed w/ ID (see prior note) --> transitioned to Cipro 750mg BID (end date 01/11). Rodriguez in place for diuresis/incontinence issues Mental status improved since switching from carbapenem WBC remained wnl on repeat testing, remains afebrile Renal function stable w/ continued diuretics w/ Bumex/spironolactone as below, repeat ECHO w/ improvement in EF PT/OT consulted and [facility], possible dc tomorrow if labs remain stable/diuresis stable Called and left voicemail for daughter w/ update this afternoon to call back if any questions/concern Labs in AM (2) Atrial fibrillation: Plan: Suspected aflutter contributing some to her reduced EF/cardiomyopathy and likely in this more regularly over past several months Cards consulted, Dr Cardenas s/p pacemaker implantation with Dr Cardenas 01/04 Continue increased Metoprolol 100mg daily - new rx at dc Digoxin 0.125mcg daily -- new rx at dc, level 0.8 Eliquis resumed post -pacemaker and hgb remaining stable Telemetry monitoring. Per cards, plan for f/u in office to get into NSR (3) CHF (congestive heart failure): Plan: *Acute on chronic systolic (congestive) heart failure Up 4kg since discharge 8 days prior, to be on lasix 80mg daily at home BNP 810 on admit, CXR w/ congestion, O2 use to maintain sats Lasix 40mg IV BID, increased to 60mg IV BID 01/02 w/ improvement in renal function/improvement in weights, held evening dose 4/3 due to borderline BPs Continues on AHA diet, 1800cc/restriction a day Losartan placed on hold while working on diuresis Metoprolol increased to 100mg and continued Lasix IV up front, transitioned to bumex 2mg PO daily on 01/06, continued added spironolactone 12.5mg daily Limited ECHO 01/06 w/ IMPROVEMENT in EF, 50-55% Continues on bumex 2mg, spironolactone 12.5mg for now. Renal function stable. K replacement ordered --> Net negative 1.5L despite weights up in system (bedscale) and LE edema improved and will continue current diuretic regimen and monitor output/weight in AM. Consideration to increase spironolactone if needed however will hold off for now/touch base w/ Dr Baires in AM if needed. Can also consider adding back her losartan if BPs allow Labs in AM, supplemental O2 to maintain sats (2L w/ sleeping, outpt sleep study rec'd) (4) Altered mental state: Plan: Suspect metabolic encephalopathy w/ delirium Baseline lewy body dementia, but daughter reports that she is normally able to answer orientation questions (daughter reports in morning patient does tend to be worse/improves in afternoon per discussion 01/03) Head CT: no acute findings more confused 12/30, daughter reports last admission she kept asking about going home and seeing her boyfriend and has not asked that once. Daughter aware that patient's conditions are progressive and she is not going to make a "miraculous recovery". Discussed hospital delirium worsening baseline dementia. Daughter suspects will need more nursing care after rehab, reports family have been talking about next steps. I encourage daughter to continue discussions about goals of care and going forward how much they would want done seems to be baseline 01/02 and during exam 01/03 alert to person but not clear in hospital or having procedure today / Has been on IV ertapenem for UTI as above (got 7 days/doses) --> switched to Ciprofloxacin as above and monitoring. mentation appears improved 01/05--> improved/stable on exam, frequent orientations/delirium strategies 01/06-- continue cipro, tolerating well. appearing alert/oriented for myself 01/07 IMPROVED, APPEARS AT BASELINE. SUSPECT CARBAPENEM/CHF contributing and since dc of ertapenem and switch in diuretics patient appearing much improved (5) CAD (coronary artery disease): Plan: Troponin elevated 53 --> 52 --> 26, suspect *Demand ischemia suspected 2nd to volume overload No CP reported at present time Continues metoprolol, ASA, statin (6) Anemia: Plan: Chronic. Stable. Seen by GI last admission - avoid NSAIDs, continued PPI however increased PPI to BID as prior recommended but was ordered once daily on admission Umu resumed post pacemaker and remained on asa and hgb remained stable/improved w/ diuresis Plan DVT proh: Umu RESUMED post-pacemaker Updated daughter Lauren by phone AM 01/05, voicemail left for her 01/07 Plan for [facility] tomorrow pending urine outpt/O2 sats and electrolytes in AM. Will plan to discuss plan of care w/ daughter prior to dc Monitor for need for increased spironolactone/resumption of losartan if BP allows Admission and Anticipated Discharge Date Admission Date: December 28, 2023 Results & Data Results & Data Vital Signs (Past 12 Hours) Vital Signs Temp Pulse Pulse Resp BP BP Pulse Ox 01/09/24 06:57 36.5 C 76 18 95/59 L 94 01/09/24 03:00 36.6 C 75 14 99/62 L 92 01/08/24 23:24 78 01/08/24 22:56 36.7 C 76 26 H 91/53 L 93 01/08/24 22:24 O2 Del Method O2 Flow Rate 01/09/24 06:57 Nasal Cannula 2 01/09/24 03:00 Nasal Cannula 01/08/24 23:24 01/08/24 22:56 Nasal Cannula 01/08/24 22:24 Nasal Cannula 1 Laboratory Results 01/07/24 03:52 01/09/24 05:25 PG Care Time/CCT Total # of Minutes Spent Total Time Spent with Patient: Total time spent is greater than 50% in coordination of care (as documented) at patient's floor/unit and/or counseling patient: Coding Diagnoses Sepsis due to urinary tract infection A41.9; N39.0 Atrial fibrillation I48.91 CHF (congestive heart failure) I50.813 Heart failure chronicity: acute on chronic Heart failure type: right-sided Altered mental state R41.82 CAD (coronary artery disease) I25.10 Anemia D64.9 (3) CHF (congestive heart failure) Heart failure chronicity: acute on chronic Heart failure type: right-sided Qualified Code(s): I50.813 - Acute on chronic right heart failure
[2024-01-09] MEDS: POTASSIUM CHLORIDE CRTAB 20 MEQ TABCR PO STA (08:22)
--- NOTE | 2024-01-09 11:11 | Discharge Summary ---
Date of Service January 09, 2024 Admission HPI Per Admitting Provider Petrona is 78F with a PMH of CHF, anemia, lewy body dementia, depression, HTN, CAD, HLD that presents from [facility] after concerns for lethargy and decreased mental status. Patient with recent admission and discharge 12/19 for CHF exacerbation with rhino/enterovirus. Daughter Razia is at bedside and provides most of the history - reports that the custodial called her reporting the patient was acting more lethargic today and not answering questions, but did eat yesterday. Per daughter, they checked her urine that showed ESBL E.Coli but does not sound like she had been started on antibiotics. Daughter had not seen patient since her most recent discharge from the hospital, but reports there should be no medication changes, she was supposed to have appointment with the CHF clinic yesterday but had to cancel. No falls to her knowledge. Daughter reports that she is not on a specific diet at [facility] for her CHF. Petrona does open her eyes and follow some commands. Tells me that she feels lousy, and has a headache. Doesnt remember if she ate breakfast this morning. Does know that we are in [place] and in the [facility]. Unable to tell me the year (daughter states this is not normal for her) ED course - CTX 2g . Admission Exam Per Admitting Provider General: NAD, arousable, able to follow some commands. VS as above Resp: diminished in bases, on 2L, abdominal muscle use for breathing CV: RRR, no murmur, Abd: normal bowel sounds, non tender, no hepatosplenomegaly Extremities: Moves all extremities, 1+ edema bilateral LE Neuro: A&O to self and situation. Skin: intact, no lesions noted Principal Diagnosis Sepsis, ESBL Ecoli, CHF exacerbation Discharge Exam General: 78yo female resting in bed, NAD, reports feeling improved HEENT: atraumatic, normocephalic, mmm, trachea midline Chest: pacemaker site to L chest, mild ecchymosis/redness but no drainage/evidence for infection, mild tenderness to palpation (improved compared to prior) Resp: diminished in the bases, fine associated crackles, improvement in air entry, on 1L NC CV: aflutter on telemetry, rates 70-80s, no significant m/r/g, 1+ LE edema, improved from day prior GI: +BS, soft/NT : salazar draining yellow urine MSK/Neuro: generalized weakness but nonfocal, no slurred speech/facial droop, following commands slight edema to R wrist improved, improvement in flexion/extension of wrist, pulses palpable (?2nd to recent IV draw) Psych: AOx3, cooperative with exam Discharge Data Allergies Allergy/AdvReac Type Severity Reaction Status Date / Time latex Allergy Mild RASH Verified 12/28/23 15:40 tingly morphine AdvReac Intermediate NAUSEA AND Verified 12/28/23 15:40 VOMITING Consultations 12/28/23 15:19 ED Decision to Admit Stat 12/29/23 13:44 Consult Cardiology Routine 12/30/23 10:19 Consult Cardiology Routine Procedures Performed Operation Date: 01/04/24 10:00 Actual Procedures p Pacer with A/V Leads (Dual) - Stevan Cardenas MD Ordered Studies Chest X-Ray 12/28/23 14:03 XR chest 1V portable CLINICAL HISTORY: Sepsis. COMPARISON STUDY: Chest CT July 25, 2019. Chest radiograph December 14, 2023. FINDINGS: Exam was compromised given difficulty positioning. There are median sternotomy wires. Cardiomegaly is unchanged. Prominent right mediastinal contour is likely due to a rotated study. Elevation of the right hemidiaphragm is unchanged. There is no pneumothorax or pleural effusion. Mild interstitial thickening is noted. Right basilar opacity is present. IMPRESSION: 1. Rotated study. 2. Cardiomegaly with mild pulmonary edema, similar to prior exam. 3. Right basilar opacity which favors atelectasis. ACT 112: Negative or not required by law. Electronically signed by: Armaan Miramontes M.D. 12/28/2023 3:[address] 12/28/23 14:03 CT SCAN OF THE BRAIN WITHOUT IV CONTRAST CLINICAL HISTORY: Change in mental status COMPARISON STUDY: No priors TECHNIQUE: Unenhanced axial CT scan of the brain is performed from the vertex to the skull base. A dose lowering technique was utilized adhering to the principles of ALARA. The patient was scanned twice due to motion artifact. CT DOSE: 1253.33 mGy.cm FINDINGS: Brain parenchyma: There is age-related involutional change noting advanced subcortical and periventricular microangiopathic disease. There is no hemorrhage, mass effect, or evidence of acute territorial ischemia by CT criteria. Torres-white matter differentiation is preserved. No extra-axial fluid collection is seen. Ventricles, sulci, cisterns: Prominent secondary to involutional change. Intracranial vasculature: There is atherosclerotic calcification of the cavernous carotid and vertebral arteries. Calvarium: Unremarkable. Sinuses and mastoids: There is trace mucosal thickening in the right maxillary antrum. The remaining paranasal sinuses are clear. The mastoid air cells are well pneumatized. Orbits: The bony orbits are grossly intact. There are bilateral ocular lens implants. IMPRESSION: There is no hemorrhage, mass effect, or evidence of acute territorial ischemia by CT criteria noting a motion degraded examination. ACT 112: Negative or not required by law. Electronically signed by: Gus Yang M.D. 12/28/2023 2:39 PM Chest X-Ray 12/31/23 09:08 XR chest 2V PA/lateral CLINICAL HISTORY: continued hypoxia COMPARISON STUDY: Chest CT July 25, 2019. Chest radiograph December 28, 2023. FINDINGS: Median sternotomy wires are noted. Moderate cardiomegaly. No pneumothorax or pleural effusion is present. Linear right lung densities favor atelectasis. There is pulmonary vascular congestion. No consolidation is identified to suggest pneumonia. Mediastinal contours are stable. IMPRESSION: Cardiomegaly with pulmonary vascular congestion. ACT 112: Negative or not required by law. Electronically signed by: Armaan Miramontes M.D. 12/31/2023 11:11 AM Chest X-Ray 01/04/24 09:06 XR chest 1V portable HISTORY: 78 years-old Female f/u chf acute shortness of breath COMPARISON: 12/31/2023 TECHNIQUE: AP view of the chest FINDINGS: Cardiac silhouette is enlarged. Unchanged right hemidiaphragmatic elevation. Left subclavian pacer. Median sternotomy with numerous fractured wires. No pneumothorax or large pleural effusion. Pulmonary vascular congestion and interstitial coarsening. Degenerative changes of the shoulders and spine. Upper abdominal surgical clips. IMPRESSION: 1. Cardiomegaly with pulmonary vascular congestion. 2. Stable findings as above. ACT 112: Negative or not required by law. The above report was generated using voice recognition software. It may contain grammatical, syntax or spelling errors. Electronically signed by: John Cerna M.D. 01/04/2024 2:56 PM Chest X-Ray 01/05/24 07:00 XR chest 2V PA/lateral HISTORY: 78 years-old Female EXACT TIME ORDERED Evaluate for pneumothorax and l status post placement of a dual lead left subclavian pacer COMPARISON: 01/04/2024 TECHNIQUE: AP and lateral views of the chest FINDINGS: Cardiac silhouette is enlarged. Unchanged right hemidiaphragmatic elevation. Left subclavian pacer. Median sternotomy with numerous fractured wires. No pneumothorax. Probable trace pleural effusions. Pulmonary vascular congestion with progressive interstitial coarsening. Degenerative changes of the shoulders and spine. Upper abdominal surgical clips. IMPRESSION: 1. Cardiomegaly with progressive pulmonary edema. 2. No pneumothorax. ACT 112: Negative or not required by law. The above report was generated using voice recognition software. It may contain grammatical, syntax or spelling errors. Electronically signed by: John Cerna M.D. 01/05/2024 9:14 AM Chest X-Ray 01/06/24 07:00 XR chest 1V portable HISTORY: 78 years-old Female follow up congestion acute shortness of breath COMPARISON: 01/05/2024 TECHNIQUE: AP view of the chest FINDINGS: Cardiac silhouette is enlarged. Left subclavian pacer. Numerous fractured sternotomy wires are redemonstrated. Atherosclerosis of the aorta. Pulmonary vascular congestion. There is no pneumothorax or large pleural effusion. Mild bibasilar atelectasis. Improving pulmonary edema. Healed chronic left-sided rib fractures. IMPRESSION: 1. Cardiomegaly with mildly improved pulmonary edema. 2. Mild bibasilar atelectasis. ACT 112: Negative or not required by law. The above report was generated using voice recognition software. It may contain grammatical, syntax or spelling errors. Electronically signed by: John Cerna M.D. 01/06/2024 7:01 AM Wrist X-Ray 01/06/24 12:27 XR wrist RT min 3V routine HISTORY: 78 years-old Female pain, swelling acute pain and swelling of the right wrist COMPARISON: None TECHNIQUE: 4 views of the right wrist FINDINGS: Moderate circumferential soft tissue swelling. Chondrocalcinosis. Negative ulnar variance. Severe first carpometacarpal and triscaphe osteoarthritis with chronic remodeling. Demineralized appearance of the bones. No acute fracture, dislocation, radiopaque foreign body or osseous erosion. Arterial calcifications. IMPRESSION: Soft tissue swelling without acute fracture or dislocation. ACT 112: Negative or not required by law. The above report was generated using voice recognition software. It may contain grammatical, syntax or spelling errors. Electronically signed by: John Cerna M.D. 01/06/2024 1:27 PM Chest X-Ray 01/08/24 08:01 XR chest 1V portable CLINICAL HISTORY: f/u TECHNIQUE: Single frontal radiograph of the chest was obtained. Comparison: Comparison is made to chest radiograph 01/06/2024 FINDINGS: An implanted pacemaker is seen. Redemonstration of fractured median sternotomy wires. Cardiomegaly is noted. The aortic arch is calcified. Prominence and cephalization of the vasculature is seen. No evidence of pleural effusion or pneumothorax. IMPRESSION: Cardiomegaly with stable mild pulmonary edema. ACT 112: Negative or not required by law. Electronically signed by: Mayo Sanderson M.D. 01/08/2024 2:16 PM ECHOCARDIOGRAM 01/07/2024 Limited 2D study to assess LV function. 1. Normal LV size. Normal LV wall thickness. LVEF 50-55%. Severe hypokinesis of basal to mid inferior, basal inferolateral segments. Abnormal septal motion. RV moderately dilated with moderately reduced function. No gross valvular pathology. Normal estimated RA pressure. Compared with prior study on 12/16/2023: LV function improved. RV less dilated. Hospital Course (1) Sepsis due to urinary tract infection: *Sepsis due to Escherichia coli [E. coli] 78yo female presented [facility] [place] with lethargy and altered mental status over prior day with recent admission and discharge on 12/19 for CHF exacerbation/rhinovirus/enterovirus. Of note, patient was discharged on low dose seroquel which was not continued on admission and could have been contributing as well On admission, hypotensive, tachypneic and hypoxic. WBC 14k, procal 0.75, Lactic 1.1. Sepsis fluid resuscitation deferred due to CHF exacerbation Urine cx outside records w/ ESBL Ecoli Given Ceftriaxone 2gm IV in ER and escalated IV abx to Ertapenem and Vancomycin initially for broad spectrum coverage. Urine/blood cultures from 12/27 confirm ESBL Coli bacteremia Was continued on IV ertapenem and was going to complete 14 day course on such (initially placed US guided IV to R arm), however discussed given intermittent confusion/AMS on carbapenems and patient w/ hx LBD with blood/urine cx w/ sensitivities to FLQ and ID provider cotton grower was contacted for discussion and agreed given quick clearance on repeat blood cultures and already received 7 days IV ertapenem if cultures sensitive to FLQ (which they were), recs to complete course on Cipro 750mg PO BID to complete 10-14 day course. --> Planning for 14 days given salazar placement for accurate I&Os but also to prevent worsened skin breakdown to buttocks given incontinence issues. WBC remained wnl on repeat lab draws with switch to Ciprofloxacin and remained afebrile with improvement in her mental status Salazar remaining in place at dc as discussed w/ patient and daughter and would do voiding trial in next 24-48 hours if improvements with therapy but hopefully able to remove prior to competition of abx therapy. Urine CLEAR yellow in salazar prior to dc, renal function remaining stable. PT/OT consulted while inpatient, recommendations for [facility] See below regarding CHF exacerbation/aflutter, needs cardiology and CHF clinic follow up at discharge and should have labs this week to ensure renal function remaining stable (2) Bacteremia: 2nd to ESBL Ecoli UTI. Ertapenem IV--> Cipro PO to complete 14 day course (750mg BID) (3) CHF (congestive heart failure): *Acute on chronic systolic (congestive) heart failure Up 4kg from discharge, on lasix 80mg daily at home. Of note, had been rx Seroquel 25mg at dc prior week for sleep deprivation. BNP 810 on admit, CXR w/ congestion and hypoxia requiring supplemental O2 Cardiology/CHF clinic on consult while inpatient Lasix IV BID, increased to 60mg IV BID on 01/02 with improvement in renal function and weights, added spironolactone 12.5mg and transitioned lasix to bumex 2mg PO on 01/06 for ongoing diuresis BB increased for aflutter w/ increased rates, pacemaker placement as below Limited ECHO obtained for assessment in LV function compared to prior w/ IMPROVEMENT in LV function, RV less dilated. EF 50-55% Of note, suspect degree underlying sleep apnea playing role. Was able to titrate to room air, overnight study w/ drop. Continue 2L HS, supplemental O2 during day as needed to maintain sats (1L prior to dc) Recommended to patient and daughter that patient have formal outpatient sleep study but can use 2L HS in meantime Weight 88.6kg from 90kg over past 24 hours (negative 1.6L), urine clear in salazar and LE edema improved/breathing reported improved and less O2 use Continue AHA diet, fluid restriction at dc At discharge, to continue bumex 2mg PO daily, spironolactone 12.5mg daily. To resume her losartan and would rec for repeat BMP this week to ensure renal function/potassium staying stable Continue to monitor weights daily No SGLT2i 2nd to UTIs. F/u CHF clinic. (4) Atrial fibrillation: Suspected aflutter contributing some to her reduced EF/cardiomyopathy and likely in this more regularly over past several months On eliquis on admission, held for pacemaker placement with Dr Cardenas on 01/04 for atrial flutter w/ elevated rates and variable AV block Metoprolol increased to 100mg daily for rate control, digoxin 0.125mcg daily and level 0.8 on check Telemetry monitoring with heart rates well controlled and cards plans on switching her to NSR in office check. Did not do while inpatient due to her being off AC for placement (5) Altered mental state: CT head without acute findings Baseline w/ reported hx LBD Multifactorial: Suspect combination of seroquel prior to admission (since discontinued/not continued on admission), sepsis/bacteremia 2nd to ESBL Ecoli UT I, acute CHF exacerbation and abx contributing Abx switched to Cipro, tolerating as above. Diuresis as outlined Had been seen multiple days w/ friend D at bed, reported continued improvement. Of note, does have periods of confusions at times when she first wakes up but once awake had been quiet well --> Frequent orientation, treatment as above and appears much improved from last week/baseline Would avoid any seroquel or medications for such at this time given admission w/ hypotension and hx HF and was not aggressive/agitated or combative with staff PT/OT obtained and discharged to [facility]. Would rec continue discussions about goals of care in f/u PCP and consider POLST form completion. (6) CAD (coronary artery disease): Troponin elevated 53 --> 52 --> 26, suspect *Demand ischemia suspected 2nd to volume overload No CP reported Continued metoprolol, increased to 100mg daily as above Continued ASA, statin, eliquis BID. Losartan to be resumed. Spironolactone added for above, lasix switched to bumex (7) Anemia: Chronic. Stable w/ repeat lab draws. Prior admit was seen by GI, recs to avoid NSAIDs and PPI increase to BID Protonix ordered once daily on admission, increased to BID and continued such at discharge given prior recs (notable her stool occult was negative at that time) however she is on eliquis and aspirin and likely benefit for GI proph and had improvement in PO intake/bowels moving without reported issue Of note did some bruising/swelling to her R wrist, did have lab draw from hand that morning --> xray negative given reported pain. Heat/pain control/elevation w/ improvement, pulses palpable but did have US guided IV to her RUE and was removed prior to dc but will need to monitor for any issues Plan DVT proph: Eliquis RESUMED post-pacemaker, no calf edema/evidence for DVT. PT/OT recs for rehab, [facility] arranged. Updated daughter by phone 01/08 prior to discharge regarding plan and CM arranged transportation Medication changes at discharge -- Cipro 750mg PO BID to complete 14 day total course (end date 01/11) -- Salazar continued, voiding trial next 24-48hrs pending improvement in mobility w/ activity due to skin breakdown to buttocks -- Lasix dc'd, switched to bumex 2mg PO, spironolactone 12.5mg. To resume lo sartan. Monitor BMP this week, CHF clinic follow up. Low salt diet/fluid restriction -- Metoprolol increased to 100mg daily, digoxin 0.125mg daily, Dr Cardenas f/u for pacemaker f/u No further seroquel Total Time Total Time Spent Total Time Spent (In Minutes): 70 Discharge Plan Discharge Items Patient Disposition: Transfer Inpatient Rehab Fac Reason For Visit: SEPSIS, UTI, CHF Discharge Diagnosis: Sepsis, UTI, congestive heart failure Goals: You have been hospitalized for an urgent problem which required surgery. During your stay at [facility], we have made an effort to correct the problem that brought you to the hospital while keeping you as comfortable as possible. Surgery and medications were used to bring your condition under control and your discharge instructions will include directions for any medications you should take after leaving the hospital. Please make sure to follow the advice of your surgeon regarding follow up with the surgeon and with your primary care provider. Activity: As commented below Non-emergency contact: Primary Care Provider and Jacquard Card Lacer Call non-emergency contact if: you have any medication questions, your symptoms worsen, your pain is concerning for you and you have a fever Follow-up/Referrals: Stevan Cardenas MD [Physician] - 02/21/24 1:00 pm Sharri Mixon PA-C [Physician Rigging Supervisor] - 01/13/24 11:30 am (Congestive Heart Failure Program Appointment Information Early follow up is essential to managing your heart failure. An appointment has been scheduled for you with the [facility] Heart [facility] Program within 7 days of discharge. Anticipate this visit to be 30-60 minutes long. Please expect a dry man phone call from one of our nurses approximately 48 hours from discharge. They will also be placing an order for lab work to be completed 1-2 days prior to your heart failure follow up appointment. Please be sure to have this done so we can go over the results when you come in. Office Location The cardiology office building is located in front of the hospital at [address]. Bring the following with you to your follow-up doctor appointments: Please bring your daily weight log any discharge paperwork all of your medication bottles with you to this visit. ) Johnny Huerta [Primary Care Provider] - Diet: Heart Healthy Fluids: 1800ml (7 cups) Addtl Attending Provider Instructions: You have been hospitalized for sepsis and found to have ESBL Ecoli in your urine and blood. You have been treated with IV antibiotics for 7 days and was discussed with infectious disease provider and you should continue Ciprofloxacin 750mg by mouth twice daily through 01/11 to complete 14 day course. You were also found to be in aflutter with lower rates/pauses at times as well as heart failure with reduced pumping function on your echo. Cardiology was consulted and you underwent placement of pacemaker with Dr Cardenas and he will be getting you back into a normal rhythm in the office during checkup given you were off your eliquis to have this placed we didn't want to do this too soon to prevent risk of any possible stroke. Instructions for pacemaker are listed below by Dr Cardenas in additional senior solutions consultant instructions. You have been started on a medication digoxin per Dr Cardenas and this is to be continued 0.125mcg daily. Your metoprolol has been increased to 100mg daily to help keep your rates controlled which they have been. Your diuretics were adjusted and at discharge your LASIX has been STOPPED. This has been changed to BUMEX (bumetanide) 2mg by mouth ONCE daily along with spironolactone 12.5mg by mouth once daily. You should have oxygen 2liters at night and outpatient sleep study for possible underlying sleep apnea which could worsen heart failure as well. Your repeat ultrasound of the heart showed IMPROVEMENT in your pumping function! Hopefully with ongoing management and optimization we can getting you to continue to feel better. You should be weighing yourself and monitoring for any weight gain and will have follow up with the CHF clinic, Marge Mixon, who you have seen in the past. Therapy evaluations were undertaken and arrangements made for [facility] for rehab at discharge. You should likely have repeat labs this upcoming week to ensure your renal function is remaining stable on this regimen and no need for further adjustments. Your omeprazole or acid medication was increased to twice daily given prior positive blood in the stool and your hemoglobin level has remained stable without further bleeding reported/observed. You had a salazar placed for incontinence issues and this will be continued at discharge and you can have a voiding trial at [facility] in the next couple of days. You should have follow up with primary care in the next 7-10 days after discharge. You should follow up with Dr Cardenas as well as the CHF clinic as discussed. Please return to the ER with any chest pain/worsening shortness of breath, fever/chills, or for any other symptoms concerning for you. Addtl Out Patient Therapist Provider Instructions: PACEMAKER INSTRUCTIONS ACTIVITY RECOMMENDATIONS: * Do not raise affected arm over head for 2 weeks. SPECIAL CARE INSTRUCTIONS: * If bleeding occurs, apply direct pressure to area for 5 minutes. * Call your doctor if you have severe pain, fever, drainage or bleeding at site. * Keep any scheduled doctor's appointment. * Implant Card - hand held device with website information given. SKIN IRRITATION: * You may experience some redness and/or swelling in the area where radiation was administered. If any skin irritation occurs, please contact your family physician. FOLLOW UP VISIT: Keep any scheduled doctor appointments. CHF INSTRUCTIONS Call 911 and go to the Emergency Room if: * You have tightness or pain in your chest that does not go away with rest or Nitroglycerin * You are very short of breath even with rest Call your doctor if any of the following symptoms or problems start or get worse: * Shortness of breath or difficulty breathing * Wake up at night short of breath * Chest pain * Cough * Swelling of your hands, fee, or legs * More fatigued or tired with your normal activity * Palpitations - sudden fast heart beats WEIGHT * Weigh yourself every morning after using the bathroom. * Use the same scale. * Wear the same amount of clothing. * Write your weight down on your chart. * Call your doctor if you gain more than 2-3 pounds in 1-2 days. MEDICATIONS * Use this discharge instruction sheet for instructions. * Take your medications at the time your doctor ordered. * Do not skip a dose of your medicines. * If you miss a dose of medicine, take as soon as possible, but DO NOT DOUBLE A DOSE. * Read your medicine information when you get home. * Know all of the side effects of your medicine. * Call your doctor's office if you have any side effects. * Be sure all of your doctors know what medicine and herbs you take (including cold, flu, and herbal medicine). * Pain Medicine: If you do not get relief from your pain, please call your doctor for help. Take the following with you to your follow-up doctor appointments: * Weight Chart * Medication List * List of questions Do not drink excessive alcohol, beer or wine. Pending Studies at Discharge: No Stand-Alone Forms: [facility] Skilled Items Patient informed of condition?: Yes DNR: Yes Discharge Level of Care: Acute rehab Communicable Disease: Yes Discharge Prognosis: Improving Lines: None Urinary Catheter: Yes Medications and DC Order Prescriptions: New metoprolol succinate 50 mg Tablet Extended Release 24 Hr 100 mg PO QAM Qty: 60 0RF spironolactone 25 mg Tablet 12.5 mg PO DAILY Qty: 30 0RF bumetanide 1 mg Tablet 2 mg PO QAM Qty: 60 0RF digoxin [Digitek] 125 mcg (0.125 mg) Tablet 0.125 mg PO DAILY@1600 Qty: 30 0RF ciprofloxacin HCl 250 mg Tablet 750 mg PO BID Qty: 7 0RF Continued Lyrica 100 mg capsule 100 mg PO BID Qty: 180 0RF (DME) ThermaCare Cold Wrap Joint pad See Dose Instructions .ROUTE .MEDSUPPLY Qty: 1 3RF Dose Instruction: As directed Rx Instructions: Apply once daily to sore spots melatonin 5 mg tablet 20 mg PO HS acetaminophen [Tylenol] 325 mg Tablet 650 mg PO Q4H PRN (Reason: PAIN/FEVER) atorvastatin 10 mg tablet 10 mg PO HS sennosides-docusate sodium [Stimulant Laxative Plus] 8.6-50 mg Tablet 1 tab-cap PO HS ferrous sulfate [FeroSul] 325 mg (65 mg iron) Tablet 325 mg PO QAM calcium carbonate [Calcium Antacid] 200 mg calcium (500 mg) Tablet,Chewable 200 mg PO Q4H PRN (Reason: Dyspepsia) losartan 25 mg Tablet 25 mg PO QAM fluoxetine 10 mg Capsule 10 mg PO QAM Rx Instructions: TOTAL DOSE 30 MG--TAKES WITH 20 MG CAP. aspirin 81 mg Tablet,Chewable 81 mg PO QAM folic acid 1 mg Tablet 1 mg PO QAM albuterol sulfate 90 mcg/actuation Hfa Aerosol Inhaler 2 puff INHALATION Q4H PRN (Reason: Shortness Of Breath Or Wheezing) fluoxetine 20 mg capsule 20 mg PO QAM Rx Instructions: TOTAL DOSE 30 MG--TAKES WITH 10 MG CAP. cholecalciferol (vitamin D3) [Vitamin D3] 50 mcg (2,000 unit) Capsule 50 mcg PO QAM Eliquis 5 mg Tablet 5 mg PO BID acetaminophen [Tylenol] 325 mg Tablet 650 mg PO BID eucalyptus-menthol Lozenge 1 camille MUCOUS MEMBRANE Q2H PRN (Reason: Cough) Orajel 3X Mouth Sores 20-0.1-0.15 % Gel 1 ea MUCOUS MEMBRANE DIRECTED PRN (Reason: MOUTH SORES PAIN) Changed omeprazole 40 mg capsule,delayed release(DR/EC) 40 mg PO BID Qty: 60 0RF Discontinued metoprolol succinate 50 mg Tablet Extended Release 24 Hr 50 mg PO QAM furosemide [Lasix] 80 mg Tablet 80 mg PO QAM Discharge Orders: Discharge Order (Routine); Ordered 01/09/24 Ordered By: Jasmyne Murcia Admission Data Admit Date/Time: 12/28/23 17:32 Attending Provider: Christian Laws Admit Provider: Mellissa Zazueta Primary Care Provider: Johnny Huerta Other Providers: Marv Nielsen; Sharri Mixon; [facility]; Romero Wang Other Interventions: Discharge Summary Assessment (RN) Last Done: 01/09/24 14:58 Supervising Physician Co-Signing Physician Notes the patient was not seen by me. The chart was reviewed. case discussed with RADHA Mora. Agree with assessment and plan. She is medically stable for discharge. Coding Level of Care Code 25546 INP/OBS DISCH >30 MIN Diagnoses Sepsis due to urinary tract infection A41.9; N39.0 Bacteremia R78.81 CHF (congestive heart failure) I50.813 Heart failure chronicity: acute on chronic Heart failure type: right-sided Atrial fibrillation I48.91 Altered mental state R41.82 CAD (coronary artery disease) I25.10 Anemia D64.9
== END 2024-01-09 15:23 | DRG 853 ==
LOC: SUATTDRO → ED 13:26 → 2E 17:32 → SUATTDRO 17:32 → 2E 12-29 00:34